=== PATIENT | male | born 1950 | race Caucasian/White ===

== ENCOUNTER 2020-01-20 09:07 | Outpatient (REF) | payer MEDICARE, OTHER, SELFPAY ==
[2020-01-20 11:24] LABS: Estimated Average Glucose 128 mg/dL; Hemoglobin A1c % 6.1 %
[2020-01-20 11:49] LABS: Alanine Aminotransferase 37 U/L (0-40); Albumin Level 4.6 g/dL (3.5-5.0); Alkaline Phosphatase 92 U/L (39-117); Anion Gap 13 (12-20); Aspartate Amino Transferase 19 U/L (5-37); Bilirubin Total 0.5 mg/dL (0.0-1.0); Blood Urea Nitrogen 13 mg/dL (9-16); Calcium 9.5 mg/dL (8.4-10.2); Carbon Dioxide 33 mmol/L (22-29); Chloride 99 mmol/L (96-108); Cholesterol 115 mg/dL; Estimated Glomerular Filt Rate > 60; Glucose Fasting 124 mg/dL (60-99); HDL Cholesterol 40 mg/dL; LDL Cholesterol Calculated 65 mg/dl; Potassium 4.5 mmol/l (3.3-5.1); Sodium 140 mmol/L (135-145); Total Protein 7.4 g/dL (6.5-8.0); Triglycerides 53 mg/dL
== END 2020-01-20 09:08 | disposition home or self-care (01) ==
LOC: HO.HMGCLDS 09:07
PROVIDERS: PCP Internal Medicine; Visit Provider Internal Medicine
DX: J45.909 Unspecified asthma, uncomplicated (principal); E78.2 Mixed hyperlipidemia; E11.9 Type 2 diabetes mellitus without complications
CPT/HCPCS: 80053; 80061; 83036; 84443

== ENCOUNTER 2020-04-14 12:10 | Outpatient (REF) | payer MEDICARE, OTHER, SELFPAY ==
[2020-04-14 14:51] LABS: Prostate Specific Antigen < 0.05 ng/mL (<0.05-4.0)
== END 2020-04-14 12:11 | disposition home or self-care (01) ==
LOC: HO.HMGCLDS 12:10
PROVIDERS: PCP Internal Medicine; Visit Provider Urology
DX: Z12.5 Encounter for screening for malignant neoplasm of prostate (principal); C61 Malignant neoplasm of prostate
CPT/HCPCS: 36415; 84153

== ENCOUNTER 2020-04-30 17:21 | Outpatient (REF) | payer MEDICARE, OTHER, SELFPAY | END 2020-04-30 17:22 | disposition home or self-care (01) | LOC: HO.LNP 17:21 | PROVIDERS: Visit Provider Hospitalist | DX: R30.0 Dysuria (principal) | CPT/HCPCS: 87086 ==

== ENCOUNTER 2020-05-28 09:07 | Outpatient (REF) | payer MEDICARE, OTHER, SELFPAY ==
[2020-05-28 11:44] LABS: Estimated Average Glucose 123 mg/dL; Hemoglobin A1c % 5.9 %
[2020-05-28 11:59] LABS: Alanine Aminotransferase 30 U/L (0-40); Albumin Level 4.5 g/dL (3.5-5.0); Alkaline Phosphatase 99 U/L (39-117); Anion Gap 11 (12-20); Aspartate Amino Transferase 17 U/L (5-37); Bilirubin Total 0.7 mg/dL (0.0-1.0); Blood Urea Nitrogen 15 mg/dL (9-16); Calcium 9.2 mg/dL (8.4-10.2); Carbon Dioxide 33 mmol/L (22-29); Chloride 100 mmol/L (96-108); Cholesterol 128 mg/dL; Estimated Glomerular Filt Rate > 60; Glucose Fasting 112 mg/dL (60-99); HDL Cholesterol 41 mg/dL; LDL Cholesterol Calculated 70 mg/dl; Potassium 4.3 mmol/L (3.3-5.1); Sodium 140 mmol/L (135-145); Total Protein 7.1 g/dL (6.5-8.0); Triglycerides 88 mg/dL
[2020-05-28 12:27] LABS: Creatinine Urine 180.38 mg/dL
== END 2020-05-28 09:08 | disposition home or self-care (01) ==
LOC: HO.HMGCLDS 09:07
PROVIDERS: PCP Internal Medicine; Visit Provider Internal Medicine
DX: E11.9 Type 2 diabetes mellitus without complications (principal); E78.5 Hyperlipidemia, unspecified; J45.909 Unspecified asthma, uncomplicated
CPT/HCPCS: 36415; 80053; 80061; 82043; 83036

== ENCOUNTER → 2020-07-29 09:15 | Outpatient (BNVA) | payer MEDICARE, OTHER, SELFPAY | PROVIDERS: PCP Internal Medicine; Referring Provider Internal Medicine; Visit Provider Internal Medicine Cardiovascular Disease | DX: I35.0 Nonrheumatic aortic (valve) stenosis (principal); E78.5 Hyperlipidemia, unspecified | CPT/HCPCS: 93005; 99212 ==

== ENCOUNTER → 2020-08-13 10:52 | Outpatient (REF) | payer MEDICARE, OTHER, SELFPAY ==
--- NOTE | 2020-08-13 10:55 | CA_ITS ---
Transthoracic Echocardiogram Patient (Last, First, Middle): Fernando Lu, Gender: Male Date of : 1950 Age: 70 Procedure Date: 08/13/2020 Procedure Type: Transthoracic Echocardiogram Location: OP Height: 167.64 cm Weight: 74.84 kg BSA: 1.84 m2 Heart Rate: bpm BP: 130 / 80 mmHg Block Chopper Hand: YAS Referring MD: Aidan Flor MD Symptoms: I35.0 - Nonrheumatic aortic (valve) stenosis Study Quality: Fair ECG Rhythm: Sinus Conclusions: - The left ventricular systolic function is normal. The visually estimated ejection fraction is between 60-65%. - There is moderate calcification of the aortic valve. There is mild aortic valve stenosis. Findings Left Ventricle Normal left ventricular cavity size. There is normal left ventricular wall thickness. The left ventricular systolic function is normal. The visually estimated ejection fraction is between 60-65%. There is no evidence of regional wall motion abnormalities. Diastolic function is normal for age. Right Ventricle Normal right ventricular cavity size and systolic function. Atria Both atria are normal in size. Aortic Valve There is moderate calcification of the aortic valve. There is mild aortic valve stenosis. The peak aortic gradient is 19 mmHg.The mean gradient is 10 mmHg. The aortic valve area is 1.40 cm2. There is no aortic valve regurgitation. Mitral Valve The mitral valve appears normal. There is trace mitral valve regurgitation. There is no mitral valve stenosis. Pulmonic Valve The pulmonic valve was not well visualized. Tricuspid Valve Normal tricuspid valve structure. There is trace tricuspid valve regurgitation. The pulmonary artery systolic pressure is normal. Great Vessels The aortic annulus, sinuses of valsalva, and asc aorta are normal in size. Venous The inferior vena cava is normal in size and collapses greater than 50% with inspiration. Pericardium/Pleural There is no evidence of pericardial effusion. Prior Study Comparison No significant change compared to prior study dated: 03/29/2018. Measurements 2D Linear Measurements IVSd: 1.01 0.6-0.9/0.6-1.0 cm LVIDd: 4.17 3.9-5.3/4.2-5.9 cm LVIDs: 2.78 2.0-3.6 cm LVPWd: 1.00 0.7-1.1 cm Ao Root: 3.71 2.1-3.5 cm LV Mass: 169.07 67-162/88-224 g LVOT Diam: 2.14 3.0+(-)1.3 cm Mitral Valve MV Pk E: 0.48 MV PK A: 0.81 MV Decel Time: 291.68 E/A: 0.60 E'Lateral: 0.09 E'Medial: 0.06 Decel Shelby: 1.66 Aortic Valve AoV Pk Toribio: 2.17 AoV Mn Toribio: 1.49 AoV VTI: 0.47 AoV Pk Grad: 18.80 Aov Mn Grad: 9.80 RAÚL Cont.VTI: 1.40 LVOT LVOT Pk Toribio: 0.77 LVOT Mn Toribio: 0.55 LVOT VTI: 0.18 LVOT Pk Grad: 2.35 LVOT Mn Grad: 1.36 LVOT Diam: 2.14 LVOT Area: 3.61 Diastolic Function MV Pk E: 0.48 MV Pk A: 0.81 E/A: 0.60 E'Medial: 0.06 E' Laterial: 0.09 Tricuspid Valve TR Pk Toribio: 1.74 TR Pk Grad: 12.09 RA Press: 3.00 RVSP: 15.00 Great Vessels Aorta Ao Root-2D: 3.71 2.0-3.7 cm Ao Asc: 3.43 2.1-3.4 cm Ao Arch: 3.01 Updated in Other Vendor System with Status of Final Bright Avendano MD electronically signed on 08/14/2020 2:01:03 PM with status of Final
== END ==
LOC: HO.CARD 10:52
PROVIDERS: Visit Provider Internal Medicine Cardiovascular Disease
DX: I35.0 Nonrheumatic aortic (valve) stenosis (principal)
CPT/HCPCS: 93306

== ENCOUNTER 2020-12-02 08:54 | Outpatient (REF) | payer MEDICARE, OTHER, SELFPAY ==
[2020-12-02 11:41] LABS: Estimated Average Glucose 123 mg/dL; Hemoglobin A1c % 5.9 %
[2020-12-02 12:22] LABS: Alanine Aminotransferase 51 U/L (0-40); Albumin Level 4.5 g/dL (3.5-5.0); Alkaline Phosphatase 100 U/L (39-117); Anion Gap 12 (12-20); Aspartate Amino Transferase 22 U/L (5-37); Bilirubin Total < 0.2 mg/dL (0.0-1.0); Blood Urea Nitrogen 18 mg/dL (9-16); Calcium 9.4 mg/dL (8.4-10.2); Carbon Dioxide 29 mmol/L (22-29); Chloride 103 mmol/L (96-108); Cholesterol 121 mg/dL; Estimated Glomerular Filt Rate > 60; Glucose Fasting 113 mg/dL (60-99); HDL Cholesterol 38 mg/dL; LDL Cholesterol Calculated 69 mg/dl; Sodium 140 mmol/L (135-145); Triglycerides 70 mg/dL
== END 2020-12-02 08:55 | disposition home or self-care (01) ==
LOC: HO.HMGCLDS 08:54
PROVIDERS: PCP Internal Medicine; Visit Provider Internal Medicine
DX: E11.9 Type 2 diabetes mellitus without complications (principal); E78.5 Hyperlipidemia, unspecified
CPT/HCPCS: 36415; 80053; 80061; 83036

== ENCOUNTER 2020-12-21 10:43 | Outpatient (REF) | payer MEDICARE, OTHER, SELFPAY ==
[2020-12-21 11:36] LABS: Hematocrit 50.6 % (42-52); Hemoglobin 16.4 g/dl (14.0-18.0); Mean Corpuscular HGB Conc 32.4 g/dl (31.0-36.0); Mean Corpuscular Hemoglobin 28.8 pg (27.0-33.0); Mean Corpuscular Volume 88.9 fL (80-98); Platelet Count 312 X10*3/uL (160-400); Red Blood Count 5.69 X10*6/uL (4.60-5.80); Red Cell Distribution Width 12.8 % (11.0-16.0); White Blood Count 9.3 X10*3/uL (4.8-10.8)
[2020-12-21 12:01] LABS: Alanine Aminotransferase 31 U/L (0-40); Albumin Level 4.9 g/dL (3.5-5.0); Alkaline Phosphatase 122 U/L (39-117); Amylase 67 U/L (28-100); Anion Gap 15 (12-20); Aspartate Amino Transferase 17 U/L (5-37); Bilirubin Direct 0.2 mg/dL (0.0-0.5); Bilirubin Total 0.5 mg/dL (0.0-1.0); Blood Urea Nitrogen 11 mg/dL (9-16); Calcium 10.1 mg/dL (8.4-10.2); Carbon Dioxide 31 mmol/L (22-29); Chloride 100 mmol/L (96-108); Estimated Glomerular Filt Rate > 60; Glucose Random 115 mg/dL (60-115); Lipase 17 U/L (8-78); Potassium 4.5 mmol/L (3.3-5.1); Sodium 141 mmol/L (135-145); Total Protein 7.7 g/dL (6.5-8.0)
== END 2020-12-21 10:44 | disposition home or self-care (01) ==
LOC: HO.HMGCLDS 10:43
PROVIDERS: PCP Internal Medicine; Visit Provider Internal Medicine
DX: R10.13 Epigastric pain (principal); R74.8 Abnormal levels of other serum enzymes
CPT/HCPCS: 36415; 80048; 80076; 82150; 83690; 85027

== ENCOUNTER 2020-12-23 13:44 | Outpatient (REF) | payer MEDICARE, OTHER, SELFPAY ==
--- NOTE | ~2020-12-23 | US_ITS ---
EXAMINATION: US ABDOMEN COMPLETE CLINICAL INFORMATION: Elevated LFTs. COMPARISON: Ultrasound abdominal aorta 11/22/2012 TECHNIQUE: Real-time imaging of the abdominal viscera. Technically difficult study secondary to body habitus. FINDINGS: PANCREAS: Not well visualized due to bowel gas. ABDOMINAL AORTA: The proximal, mid, and distal segments are normal in caliber. INFERIOR VENA CAVA: Visualized portions are normal. LIVER: The liver is normal in size. The liver contour is normal. Liver echotexture is slightly increased. No focal hepatic lesion. There is no intrahepatic biliary duct dilatation seen. GALLBLADDER: Normal. The gallbladder is physiologically distended without evidence of stones, sludge, polyps, wall thickening or pericholecystic fluid. COMMON BILE DUCT: Not well visualized. The visualized common bile duct is normal in caliber measuring 0.37 cm in diameter. RIGHT KIDNEY: Normal. No hydronephrosis. No renal calculi or focal parenchymal lesions. The kidney measures 11.4 cm in maximum dimension. LEFT KIDNEY: Normal. No hydronephrosis. No renal calculi or focal parenchymal lesions. The kidney measures 10.8 cm in maximum dimension. SPLEEN: Normal. The spleen measures 11.0 cm in maximum dimension. FREE FLUID: None. US/US abdomen complete IMPRESSION: Limited exam due to patient body habitus. In particular, evaluation of the pancreas and common bile duct are limited. Slightly echogenic liver. Differential would include fatty infiltration hepatocellular disease.
== END 2020-12-23 13:45 | disposition home or self-care (01) ==
LOC: HO.HMGCX 13:44
PROVIDERS: PCP Internal Medicine; Visit Provider Internal Medicine
DX: R74.8 Abnormal levels of other serum enzymes (principal)
CPT/HCPCS: 76700

== ENCOUNTER 2021-01-11 08:58 | Outpatient (REF) | payer MEDICARE, OTHER, SELFPAY ==
[2021-01-11 11:56] LABS: Hemoglobin 15.1 g/dl (14.0-18.0); Mean Corpuscular HGB Conc 32.1 g/dl (31.0-36.0); Mean Corpuscular Hemoglobin 28.9 pg (27.0-33.0); Mean Corpuscular Volume 89.9 fL (80.0-98.0); Mean Platelet Volume 10.7 fL (9.4-12.4); Platelet Count 298 X10*3/uL (160-400); Red Blood Count 5.23 X10*6/uL (4.60-5.80); Red Cell Distribution Width 12.9 % (11.0-16.0); White Blood Count 8.1 X10*3/uL (4.8-10.8)
[2021-01-11 12:06] LABS: Estimated Average Glucose 120 mg/dL; Hemoglobin A1C 149.3896 umol/L; Hemoglobin A1c % 5.8 %
[2021-01-11 12:08] LABS: Creatinine Urine 177.71 mg/dL; Microalbum/Creatinine Ratio Ur 6.7 ug/mg cr
[2021-01-11 12:36] LABS: Alanine Aminotransferase 57 U/L (0-40); Albumin Level 4.5 g/dL (3.5-5.0); Alkaline Phosphatase 119 U/L (39-117); Anion Gap 13 (12-20); Aspartate Amino Transferase 23 U/L (5-37); Bilirubin Direct 0.2 mg/dL (0.0-0.5); Bilirubin Total 0.5 mg/dL (0.0-1.0); Blood Urea Nitrogen 14 mg/dL (9-16); Calcium 9.3 mg/dL (8.4-10.2); Carbon Dioxide 30 mmol/L (22-29); Chloride 101 mmol/L (96-108); Cholesterol 106 mg/dL; Estimated Glomerular Filt Rate > 60; Glucose Fasting 104 mg/dL (60-99); HDL Cholesterol 33 mg/dL; LDL Cholesterol Calculated 60 mg/dl; Potassium 4.5 mmol/L (3.3-5.1); Sodium 139 mmol/L (135-145); Total Protein 6.9 g/dL (6.5-8.0); Triglycerides 68 mg/dL
== END 2021-01-11 08:59 | disposition home or self-care (01) ==
LOC: HO.HMGCLDS 08:58
PROVIDERS: PCP Internal Medicine; Visit Provider Internal Medicine
DX: I35.0 Nonrheumatic aortic (valve) stenosis (principal); J45.909 Unspecified asthma, uncomplicated; E11.9 Type 2 diabetes mellitus without complications; E78.5 Hyperlipidemia, unspecified
CPT/HCPCS: 36415; 80053; 80061; 80076; 82043; 82248; 83036; 85027

== ENCOUNTER 2021-06-01 08:18 | Outpatient (REF) | payer MEDICARE, OTHER, SELFPAY ==
[2021-06-01 12:42] LABS: Prostate Specific Antigen < 0.05 ng/mL (<0.05-4.0)
== END 2021-06-01 08:19 | disposition home or self-care (01) ==
LOC: HO.HMGCLDS 08:18
PROVIDERS: PCP Internal Medicine; Visit Provider Urology
DX: C61 Malignant neoplasm of prostate (principal); Z12.5 Encounter for screening for malignant neoplasm of prostate
CPT/HCPCS: 36415; 84153

== ENCOUNTER 2021-06-02 07:39 | Outpatient (REF) | payer MEDICARE, OTHER, SELFPAY ==
[2021-06-02 11:41] LABS: Estimated Average Glucose 123 mg/dL; Hemoglobin A1c % 5.9 %
[2021-06-02 11:53] LABS: Alanine Aminotransferase 37 U/L (0-40); Albumin Level 4.4 g/dL (3.5-5.0); Alkaline Phosphatase 103 U/L (39-117); Anion Gap 11 (12-20); Aspartate Amino Transferase 18 U/L (5-37); Bilirubin Total 0.7 mg/dL (0.0-1.0); Blood Urea Nitrogen 13 mg/dL (9-16); Calcium 9.3 mg/dL (8.4-10.2); Carbon Dioxide 30 mmol/L (22-29); Chloride 99 mmol/L (96-108); Cholesterol 129 mg/dL; Estimated Glomerular Filt Rate > 60; Glucose Fasting 114 mg/dL (60-99); HDL Cholesterol 40 mg/dL; LDL Cholesterol Calculated 76 mg/dl; Potassium 4.3 mmol/L (3.3-5.1); Sodium 136 mmol/L (135-145); Total Protein 7.2 g/dL (6.5-8.0); Triglycerides 65 mg/dL
[2021-06-02 11:53] LABS: Creatinine Urine 184.15 mg/dL; Microalbum/Creatinine Ratio Ur 6.5 ug/mg cr
[2021-06-02 11:55] LABS: Hematocrit 46.8 % (42.0-52.0); Mean Corpuscular HGB Conc 32.1 g/dl (31.0-36.0); Mean Corpuscular Hemoglobin 29.1 pg (27.0-33.0); Mean Corpuscular Volume 90.9 fL (80.0-98.0); Mean Platelet Volume 10.2 fL (9.4-12.4); Platelet Count 291 X10*3/uL (160-400); Red Blood Count 5.15 X10*6/uL (4.60-5.80); Red Cell Distribution Width 13.4 % (11.0-16.0); White Blood Count 8.6 X10*3/uL (4.8-10.8)
== END 2021-06-02 07:40 | disposition home or self-care (01) ==
LOC: HO.HMGCLDS 07:39
PROVIDERS: PCP Internal Medicine; Visit Provider Internal Medicine
DX: E11.9 Type 2 diabetes mellitus without complications (principal); E78.5 Hyperlipidemia, unspecified
CPT/HCPCS: 36415; 80053; 80061; 82043; 83036; 85027

== ENCOUNTER 2021-10-05 08:41 | Outpatient (REF) | payer MEDICARE, OTHER, SELFPAY ==
[2021-10-05 11:30] LABS: Hematocrit 48.5 % (42.0-52.0); Hemoglobin 15.8 g/dl (14.0-18.0); Mean Corpuscular HGB Conc 32.6 g/dl (31.0-36.0); Mean Corpuscular Hemoglobin 29.2 pg (27.0-33.0); Mean Corpuscular Volume 89.5 fL (80.0-98.0); Mean Platelet Volume 10.2 fL (9.4-12.4); Platelet Count 298 X10*3/uL (160-400); Red Blood Count 5.42 X10*6/uL (4.60-5.80); Red Cell Distribution Width 13.2 % (11.0-16.0); White Blood Count 8.4 X10*3/uL (4.8-10.8)
[2021-10-05 11:42] LABS: Alanine Aminotransferase 38 U/L (0-40); Albumin Level 4.7 g/dL (3.5-5.0); Alkaline Phosphatase 95 U/L (39-117); Anion Gap 16 (12-20); Aspartate Amino Transferase 19 U/L (5-37); Bilirubin Total 0.8 mg/dL (0.0-1.0); Blood Urea Nitrogen 17 mg/dL (9-16); Calcium 9.7 mg/dL (8.4-10.2); Carbon Dioxide 29 mmol/L (22-29); Chloride 100 mmol/L (96-108); Cholesterol 122 mg/dL; Estimated Glomerular Filt Rate > 60; Glucose Fasting 122 mg/dL (60-99); HDL Cholesterol 42 mg/dL; LDL Cholesterol Calculated 68 mg/dl; Potassium 5.1 mmol/L (3.3-5.1); Sodium 140 mmol/L (135-145); Total Protein 7.6 g/dL (6.5-8.0); Triglycerides 64 mg/dL
[2021-10-05 11:46] LABS: Estimated Average Glucose 126 mg/dL
[2021-10-05 12:19] LABS: Creatinine Urine 130.78 mg/dL; Microalbum/Creatinine Ratio Ur 9.1 ug/mg cr
== END 2021-10-05 08:42 | disposition home or self-care (01) ==
LOC: HO.HMGCLDS 08:41
PROVIDERS: PCP Internal Medicine; Visit Provider Internal Medicine
DX: E11.9 Type 2 diabetes mellitus without complications (principal); E78.5 Hyperlipidemia, unspecified
CPT/HCPCS: 36415; 80053; 80061; 82043; 83036; 85027

== ENCOUNTER 2021-12-09 08:17 | Day surgery (SDC) | payer MEDICARE, OTHER, SELFPAY ==
--- NOTE | 2021-12-08 11:57 | P.CONAN_ITS ---
Documented by User: Laura Rahman NP 12/08/21 12:00 HPI - Anesthesia Eval Consult details Narrative: 71yo M for Upper Endoscopy [facility] Active Problems Active Problems: All Active Problems (Updated 10/10/21 @ 14:02 by Shelia Judge MD) Annual physical exam (Acute) Zacarias esophagus (Acute) Epigastric pain (Acute) Aortic stenosis (Acute) Asthma (Acute) Dysuria (Acute) Hyperlipidemia (Acute) DM type 2 (diabetes mellitus, type 2) (Acute) Past Medical History Medical History Aortic stenosis Asthma Zacarias esophagus DM type 2 (diabetes mellitus, type 2) GERD (gastroesophageal reflux disease) Hx of basal cell carcinoma Hyperlipidemia Prostate CA Stress incontinence Family History Family History Father HTN (hypertension) History of heart attack Enlarged prostate CVD (cardiovascular disease) Surgical History Surgical History H/O colonoscopy History of microdiscectomy History of prostatectomy Hx of esophagogastroduodenoscopy Social History Social History Housing: House Alcohol intake: current Alcohol intake frequency: holidays/special occasions only Patient Tobacco Use Status: Never used Tobacco e-Cigarette/Vaping Use: Never Used Use of substances other than those prescribed or required for medical reasons: No Are you DNR?: No Advance Directives: No Advance Directives Information Provided: Yes service: No Current occupational status: retired Cognitive needs: No Hearing needs: No Vision needs: No Meds Allergies Allergy/AdvReac Type Severity Reaction Status Date / Time No Known Allergies Allergy Verified 12/09/21 09:22 Home Medications Medication Instructions Recorded Confirmed Last Taken Type blood sugar diagnostic #10 ea 01/28/20 10/10/21 Unknown History flu vacc 2020-21(65yr 0.5 ml IM DIRECTED 01/28/20 10/10/21 Unknown History up)-MF59C(PF) 60 mcg(15 mcgx4)/0.5 mL IM syringe aspirin 81 mg tablet,delayed 81 mg PO DAILY 06/02/20 10/10/21 Unknown History release cholecalciferol (vitamin D3) 25 25 mcg PO DAILY 06/02/20 10/10/21 Unknown History mcg (1,000 unit) capsule loratadine 10 mg capsule 10 mg PO DAILY 06/02/20 10/10/21 Unknown History ciclopirox 0.77 % topical cream appl topical 10/10/21 10/10/21 Unknown History Exam Exam Date and Time: December 08, 2021 1157 Pertinent Lab Results Pertinent Lab Results: Laboratory Tests 10/05/21 10/05/21 08:55 08:55 WBC 8.4 Hgb 15.8 Hct 48.5 Plt Count 298 Sodium 140 Potassium 5.1 Chloride 100 Carbon Dioxide 29 BUN 17 H Creatinine 0.86 Narrative Narrative: ECHO 2020 Conclusions: - The left ventricular systolic function is normal.? The visually estimated ejection fraction is between 60-65%. ? - There is moderate calcification of the aortic valve.? There is mild aortic valve stenosis.? EKG 2020 SR with SA @ 71 1st deg AV block Assessment and Plan Assessment Anesthesia Assessment: Chart Reviewed Documented by User: Shayna Pope MD 12/09/21 10:01 [facility] Past Medical History Medical History Aortic stenosis Asthma Zacarias esophagus DM type 2 (diabetes mellitus, type 2) GERD (gastroesophageal reflux disease) Hx of basal cell carcinoma Hyperlipidemia Prostate CA Stress incontinence Family History Family History Father HTN (hypertension) History of heart attack Enlarged prostate CVD (cardiovascular disease) Surgical History Surgical History H/O colonoscopy History of microdiscectomy History of prostatectomy Hx of esophagogastroduodenoscopy History of Problems with Anesthesia: No Social History Social History Housing: House Alcohol intake: current Alcohol intake frequency: holidays/special occasions only Patient Tobacco Use Status: Never used Tobacco e-Cigarette/Vaping Use: Never Used Use of substances other than those prescribed or required for medical reasons: No Are you DNR?: No Advance Directives: No Advance Directives Information Provided: Yes service: No Current occupational status: retired Cognitive needs: No Hearing needs: No Vision needs: No Meds Allergies Allergy/AdvReac Type Severity Reaction Status Date / Time No Known Allergies Allergy Verified 12/09/21 09:22 Home Medications Medication Instructions Recorded Confirmed Last Taken Type blood sugar diagnostic #10 ea 01/28/20 10/10/21 Unknown History flu vacc 2020-21(65yr 0.5 ml IM DIRECTED 01/28/20 10/10/21 Unknown History up)-MF59C(PF) 60 mcg(15 mcgx4)/0.5 mL IM syringe aspirin 81 mg tablet,delayed 81 mg PO DAILY 06/02/20 10/10/21 Unknown History release cholecalciferol (vitamin D3) 25 25 mcg PO DAILY 06/02/20 10/10/21 Unknown History mcg (1,000 unit) capsule loratadine 10 mg capsule 10 mg PO DAILY 06/02/20 10/10/21 Unknown History ciclopirox 0.77 % topical cream appl topical 10/10/21 10/10/21 Unknown History Exam Airway Mallampati Class: III TM Dist: >3cm Neck ROM: Full Loose/Missing/Broken Teeth: No Heart: RRR Lungs: CTA Assessment and Plan Assessment Anesthesia Assessment: Anesthesia Plan Discussed Final Anesthetic Review History of Problems with Anesthesia: No NPO: Yes ASA Class: III Final Preanesthetic Review: Meds/Allgs Chart Reviewed, Consent Obtained/Reviewed and Anes Risks/Benef Reviewed Patient Risk: Intermediate Procedure Risk: Intermediate Anesthetic Plan Anesthetic Plan: MAC: Disposition: Standard PACU
[2021-12-09 09:23] VITALS: BP 136/80; PULSE 74; RESP 16; TEMP 36.5; O2SAT 98; BMI 26.1
[2021-12-09 09:41] LABS: Glucose, Whole Blood 125 mg/dL (60-115)
[2021-12-09] MEDS: Lactated Ringers 1,000 ML 100 ML IVCONT (09:44)
[2021-12-09 10:30] VITALS: BP 92/58; PULSE 63; RESP 20; TEMP 36.3; O2SAT 99
--- NOTE | 2021-12-09 10:31 | P.BOP_ITS ---
Brief Operative Note Date of Service: 12/09/21 Pre-op diagnosis: GERD, Zacarias's Post-op diagnosis: other (Hiatal hernia) Procedure: EGD with biopsies Surgeon: Tyrone Norman Anesthesia: MAC Was an Etcher Apprentice Photoengraving used for this Procedure?: No Estimated blood loss (mL): 2.0 Pathology: other (A. Esophagus 34-35cm) Condition: stable Disposition: PACU
[2021-12-09 10:44] VITALS: BP 116/78; PULSE 66; RESP 20; TEMP 36.3; O2SAT 98
--- NOTE | 2021-12-12 14:29 | OP_ITS ---
SURGEON: Tyrone Norman MD INDICATIONS: The patient presents for evaluation of chronic gastroesophageal reflux and history of Zacarias's esophagus. Full consent has been obtained from him for this, including risks of bleeding and perforation. PREOPERATIVE DIAGNOSIS: History of gastroesophageal reflux and Zacarias's esophagus. POSTOPERATIVE DIAGNOSIS: PROCEDURE PERFORMED: Esophagogastroduodenoscopy with biopsies. ESTIMATED BLOOD LOSS: COMPLICATIONS: ANESTHESIA: Monitored anesthesia care. ASSISTANTS: SPECIMENS: POSTOPERATIVE DIAGNOSES: History of gastroesophageal reflux and Zacarias's esophagus, hiatal hernia. DESCRIPTION OF PROCEDURE: The patient was placed in the left lateral decubitus position the Olympus video gastroscope was passed in the posterior oropharynx and upper esophagus under direct vision. The scope was passed slowly into the distal esophagus. The gastroesophageal junction appeared at 35 cm. Extending to 34 cm were some areas of irregularity and small areas of probable Zacarias's mucosa. There was no evidence of any lesions nor esophagitis. The scope entered into the stomach. There was a small hiatal hernia. The scope was advanced to the pylorus and the duodenum was cannulated to the descending portion. The duodenum including the bulb appeared normal without mass or ulceration. The scope was withdrawn back in the stomach. The gastric antrum and body appeared normal with good peristalsis. The scope was retroflexed visualizing the proximal stomach carefully, which appeared normal, without any sign of mass or ulceration. Scope was straightened. The scope was withdrawn back in the esophagus. Multiple biopsies were obtained between 34 and 35 cm in the esophagus. Proximal to this, the esophageal mucosa appeared normal. The scope was withdrawn from the patient. He tolerated the procedure well and was returned to the recovery area in stable condition. IMPRESSION: 1. Hiatal hernia, gastroesophageal reflux. 2. History of Zacarias's esophagus. PLAN: The results of the biopsies will be checked. I would recommend a repeat upper endoscopy in 3 years for further surveillance. He was advised to continue his daily omeprazole. MD TYRELL Cardona/MEE / [id number] MTDD
== END 2021-12-09 11:09 | disposition home or self-care (01) ==
PROVIDERS: PCP Internal Medicine; Visit Provider Internal Medicine
PROC: 0DJ08ZZ Inspection of Upper Intestinal Tract, Via Natural or Artificial Opening Endoscopic (ICD-10-PCS; CPT 43235; principal; 2021-12-09 09:40)
DX: K22.70 Barrett's esophagus without dysplasia (principal); K21.9 Gastro-esophageal reflux disease without esophagitis; K44.9 Diaphragmatic hernia without obstruction or gangrene; J45.909 Unspecified asthma, uncomplicated; E11.9 Type 2 diabetes mellitus without complications; E78.5 Hyperlipidemia, unspecified; Z79.899 Other long term (current) drug therapy; Z79.82 Long term (current) use of aspirin; Z79.51 Long term (current) use of inhaled steroids; Z85.46 Personal history of malignant neoplasm of prostate; Z79.84 Long term (current) use of oral hypoglycemic drugs
CPT/HCPCS: 43239; 82947; 88305

== ENCOUNTER 2022-01-11 14:12 | Emergency (ER) | payer MEDICARE, OTHER, SELFPAY ==
[2022-01-11 14:26] VITALS: BP 140/78; BP 167/78; PULSE 103; PULSE 90; RESP 18; TEMP 37.8; O2SAT 98; BMI 26.6
--- NOTE | 2022-01-11 14:32 | ED_ITS ---
History of Present Illness General Chief Complaint: Epistaxis Stated Complaint: LEFT NOSTRIL NOSE BLEED,CONTROLLED PER EMS Time Seen by Provider: 01/11/22 14:31 Source: patient Mode of arrival: ambulatory Limitations: no limitations History of Present Illness HPI Narrative: 71 yo M with a PMH of epigastric pain, Zacarias esophagus, aortic stenosis, asthma, HLD, and DM2 presents to the ED for left sided epistaxis. He stated heavy bleeding began about 1:30 pm while he was walking, he denies any trauma or history of previous episodes of epistaxis. Pressure manually holding pressure to nasal bridge and ice applied to induce vasoconstriction. Initial blood pressure elevated on arrival to ED (167/78) with pulse > 100 bpm. Pt denies history of known hypertension. Pt denies headache, vision changes, nausea or vomiting. Location: Yes left naris Onset/current episode: Yes hour(s) Duration: Yes constant Associated symptoms: No fever, No headache, No vomiting, No nasal/face pain and Yes bleeding down back of throat Related Data Home Medications Medication Instructions Recorded Confirmed blood sugar diagnostic #10 ea 01/28/20 10/10/21 flu vacc 2020-21(65yr 0.5 ml IM DIRECTED 01/28/20 10/10/21 up)-MF59C(PF) 60 mcg(15 mcgx4)/0.5 mL IM syringe aspirin 81 mg tablet,delayed 81 mg PO DAILY 06/02/20 10/10/21 release cholecalciferol (vitamin D3) 25 25 mcg PO DAILY 06/02/20 10/10/21 mcg (1,000 unit) capsule loratadine 10 mg capsule 10 mg PO DAILY 06/02/20 10/10/21 ciclopirox 0.77 % topical cream appl topical 10/10/21 10/10/21 Previous Rx's Medication Instructions Recorded flunisolide 25 mcg (0.025 %) nasal 1 spray intranasal BID #25 mL 12/23/20 spray fluticasone propionate 250 1 inh PO BID #180 ea 02/16/21 mcg/actuation blister powder for inhalation omeprazole 20 mg capsule,delayed 20 mg PO DAILY #90 caps 02/21/21 release atorvastatin 40 mg tablet 40 mg PO DAILY #90 tabs 06/03/21 albuterol sulfate 90 mcg/actuation 1 inh inhalation QID PRN shortness 06/08/21 aerosol inhaler (ProAir HFA) of breath or wheezing #18 grams metformin 500 mg tablet,extended 500 mg PO DAILY #90 tabs 09/27/21 release 24hr cephalexin 500 mg capsule 500 mg PO QID Antibiotic 01/11/22 prophylaxis 5 days #20 caps Allergies Allergy/AdvReac Type Severity Reaction Status Date / Time No Known Allergies Allergy Verified 12/09/21 09:22 Review of Systems Review of Systems: Yes all other systems are reviewed and are negative Constitutional: Constitutional: Reports no additional constitutional complaints, Denies chills, Denies fever(s) and Denies headache(s) Eyes: Eyes: Reports no additional eye complaints and Denies change in vision ENT: Denies dizziness, Denies headache(s) and Reports epistaxis (left nare) Cardiovascular: Cardiovascular: Reports no additional cardiovascular complaints, Denies chest pain, Denies Loss of Consciousness and Denies dyspnea Respiratory: Respiratory: Reports no additional respiratory complaints, Denies cough, Denies pain on inspiration and Denies dyspnea Gastrointestinal: Gastrointestinal: Reports no additional gastrointestinal complaints, Denies nausea and Denies vomiting Musculoskeletal: Musculoskeletal: Reports no additional musculoskeletal complaints Integumentary/Breasts: Skin/Breast: Reports system reviewed and no additional complaints, except as docu and Reports erythema (fungul infection in groin) Neurologic: Reports system reviewed and no additional complaints, except as documented, Denies Abnormal speech present, Denies dizziness and Denies headache(s) Psychiatric: Psychiatric: Reports no additional psychiatric complaints [facility] Past Medical History Attestation statement: The following information was validated with the patient. Source: old records reviewed Medical History Aortic stenosis Asthma Zacarias esophagus DM type 2 (diabetes mellitus, type 2) GERD (gastroesophageal reflux disease) Hx of basal cell carcinoma Hyperlipidemia Prostate CA Stress incontinence Surgical History H/O colonoscopy History of microdiscectomy History of prostatectomy Hx of esophagogastroduodenoscopy Family History Family History Father HTN (hypertension) History of heart attack Enlarged prostate CVD (cardiovascular disease) Social History Social History Housing: House Alcohol intake: never Patient Tobacco Use Status: Never used Tobacco Smoked in Last 30 Days: No e-Cigarette/Vaping Use: Never Used Use of substances other than those prescribed or required for medical reasons: Unable to respond Advance Directives: No service: No Current occupational status: retired Cognitive needs: No Hearing needs: No Vision needs: No Physical Exam Vital Signs: Vital Signs: Last Vital Signs Temp 98.2 F 01/11/22 15:56 Pulse 88 01/11/22 15:56 Resp 16 01/11/22 15:56 BP 168/80 H 01/11/22 15:56 Pulse Ox 97 01/11/22 15:56 O2 Del Method 01/11/22 15:56 BMI result Body Mass Index 26.6 Const: General: cooperative, alert and awake Nutritional Appearance: well nourished Orientation/consciousness: patient oriented x3 Limitations: no limitations HEENT: Head: Yes normal to inspection and Yes normocephalic Ears: hearing grossly normal bilaterally and external ears normal General nose exam: Normal external nose present and Epistaxis present on the left Face and sinus: Yes normal facial exam Mouth: Normal oral and palatal mucosa present Throat: Yes postnasal drainage (blood 2' epistaxis) Eyes: General: appearance normal, both eyes and all related structures Visual Samuel: normal visual samuel by confrontation Alignment and Position: alignment normal Periorbital: periorbital findings normal Eyelids: Yes eyelids normal Conjunctivae: conjunctivae normal Sclerae: sclerae normal Pupils: Equal, round and reactive pupils present EOM: EOMs intact bilaterally Neck: Neck: Yes normal visual inspection and Yes full ROM Chest: Chest palpation & inspection: normal inspection of the chest Neuro: General: patient oriented x3 Cranial nerves: Yes Equal, round and reactive pupils present Speech: No Abnormal speech present Motor exam (neuro): 5/5 motor strength present throughout Sensory Exam: Normal double simultaneous stimulation for sensation Extrem: General: Yes normal to inspection, Yes full ROM and Yes capillary refi ll normal Psych: Appearance: grossly normal Mental Status: mental status grossly normal Speech and movement: Normal speech and movement present and Clear speech present Affect: normal affect Attitude: cooperative Thought pr ocess: Normal thought process present Thought content: Normal thought content present Insight: Good insight present (Psych) Judgement: Good judgement present (Psych) Medications Administered Discontinued Medications Generic Name Dose Route Start Last Admin Trade Name Renetta PRN Reason Stop Dose Admin Cocaine HCl 4 ml 01/11/22 15:27 01/11/22 15:39 Cocaine Hcl 4 % 4 Ml Solution TOPICAL 01/11/22 15:28 4 ml ONCE STA Administration Protocol Oxymetazoline HCl 2 spray 01/11/22 14:47 01/11/22 15:05 Oxymetazoline Hcl 0.05 % Nasal 15 Ml [place] NOSTRIL-B 01/11/22 14:48 2 spray ONCE ONE Administration Silver Nitrate 6 appl 01/11/22 15:27 01/11/22 15:40 Silver Nitrate Applicator Stick..Ea. TOPICAL 01/11/22 15:28 6 appl ONCE ONE Administration MDM - Epistaxis MDM Narrative Medical decision making narrative: 71-year-old male who presented to the emergency department with left naris epistaxis since 1:30 pm. Left nare examined and source of bleeding noted from the anteroinferior septum. Rolled gauze soaked in topical cocaine and packed into left nare against septum with manual pressure applied to be reassessed after 20 minutes. Pt educated that Gauze removed with noted vasoconstiction of vessel and reduction in bleeding noted. Again packed with rolled gauze soaked in topical cocaine with manual pressure applied to be reassessed in 20 minutes. Packing removed and reassessed with no active bleeding noted. Area of bleeding identified, cauterized with silver nitrate and Rhino rocket nasal packing inserted and inflated with 3 ml air. Packing appears to successfully cover site of initial bleeding. Prophylactic antibiotics prescribed and pt educated to follow up with Nery Bojorquez (ENT MD) for removal of packing on Sunday. Educated to return to the ED with vision changes, dizziness, weakness, fever, chills, or repeat bleeding. Plan discussed with patient and family with no unanswered quesions. Pt medically cleared for discharge. Discharge Plan Discharge Clinical Impression: Acute anterior epistaxis Patient Disposition: Home, Self-Care Instructions: Nosebleed (ED) Prescriptions: New cephalexin 500 mg capsule 500 mg PO QID 5 Days Qty: 20 0RF No Action flunisolide 25 mcg (0.025 %) spray,non-aerosol 1 spray intranasal BID Qty: 25 6RF fluticasone propionate 250 mcg/actuation blister with device 1 inh PO BID Qty: 180 3RF omeprazole 20 mg capsule,delayed release(DR/EC) 20 mg PO DAILY Qty: 90 3RF atorvastatin 40 mg tablet 40 mg PO DAILY Qty: 90 3RF metformin 500 mg tablet extended release 24hr 500 mg PO DAILY Qty: 90 3RF (DME) Freestyle [employer] Strip See Rx Instructions .ROUTE DAILY Qty: 10 Rx Instructions: As directed Fluad Quad 2020-21(65y up)(PF) 60 mcg (15 mcg x 4)/0.5 mL syringe 0.5 ml IM DIRECTED loratadine 10 mg capsule 10 mg PO DAILY aspirin 81 mg tablet,delayed release (DR/EC) 81 mg PO DAILY cholecalciferol (vitamin D3) 25 mcg (1,000 unit) capsule 25 mcg PO DAILY albuterol sulfate [ProAir HFA] 90 mcg/actuation HFA aerosol inhaler 1 inh inhalation QID PRN (Reason: shortness of breath or wheezing) Qty: 18 6RF ciclopirox 0.77 % cream topical Referrals: Shelia Judge MD [Primary Care Provider] - Omero Bojorquez [Physician] - Print Language: Palestinian
[2022-01-11] MEDS: Oxymetazoline HCl 0.05 % Nasal 15 ML SPRAY 2 SPRAY NOSTRIL-B (15:05)
[2022-01-11] MEDS: Cocaine HCl 4 % 4 ML SOLUTION TOPICAL (15:39)
[2022-01-11] MEDS: Silver Nitrate Applicator STICK..EA. 6 APPL TOPICAL (15:40)
[2022-01-11 15:56] VITALS: BP 168/80; PULSE 88; RESP 16; TEMP 36.8; O2SAT 97
[2022-01-11 17:15] VITALS: BP 153/82; PULSE 87; RESP 16; TEMP 36.8; O2SAT 95
[2022-01-11] MEDS: cephALEXin 500 MG CAPSULE PO (17:17)
[2022-01-11] MEDS: Ondansetron ODT 4 MG TAB.RAPDIS TRANSLINGU (17:17)
== END 2022-01-11 17:21 | disposition home or self-care (01) ==
PROVIDERS: Emergency Provider Emergency Medicine Emergency Medical Services; PCP Internal Medicine
DX: R04.0 Epistaxis (principal); E11.9 Type 2 diabetes mellitus without complications; E78.5 Hyperlipidemia, unspecified; Z79.82 Long term (current) use of aspirin; Z79.899 Other long term (current) drug therapy; Z79.02 Long term (current) use of antithrombotics/antiplatelets
CPT/HCPCS: 30901; 30903; 99283; 99284; C9046

== ENCOUNTER 2022-01-12 10:21 | Emergency (ER) | payer MEDICARE, OTHER, SELFPAY ==
[2022-01-12 10:26] VITALS: BP 152/77; PULSE 92; RESP 16; TEMP 36.8; O2SAT 99; BMI 26.6
[2022-01-12] MEDS: Cocaine HCl 4 % 4 ML SOLUTION TOPICAL ×2 (12:10→16:10)
--- NOTE | 2022-01-12 12:20 | PC.NURSE ---
Dr. Infante and PA student in to pack pt nose. Pt tolerated well, MD will return in approximately 20 minutes to unpack and re-pack nose
[2022-01-12] MEDS: Silver Nitrate Applicator STICK..EA. 1 APPL TOPICAL (13:37)
[2022-01-12 14:53] LABS: Glucose, Whole Blood 129 mg/dL (60-115)
--- NOTE | 2022-01-12 17:10 | ED.EPISTAXIS ---
History of Present Illness General Chief Complaint: Epistaxis Stated Complaint: nosebleed Time Seen by Provider: 01/12/22 10:56 Source: patient Mode of arrival: ambulatory Limitations: no limitations History of Present Illness HPI Narrative: 71-year-old male who presents emergency department for evaluation left nares epistaxis. Patient was seen in the emergency department for epistaxis from his left nares. Patient was seen in the emergency department and treated with intranasal cocaine, cautery and rhino rocket packing. The patient contacted the emergency department this morning and stated that he was dripping blood down the back of his throat, he was having increased pain in his left nares, left sinus area and left head. He states that the ENT office was told him to contact emergency department since we placed a rhino rocket. After talking to the patient on the phone, I advised him to come to the emergency department for evaluation. Related Data Home Medications Medication Instructions Recorded Confirmed blood sugar diagnostic #10 ea 01/28/20 10/10/21 flu vacc 2020-21(65yr 0.5 ml IM DIRECTED 01/28/20 10/10/21 up)-MF59C(PF) 60 mcg(15 mcgx4)/0.5 mL IM syringe aspirin 81 mg tablet,delayed 81 mg PO DAILY 06/02/20 10/10/21 release cholecalciferol (vitamin D3) 25 25 mcg PO DAILY 06/02/20 10/10/21 mcg (1,000 unit) capsule loratadine 10 mg capsule 10 mg PO DAILY 06/02/20 10/10/21 ciclopirox 0.77 % topical cream appl topical 10/10/21 10/10/21 Previous Rx's Medication Instructions Recorded flunisolide 25 mcg (0.025 %) nasal 1 spray intranasal BID #25 mL 12/23/20 spray fluticasone propionate 250 1 inh PO BID #180 ea 02/16/21 mcg/actuation blister powder for inhalation omeprazole 20 mg capsule,delayed 20 mg PO DAILY #90 caps 02/21/21 release atorvastatin 40 mg tablet 40 mg PO DAILY #90 tabs 06/03/21 albuterol sulfate 90 mcg/actuation 1 inh inhalation QID PRN shortness 06/08/21 aerosol inhaler (ProAir HFA) of breath or wheezing #18 grams metformin 500 mg tablet,extended 500 mg PO DAILY #90 tabs 09/27/21 release 24hr cephalexin 500 mg capsule 500 mg PO QID Antibiotic 01/11/22 prophylaxis 5 days #20 caps Allergies Allergy/AdvReac Type Severity Reaction Status Date / Time No Known Allergies Allergy Verified 12/09/21 09:22 Review of Systems Review of Systems: Yes all other systems are reviewed and are negative [facility] Past Medical History Medical History Aortic stenosis Asthma Zacarias esophagus DM type 2 (diabetes mellitus, type 2) GERD (gastroesophageal reflux disease) Hx of basal cell carcinoma Hyperlipidemia Prostate CA Stress incontinence Surgical History H/O colonoscopy History of microdiscectomy History of prostatectomy Hx of esophagogastroduodenoscopy Family History Family History Father HTN (hypertension) History of heart attack Enlarged prostate CVD (cardiovascular disease) Social History Social History Housing: House Alcohol intake: never Patient Tobacco Use Status: Never used Tobacco e-Cigarette/Vaping Use: Never Used Advance Directives: No service: No Current occupational status: retired Cognitive needs: No Hearing needs: No Vision needs: No Physical Exam Vital Signs: Vital Signs: Last Vital Signs Temp 98.2 F 01/12/22 10:26 Pulse 92 01/12/22 10:26 Resp 16 01/12/22 10:26 BP 152/77 H 01/12/22 10:26 Pulse Ox 99 01/12/22 10:26 O2 Del Method 01/12/22 10:26 BMI result Body Mass Index 26.6 Const: Other: Awake, alert, male patient, very pleasant cooperative, does not appear to be distressed HEENT: Other: The patient has the rhino rocket packing in his left nares. He is coughing up blood from the back of his throat. There is some slight oozing of blood around the packing. Course Course Course Narrative: 71-year-old that presents emergency department for evaluation of left nares epistaxis occurring around the rhino rocket packing that was placed yesterday. The patient did have blood using around the rhino rocket and he was spitting of blood. The packing was removed. There was a small area of bleeding on the anterior nasal septum. Patient was 1st packed with 4% cocaine for approximately 40 minutes this did stop the bleeding. I attempted to cauterize the area that had been bleeding previously and this, bleeding. Patient was repacked with 4% cocaine again however this did not controlled the bleeding. Patient's lab packed with a 5.5 cm rhino rocket inflated with 4 cc of air. Patient's bleeding was significantly improved however he is still spitting up blood however there was no blood coming from around the packing. At this point, the patient will be discharged home. He was given printed and verbal instructions advised return emergency department if his bleeding got worse. Medications Administered Discontinued Medications Generic Name Dose Route Start Last Admin Trade Name Renetta PRN Reason Stop Dose Admin Cocaine HCl 4 ml 01/12/22 11:40 01/12/22 12:10 Cocaine Hcl 4 % 4 Ml Solution TOPICAL 01/12/22 11:41 4 ml ONCE ONE Administration Protocol Cocaine HCl 4 ml 01/12/22 15:17 01/12/22 16:10 Cocaine Hcl 4 % 4 Ml Solution TOPICAL 01/12/22 15:18 4 ml ONCE ONE Administration Protocol Silver Nitrate 1 appl 01/12/22 13:03 01/12/22 13:37 Silver Nitrate Applicator Stick..Ea. TOPICAL 01/12/22 13:04 1 appl ONCE ONE Administration MDM - Epistaxis Lab Data Labs: Lab Results 01/12/22 Range/Units 14:48 POC Glucose 129 H (60-115) mg/dL Procedures Epistaxis Control Time Out Performed: No Nostril: Yes left Nose prepped with: Yes cocaine 4% Direct inspection: Yes anterior source identified Direct inspection method: Yes headlamp Clots removed by: Yes blowing nose Epistaxis treatment: Yes other (Rhino rocket 5.5 cm, 4 cc of air) Results of treatment: Yes bleeding controlled and Yes continued epistaxis Complications: Yes none Discharge Plan Discharge Clinical Impression: Epistaxis Patient Disposition: Home, Self-Care Instructions: Nosebleed (ED) Additional Instructions: Continue taking the cephalexin as prescribed. Take Tylenol (acetaminophen) 500 mg pills, 2 pills every 4 to 6 hours as needed for pain. Follow-up with ENT as scheduled on Sunday. Please return to the emergency department if your symptoms get worse or if you develop any symptoms that are concerning to you. Prescriptions: No Action flunisolide 25 mcg (0.025 %) spray,non-aerosol 1 spray intranasal BID Qty: 25 6RF fluticasone propionate 250 mcg/actuation blister with device 1 inh PO BID Qty: 180 3RF omeprazole 20 mg capsule,delayed release(DR/EC) 20 mg PO DAILY Qty: 90 3RF atorvastatin 40 mg tablet 40 mg PO DAILY Qty: 90 3RF metformin 500 mg tablet extended release 24hr 500 mg PO DAILY Qty: 90 3RF cephalexin 500 mg capsule 500 mg PO QID 5 Days Qty: 20 0RF (DME) Freestyle [employer] Strip See Rx Instructions .ROUTE DAILY Qty: 10 Rx Instructions: As directed Fluad Quad 2020-21(65y up)(PF) 60 mcg (15 mcg x 4)/0.5 mL syringe 0.5 ml IM DIRECTED loratadine 10 mg capsule 10 mg PO DAILY aspirin 81 mg tablet,delayed release (DR/EC) 81 mg PO DAILY cholecalciferol (vitamin D3) 25 mcg (1,000 unit) capsule 25 mcg PO DAILY albuterol sulfate [ProAir HFA] 90 mcg/actuation HFA aerosol inhaler 1 inh inhalation QID PRN (Reason: shortness of breath or wheezing) Qty: 18 6RF ciclopirox 0.77 % cream topical
== END 2022-01-12 17:36 | disposition home or self-care (01) ==
PROVIDERS: Emergency Provider Emergency Medicine Emergency Medical Services; PCP Internal Medicine
DX: R04.0 Epistaxis (principal); Z79.899 Other long term (current) drug therapy
CPT/HCPCS: 30901; 82947; 99282; 99284; C9046

== ENCOUNTER 2022-05-01 08:26 | Outpatient (REF) | payer MEDICARE, OTHER, SELFPAY ==
[2022-05-01 12:13] LABS: Estimated Average Glucose 137 mg/dL; Hemoglobin A1c % 6.4 %
[2022-05-01 12:22] LABS: Alanine Aminotransferase 34 U/L (0-40); Albumin Level 4.3 g/dL (3.5-5.0); Alkaline Phosphatase 100 U/L (39-117); Anion Gap 15 (12-20); Aspartate Amino Transferase 20 U/L (5-37); Bilirubin Total 0.6 mg/dL (0.0-1.0); Blood Urea Nitrogen 15 mg/dL (9-16); Calcium 9.3 mg/dL (8.4-10.2); Carbon Dioxide 28 mmol/L (22-29); Chloride 102 mmol/L (96-108); Cholesterol 115 mg/dL; Estimated Glomerular Filt Rate > 60; Glucose Fasting 124 mg/dL (60-99); HDL Cholesterol 37 mg/dL; LDL Cholesterol Calculated 66 mg/dl; Potassium 4.6 mmol/L (3.3-5.1); Sodium 140 mmol/L (135-145); Total Protein 6.8 g/dL (6.5-8.0); Triglycerides 64 mg/dL
== END 2022-05-01 08:27 | disposition home or self-care (01) ==
LOC: HO.HMGCLDS 08:26
PROVIDERS: PCP Internal Medicine; Visit Provider Internal Medicine
DX: Z00.00 Encounter for general adult medical examination without abnormal findings (principal); E11.9 Type 2 diabetes mellitus without complications; E78.5 Hyperlipidemia, unspecified
CPT/HCPCS: 36415; 80053; 80061; 82043; 83036

== ENCOUNTER 2022-05-05 10:53 | Outpatient (REF) | payer MEDICARE, OTHER, SELFPAY ==
--- NOTE | ~2022-05-05 | XR_ITS ---
EXAMINATION: XR HIP, LEFT CLINICAL INFORMATION: Left hip pain COMPARISON: None TECHNIQUE: Two views of the left hip. FINDINGS: Mild degenerative changes of the left hip. No acute osseous abnormalities. Diffuse enthesophytosis of the left iliac bone. Vascular calcifications are present. XR/XR hip LT min 2V IMPRESSION: Mild degenerative changes of the left hip.
== END 2022-05-05 10:54 | disposition home or self-care (01) ==
LOC: HO.HMGCX 10:53
PROVIDERS: PCP Internal Medicine; Visit Provider Internal Medicine
DX: M25.552 Pain in left hip (principal)
CPT/HCPCS: 73502

== ENCOUNTER 2022-06-06 11:22 | Outpatient (REF) | payer MEDICARE, OTHER, SELFPAY ==
[2022-06-06 15:37] LABS: Prostate Specific Antigen < 0.10 ng/mL (<0.05-4.0)
== END 2022-06-06 11:23 | disposition home or self-care (01) ==
LOC: HO.HMGCLDS 11:22
PROVIDERS: PCP Internal Medicine; Visit Provider Urology
DX: Z12.5 Encounter for screening for malignant neoplasm of prostate (principal); C61 Malignant neoplasm of prostate
CPT/HCPCS: 36415; 84153

== ENCOUNTER → 2022-08-15 09:07 | Outpatient (BNVA) | payer MEDICARE, OTHER, SELFPAY | PROVIDERS: PCP Internal Medicine; Referring Provider Internal Medicine; Visit Provider Internal Medicine Cardiovascular Disease | DX: I35.0 Nonrheumatic aortic (valve) stenosis (principal) | CPT/HCPCS: 93005; 99212 ==

== ENCOUNTER 2022-10-09 09:08 | Outpatient (REF) | payer MEDICARE, OTHER, SELFPAY ==
[2022-10-09 12:13] LABS: Basophils Absolute Auto 0.1 X10*3/uL (0.0-0.2); Basophils Percent Auto 1.3 % (0-2); Eosinophils Absolute Auto 0.2 X10*3/uL (0.0-0.4); Hematocrit 47.1 % (42.0-52.0); Hemoglobin 15.3 g/dl (14.0-18.0); Imm Gran Abs Auto 0.03 X10*3/uL (0.00-0.03); Imm Gran Pct Auto 0.4 % (0.0-0.4); Lymphocytes Absolute Auto 1.9 X10*3/uL (1.2-4.9); Lymphocytes Percent Auto 26.2 % (20-40); MANUAL DIFF FLAG NO; Mean Corpuscular HGB Conc 32.5 g/dl (31.0-36.0); Mean Corpuscular Hemoglobin 29.4 pg (27.0-33.0); Mean Corpuscular Volume 90.6 fL (80.0-98.0); Mean Platelet Volume 10.7 fL (9.4-12.4); Monocytes Absolute Auto 0.6 X10*3/uL (0.1-1.2); Monocytes Percent Auto 8.9 % (2-11); Neutrophils Absolute Auto 4.3 x10*3/uL (2.0-8.3); Neutrophils Percent Auto 60.2 % (45-73); Platelet Count 281 X10*3/uL (160-400); Red Cell Distribution Width 13.6 % (11.0-16.0); White Blood Count 7.1 X10*3/uL (4.8-10.8)
[2022-10-09 12:27] LABS: Estimated Average Glucose 120 mg/dL; Hemoglobin A1c % 5.8 %
[2022-10-09 12:53] LABS: Alanine Aminotransferase 32 U/L (0-40); Albumin Level 4.5 g/dL (3.5-5.0); Alkaline Phosphatase 82 U/L (39-117); Anion Gap 11 (12-20); Aspartate Amino Transferase 20 U/L (5-37); Bilirubin Total 0.4 mg/dL (0.0-1.0); Blood Urea Nitrogen 14 mg/dL (9-16); Calcium 9.5 mg/dL (8.4-10.2); Carbon Dioxide 30 mmol/L (22-29); Chloride 103 mmol/L (96-108); Estimated Glomerular Filt Rate > 60; Glucose Fasting 114 mg/dL (60-99); Potassium 4.2 mmol/L (3.3-5.1); Sodium 140 mmol/L (135-145); Total Protein 7.6 g/dL (6.5-8.0)
[2022-10-09 13:00] LABS: Creatinine Urine 186.77 mg/dL; Microalbum/Creatinine Ratio Ur 7.4 ug/mg cr
== END 2022-10-09 09:09 | disposition home or self-care (01) ==
LOC: HO.HMGCLDS 09:08
PROVIDERS: PCP Internal Medicine; Visit Provider Internal Medicine
DX: E11.9 Type 2 diabetes mellitus without complications (principal); E78.5 Hyperlipidemia, unspecified
CPT/HCPCS: 36415; 80053; 82043; 83036; 85025

== ENCOUNTER 2022-10-13 08:42 | Outpatient (AMB) | payer MEDICARE, OTHER, SELFPAY ==
--- NOTE | 2022-10-13 09:14 | MHC.PC.OV ---
Vital Signs 10/13/22 09:15 Height 5 ft 6 in Weight 166 lb BMI 26.8 BP 126/74 Blood Pressure Location Lt brachial Position Sitting Pulse 68 Pulse Source Pulse Oximeter Pulse Oximetry (%) 96 Oxygen Delivery Method Room Air Intake Visit Reasons: Annual PE Intake Note: Pt is her today for PE. Allergies No Known Allergies Allergy (Verified 10/13/22 09:19) Medication List - Last Reconciled 10/13/22 by Shelia Judge MD albuterol sulfate 90 mcg/actuation (ProAir HFA) 1 inh inhalation QID PRN aspirin (Adult Aspirin Regimen) 81 mg PO DAILY atorvastatin 40 mg PO DAILY blood sugar diagnostic As directed cholecalciferol (vitamin D3) 25 mcg PO DAILY ciclopirox 0.77% appl topical fexofenadine (Mirian Allergy) 180 mg PO DAILY fluticasone propionate 250 mcg/actuation 1 inh PO BID metformin ER 500 mg PO DAILY omeprazole 20 mg PO DAILY Tobacco use date assessed: 10/13/22 Fall risk assessment: No Falls in past year Last assessed Fall Risk: 10/13/22 Dental Screening Dental Screen Date: 10/13/22 Did you have a dental visit in the last 12 months?: Yes Did you have a dental problem in the last 6 months where you did not have access to dental care?: No Was dental information given to patient?: Patient has dentist HPI Annual PE HPI Details Pt presents for PE. PFSH Medical History Aortic stenosis Asthma Zacarias esophagus DM type 2 (diabetes mellitus, type 2) GERD (gastroesophageal reflux disease) Hx of basal cell carcinoma Hyperlipidemia Prostate CA Stress incontinence Surgical History H/O colonoscopy History of microdiscectomy History of prostatectomy Hx of esophagogastroduodenoscopy Family History Father HTN (hypertension) History of heart attack Enlarged prostate CVD (cardiovascular disease) Social History Housing: House Alcohol intake: never Patient Tobacco Use Status: Never used Tobacco e-Cigarette/Vaping Use: Never Used service: No Current occupational status: retired Cognitive needs: No Hearing needs: No Vision needs: Yes Questionnaire Thrive Questionnaire Date Thrive assessed: 02/28/22 AUDIT C Alcohol Use Questionnaire (AUDIT-C) 1. How often do you have a drink containing alcohol?: Monthly or less 2. How many drinks containing alcohol do you have on a typical day when you are drinking?: 1 or 2 3. How often do you have six or more drinks on one occasion?: Never Total Score: 1 RE-7 AMB Questionnaire RE-7 Date RE - 7 assessed: 02/28/22 Feeling nervous, anxious, or on edge: 1 = Several days Not being able to stop or control worryin = Not at all Worrying too much about different things: 0 = Not at all Trouble relaxin = Several days Being so restless that it is hard to sit still: 0 = Not at all Becoming easily annoyed or irritable: 1 = Several days Feeling afraid as if something awful might happen: 0 = Not at all Total RE-7 score (0-4 normal; 5-9 mild; 10-14 moderate; 15-21 severe): 3 Source: Developed by Drs. Tyrone Pichardo, Annette Sahu, Mono Renner and colleagues, with an educational hernán from [employer]. Review of Systems Const All systems reviewed & are unremarkable except as noted in HPI and below Reports no additional complaints Eyes Reports no additional complaints ENT Reports no additional complaints Card Reports no additional complaints Resp Reports no additional complaints GI Reports no additional complaints Reports no additional complaints Musc Reports no additional complaints Physical exam (Primary Care) Vital Signs: Last Vital Signs Pulse 68 10/13/22 09:15 BP 126/74 10/13/22 09:15 Pulse Ox 96 10/13/22 09:15 Oxygen Delivery Method Room Air 10/13/22 09:15 BMI result Body Mass Index 26.8 Tobacco/Smoking Status: Tobacco use Status Tobacco use date assessed 10/13/22 10/13/22 09:22 Patient Tobacco Use Status Never used Tobacco 10/13/22 09:22 e-Cigarette/Vaping Use Never Used 10/13/22 09:15 Thrive Assessment: Date of Thrive Assessment Date Thrive assessed 02/28/22 10/13/22 09:15 Const General: no acute distress HENMT Head: Yes normal to inspection Ears: hearing grossly normal bilaterally General nose exam: Normal external nose present Face and sinus: Yes normal facial exam Mouth: Normal oral and palatal mucosa present Throat: Yes posterior oropharynx normal Eyes General: appearance normal, both eyes and all related structures Neck Neck: Yes no lymphadenopathy and Yes supple Resp Effort & Inspection: normal respiratory effort Auscultation: clear to auscultation bilaterally Cardio Rhythm: regular rhythm Heart sounds: S1 normal heart sound present and S2 normal heart sound present GI Inspection: Yes normal to inspection Palpation (GI): Soft to palpation Percussion: Yes normal to percussion Auscultation: normal bowel sounds Extrem General: Yes no clubbing, cyanosis or edema Immunizations pneumoc 20-david conj-dip cr(PF) Performing Provider: Shelia Judge MD Administered by: LEA aHn on 10/13/22 10:01 Dose Route Admin Location Lot Number Expiration Date NDC [employer] Filling 0.5 mL IM Right Deltoid [id number] 12/27/23 2052-2598-62 [employer] VIS Given Date VIS Provided VIS Publication Date 10/13/22 Single Vaccine 21 Eligibility Eligibility Date Funding Source Not [facility] Eligible 10/13/22 Private Assessment and Plan Assessment & Plan (1) Annual physical exam: Code(s): Z00.00 - Encounter for general adult medical examination without abnormal findings Plan: well balanced diet, regular exercise, (2) Hyperlipidemia: Code(s): E78.5 - Hyperlipidemia, unspecified Plan: Continue statin (3) DM type 2 (diabetes mellitus, type 2): Code(s): E11.9 - Type 2 diabetes mellitus without complications Plan: A1c is down to 5.8, continue ADA diet regular exercise and metformin. Follow-up in 6 months with a fasting labs before (4) Asthma: Code(s): J45.909 - Unspecified asthma, uncomplicated (5) Aortic stenosis: Comment: [place] 03/2018 mild , 07/2020 unchanged[place] [facility] [place] Code(s): I35.0 - Nonrheumatic aortic (valve) stenosis Orders: Orders Hemoglobin A1c 6 Months E11.9 - Type 2 diabetes mellitus without complications, E78.5 - Hyperlipidemia, unspecified, Z00.00 - Encounter for general adult medical examination without abnormal findings Lipid Panel 6 Months E11.9 - Type 2 diabetes mellitus without complications, E78.5 - Hyperlipidemia, unspecified, Z00.00 - Encounter for general adult medical examination without abnormal findings Comprehensive [place]. Panel Fast 6 Months E11.9 - Type 2 diabetes mellitus without complications, E78.5 - Hyperlipidemia, unspecified, Z00.00 - Encounter for general adult medical examination without abnormal findings Microalbumin, Random (w Creat) 6 Months E11.9 - Type 2 diabetes mellitus without complications, E78.5 - Hyperlipidemia, unspecified, Z00.00 - Encounter for general adult medical examination without abnormal findings Pneumococcal 20 Immunization Today Z23 - Encounter for immunization Medications: New blood sugar diagnostic (Freestyle [employer] strips) 1 QD 100 ea 2RF Coding Level of Care Code Est Pt Prev Care >65y(58478) Diagnoses Annual physical exam Z00.00 Hyperlipidemia E78.5 DM type 2 (diabetes mellitus, type 2) E11.9 Asthma J45.909 Aortic stenosis I35.0
[2022-10-13 09:15] VITALS: BP 126/74; PULSE 68; O2SAT 96; BMI 26.8
== END 2022-10-13 10:13 | disposition home or self-care (01) ==
PROVIDERS: Visit Provider Internal Medicine
DX: Z00.00 Encounter for general adult medical examination without abnormal findings (principal); E78.5 Hyperlipidemia, unspecified; E11.9 Type 2 diabetes mellitus without complications; J45.909 Unspecified asthma, uncomplicated; Z23 Encounter for immunization; I35.0 Nonrheumatic aortic (valve) stenosis
CPT/HCPCS: 90471; 90677; 99213; 99397

== ENCOUNTER 2022-10-17 14:45 | Outpatient (AMB) | payer MEDICARE, OTHER, SELFPAY ==
--- NOTE | 2022-10-17 15:28 | A.OFFVIS_ITS ---
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 States his finger started to lock about 2 months and has worsen since than. States he has tried an injection and it provide him with relief. Patient would like to discuss injection vs surgery. 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 He complains of painful locking and catching of the left thumb for several months now. He has a hx of a right trigger thumb, which was managed with an injection. He says he plays Guitar and his thumb is impacting his ability to play [place] Medical History Aortic stenosis Asthma Zacarias esophagus DM type 2 (diabetes mellitus, type 2) GERD (gastroesophageal reflux disease) Hx of basal cell carcinoma Hyperlipidemia Prostate CA Stress incontinence Surgical History H/O colonoscopy History of microdiscectomy History of prostatectomy Hx of esophagogastroduodenoscopy Family History Father HTN (hypertension) History of heart attack Enlarged prostate CVD (cardiovascular disease) Social History Housing: House Alcohol intake: never Patient Tobacco Use Status: Never used Tobacco e-Cigarette/Vaping Use: Never Used service: No Current occupational status: retired Cognitive needs: No Hearing needs: No Vision needs: Yes Review of Systems Const All systems reviewed & are unremarkable except as noted in HPI and below Physical Exam Vital Signs: BMI result Body Mass Index 26.8 Const General: cooperative, healthy appearing and no acute distress Orientation/consciousness: patient oriented x3 HEENT Head: Yes normocephalic and Yes atraumatic Eyes EOM: EOMs intact bilaterally Resp Effort & Inspection: normal respiratory effort and able to speak in complete s entences Cardio Jugular venous distension: no JVD Skin General skin exam: turgor normal Rashes: no rashes Neuro General: patient oriented x3 Extrem Other: Evaluation of Left Upper Extremity: The patient is alert, oriented, and in no acute distress Neuro: Median, Ulnar, Radial nerves motor and sensory intact and sensation is n ormal to the tips of all digits Vascular: Cap refill brisk ROM: He can make a fist and extend all his digits Visible and palpable locking and catching of the left thumb Tender over the a1 laxmi of the left thumb Skin: No lacerations or abrasions. General: No Ecchymosis. No Erythema or evidence of infection. Psych Appearance: grossly normal Affect: normal affect Attitude: cooperative Office Procedures Fracture Care Details: No fracture, injection Fracture Billing Code: Fracture Billing Code Results Reviewed Results Reviewed: 10/17/22 16:03 Lidocaine HCl 2 % MPF [Xylocaine 2 % MPF] 5 ml .ROUTE .STK-MED ONE dexAMETHasone sod phosphate [Decadron] 4 mg .ROUTE .STK-MED ONE Assessment & Plan Assessment & Plan (1) Trigger thumb, left thumb: Code(s): M65.312 - Trigger thumb, left thumb (2) DM type 2 (diabetes mellitus, type 2): Code(s): E11.9 - Type 2 diabetes mellitus without complications Plan Assessment & Plan: 1. Left trigger thumb I educated him about this condition I discussed operative and non-operative treatment options The patient would like to proceed with an injection today He is concerned about his ability to play Guitar with his thumb Injection #1: The risks and benefits of a steroid injection including but not limited to risk of damage to blood vessels, nerves, tendons, infection, skin bleaching, failure to improve symptoms, increased pain, and possible need for further injections or other intervention were discussed with the patient and the patient wishes to proceed with the steroid injection. Once consent was obtained, I sterilely prepped the area over the A1 laxmi of the flexor tendon sheath of the left thumb. I then injected the flexor tendon sheath with a combination of 1 mL of dexamethasone (4mg/ml), and 1% lidocaine. The patient tolerated the procedure well with no complications. If the patient continues to have locking and catching 4-6 weeks following this injection, they may call to schedule appointment to discuss alternative treatment options Follow-up prn Scribed for Niru Du MD by David Mahoney, senior medical transcriptionist, on 10/17/22 at 4:00 PM, EST. Coding Level of Care Code New Pt Level 3 (80044) Diagnoses Trigger thumb, left thumb M65.312 DM type 2 (diabetes mellitus, type 2) E11.9 CPT Codes Fracture Care - Fracture Billing Code: Fracture Billing Code ([id number])
[2022-10-17 15:31] VITALS: BMI 26.8
== END 2022-10-17 16:29 | disposition home or self-care (01) ==
PROVIDERS: PCP Internal Medicine; Visit Provider Orthopaedic Surgery
DX: M65.312 Trigger thumb, left thumb (principal)
CPT/HCPCS: 20550; 99204

== ENCOUNTER 2023-04-12 09:58 | Outpatient (REF) | payer MEDICARE, OTHER, SELFPAY ==
[2023-04-12 13:33] LABS: Estimated Average Glucose 117 mg/dL; Hemoglobin A1C 149.6382 umol/L; Hemoglobin A1c % 5.7 % (<6.0)
[2023-04-12 13:47] LABS: Alanine Aminotransferase 29 U/L (0-40); Albumin Level 4.5 g/dL (3.5-5.0); Alkaline Phosphatase 99 U/L (39-117); Anion Gap 12 (12-20); Aspartate Amino Transferase 18 U/L (5-37); Bilirubin Total 0.6 mg/dL (0.0-1.0); Blood Urea Nitrogen 13 mg/dL (9-16); Calcium 9.8 mg/dL (8.4-10.2); Carbon Dioxide 29 mmol/L (22-29); Chloride 101 mmol/L (96-108); Cholesterol 109 mg/dL (<200); Estimated Glomerular Filt Rate > 60; Glucose Fasting 116 mg/dL (60-99); HDL Cholesterol 38 mg/dL (>40); LDL Cholesterol Calculated 58 mg/dL (<100); Sodium 138 mmol/L (135-145); Total Protein 7.4 g/dL (6.5-8.0); Triglycerides 67 mg/dL (<150)
[2023-04-12 13:56] LABS: Creatinine Urine 74.44 mg/dL; Microalbumin Urine < 5.0 mg/L
== END 2023-04-12 09:59 | disposition home or self-care (01) ==
LOC: HO.HMGCLDS 09:58
PROVIDERS: PCP Internal Medicine; Visit Provider Internal Medicine
DX: Z00.00 Encounter for general adult medical examination without abnormal findings (principal); E78.5 Hyperlipidemia, unspecified; E11.9 Type 2 diabetes mellitus without complications
CPT/HCPCS: 36415; 80053; 80061; 82570; 83036

== ENCOUNTER 2023-04-17 09:46 | Outpatient (AMB) | payer MEDICARE, OTHER, SELFPAY ==
[2023-04-17 09:52] VITALS: BP 126/76; PULSE 56; O2SAT 100; BMI 26.0
--- NOTE | 2023-04-17 09:52 | MHC.PC.OV ---
Vital Signs 04/17/23 09:52 Height 5 ft 6 in Weight 161 lb BMI 26.0 BP 126/76 Blood Pressure Location Lt brachial Position Sitting Pulse 56 Pulse Source Pulse Oximeter Pulse Oximetry (%) 100 Oxygen Delivery Method Room Air Intake Visit Reasons: 6 month follow up Intake Note: Pt is here today for 6 months follow up visit. Allergies No Known Allergies Allergy (Verified 04/17/23 10:10) Medication List - Last Reconciled 04/17/23 by Shelia Judge MD albuterol sulfate 90 mcg/actuation (ProAir HFA) 1 inh inhalation QID PRN aspirin (Adult Aspirin Regimen) 81 mg PO DAILY atorvastatin 40 mg PO DAILY blood sugar diagnostic As directed blood sugar diagnostic (Freestyle [employer]x strips) 1 QD cholecalciferol (vitamin D3) 25 mcg PO DAILY ciclopirox 0.77% appl topical fexofenadine (Mirian Allergy) 180 mg PO DAILY fluticasone propionate 250 mcg/actuation 1 inh PO BID metformin ER 500 mg PO DAILY omeprazole 20 mg PO DAILY Qvar RediHaler 40 mcg/actuation (beclomethasone dipropionate) 2 inhalations inhalation BID NS Tobacco use date assessed: 04/17/23 Fall risk assessment: No Falls in past year Last assessed Fall Risk: 04/17/23 Dental Screening Dental Screen Date: 04/17/23 Did you have a dental visit in the last 12 months?: Yes Did you have a dental problem in the last 6 months where you did not have access to dental care?: No Was dental information given to patient?: Patient has dentist HPI 6 month follow up HPI Details PATIENT PRESENTS FOR THE FOLLOW-UP OF TYPE 2 DIABETES HYPERLIPIDEMIA CHRONIC ASTHMA STABLE ON CURRENT MEDICATIONS. [facility], [facility] Medical History (Updated 04/17/23 @ 15:20 by Shelia Judge MD) Hx of basal cell carcinoma Zacarias esophagus Aortic stenosis Hyperlipidemia DM type 2 (diabetes mellitus, type 2) Stress incontinence Asthma Prostate CA GERD (gastroesophageal reflux disease) Surgical History Hx of esophagogastroduodenoscopy H/O colonoscopy History of microdiscectomy History of prostatectomy Family History Father HTN (hypertension) History of heart attack Enlarged prostate CVD (cardiovascular disease) Social History Housing: House Alcohol intake: never Patient Tobacco Use Status: Never used Tobacco e-Cigarette/Vaping Use: Never Used service: No Current occupational status: retired Cognitive needs: No Hearing needs: No Vision needs: Yes Questionnaire Thrive Questionnaire Date Thrive assessed: 02/28/22 AUDIT C Alcohol Use Questionnaire (AUDIT-C) 1. How often do you have a drink containing alcohol?: Monthly or less 2. How many drinks containing alcohol do you have on a typical day when you are drinking?: 1 or 2 3. How often do you have six or more drinks on one occasion?: Never Total Score: 1 RE-7 AMB Questionnaire RE-7 Date RE - 7 assessed: 02/28/22 Feeling nervous, anxious, or on edge: 1 = Several days Not being able to stop or control worryin = Not at all Worrying too much about different things: 1 = Several days Trouble relaxin = Several days Being so restless that it is hard to sit still: 0 = Not at all Becoming easily annoyed or irritable: 1 = Several days Feeling afraid as if something awful might happen: 0 = Not at all Total RE-7 score (0-4 normal; 5-9 mild; 10-14 moderate; 15-21 severe): 4 Source: Developed by Drs. Tyrone Pichardo, Annette Sahu, Mono Renner and colleagues, with an educational hernán from [employer]. Review of Systems Const All systems reviewed & are unremarkable except as noted in HPI and below Reports no additional complaints Eyes Reports no additional complaints ENT Reports no additional complaints Resp Reports no additional complaints GI Reports no additional complaints Reports no additional complaints Physical exam (Primary Care) Vital Signs: Last Vital Signs Pulse 56 04/17/23 09:52 BP 126/76 04/17/23 09:52 Pulse Ox 100 04/17/23 09:52 Oxygen Delivery Method Room Air 04/17/23 09:52 BMI result Body Mass Index 26.0 Tobacco/Smoking Status: Tobacco use Status Tobacco use date assessed 04/17/23 04/17/23 10:13 Patient Tobacco Use Status Never used Tobacco 04/17/23 09:52 e-Cigarette/Vaping Use Never Used 04/17/23 09:52 Thrive Assessment: Date of Thrive Assessment Date Thrive assessed 02/28/22 04/17/23 09:52 Const General: no acute distress HENMT Mouth: Normal oral and palatal mucosa present Throat: Yes posterior oropharynx normal Eyes General: appearance normal, both eyes and all related structures Resp Effort & Inspection: normal respiratory effort Auscultation: clear to auscultation bilaterally Cardio Rhythm: regular rhythm Heart sounds: S1 normal heart sound present and S2 normal heart sound present GI Inspection: Yes normal to inspection Palpation (GI): Soft to palpation Assessment and Plan Assessment & Plan (1) DM type 2 (diabetes mellitus, type 2): Code(s): E11.9 - Type 2 diabetes mellitus without complications Plan: A1c is 5.7, continue ADA diet metformin follow-up in 4 months with a fasting labs before (2) Hyperlipidemia: Code(s): E78.5 - Hyperlipidemia, unspecified Plan: Continue statin (3) Annual physical exam: Code(s): Z00.00 - Encounter for general adult medical examination without abnormal findings (4) Aortic stenosis: Comment: Echo 03/2018 mild , 07/2020 unchanged, f/u with [facility] q 2yrs Code(s): I35.0 - Nonrheumatic aortic (valve) stenosis Plan: Follow-up with Cardiology for repeat echocardiogram (5) Asthma: Code(s): J45.909 - Unspecified asthma, uncomplicated Plan: Continue QVAR and albuterol. (6) Prostate CA: Comment: 09/2014 prostatectomy f/u Dr. Lanier, PSA annually 2014 Code(s): C61 - Malignant neoplasm of prostate Plan: Follow-up with urology Orders: Orders Hemoglobin A1c 6 Months E11.9 - Type 2 diabetes mellitus without complications, E78.5 - Hyperlipidemia, unspecified, Z00.00 - Encounter for general adult medical examination without abnormal findings Comprehensive [place]. Panel Fast 6 Months E11.9 - Type 2 diabetes mellitus without complications, E78.5 - Hyperlipidemia, unspecified, Z00.00 - Encounter for general adult medical examination without abnormal findings Lipid Panel 6 Months E11.9 - Type 2 diabetes mellitus without complications, E78.5 - Hyperlipidemia, unspecified, Z00.00 - Encounter for general adult medical examination without abnormal findings Microalbumin, Random (w Creat) 6 Months E11.9 - Type 2 diabetes mellitus without complications, E78.5 - Hyperlipidemia, unspecified, Z00.00 - Encounter for general adult medical examination without abnormal findings Complete Blood Count Auto Diff 6 Months E11.9 - Type 2 diabetes mellitus without complications, E78.5 - Hyperlipidemia, unspecified, Z00.00 - Encounter for general adult medical examination without abnormal findings Medications: Discontinued Pulmicort Flexhaler 180 mcg/actuation (budesonide) Discontinued Reason: Doctor's Order 1 inh inhalation BID 1 ea 2RF NS Coding Level of Care Code Est Pt Level 4 (05434) Diagnoses DM type 2 (diabetes mellitus, type 2) E11.9 Hyperlipidemia E78.5 Annual physical exam Z00.00 Aortic stenosis I35.0 Asthma J45.909 Prostate CA C61
== END 2023-04-17 10:54 | disposition home or self-care (01) ==
PROVIDERS: PCP Internal Medicine; Visit Provider Internal Medicine
DX: E11.69 Type 2 diabetes mellitus with other specified complication (principal); C61 Malignant neoplasm of prostate; E78.5 Hyperlipidemia, unspecified; I35.0 Nonrheumatic aortic (valve) stenosis; J45.909 Unspecified asthma, uncomplicated
CPT/HCPCS: 99214

== ENCOUNTER 2023-06-11 10:49 | Outpatient (REF) | payer MEDICARE, OTHER, SELFPAY ==
[2023-06-11 14:28] LABS: Prostate Specific Antigen < 0.10 ng/mL (<0.05-4.0)
== END 2023-06-11 10:50 | disposition home or self-care (01) ==
LOC: HO.HMGCLDS 10:49
PROVIDERS: PCP Internal Medicine; Visit Provider Physician Assistant Surgical
DX: C61 Malignant neoplasm of prostate (principal); Z12.5 Encounter for screening for malignant neoplasm of prostate
CPT/HCPCS: 36415; 84153

== ENCOUNTER 2023-10-08 09:23 | Outpatient (REF) | payer MEDICARE, OTHER, SELFPAY ==
[2023-10-08 13:05] LABS: MANUAL DIFF FLAG NO
[2023-10-08 13:14] LABS: Basophils Absolute Auto 0.1 X10*3/uL (0.0-0.2); Basophils Percent Auto 1.2 % (0-2); Eosinophils Absolute Auto 0.2 X10*3/uL (0.0-0.4); Eosinophils Percent Auto 2.6 % (0-4); Hemoglobin 15.3 g/dl (14.0-18.0); Imm Gran Abs Auto 0.02 X10*3/uL (0.00-0.03); Imm Gran Pct Auto 0.3 % (0.0-0.4); Lymphocytes Absolute Auto 1.8 X10*3/uL (1.2-4.9); Lymphocytes Percent Auto 24.1 % (20-40); Mean Corpuscular HGB Conc 32.6 g/dl (31.0-36.0); Mean Corpuscular Hemoglobin 29.4 pg (27.0-33.0); Mean Corpuscular Volume 90.2 fL (80.0-98.0); Mean Platelet Volume 10.1 fL (9.4-12.4); Monocytes Absolute Auto 0.6 X10*3/uL (0.1-1.2); Monocytes Percent Auto 7.5 % (2-11); Neutrophils Absolute Auto 4.9 x10*3/uL (2.0-8.3); Neutrophils Percent Auto 64.3 % (45-73); Platelet Count 278 X10*3/uL (160-400); Red Blood Count 5.21 X10*6/uL (4.60-5.80); Red Cell Distribution Width 13.2 % (11.0-16.0); White Blood Count 7.6 X10*3/uL (4.8-10.8)
[2023-10-08 13:29] LABS: Alanine Aminotransferase 50 U/L (0-40); Albumin Level 4.5 g/dL (3.5-5.0); Alkaline Phosphatase 94 U/L (39-117); Anion Gap 13 (12-20); Aspartate Amino Transferase 23 U/L (5-37); Bilirubin Total 0.5 mg/dL (0.0-1.0); Blood Urea Nitrogen 14 mg/dL (9-16); Calcium 9.7 mg/dL (8.4-10.2); Carbon Dioxide 30 mmol/L (22-29); Chloride 101 mmol/L (96-108); Cholesterol 113 mg/dL (<200); Estimated Glomerular Filt Rate > 60; Glucose Fasting 114 mg/dL (60-99); HDL Cholesterol 41 mg/dL (>40); LDL Cholesterol Calculated 61 mg/dL (<100); Sodium 140 mmol/L (135-145); Total Protein 7.4 g/dL (6.5-8.0); Triglycerides 58 mg/dL (<150)
[2023-10-08 13:41] LABS: Estimated Average Glucose 123 mg/dL; Hemoglobin A1c % 5.9 % (<6.0)
[2023-10-08 13:44] LABS: Creatinine Urine 180.34 mg/dL; Microalbum/Creatinine Ratio Ur 8.3 ug/mg cr (<30)
== END 2023-10-08 09:24 | disposition home or self-care (01) ==
LOC: HO.HMGCLDS 09:23
PROVIDERS: PCP Internal Medicine; Visit Provider Internal Medicine
DX: Z00.00 Encounter for general adult medical examination without abnormal findings (principal); E11.9 Type 2 diabetes mellitus without complications; E78.5 Hyperlipidemia, unspecified
CPT/HCPCS: 36415; 80053; 80061; 82043; 82570; 83036; 85025

== ENCOUNTER 2023-10-15 10:16 | Outpatient (AMB) | payer MEDICARE, OTHER, SELFPAY ==
[2023-10-15 10:32] VITALS: BP 130/76; PULSE 74; O2SAT 98; BMI 26.3
--- NOTE | 2023-10-15 10:32 | A.OFFPC_ITS ---
Vital Signs 10/15/23 10:32 Height 5 ft 6 in Weight 163 lb BMI 26.3 Intake Visit Reasons: Annual PE Allergies No Known Allergies Allergy (Verified 04/17/23 10:10) Tobacco use date assessed: 04/17/23 Dental Screening Dental Screen Date: 04/17/23 [facility] Medical History (Updated 04/17/23 @ 15:20 by Shelia Judge MD) Hx of basal cell carcinoma Zacarias esophagus Aortic stenosis Hyperlipidemia DM type 2 (diabetes mellitus, type 2) Stress incontinence Asthma Prostate CA GERD (gastroesophageal reflux disease) Surgical History Hx of esophagogastroduodenoscopy H/O colonoscopy History of microdiscectomy History of prostatectomy Family History Father HTN (hypertension) History of heart attack Enlarged prostate CVD (cardiovascular disease) Social History Housing: House Alcohol intake: never Patient Tobacco Use Status: Never used Tobacco e-Cigarette/Vaping Use: Never Used service: No Current occupational status: retired Cognitive needs: No Hearing needs: No Vision needs: Yes Questionnaire PHQ-9 Over the last 2 weeks, how often have you been bothered by any of the following problems? 1. Little interest or pleasure in doing things: not at all Source: Developed by Drs. Tyrone Pichardo, Annette Sahu, Mono Renner and colleagues, with an educational hernán from [employer]. Thrive Questionnaire Date Thrive assessed: 10/09/23 I am a: Patient What is your living situation today?: I have a steady place to live Within the past 12 months, did the food you bought not last and you didn't have the money to get more?: Never true Within the past 12 months, did you worry whether your food would run out before you got money to buy more?: Never true Do you have trouble paying for medicines?: No Do you have trouble getting transportation to medical appointments?: No Do you have trouble paying your heating and electricity bill?: No Do you have trouble taking care of your child, family member or friend?: No Do you have trouble with day-to-day activities such as bathing, preparing meals, shopping, managing finances, etc.?: No Are you currently unemployed and looking for a job?: No Are you interested in more education?: No Please select the resources that you would like help with: None Currently or been in a relationship where the following occur: No concerns reported THRIVE Score: 0 AUDIT C Alcohol Use Questionnaire (AUDIT-C) 2. How many drinks containing alcohol do you have on a typical day when you are drinking?: 1 or 2 Total Score: 0 RE-7 AMB Questionnaire RE-7 Date RE - 7 assessed: 02/28/22 Feeling nervous, anxious, or on edge: 1 = Several days Not being able to stop or control worryin = Not at all Worrying too much about different things: 0 = Not at all Trouble relaxin = Several days Being so restless that it is hard to sit still: 0 = Not at all Becoming easily annoyed or irritable: 1 = Several days Feeling afraid as if something awful might happen: 0 = Not at all Total RE-7 score (0-4 normal; 5-9 mild; 10-14 moderate; 15-21 severe): 3 Source: Developed by Drs. Tyrone Pichardo, Annette Sahu, Mono Renner and colleagues, with an educational hernán from [employer]. Physical exam (Primary Care) Tobacco/Smoking Status: Tobacco use Status Tobacco use date assessed 04/17/23 04/17/23 10:13 Patient Tobacco Use Status Never used Tobacco 04/17/23 09:52 e-Cigarette/Vaping Use Never Used 04/17/23 09:52 Thrive Assessment: Date of Thrive Assessment Date Thrive assessed 10/09/23 10/09/23 09:40 Currently or been in a relationship where the following occur: No concerns reported Coding
--- NOTE | 2023-10-15 10:34 | A.OFFVIS_ITS ---
Intake Vital Signs 10/15/23 10:32 10/15/23 10:40 Height 5 ft 6 in Weight 163 lb BMI 26.3 26.3 BP 130/76 Blood Pressure Location Lt brachial Position Sitting Pulse 74 Pulse Source Pulse Oximeter Pulse Oximetry (%) 98 Oxygen Delivery Method Room Air Intake Visit Reasons: AWV. Intake Note: Pt is here today for AWV. Pt needs refill on his asthma medications. Allergies No Known Allergies Allergy (Verified 10/15/23 10:37) Medication List - Last Reconciled 10/15/23 by Shelia Judge MD albuterol sulfate 90 mcg/actuation (ProAir HFA) 1 inh inhalation QID PRN aspirin (Adult Aspirin Regimen) 81 mg PO DAILY atorvastatin 40 mg PO DAILY blood sugar diagnostic As directed blood sugar diagnostic (Freestyle InsuLinx strips) 1 QD cholecalciferol (vitamin D3) 25 mcg PO DAILY ciclopirox 0.77% appl topical fexofenadine (Mirian Allergy) 180 mg PO DAILY fluticasone propionate 250 mcg/actuation 1 inh PO BID metformin ER 500 mg PO DAILY omeprazole 20 mg PO DAILY Qvar RediHaler 40 mcg/actuation (beclomethasone dipropionate) 2 inhalations inhalation BID NS HPI AWV. HPI Details Initiated the conversation about Advanced Directives. Advanced Directives help? patients prepare for current and future decisions about their medical treatment? and place of care. Discussed with patient that it is a process where a patients? current condition and prognosis are reviewed, their wishes for information? regarding their illness are elicited, and likely medical dilemmas are presented? and options discussed. The form can be amended as needed, reviewed yearly and? make changes as needed Initiated the conversation about Advanced Directives. Advanced Directives help? patients prepare for current and future decisions about their medical treatment? and place of care. Discussed with patient that it is a process where a patients? current condition and prognosis are reviewed, their wishes for information? regarding their illness are elicited, and likely medical dilemmas are presented? and options discussed. The form can be amended as needed, reviewed yearly and? make changes as needed IPPE/AWV ? year old presents? for her ? Annual? Wellness Visit, initial visit.? Medical / Social History Reviewed? Past Medical History ?Yes? . ? [place]? of Care / Care Team list updated ?Yes . ? Surgical/Hospitalization? History ?Yes . ? Current Medications? (including OTC and supplements) ?Yes . ? Family History ?Yes? . ? Tobacco? Control form ?Yes . ? AUDIT-C (Alcohol use) form? ?Yes . ? Illicit drug use in Social? History ?Yes . ? Current diagnosis of? depression? ?No ? Appropriate PHQ2/PHQ9? completed ?Yes . ? Data entered by ?Medical? [facility] Staff and reviewed by provider ? Fall Risk ? Fall? History? Have you had any falls with? injury in the past year? ?No . ? Have you had two or more? falls in the past year? ?No . ? Fall Risk Assessment: ?No? falls in the past year . ? HRA filled out by? the patient, reviewed by Provider and scanned. ? IPPE/AWV ? Balance? [place]? ?Yes . ? Tandem? walk ?Yes . ? Walk and? Turn ?Yes . ? Rise from? sit to stand ?Yes . ?Vision? Corrective? lens ?Yes ? Vision? screen ? Up-to-date, has an appointment [] for vision? screening and glaucoma screening ?Hearing? Whisper? test ?pass .? Initiated the conversation about Advanced Directives. Advanced Directives help? patients prepare for current and future decisions about their medical treatment? and place of care. Discussed with patient that it is a process where a patients? current condition and prognosis are reviewed, their wishes for information? regarding their illness are elicited, and likely medical dilemmas are presented? and options discussed. The form can be amended as needed, reviewed yearly and? make changes as needed Written? Plan?Completed. See Patient? Documents. [facility] Medical History Hx of basal cell carcinoma Zacarias esophagus Aortic stenosis Hyperlipidemia DM type 2 (diabetes mellitus, type 2) Stress incontinence Asthma Prostate CA GERD (gastroesophageal reflux disease) Surgical History Hx of esophagogastroduodenoscopy H/O colonoscopy History of microdiscectomy History of prostatectomy Family History Father HTN (hypertension) History of heart attack Enlarged prostate CVD (cardiovascular disease) Social History Housing: House Alcohol intake: never Patient Tobacco Use Status: Never used Tobacco e-Cigarette/Vaping Use: Never Used service: No Current occupational status: retired Cognitive needs: No Hearing needs: No Vision needs: Yes Questionnaire Medicare Wellness Checkup [age] What gender do you identify with?: male During the past 4 weeks, how much have you been bothered by emotional problems such as feeling anxious, depressed, irritable, sad or downhearted, and blue?: slightly During the past 4 weeks, has your physical & emotional health limited your social activities with family, friends, neighbors, or groups?: slightly During the past 4 weeks, how much bodily pain have you generally had?: very mild pain During the past 4 weeks, was someone available to help you if you needed & wanted help?: yes, as much as I wanted During the past 4 weeks, what was the hardest physical activity you could do for at least 2 minutes?: moderate Can you get to places out of walking distance without help? (For eg., can you travel alone on buses, taxis or drive your car?): Yes Can you go shopping for groceries or clothes without someone's help?: Yes Can you prepare your own meals?: Yes Can you do your housework without help?: Yes Because of any health problems, do you need the help of another person with your personal care needs such as eating, bathing, dressing or getting around the house?: Yes Can you handle your own money without help?: Yes During the past 4 weeks, how would you rate your health in general?: very good During the past 4 weeks how have things been going for you?: pretty well Are you having difficulties driving your car?: no Do you always fasten your seat belt when you are in a car?: yes, usually During past 4 weeks, have you been bothered by the following: never: Falling or dizzy when standing up, Trouble eating well? and Problems using the telephone?, seldom: Teeth or denture problems? and Tiredness or fatigue? and always: Sexual problems? Have you fallen 2 or more times in the past year?: No Are you afraid of falling?: No Are you a smoker?: no During the past 4 weeks, how many drinks of wine, beer, or other alcoholic beverages did you have?: no alcohol at all Do you exercise for about 20 minutes 3 or more times a week?: yes, most of the time Have you been given information to help with the following?: no: Hazards in your house that might hurt you? and no: Keeping track of your medications? How often do you have trouble taking medicines the way you have been told to take them?: I seldom take medications as prescribed How confident are you that you can control & manage most of your health problems?: very confident What is your race?: White Mini Mental State Exam (MMSE) Orientation What is the (year) (season) (date) (day) (month)?: year, season, date, day and month Where are we (state) (county) (town or city) (hospital) (floor)?: state, county, town or city, hospital/clinic and floor Registration Name of 3 unrelated objects clearly and slowly, then ask patient to repeat all 3 of them. (1st repeat determines score. Make sure they can repeat all three): object 1, object 2 and object 3 Attention & Calculation (CHOOSE ONE) Spell WORLD backwards (DLROW): 5 letters Recall Ask patient to repeat the 3 items from question #3.: object 1, object 2 and object 3 Language Show patient a wristwatch & ask what it is. Repeat for pencil.: watch and pencil Ask the patient to repeat the phrase 'No ifs, ands, or buts' after you.: correct Ask the patient to 'take a piece of paper with their right hand' 'fold paper in half' 'place paper on floor': take paper in right hand, fold paper in half and place paper on floor Print the sentence 'CLOSE YOUR EYES' on a piece. If patient actually closes eyes then score.: followed written direction Give patient a blank piece of paper & ask to write a sentence. Score if it contains a noun & verb.: sentence contains subject and verb Score Score: 29 Activity of Daily Living Bathing - sponge bath, tub bath or shower: receives no assistance (gets in/out by self, if usual bathing means Dressing - getting clothes from closets & drawers, including inner/outer garments & fasteners.: gets clothes & gets completely dressed without help Toileting - going to the 'toilet room' for urine/bowel elimination & cleaning self/arranging clothes: goes to toilet room, cleans self, arranges clothes without help Transfer: moves in & out of bed and chair without help (may use support object) Continence: controls urination/bowel movements completely by self Feeding: feeds self without help Total Score: 0 Information obtained from: patient Using telephone: independent Traveling: independent Shopping: independent Preparing meals: independent Housework: independent Taking medicine: independent Managing money: independent PHQ-9 Over the last 2 weeks, how often have you been bothered by any of the following problems? 1. Little interest or pleasure in doing things: not at all 2. Feeling down, depressed, or hopeless: not at all 3. Trouble falling or staying asleep, or sleeping too much: several days 4. Feeling tired or having little energy: not at all 5. Poor appetite or overeating: not at all 6. Feeling bad about yourself - or that you are a failure or have let yourself or your family down: not at all 7. Trouble concentrating on things, such as reading the newspaper or watching television: not at all 8. Moving or speaking so slowly that other people could have noticed. Or the opposite - being so fidgety or restless that you have been moving around a lot more than usual: not at all 9. Thoughts that you would be better off or of hurting yourself in some way: not at all Total score: 1 Depression Screening Interpretation: Negative Depression Screening Done: Yes 58685 - PHQ-9 Billing: Yes Source: Developed by Drs. Tyrone Pichardo, Annette Sahu, Mono Renner and colleagues, with an educational hernán from [employer]. Review of Systems Const All systems reviewed & are unremarkable except as noted in HPI and below Reports no additional complaints Eyes Reports no additional complaints ENT Reports no additional complaints Card Reports no additional complaints Resp Reports no additional complaints GI Reports no additional complaints Reports no additional complaints Musc Reports no additional complaints Physical Exam Vital Signs: Last Vital Signs Pulse 74 10/15/23 10:32 BP 130/76 10/15/23 10:32 Pulse Ox 98 10/15/23 10:32 Oxygen Delivery Method Room Air 10/15/23 10:32 BMI result Body Mass Index 26.3 Const General: no acute distress HEENT Head: Yes normal to inspection Ears: hearing grossly normal bilaterally Eyes General: appearance normal, both eyes and all related structures Neck Neck: Yes no lymphadenopathy and Yes supple Resp Effort & Inspection: normal respiratory effort Auscultation: clear to auscultation bilaterally Cardio Rhythm: regular rhythm Heart sounds: S1 normal heart sound present and S2 normal heart sound present GI Inspection: Yes normal to inspection Palpation (GI): Soft to palpation Percussion: Yes normal to percussion Auscultation: normal bowel sounds Extrem General: Yes no clubbing, cyanosis or edema Assessment & Plan Assessment & Plan (1) Asthma: Code(s): J45.909 - Unspecified asthma, uncomplicated Plan: Continue albuterol p.r.n. (2) DM type 2 (diabetes mellitus, type 2): Code(s): E11.9 - Type 2 diabetes mellitus without complications Plan: A1c is 5.9, continue ADA diet regular exercise continue metformin (3) Hyperlipidemia: Code(s): E78.5 - Hyperlipidemia, unspecified Plan: Continue statin (4) Annual physical exam: Code(s): Z00.00 - Encounter for general adult medical examination without abnormal findings Plan: Well-balanced diet regular physical activity discussed with the patient. He is up-to-date with colonoscopy and follows up with urology for history of prostate CA Orders: Orders Lipid Panel 1 Year E11.9 - Type 2 diabetes mellitus without complications, E78.5 - Hyperlipidemia, unspecified, J45.909 - Unspecified asthma, uncomplicated, Z00.00 - Encounter for general adult medical examination without abnormal findings Complete Blood Count Auto Diff 1 Year E11.9 - Type 2 diabetes mellitus without complications, E78.5 - Hyperlipidemia, unspecified, J45.909 - Unspecified asthma, uncomplicated, Z00.00 - Encounter for general adult medical examination without abnormal findings Microalbumin, Random (w Creat) 1 Year E11.9 - Type 2 diabetes mellitus without complications, E78.5 - Hyperlipidemia, unspecified, J45.909 - Unspecified asthma, uncomplicated, Z00.00 - Encounter for general adult medical examination without abnormal findings TSH reflex Free T4 1 Year E11.9 - Type 2 diabetes mellitus without complications, E78.5 - Hyperlipidemia, unspecified, J45.909 - Unspecified asthma, uncomplicated, Z00.00 - Encounter for general adult medical examination without abnormal findings Comprehensive [place]. Panel Fast 1 Year E11.9 - Type 2 diabetes mellitus without complications, E78.5 - Hyperlipidemia, unspecified, J45.909 - Unspecified asthma, uncomplicated, Z00.00 - Encounter for general adult medical examination without abnormal findings Hemoglobin A1c 1 Year E11.9 - Type 2 diabetes mellitus without complications, E78.5 - Hyperlipidemia, unspecified, J45.909 - Unspecified asthma, uncomplicated, Z00.00 - Encounter for general adult medical examination without abnormal findings Quality Reporting (2019) Depression/Bipolar (159/160/161/177) PHQ-9: Total score: 1 Coding Level of Care Code Medicare Subsequent (G0439) Diagnoses Asthma J45.909 DM type 2 (diabetes mellitus, type 2) E11.9 Hyperlipidemia E78.5 Annual physical exam Z00.00 CPT Codes Advance Care Planning - Advance Care Planning discussion: On file, no changes ([id number]) Advance Care Planning - Time spent: 1-15 minutes, on File ([id number]) Advance Care Planning Advance Care Planning discussion: On file, no changes Forms completed: Health Care Proxy Time spent: 1-15 minutes, on File
[2023-10-15 10:40] VITALS: BMI 26.3
== END 2023-10-15 11:15 | disposition home or self-care (01) ==
PROVIDERS: PCP Internal Medicine; Visit Provider Internal Medicine
DX: Z00.00 Encounter for general adult medical examination without abnormal findings (principal); J45.909 Unspecified asthma, uncomplicated; E11.69 Type 2 diabetes mellitus with other specified complication; E78.5 Hyperlipidemia, unspecified
CPT/HCPCS: 1123F; G0439

== ENCOUNTER 2023-11-21 11:49 | Outpatient (AMB) | payer MEDICARE, OTHER, SELFPAY ==
--- NOTE | 2023-11-21 11:50 | MHC.OFFWIV ---
Intake Vital Signs 11/21/23 11:52 Height 5 ft 6 in Weight 160 lb BMI 25.8 BP 144/80 H Blood Pressure Location Rt brachial Position Sitting Pulse 93 Pulse Source Pulse Oximeter Temp 98.3 F Temp Source Oral Pulse Oximetry (%) 98 Oxygen Delivery Method Room Air Intake Visit Reasons: EP-covid re-test Intake Note: pt c/o + Covid 11/12. Did not take prescribed Paxlovid . Requesting Covid Testing. Patient Tobacco Use Status: Never used Tobacco Allergies No Known Allergies Allergy (Verified 11/21/23 11:52) Do you need a note to return to daycare/school/sports/work: No HPI EP-covid re-test HPI Details This note is constructed using voice recognition software. While every effort has been made to ensure accuracy, collision estimator errors may have been included. The patient is a 73 year old male with history asthma who presents to the clinic today with request to repeat COVID test, and evaluation following COVID test positive on 11/13/2023. He was evaluated in an urgent care clinic, and was advised to avoid Paxlovid due to the mild nature of symptoms. He denies fever, chills, does have cough, and no shortness a breath. He also reports that he has a history seasonal allergies, in his worst time of year is the fall. He is treating with Flonase Sensimist, as well as saline rinse, hard candies, increase hydration, humidification. He uses his daily controller inhalers twice per day, and does have an albuterol inhaler which he has not required to use. He is wearing a mask and quarantine from his to avoid spread of infection to her. [facility] Medical History Hx of basal cell carcinoma Zacarias esophagus Aortic stenosis Hyperlipidemia DM type 2 (diabetes mellitus, type 2) Stress incontinence Asthma Prostate CA GERD (gastroesophageal reflux disease) Surgical History Hx of esophagogastroduodenoscopy H/O colonoscopy History of microdiscectomy History of prostatectomy Family History Father HTN (hypertension) History of heart attack Enlarged prostate CVD (cardiovascular disease) Social History Housing: House Alcohol intake: never Patient Tobacco Use Status: Never used Tobacco e-Cigarette/Vaping Use: Never Used service: No Current occupational status: retired Cognitive needs: No Hearing needs: No Vision needs: Yes Review of Systems Const All systems reviewed & are unremarkable except as noted in HPI and below Physical Exam Vital Signs: Last Vital Signs Temp 98.3 F 11/21/23 11:52 Pulse 93 11/21/23 11:52 BP 144/80 H 11/21/23 11:52 Pulse Ox 98 11/21/23 11:52 Oxygen Delivery Method Room Air 11/21/23 11:52 BMI result Body Mass Index 25.8 Const General: cooperative, healthy appearing, comfortable and no acute distress Orientation/consciousness: patient oriented x3 Limitations: no limitations HEENT Head: Yes normal to inspection Ears: hearing grossly normal bilaterally, external ears normal and TM abnormal retracted General nose exam: Normal external nose present, No nasal discharge present and Abnormal mucous membranes and turbinates present boggy and pale Face and sinus: Yes normal facial exam and Yes sinuses nontender Mouth: Normal oral and palatal mucosa present and moist mucous membranes Throat: Yes tonsils normal, Yes uvula midline, Yes posterior oropharynx abnormal (Erythema), Yes postnasal drainage and Yes cobblestoning Eyes General: appearance normal, both eyes and all related structures Neck Neck: Yes normal visual inspection Resp Effort & Inspection: normal respiratory effort, able to speak in complete sentences, Actively coughing, no respiratory distress, not tachypneic, no tripod positioning and no use of accessory muscles Auscultation: clear to auscultation bilaterally Cardio Rate: regular rate Rhythm: regular rhythm Heart sounds: normal S1 and S2 Skin General skin exam: no rashes or lesions noted Neuro General: patient oriented x3 Extrem General: Yes normal to inspection and Yes no clubbing, cyanosis or edema Assessment & Plan Assessment & Plan (1) Allergic rhinitis: Code(s): J30.9 - Allergic rhinitis, unspecified Qualifiers: Allergic rhinitis trigger: pollen Allergic rhinitis seasonality: seasonal Qualified Code(s): J30.1 - Allergic rhinitis due to pollen Plan: Supportive measures encouraged and reviewed. Advised patient to continue Flonase nasal spray and his Mirian. Advised consideration of sinus rinse if needed. Advised patient to follow up with primary care provider with worsening or failure to resolve. (2) Coronavirus infection: Code(s): B34.2 - Coronavirus infection, unspecified Plan: Advised patient that testing for coronavirus may remain positive for up to several months postinfection. We did obtain a test today, then he may still show positive, however he would not be a candidate for Paxlovid at this time. Reviewed quarantine guidelines, including wearing a mask for 10 days post positive test which would be through tomorrow. Patient agreed with plan of care. Advised follow up as needed. Plan See above for full details and plan. Coding Level of Care Code Est Pt Level 3 (17302) Diagnoses Seasonal allergic rhinitis due to pollen J30.1 Allergic rhinitis trigger: pollen Allergic rhinitis seasonality: seasonal Coronavirus infection B34.2
[2023-11-21 11:52] VITALS: BP 144/80; PULSE 93; TEMP 36.8; O2SAT 98; BMI 25.8
== END 2023-11-21 13:12 | disposition home or self-care (01) ==
PROVIDERS: PCP Internal Medicine; Visit Provider Registered Nurse
DX: J30.1 Allergic rhinitis due to pollen (principal); B34.2 Coronavirus infection, unspecified

== ENCOUNTER 2023-11-21 11:49 | Outpatient (REF) | payer MEDICARE, OTHER, SELFPAY ==
[2023-11-21 19:44] LABS: Influenza A PCR NEGATIVE (Negative); Influenza B PCR NEGATIVE (Negative); Resp Syncy Virus RNA Qual PCR NEGATIVE (Negative); SARS COV2 PCR INHOUSE POSITIVE (Negative)
== END 2023-11-21 11:50 | disposition home or self-care (01) ==
LOC: HO.LAB 11:49
PROVIDERS: PCP Internal Medicine; Visit Provider Registered Nurse
DX: J30.1 Allergic rhinitis due to pollen (principal); B34.2 Coronavirus infection, unspecified
CPT/HCPCS: 0241U; 99212

== ENCOUNTER 2024-01-16 11:13 | Outpatient (AMB) | payer MEDICARE, OTHER, SELFPAY ==
[2024-01-16 11:44] VITALS: BP 120/82; PULSE 78; O2SAT 96; BMI 26.3
--- NOTE | 2024-01-16 11:44 | AM.OFFWIN_ITS ---
Intake Vital Signs 01/16/24 11:44 Height 5 ft 6 in Weight 163 lb BMI 26.3 BP 120/82 Blood Pressure Location Lt brachial Position Sitting Pulse 78 Pulse Source Pulse Oximeter Pulse Oximetry (%) 96 Oxygen Delivery Method Room Air Intake Visit Reasons: EP pain on RT shoulder due to a fall Intake Note: Patient here because he fell on his right shoulder while walking his dog this morning. Patient Tobacco Use Status: Never used Tobacco Allergies No Known Allergies Allergy (Verified 01/16/24 11:45) Do you need a note to return to daycare/school/sports/work: No HPI HPI Comments History of Present Illness Details The patient is a 73-year-old male presenting with right shoulder pain. The issue began approximately two hours prior to presentation after the patient experienced a fall onto the blacktop while walking his dog, resulting in injury to the right side of his body. Post-fall, the patient reported soreness in the shoulder with some restricted movement and was concerned about swelling, although no visual swelling was confirmed. Pain was localized primarily around the biceps tendon insertion and possibly involving the subacromial region, as indicated by tenderness on specific maneuvers. The patient described restricted movement when elevating the arm and when performing internal rotation (simulating emptying a can), suggesting involvement of potential tendonitis and bursitis. The patient's history includes diabetes mellitus and Zacarias's esophagus, which influences medication tolerance, particularly NSAIDs. He also had a past event of right shoulder dislocation at a very young age, which might have lasting biomechanical implications. Despite the pain, no obvious external bruising or deformity was observed. Patient is not on a blood thinner and did not hit his head. [facility] Medical History Hx of basal cell carcinoma Zacarias esophagus Aortic stenosis Hyperlipidemia DM type 2 (diabetes mellitus, type 2) Stress incontinence Asthma Prostate CA GERD (gastroesophageal reflux disease) Surgical History Hx of esophagogastroduodenoscopy H/O colonoscopy History of microdiscectomy History of prostatectomy Family History Father HTN (hypertension) History of heart attack Enlarged prostate CVD (cardiovascular disease) Social History Housing: House Alcohol intake: never Patient Tobacco Use Status: Never used Tobacco e-Cigarette/Vaping Use: Never Used service: No Current occupational status: retired Cognitive needs: No Hearing needs: No Vision needs: Yes Review of Systems Const All systems reviewed & are unremarkable except as noted in HPI and below Physical Exam Vital Signs: Last Vital Signs Pulse 78 01/16/24 11:44 BP 120/82 01/16/24 11:44 Pulse Ox 96 01/16/24 11:44 Oxygen Delivery Method Room Air 01/16/24 11:44 BMI result Body Mass Index 26.3 - Musculoskeletal- Right shoulder with visible normal alignment of bony structures. No external bruising observed. Tenderness over the biceps tendon insertion. Pain and raising of right shoulder on specific shoulder maneuvers, including forward flexion and internal rotation. Full range of motion at the elbow despite superficial scratches. Const General: cooperative, healthy appearing, comfortable, no acute distress and well developed Orientation/consciousness: patient oriented x3 Limitations: no limitations HEENT Head: Yes normal to inspection Ears: hearing grossly normal bilaterally General nose exam: Normal external nose present Face and sinus: Yes normal facial exam Eyes General: appearance normal, both eyes and all related structures Neck Neck: Yes normal visual inspection and Yes full ROM Resp Effort & Inspection: normal respiratory effort and able to speak in complete sentences Back/Spine/Pelvis Cervical Spine: normal cervical lordosis, cervical ROM normal, cervical muscular tenderness (right side) and No Cervical spine tenderness Thoracic/Lumbar Spine: thoracic and lumbar spine normal to inspection Skin General skin exam: no rashes or lesions noted Neuro General: patient oriented x3 Assessment & Plan Assessment & Plan (1) Acute shoulder pain: Code(s): M25.519 - Pain in unspecified shoulder Qualifiers: Laterality: right Qualified Code(s): M25.511 - Pain in right shoulder Plan: Right Shoulder Pain and Possible Tendonitis and Bursitis: A presumption of tendonitis and subacromial bursitis was made based on the tenderness and restricted mobility. The patient will administer oral ibuprofen 600 mg as needed for pain, guided by tolerance due to his Zacarias's esophagus. A short course of meloxicam was discussed as an alternative due to its convenient once-daily dosing, while noting to avoid prolonged NSAID use given his esophageal and diabetic history. A right shoulder X-ray will be conducted to rule out any osseous injury; results will be communicated following review. Dislocation History: An X-ray will further evaluate any structural implications. Orders: Orders XR shoulder RT min 2V Today M25.519 - Pain in unspecified shoulder Coding Level of Care Code Est Pt Level 4 (71493) Diagnoses Acute pain of right shoulder M25.511 Laterality: right
== END 2024-01-16 12:32 | disposition home or self-care (01) ==
PROVIDERS: PCP Internal Medicine; Visit Provider Physician Assistant
DX: M25.511 Pain in right shoulder (principal)

== ENCOUNTER 2024-01-16 11:13 | Outpatient (REF) | payer MEDICARE, OTHER, SELFPAY ==
--- NOTE | ~2024-01-16 | XR_ITS ---
EXAMINATION: XR SHOULDER, RIGHT CLINICAL INFORMATION: Right shoulder pain. COMPARISON: None available. TECHNIQUE: AP, Grashey, and scapular Y views of the right shoulder. FINDINGS: Mild acromioclavicular osteoarthritis. Lateral downsloping of the acromion with moderate subacromial spurring. Mild glenohumeral joint space narrowing with small marginal osteophytes. No acute fracture or dislocation. No concerning lytic or blastic osseous lesion. XR/XR shoulder RT min 2V IMPRESSION: 1. Mild acromioclavicular osteoarthritis with lateral downsloping of the acromion and moderate subacromial spurring. 2. Mild glenohumeral osteoarthritis. 3. No acute fracture or dislocation. Electronically signed by: Zuhair Jones MD 01/16/2024 01:28 PM SYD RIVERA
== END 2024-01-16 11:14 | disposition home or self-care (01) ==
LOC: HO.HMGCX 11:13
PROVIDERS: PCP Internal Medicine; Visit Provider Physician Assistant
DX: M25.511 Pain in right shoulder (principal)
CPT/HCPCS: 73030; 99212

== ENCOUNTER 2024-01-18 10:55 | Outpatient (AMB) | payer MEDICARE, OTHER, SELFPAY ==
--- NOTE | 2024-01-18 11:24 | A.OFFPC_ITS ---
Vital Signs 01/18/24 11:29 Height 5 ft 6 in Weight 160 lb BMI 25.8 BP 128/74 Blood Pressure Location Lt brachial Position Sitting Pulse 89 Pulse Source Pulse Oximeter Pulse Oximetry (%) 99 Oxygen Delivery Method Room Air Intake Visit Reasons: follow up walk-in, still in pain/sore Intake Note: Pt is here today for a follow up visit after being seen in a walk in clinic. Pt states that his shoulder is still sore after a fall and also his R hip is still sore. Allergies No Known Allergies Allergy (Verified 01/18/24 11:43) Medication List - Last Reconciled 01/18/24 by Shelia Judge MD albuterol sulfate 90 mcg/actuation 1 inh inhalation QID PRN aspirin (Adult Aspirin Regimen) 81 mg PO DAILY atorvastatin 40 mg PO DAILY blood sugar diagnostic As directed blood sugar diagnostic (Freestyle [employer] strips) 1 QD cholecalciferol (vitamin D3) 25 mcg PO DAILY ciclopirox 0.77% appl topical fexofenadine (Mirian Allergy) 180 mg PO DAILY fluticasone propionate 250 mcg/actuation 1 inh PO BID metformin ER 500 mg PO DAILY omeprazole 20 mg PO DAILY Qvar RediHaler 40 mcg/actuation (beclomethasone dipropionate) 2 inhalations inhalation BID NS Tobacco use date assessed: 01/18/24 Fall risk assessment: 1 Fall in past year Last assessed Fall Risk: 01/18/24 Dental Screening Dental Screen Date: 01/18/24 Did you have a dental visit in the last 12 months?: Yes Did you have a dental problem in the last 6 months where you did not have access to dental care?: No Was dental information given to patient?: Patient has dentist HPI follow up walk-in, still in pain/sore HPI Details Patient presents for the follow-up of a fall 5 days ago. He was seen in a walk-in and had a right shoulder x-ray, negative for acute injury. Patient reports slowly improving and using his right arm with some discomfort. He has been taking 400 mg of ibuprofen twice a day. Type 2 diabetes chronic asthma stable on current medications [facility] Medical History Hx of basal cell carcinoma Zacarias esophagus Aortic stenosis Hyperlipidemia DM type 2 (diabetes mellitus, type 2) Stress incontinence Asthma Prostate CA GERD (gastroesophageal reflux disease) Surgical History Hx of esophagogastroduodenoscopy H/O colonoscopy History of microdiscectomy History of prostatectomy Family History Father HTN (hypertension) History of heart attack Enlarged prostate CVD (cardiovascular disease) Social History Housing: House Alcohol intake: never Patient Tobacco Use Status: Never used Tobacco e-Cigarette/Vaping Use: Never Used service: No Current occupational status: retired Cognitive needs: No Hearing needs: No Vision needs: Yes Questionnaire Thrive Questionnaire Date Thrive assessed: 01/18/24 I am a: Patient What is your living situation today?: I have a steady place to live Within the past 12 months, did the food you bought not last and you didn't have the money to get more?: Never true Within the past 12 months, did you worry whether your food would run out before you got money to buy more?: Never true Do you have trouble paying for medicines?: No Do you have trouble getting transportation to medical appointments?: No Do you have trouble paying your heating and electricity bill?: No Do you have trouble taking care of your child, family member or friend?: No Do you have trouble with day-to-day activities such as bathing, preparing meals, shopping, managing finances, etc.?: No Are you currently unemployed and looking for a job?: No Are you interested in more education?: No Please select the resources that you would like help with: None Currently or been in a relationship where the following occur: No concerns reported THRIVE Score: 0 RE-7 AMB Questionnaire RE-7 Date RE - 7 assessed: 01/18/24 Source: Developed by Drs. Tyrone Pichardo, Annette Sahu, Mono Renner and colleagues, with an educational hernán from [employer]. Review of Systems Const All systems reviewed & are unremarkable except as noted in HPI and below ENT Reports no additional complaints Card Reports no additional complaints Resp Reports no additional complaints GI Reports no additional complaints Physical exam (Primary Care) Vital Signs: Last Vital Signs Pulse 89 01/18/24 11:29 BP 128/74 01/18/24 11:29 Pulse Ox 99 01/18/24 11:29 Oxygen Delivery Method Room Air 01/18/24 11:29 BMI result Body Mass Index 25.8 Tobacco/Smoking Status: Tobacco use Status Tobacco use date assessed 01/18/24 01/18/24 11:44 Patient Tobacco Use Status Never used Tobacco 01/18/24 11:24 e-Cigarette/Vaping Use Never Used 01/18/24 11:24 Thrive Assessment: Date of Thrive Assessment Date Thrive assessed 01/18/24 01/18/24 11:44 Currently or been in a relationship where the following occur: No concerns reported Const General: no acute distress HENMT Head: Yes normal to inspection Resp Effort & Inspection: normal respiratory effort Auscultation: clear to auscultation bilaterally Cardio Rhythm: regular rhythm Heart sounds: S1 normal heart sound present and S2 normal heart sound present Extrem Other: Right shoulder with intact range of motion, some local tenderness over biceps area no soft tissue swelling erythema warmth Coding Level of Care Code Est Pt Level 3 (14831) Diagnoses Hyperlipidemia E78.5 DM type 2 (diabetes mellitus, type 2) E11.9 Acute pain of right shoulder M25.511 Laterality: right Assessment & Plan Assessment & Plan (1) Hyperlipidemia: Code(s): E78.5 - Hyperlipidemia, unspecified Category: Medical Plan: cont statin (2) DM type 2 (diabetes mellitus, type 2): Code(s): E11.9 - Type 2 diabetes mellitus without complications Category: Medical Plan: cont meds (3) Acute shoulder pain: Code(s): M25.519 - Pain in unspecified shoulder Category: Medical Qualifiers: Laterality: right Qualified Code(s): M25.511 - Pain in right shoulder Plan: Continue ibuprofen p.r.n. [id number] shoulder exercises given to the patient Orders: Orders Comprehensive Harrison. Panel Fast 3 Months E11.9 - Type 2 diabetes mellitus without complications, E78.5 - Hyperlipidemia, unspecified Hemoglobin A1c 3 Months E11.9 - Type 2 diabetes mellitus without complications, E78.5 - Hyperlipidemia, unspecified
[2024-01-18 11:29] VITALS: BP 128/74; PULSE 89; O2SAT 99; BMI 25.8
== END 2024-01-18 12:26 | disposition home or self-care (01) ==
PROVIDERS: PCP Internal Medicine; Visit Provider Internal Medicine
DX: E78.5 Hyperlipidemia, unspecified (principal); E11.9 Type 2 diabetes mellitus without complications; M25.511 Pain in right shoulder

== ENCOUNTER → 2024-01-18 10:55 | Outpatient (BNVA) | payer MEDICARE, OTHER, SELFPAY | PROVIDERS: PCP Internal Medicine; Visit Provider Internal Medicine | DX: E78.5 Hyperlipidemia, unspecified (principal); E11.9 Type 2 diabetes mellitus without complications; M25.511 Pain in right shoulder | CPT/HCPCS: 99212 ==

== ENCOUNTER 2024-04-08 09:35 | Outpatient (REF) | payer MEDICARE, OTHER, SELFPAY ==
--- OUTSIDE RECORDS SUMMARY | 2024-04-08 10:41 | XMS_ITS | Patient Health Record ---
Author Organization [facility] Address [address] [place] [address] Care Team Providers Care Emergency Veterinarian Name Role Phone Shelia Judge MD Primary Care Provider Tyrone Mosley Unavailable [phone] ALLERGIES Allergen (clinical drug ingredient) Drug/Non Drug Allergy documented on EMR Reaction Allergy Type Onset Date Status seasonal (uncoded) Unknown Allergy A ctive REASON FOR REFERRAL No Information MEDICATIONS Medication SIG (Take, Route, Frequency, Duration) Notes Start Date End Date Status Zantac 150 MG 1 tablet at bedtime Orally twice a day Not-Taking Ketoconazole 2 % 1 application to affected area Externally Once a day Active Probiotic - as directed Orally Active Flovent Diskus 250 MCG/BLIST 1 puff Inhalation Twice a day Active Flunisolide 25 MCG/ACT (0.025%) 2 drops in each nostril Nasally Twice a day Active ProAir HFA 108 (90 Base) MCG/ACT 2 puffs as needed Inhalation every 4 hrs Active metFORMIN HCl ER 500 MG 1 tablet with ev ening meal Orally Once a day for 30 day(s) Active Loratadine 10 MG 1 tablet Orally Once a day for 30 day(s) Active Omeprazole 20 MG TAKE 1 CAPSULE BY [facility] EVERY MORNING for 90 Active Atorvastatin Calcium 40 MG 1 tablet Orally Once a day Active Claritin 10 MG 1 tablet Orally Once a day Active Aspir-81 81 MG 1 tablet Orally Once a day Active IMMUNIZATIONS Vaccine Route Administration Date Status Comme nts Flu vaccine no Preserv 3 and > Unknown 01/18/2016 Admin istered Influenza Unknown 10/27/2017 Administered Influenza Unknown 12/30/2020 Administered SOCIAL HISTORY Tobacco Use: Social History Observation Description Date Details (start date - stop date) Never Smoker NA - NA Sex Assigned At : Social History Observation Description Sex Assigned At Unknown Tobacco Use/Smoking Question Answer Notes Patient is a nonsmoker Alcohol Screen Question Answer Notes Did you have a drink contain ing alcohol in the past year? Yes How often did you have a dri nk containing alcohol in the past year? 2 to 4 times a month (2 points) How many drinks did you have on a typical day when you were drinking in the past year? 1 or 2 drinks (0 point) How often did you have 6 or more drinks on one occasion in the past year? Never (0 point) Points 2 Interpretation Negative PROBLEMS Problem Type ICD Code Onset Dates Problem Status W/U Status Risk SNOMED Code Notes Problem Secondary hypertension (I15.9) Active confirmed 54829979 Problem Encounter for screening for malignant neoplasm of colon (Z12.11) Active confirmed 629925674 Problem Gastroesophageal reflux disease, esophagitis presence not specified (K21.9) Active confirmed 198467649 Problem Long-term use of aspirin therapy (Z79.82) Active confirmed 697568497 Problem Pre-procedural examination (Z01.818) Active confirmed 645930679 Problem Fatty liver (K76.0) Active confirmed 19 8560465 Problem Gastroesophageal reflux disease without esophagitis (K21.9) Active confirmed 729193533 Problem 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) Active confirmed 010285106 Problem Elevated liver function tests (R79.89) Active confirmed 335839891 Problem Zacarias''s esophagus without dysplasia (K22.70) Active confirmed Zacarias's esophagus (746158754) Problem GERD without esophagitis (K21.9) Active confirmed Gastroes ophageal reflux disease (958240122) Problem Esophageal reflux (K21.9) Active confirmed Esophageal refl ux (265381045) Problem Zacarias esophagus (K22.70) Active confirmed Zacarias esophag us (071989927) PLAN OF TREATMENT Future Test Test Name Order Date COLONOSCOPY 07/12/2016 UPPER GI ENDOSCOPY 05/03/2018 UPPER GI ENDOSCOPY 10/24/2021 Insurance Providers Payer Name Payer Address Payer Phone Subscriber Number Group Number Insured Name Patient Relationship to Insured Coverage Start Date Coverage End Date MEDICARE OF [place] [address] [address] [phone] [id number] KANE CASTILLO Self - patient is the insured [facility] [address] [place] [phone] [id number] KANE CASTILLO Self - patient is the insured MEDICAL (GENERAL) HISTORY Medical History History ICD Code NIDDM Prostate cancer--2014-surgery as below Denies MT,CVA,renal disease Asthma Hyperlipidemia Colonoscopy 10/2016-one hyper plastic polyp, mild diverticulosis, small internal hemorrhoids GERD and Zacarias's esophagus --he underwent an upper endoscopy in October of 2018 with the finding of a small hiatal hernia and small area of Zacarias's esophagus, without dysplasia nor esophagitis Negative gallbladder ultrasound in er of 2020 Fatty liver and minimally elevated LFTs in 2020 Surgical History Surgery Date(Month/Year) Prostatectomy-Dr. 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 Yoo 2013
[2024-04-08 13:36] LABS: Estimated Average Glucose 126 mg/dL; Hemoglobin A1C 167.4163 umol/L; Total Hemoglobin (HGBA1C) 3951.6533 umol/L
[2024-04-08 14:11] LABS: Alanine Aminotransferase 37 U/L (0-40); Albumin Level 4.6 g/dL (3.5-5.0); Alkaline Phosphatase 108 U/L (39-117); Anion Gap 11 (12-20); Aspartate Amino Transferase 27 U/L (5-37); Bilirubin Total 0.4 mg/dL (0.0-1.0); Blood Urea Nitrogen 15 mg/dL (9-16); Calcium 9.3 mg/dL (8.4-10.2); Carbon Dioxide 30 mmol/L (22-29); Chloride 102 mmol/L (96-108); Estimated Glomerular Filt Rate > 60; Glucose Fasting 114 mg/dL (60-99); Potassium 3.9 mmol/L (3.3-5.1); Sodium 139 mmol/L (135-145); Total Protein 8.1 g/dL (6.5-8.0)
== END 2024-04-08 09:36 | disposition home or self-care (01) ==
LOC: HO.HMGCLDS 09:35
PROVIDERS: PCP Internal Medicine; Visit Provider Internal Medicine
DX: E11.9 Type 2 diabetes mellitus without complications (principal); E78.5 Hyperlipidemia, unspecified
CPT/HCPCS: 36415; 80053; 83036

== ENCOUNTER 2024-04-14 10:39 | Outpatient (AMB) | payer MEDICARE, OTHER, SELFPAY ==
--- OUTSIDE RECORDS SUMMARY | 2024-04-14 10:42 | XMS_ITS ---
Author Organization [facility] Address [address] [place] [address] Care Team Providers Care Stem Shaper Name Role Phone Shelia Judge MD Primary Care Provider Nj Monique Unavailable [phone] Allergies Allergen (clinical drug ingredient) Drug/Non Drug Allergy documented on EMR Reaction Allergy Type Onset Date Status Seasonale Unknown Drug Allergy Active Dust Mite Mixed Allergen Ext Unknown Drug Allergy Active Mold Unknown Allergy Active REASON FOR VISIT At Risk Footcare, Skin Problem, Toe Irritation Medications Medication SIG (Take, Route, Frequency, Duration) Notes Start Date End Date Status Claritin Not-Taking Ranitidine Not-Takin g Lorazepam as needed Not-Taking Night Splint AFO - L1930 as directed 05/12/2016 Not-Taking Omeprazole Not-Takin g ASA Not-Taking Singulair Not-Taking Flunisolide Not-Taki ng Claritin PRN Not-Taking Probiotic PRN Not-Taking ProAir HFA Active Extra Depth Orthopedic Shoes (1 Pair) with Customized Heat Molded Multidensity Innersoles (3 Pair) as directed Dx: NIDDM (E11.9), Hammertoe Foot Deformity (M20.41,M20.42), Preulcerative Skin Lesion(s) (L85.1) 05/18/2023 Active Aspirin Active FreeStyle InsuLinx Test Not-Taking Ketoconazole 2 % Externally PRN No t-Taking Flovent Diskus Activ e Atorvastatin Calcium Active metFORMIN HCl ER 500 MG Orally Active Advil PRN Active Mirian Allergy Acti ve Vitamin D3 25 MCG (1000 UT) 1 tablet Orally Once a day Active Flonase Sensimist 27.5 MCG/SPRAY 2 sprays (1 spray in each nostril) Nasally Once a day Active Omeprazole 20 MG 1 capsule 30 minutes before morning meal Orally Once a day Active Social History Tobacco Use: Social History Observation Description Date Details (start date - stop date) Never Smoker NA - NA Tobacco Use/Smoking Question Answer Notes Are you a: nonsmoker Additional Findings: Tobacco Non-User Current no n-smoker Tobacco use other than smoking: Question Answer Notes Are you an other tobacco user? No Vital Signs Height 5ft6in in 10/23/2023 Weight 157 lbs 10/23/2023 BMI 25.34 kg/m2 10/23/2023 Blood pressure systolic 137 mm Hg 10/23/19 24 Blood pressure diastolic 72 mm Hg 024 Procedures Procedure Date Ordered Date Performed Result Body Sit e 53623-MXTCFMD NAIL, 6 OR MORE 10/23/2023 N/A 98931-CWVJ SKIN LESIONS, OVER 4 10/23/2023 N/A - Ganglion Cyst Injection/Aspiration 10/23/2023 N/A Encounters Encounter Location Date Provider Diagnosis [facility] [place] [address] [place] [address] 10/23/2023 Nj Sales Type 2 diabetes mellitus with diabetic polyneuropathy E11.42 ; Tinea unguium B35.1 ; Ganglion of foot, right M67.471 ; Other hammer toe(s) (acquired), right foot M20.41 and Other hammer toe(s) (acquired), left foot M20.42 Assessments Encounter Date Diagnosis (ICD Code) Assessment Notes Treatment Notes Treatment Clinical Notes Section Notes 10/23/2023 Type 2 diabetes mellitus with diabetic polyneuropathy (ICD-10 - E11.42) 10/23/2023 Tinea unguium (ICD-10 - B35.1) 10/23/2023 Ganglion of foot, right (ICD-10 - M67.471) 10/23/2023 Other hammer toe(s) (acquired), right foot (ICD-10 - M20.41) Response to treatment,Impro vement 10/23/2023 Other hammer toe(s) (acquired), left foot (ICD-10 - M20.42) Response to treatment,Impro vement 10/23/2023 Other Plan Of Treatment Pending Test Test Name Order Date 92685-DZYPHLC NAIL, 6 OR MORE 10/23/2023 88052-BCOV SKIN LESIONS, OVER 4 10/23/19- Ganglion Cyst Injection/Aspiratio n 10/23/2023 Next Appt Details Follow Up: prn, Reason: Provider Name:Nj Sales , 06/13/2024 08:45:00 AM, [address] [place], [address], Procedure Notes * Category Sub-Category Detail Notes Aspiration Indication Symptomatic Gang lion/Cyst Prep The skin was prepped with alcohol with aseptic technique Anesthesia Topical cryo Guidance Palpation Aspiration We advanced a steril e 18 gauge needle into the area for fluid collection Yield We aspirated a moder ate amount of fluid (0.2cc), The fluid was clear gelatinous mixed with mild amount of blood Effect The procedure succes sfully decompressed the fluid collection and should relieve discomfort Disposition The patient tolerate d the procedure and anesthesia well and left the office alert and stable and in good condition. The wound was dressed with a dry sterile dressing, Follow-up as in Plan () Debride Nail 6-10 Nail debridement Performance o f this nail treatment by a nonprofessional would put this patients foot and overall health at risk. Therefore, nail debridement was performed extensively to reduce/remove overall nail length, girth, thickness, subungual debris, and necrotic tissue, by manual and/or electrical means through the use of a nail nipper and/or dremel-type jewel bearing grinder, to a more viable healthy nail plate or bed tissue 6-10. Silver nitrate used for any petechial bleeding as necessary. Definitive antifungal treatment options have been reviewed and discussed with the patient. The patient chooses, no pharmaceutical tx (52604) Keratoma Treatment Parring or Cutting o f Benign Hyperkeratotic Lesion(s) 58008 ( More than 4 Lesions ) - The Benign hyperkeratotic lesions, as described above were pared, and/or cut utilizing a sterile 15 blade, tissue nippers, and/or dremel Progress Notes * Nadine LUOB:[birth year] (73 yo M)Acc No.[id number]:10/23/2023 Progress Note Patient:?Fernando Lu Provider:?Nj Sales DPM :1950???Age:73 Y???Sex:Male Ruben e:10/23/2023 Address:[facility] [address] [place], [place] Pcp:Shelia Judge MD Subjective: * Chief Complaints: * ???At Risk FootcareSkin Prob lemToe Irritation * HPI: ???At Risk footcare:?Pt States Last PCP Visit:?Date?10/15/2023 ???Skin problems:?Location:?1st , Toe(s) , Right.?Course:?worse.?Toe pain:?Treatments:?Rx shoes .? * ROS:?General/Constitutional:?Nausea?denies.?Vomiting?denies.?Hunger Thirst?denies.?Loss appetite?denies.?Chills?denies.?Fatigue?denies.?Fever?denies.?Night Sweats?denies.?Unexplained weight loss?denies.?Ophthalmologic:?Blurred vision?denies.?Red eye?denies.?HEENTM:?Dentures?denies.?Dizziness?denies.?Glasses/contacts?admits.?Retinopathy?de nies.?Blurred/double vision?denies.?TMJ?denies.?Discharge/drainage?denies.?Implants?denies.?Hard of hearing denies.?Difficulty chewing/swallowing/speaking?denies.?Nose bleeds?denies.?Sore mouth?denies.?Swollen glands?denies.?Respiratory:?On Oxygen?denies.?Pneumonia/pleurisy?denies.?Bronchitis?admits.?Emphysema?denies.?C oughing?admits.?Cough blood?denies.?Shortness of breath?denies.?Wheezing?denies.?Cardiovascular:?Pacemaker?denies.?MVP?denies.?WPW?denies.?CHF?denies.?Heart attack?denies.?Septal defect?denies.?Rapid beat?denies.?Chest pain ?denies.?Atrial Fib.?denies.?Murmur/Palpitations?denies.?Gastrointestinal:?Hemorrhoids?admits.?Stomach/Abdominal pain?denies.?Dark blood stool?denies.?Irritable bowel ?denies.?Constipation?denies.?Diarrhea?denies.?Vomiting?denies.?Hematology:?Swelling?denies.?Bruising??admits, on aspirin.?Bleeding problem??admits, on anticoagulants.?Genitourinary:?Blood urine?denies.?Frequent/Painfu/urination/bladder control?denies.?Kidney stones?denies.?Infection (UTI)?denies.?Nephropathy?admits.?Musculoskeletal:?Hammertoes?admits.?Bunions?denies.?Scoliosis/kyphosis?denies.?Muscle cramps / walking?admits.?Generalized aches and pains?denies.?Weakness?denies.?Integ.:?Norton?denies.?Scars?denies.?Corns/calluses?admits.?Ingrown nails?denies.?Painful nails?denies.?Rashes?denies.?Neurologic:?Difficulty sleeping?denies.?Bipolar?denies.?Brain disorder?denies.?Balance trouble?denies.?Confusion?denies.?Fainting/blackouts?denies.?Headache?denies.?Tr emors?denies.? * Medical History:? * Surgical History:?discectomy 07/2013radical prostatectomy 09/2014basal cell removal from nose 1990endoscopy 11/25/2018dental implant * Hospitalization/Major Diagno stic Procedure:?[facility] [place]- sever nose bleeds 01/12/22 * Family History:?Mother: dece ased, diagnosed with Other malignant neoplasm of unspecified site.?Father: , diagnosed with Unspecified essential hypertension, Unspecified heart disease.?1 daughter(s) . .? Daughter . * Social History:?Tobacco Use:?Tobacco Use/Smoking?Are you a:?nonsmoker ?Additional Findings: Tobacco Non-User?Current non-smoker ?Tobacco use other than smoking?Are you an other tobacco user??No ???Miscellaneous:?Caffeine: yes, frequency: , 3-5 cups per day. ?Children: yes. ?Exercise: yes, walking. ?Marital status: . ?Occupation: retired- assistant financial accountant. * Medications:?TakingVitamin D 3 25 MCG (1000 UT) Tablet 1 tablet Orally Once a dayFlonase Sensimist 27.5 MCG/SPRAY Suspension 2 sprays (1 spray in each nostril) Nasally Once a dayOmeprazole 20 MG Capsule Delayed Release 1 capsule 30 minutes before morning meal Orally Once a dayAllegra Allergy Advil , Notes: PRNAtorvastatin Calcium Flovent Diskus metFORMIN HCl ER 500 MG Tablet Extended Release 24 Hour Orally ProAir HFA Aspirin Extra Depth Orthopedic Shoes (1 Pair) with Customized Heat Molded Multidensity Innersoles (3 Pair) as directed Dx: NIDDM (E11.9), Hammertoe Foot Deformity (M20.41,M20.42), Preulcerative Skin Lesion(s) (L85.1)Taking Vitamin D3 25 MCG (1000 UT) Tablet 1 tablet Orally Once a dayTaking Flonase Sensimist 27.5 MCG/SPRAY Suspension 2 sprays (1 spray in each nostril) Nasally Once a dayTaking Omeprazole 20 MG Capsule Delayed Release 1 capsule 30 minutes before morning meal Orally Once a dayTaking Mirian Allergy Taking Advil , Notes: PRNTaking Atorvastatin Calcium Taking Flovent Diskus Taking metFORMIN HCl ER 500 MG Tablet Extended Release 24 Hour Orally Taking ProAir HFA Taking Aspirin Taking Extra Depth Orthopedic Shoes (1 Pair) with Customized Heat Molded Multidensity Innersoles (3 Pair) as directed Dx: NIDDM (E11.9), Hammertoe Foot Deformity (M20.41,M20.42), Preulcerative Skin Lesion(s) (L85.1)Not-Taking/PRNFreeStyle InsuLinx Test Ketoconazole 2 % Cream Externally , Notes: PRNFlunisolide Probiotic , Notes: PRNClaritin , Notes: PRNSingulair ASA Ranitidine Claritin Night Splint AFO - L1930 as directed Lorazepam , Notes: as neededOmeprazole Medication List reviewed and reconciled with the patientNot-Taking/PRN FreeStyle InsuLinx Test Not-Taking/PRN Ketoconazole 2 % Cream Externally , Notes: PRNNot-Taking/PRN Flunisolide Not-Taking/PRN Probiotic , Notes: PRNNot-Taking/PRN Claritin , Notes: PRNNot-Taking/PRN Singulair Not-Taking/PRN ASA Not-Taking/PRN Ranitidine Not-Taking/PRN Claritin Not-Taking/PRN Night Splint AFO - L1930 as directed Not-Taking/PRN Lorazepam , Notes: as neededNot-Taking/PRN Omeprazole Medication List reviewed and reconciled with the patient * Allergies:?SeasonaleMoldDust Mite Mixed Allergen Extyes[Allergies Verified] Objective: * Vitals:?Ht: 5ft6in, Wt:157, BMI:25.34, Shoe size: 10, BP:137/72 mm Hg, BS: not taken, Ht-cm: 167.64 cm, Wt-k.21 kg. * ???Past Orders: ???Lab:HEMOGLOBIN A1C (GLYCO HEMOGLOBIN) (Order Date - 10/16/2023) (Collection Date - 10/16/2023) ? Value Reference Range ?HEMOGLOBIN A1C % (HH) 5.9 * Examination: ???Neurological: ?SENSORY:?Neurological exam demonstrates, reduced light touch sensation,?reduced sharp/dull pin prick discrimination , at Forefoot, B/L, 5.07 monofilament test performed at plantar aspects of 5 varied sites per foot shows sensation, reduced , B/L.?Nails: ?NAILS are:?Elongated, overgrown, dystrophic, lytic, greater than 3mm thick, discolored and friable with crumbly malodorous subungual debris, 1-5 B/L.?Dermatologic: ?SKIN FINDINGS:?Skin exam reveals Keratotic lesion(s) located at, Medial, IPJ, TA, Medial, IPJ, T5, SUB MTH (s), 1, B/L , SUB MTH (s), 5, B/L , Heel(s), B/L , Skin AGAIN shows sign(s) of, a semi-firm, painful, non-translucent, non-pulsatile, nonmobile Sub Q tumor maryann. 4 x 4x 2mm , Medial , IPJ , T5.?Orthopedic: ?DIGITAL DEFORMITIES:?Digital contracture, PIPJ, 2-5 B/L, incompl-reducible to push-up test, no over, nor underlapping , now no longer, with evidence of shoe producing skin irritation.?FOOTWEAR:?good condition, exhibit proper fit and accommodation for pedal deformities. OT were inspected and noted to be worn, but in good condition giving proper support at the present time.? Assessment: * Assessment: 1.?Type 2 diabetes mellitus with diabetic polyneuropathy - E11.42 (Primary)?2.?Tinea unguium - B35.1?3.?Ganglion of foot, right - M67.471?4.?Other hammer toe(s) (acquired), right foot - M20.41, Chronic problem, Stable (1=3,2=4), Response to treatment,Improvement?5.?Other hammer toe(s) (acquired), left foot - M20.42, Chronic problem, Stable (1=3,2=4), Response to treatment,Improvement? Plan: * Treatment: 2.?Ganglion of foot, right?Procedure: - Ganglion Cyst Injection/Aspiration * Procedures:?Debride Nail 6-10:?Nail debridement?Performance of this nail treatment by a nonprofessional would put this patients foot and overall health at risk. Therefore, nail debridement was performed extensively to reduce/remove overall nail length, girth, thickness, subungual debris, and necrotic tissue, by manual and/or electrical means through the use of a nail nipper and/or dremel-type jewel bearing grinder, to a more viable healthy nail plate or bed tissue 6-10. Silver nitrate used for any petechial bleeding as necessary. Definitive antifungal treatment options have been reviewed and discussed with the patient. The patient chooses, no pharmaceutical tx (04981).?Keratoma Treatment:?Parring or Cutting of Benign Hyperkeratotic Lesion(s)?83486 ( More than 4 Lesions ) - The Benign hyperkeratotic lesions, as described above were pared, and/or cut utilizing a sterile 15 blade, tissue nippers, and/or dremel.?Aspiration:?Indication?Symptomatic Ganglion/Cyst.?Prep?The skin was prepped with alcohol with aseptic technique.?Anesthesia?Topical cryo.?Guidance?Palpation.?Aspiration?We advanced a sterile?18 gauge needle into the area for fluid collection.?Yield?We aspirated a moderate amount of fluid (0.2cc), The fluid was clear gelatinous mixed with mild amount of blood.?Effect?The procedure successfully decompressed the fluid collection and should relieve discomfort.?Disposition?The patient tolerated the procedure and anesthesia well and left the office alert and stable and in good condition. The wound was dressed with a dry sterile dressing, Follow-up as in Plan ().? * Procedure Codes:?89079 DEBRI DE NAIL, 6 OR MORE, Modifiers: XS 20809 ASPIRATE/INJ GANGLION CYST, Modifiers: XS 28296 TRIM SKIN LESIONS, OVER 4, Modifiers: XS * Preventive Medicine:? ??Counseling:?Discussion:?-13: Office or other outpatient visit for the evaluation and management of an established patient, which required a medically appropriate history and/or examination and LOW level of DECISION MAKING for: 1 STABLE ACUTE UNCOMPLICATED PROBLEM, 2 OR MORE MINOR PROBLEMS, OR 1 STABLE CHRONIC PROBLEM, THAT POSE(S) A LOW RISK FOR MORBIDITY/MORTALITY. The visit on the day of the encounter encompassed interpreting the data and educating the patient as to the nature of their condition, treatment options available according to their individual PMH, meds, allergies, and overall health/living conditions, as well as any potential risks or complications that may occur from a failure to adhere to, and participate in, the recommended course of therapy. The discussion included a complete verbal, and/or written explanation of the examination results, any x-rays taken, the proposed diagnosis, and outline of the treatment plan. A schedule for future care needs was also explained. The patient verbalized an understanding of the instructions at this time and agreed to be an active participant in their treatment. If the patient should think of any questions or concerns after the visit, I have encouraged the patient to call the office.?Shoe Gear Counseling:?A thorough inspection of the patients Rxed shoegear and inserts was performed and findings communicated. We reviewed the many important medical advantages for adhering to regularly wearing these shoe and insert accomidative devices daily as well as reviewed the fact that a failure in accepting these recommedations may be deleterious, unable to prevent, and disadvantagely result in, many pedal complications such as skin irritation, skin ulceration, infection, and even loss of toe/foot/leg/or even their life. Time was also spent reviewing the proper footcare techniques including daily skin moisturization, daily foot inspection for any interruption in skin integrity, open lesions, or sign of infection such as redness/malodor/drainage/swelling as well as daily shoe inspection for the presence of internal foreign bodies and shoe as well as insert wear. Patient questions re: shoes, inserts, and self foot inspections were answered to their satisfaction as the patient verbally confirmed a full understanding of the above information.? * Follow Up:?prn * Images: * Sign off status: Completed true * Provider:?Nj Nathanunier, DPM Date:?2023 Generated for Mary king/Damaso/Simonesmitting on:?04/14/2024 10:41 AM EST History and Physical Notes * HPI (History of Present Illness) Category Sub-Category Detail Notes Category Not es Toe pain Treatments: Rx shoes Skin problems Location: 1st , Toe(s) , Right Course: worse At Risk footcare Pt States Last PCP Visit: Date: 4 Examination Category Sub-Category Detail Notes Category Not es Neurological SENSORY: Neurological exa m demonstrates, reduced light touch sensation, reduced sharp/dull pin prick discrimination , at Forefoot, B/L, 5.07 monofilament test performed at plantar aspects of 5 varied sites per foot shows sensation, reduced , B/L Dermatologic SKIN FINDINGS: Skin exam reveal s Keratotic lesion(s) located at, Medial, IPJ, TA, Medial, IPJ, T5, SUB MTH (s), 1, B/L , SUB MTH (s), 5, B/L , Heel(s), B/L , Skin AGAIN shows sign(s) of, a semi-firm, painful, non-translucent, non-pulsatile, nonmobile Sub Q tumor maryann. 4 x 4x 2mm , Medial , IPJ , T5 Orthopedic FOOTWEAR: good condition, exhibit proper fit and accommodation for pedal deformities. OT were inspected and noted to be worn, but in good condition giving proper support at the present time DIGITAL DEFORMITIES: Digital contracture , PIPJ, 2-5 B/L, incompl-reducible to push-up test, no over, nor underlapping , now no longer, with evidence of shoe producing skin irritation Nails NAILS are: Elongated, overg rown, dystrophic, lytic, greater than 3mm thick, discolored and friable with crumbly malodorous subungual debris, 1-5 B/L
--- OUTSIDE RECORDS SUMMARY | 2024-04-14 10:42 | XMS_ITS | Patient Health Record ---
Author Organization [facility] Address [address] [place] [address] Care Team Providers Care Employment Programs Analyst Name Role Phone Shelia Judge MD Primary Care Provider Tyrone Mosley Unavailable [phone] ALLERGIES Allergen (clinical drug ingredient) Drug/Non Drug [...] Omeprazole 20 MG TAKE [address] [facility] EVERY MORNING for 90 Active Atorvastatin Calcium [...] Notes Problem Secondary hypertension (I15.9) Active confirmed 80551975 Problem Encounter for screening for malignant neoplasm of colon (Z12.11) Active confirmed 523135039 Problem Gastroesophageal reflux disease, esophagitis presence not specified (K21.9) Active confirmed 698670902 Problem Long-term use of aspirin therapy (Z79.82) Active confirmed 303984751 Problem Pre-procedural examination (Z01.818) Active confirmed 929289621 Problem Fatty liver (K76.0) Active confirmed 19 7962438 Problem Gastroesophageal reflux disease without esophagitis (K21.9) Active confirmed 205995026 Problem 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) Active confirmed 454211981 Problem Elevated liver function tests (R79.89) Active confirmed 775705730 Problem Zacarias''s esophagus without dysplasia (K22.70) Active confirmed Zacarias's esophagus (197480304) Problem GERD without esophagitis (K21.9) Active confirmed Gastroes ophageal reflux disease (425730874) Problem Esophageal reflux (K21.9) Active confirmed Esophageal refl ux (658687391) Problem Zacarias esophagus (K22.70) Active confirmed Zacarias esophag us (097804614) PLAN OF TREATMENT Future Test Test Name Order Date COLONOSCOPY 07/12/2016 UPPER GI ENDOSCOPY 05/03/2018 UPPER GI ENDOSCOPY 10/24/2021 Insurance Providers Payer Name Payer Address Payer Phone Subscriber Number Group Number Insured Name Patient Relationship to Insured Coverage Start Date Coverage End Date MEDICARE OF [place] [address] [address] [phone] [id number] KANE CASTILLO Self - patient is the insured [address] [facility] [address] [place] [address] [phone] [id number] KANE CASTILLO Self - patient is the insured MEDICAL (GENERAL) HISTORY Medical History History ICD Code NIDDM Prostate cancer--2014-surgery as below Denies RI,CVA,renal disease Asthma Hyperlipidemia Colonoscopy 10/2016-one hyper plastic [...]
--- OUTSIDE RECORDS SUMMARY | 2024-04-14 10:42 | XMS_ITS ---
[facility] Address [address] [place] [address] Care Team Providers Care Corporate Law Specialist Name Role Phone Shelia Judge MD Primary Care Provider Nj Monique Unavailable [phone] Allergies Allergen (clinical drug ingredient) Drug/Non Drug Allergy documented on EMR Reaction Allergy Type Onset Date Status Seasonale Unknown Drug Allergy Active Dust Mite Mixed Allergen Ext Unknown Drug Allergy Active Mold Unknown Allergy Active REASON FOR VISIT At Risk Footcare, Skin Problem Medications Medication SIG (Take, Route, Frequency, Duration) Notes Start Date End Date Status Night Splint AFO - L1930 as directed 05/12/2016 Not-Taking Lorazepam as needed Not-Taking Omeprazole Not-Takin g Ranitidine Not-Takin g Claritin Not-Taking Singulair Not-Taking ASA Not-Taking Flunisolide Not-Taki ng Probiotic PRN Not-Taking Claritin PRN Not-Taking Aspirin Active Extra Depth Orthopedic Shoes (1 Pair) with Customized Heat Molded Multidensity Innersoles (3 Pair) as directed Dx: NIDDM (E11.9), Hammertoe Foot Deformity (M20.41,M20.42), Preulcerative Skin Lesion(s) (L85.1) 05/18/2023 Active Flovent Diskus Not-T aking FreeStyle InsuLinx Test Not-Taking Ketoconazole 2 % Externally PRN No t-Taking Atorvastatin Calcium Active metFORMIN HCl ER 500 MG Orally Active ProAir HFA Active Mirian Allergy Acti ve Advil PRN Active Ciclopirox 0.77% as directed applied topically twice a day Active Qvar Active Vitamin D3 25 MCG (1000 UT) 1 [...] date) Never Smoker NA - NA Tobacco use other than smoking: Question Answer Notes Are you an other tobacco user? No Tobacco Control (Standard) Question Answer Notes Tobacco use: Nonsmoker Additional Findings: Tobacco non-user Current no nsmoker AUDIT-C (Standard) Question Answer Notes Did you have a drink containing alcohol in the p ast year? No Points 0 Interpretation Negative Vital Signs Blood pressure systolic 130 mm Hg 04/01/19 25 Blood pressure diastolic 70 mm Hg 025 Height 5ft6in in 04/01/2024 Weight 157 lbs 04/01/2024 BMI 25.34 kg/m2 04/01/2024 Procedures Procedure Date Ordered Date Performed Result Body Sit e 34369-DMUOXTS NAIL, 6 OR MORE 04/01/2024 N/A 33940-UJMU SKIN LESIONS, OVER 4 04/01/2024 N/A 24494- Ganglion Cyst Injection/Aspiration 04/01/2024 N/A Encounters Encounter Location Date Provider Diagnosis [facility] [place] [address] [place] [address] 04/01/2024 Nj Sales Type 2 diabetes mellitus with diabetic polyneuropathy E11.42 ; Tinea unguium B35.1 and Ganglion of foot, right M67.471 Assessments Encounter Date Diagnosis (ICD Code) Assessment Notes Treatment Notes Treatment Clinical Notes Section Notes 04/01/2024 Type 2 diabetes mellitus with diabetic polyneuropathy (ICD-10 - E11.42) 04/01/2024 Tinea unguium (ICD-10 - B35.1) 04/01/2024 Ganglion of foot, right (ICD-10 - M67.471) 04/01/2024 Other Plan Of Treatment Pending Test Test Name Order Date 19514-[id number] NAIL, 6 OR MORE 04/01/2024 80023-XGFJ SKIN LESIONS, OVER 4 04/01/19 25 - Ganglion Cyst Injection/Aspiratio n 04/01/2024 Next Appt Details Follow Up: prn, Reason: Provider Name:Nj Sales , 06/13/2024 08:45:00 AM, [address] [place], [address], Procedure Notes * Category Sub-Category Detail Notes Aspiration Indication Symptomatic Gang lion/Cyst Prep The skin was prepped with alcohol with aseptic technique Anesthesia Topical cryo Guidance Palpation Aspiration We advanced a steril e 18 gauge needle into the area for fluid collection Yield We aspirated a moder ate amount of fluid (0.1cc), The fluid was clear gelatinous mixed with [...] Plan () Debride Nail 6-10 Nail debridement Due to the cl inical pathology outlined in the exam findings, performance of this nail treatment is medically necessary as its management by an unskilled/untrained nonprofessional would put this patients foot and overall health at risk. Therefore, debridement to affected nail(s), as described in exam ( TA, T1, T2, T3, T4, T5, T6, T7, T8, T9 ), was performed exclusively by the physician of record to reduce/remove overall nail length, girth, thickness, subungual debris, and necrotic tissue, by manual and/or electrical means through the use of a nail nipper and/or dremel-type od grinder operator, to a more viable healthy nail plate or bed tissue 6-10 nails in total. Silver nitrate was used for any petechial bleeding as necessary. Definitive antifungal treatment options, both pharmaceutical and surgical, have been reviewed and discussed with the patient. The patient solely prefers the use of intermittent/as needed professional debridement services for their nail condition and understands the need for additional periodic treatments to maintain effectiveness in symptomatic relief - 37033 Keratoma Treatment Parring or Cutting o f Benign Hyperkeratotic Lesion(s) (-57) More than 4 Lesions - Due to the a t risk nature of the patients medical condition as documented in the exam findings, performance of this keratoderma treatment is medically necessary as its management by an unskilled/untrained nonprofessional would put this patients foot and overall health at risk. Therefore, the benign hyperkeratotic lesions, ( 8 ) in total, locations as stated and described in the exam ( Medial, IPJ, TA, Medial, IPJ, T5, SUB MTH (s), 1, B/L , SUB MTH (s), 5, B/L , Plantar, Heel(s), B/L ), were pared, and/or cut utilizing a sterile 15 blade, tissue nippers, and/or power dremel instrumentation by the physician of record - 61702 Progress Notes * Nadine LUOB:[birth year] (74 yo M)Acc No.[id number]:04/01/2024 Progress Note Patient:?Fernando LU Provider:?Nj Sales DPM :1950???Age:74 Y???Sex:Male Ruben e:04/01/2024 Address:[address] [place], [place] [id number] Pcp:Shelia Judge MD Subjective: * Chief Complaints: * ???At Risk FootcareSkin Prob leny * HPI: ???At Risk footcare:?Pt States Last PCP Visit:?Date?12/17/2023 ???Skin problems:?Location:?1st, Toe(s), Right.?Course:?worse.? * ROS:?General/Constitutional:?Nausea?denies.?Vomiting?denies.?Hunger Thirst?denies.?Loss appetite?denies.?Chills?denies.?Fatigue?denies.?Fever?denies.?Night Sweats?denies.?Unexplained weight loss?denies.?Ophthalmologic:?Blurred vision?denies.?Red eye?denies.?HEENTM:?Dentures?denies.?Dizziness?denies.?Glasses/contacts?admits.?Retinopathy?den ies.?Blurred/double vision?denies.?TMJ?denies.?Discharge/drainage?denies.?Implants?denies.?Hard of hearing denies.?Difficulty chewing/swallowing/speaking?denies.?Nose bleeds?denies.?Sore mouth?denies.?Swollen glands?denies.?Respiratory:?On O xygen?denies.?Pneumonia/pleurisy?denies.?Bronchitis?admits.?Emphysema?denies.?Co ughing?admits.?Cough blood?denies.?Shortness of breath?denies.?Wheezing?denies.?Cardiovascular:?Pacemaker?denies.?MVP?denies.?WPW?denies.?CHF?denies.?Heart attack?denies.?Septal defect?denies.?Rapid beat?denies.?Chest pain ?denies.?Atrial Fib.?denies.?Murmur/Palpitations?denies.?Gastrointestinal:?Hemorrhoids?admits.?Stomach/Abdominal pain?denies.?Dark blood stool?denies.?Irritable bowel ?denies.?Constipation?denies.?Diarrhea?denies.?Vomiting?denies.?Hematology:?Swelling?denies.?Bruising??admits, on aspirin.?Bleeding problem??admits, on anticoagulants.?Genitourinary:?Blood urine?denies.?Frequent/Painfu/urination/bladder control?denies.?Kidney stones?denies.?Infection (UTI)?denies.?Nephropathy?admits.?Musculoskeletal:?Hammertoes?admits.?Bunions?denies.?Scoliosis/kyphosis?denies.?Muscle cramps / walking?admits.?Generalized aches and pains?denies.?Weakness?denies.?Integ.:?Norton?denies.?Scars?denies.?Corns/calluses?admits.?Ingrown nails?denies.?Painful nails?denies.?Rashes?denies.?Neurologic:?Difficulty sleeping?denies.?Bipolar?denies.?Brain disorder?denies.?Balance t rouble?denies.?Confusion?denies.?Fainting/blackouts?denies.?Headache?denies.?Phong mors?denies.? * Medical History:? * Surgical History:?discectomy 07/2013radical prostatectomy 09/2014basal cell removal from nose 1990endoscopy 11/25/2018dental implant * Hospitalization/Major Diagno stic Procedure:[place] [place] 01/12/22 * Family History:?Mother: dece ased, diagnosed with Other malignant neoplasm of unspecified site.?Father: , diagnosed with Unspecified essential hypertension, Unspecified heart disease.?1 daughter(s) . .? Daughter . * Social History:?Tobacco Use:?Tobacco use other than smoking?Are you an other tobacco user??No ?Tobacco Control (Standard)?Tobacco use:?Nonsmoker ?Additional Findings: Tobacco non-user?Current nonsmoker ???Drugs/Alcohol:?Drugs?Have you used drugs other than those for medical reasons in the past 12 months??No ???Miscellaneous:?Caffeine: yes, frequency: , 3-5 cups per day. ?Children: yes. ?Exercise: yes, walking. ?Marital status: . ?Occupation: retired- accountant cost. ???Drug/Alcohol:?AUDIT-C (Standard)?Did you have a drink containing alcohol in the past year??No ?Points?0 ?Interpretation?Negative * Medications:?TakingCiclopiro x 0.77% cream as directed applied topically twice a day Qvar Vitamin D3 25 MCG (1000 UT) Tablet 1 tablet Orally Once a day Flonase Sensimist 27.5 MCG/SPRAY Suspension 2 sprays (1 spray in each nostril) Nasally Once a day Omeprazole 20 MG Capsule Delayed Release 1 capsule 30 minutes before morning meal Orally Once a day Mirian Allergy Advil , Notes to Pharmacist: PRNAtorvastatin Calcium metFORMIN HCl ER 500 MG Tablet Extended Release 24 Hour Orally ProAir HFA Aspirin Extra Depth Orthopedic Shoes (1 Pair) with Customized Heat Molded Multidensity Innersoles (3 Pair) as directed Dx: NIDDM (E11.9), Hammertoe Foot Deformity (M20.41,M20.42), Preulcerative Skin Lesion(s) (L85.1) Taking Ciclopirox 0.77% cream as directed applied topically twice a day Taking Qvar Taking Vitamin D3 25 MCG (1000 UT) Tablet 1 tablet Orally Once a day Taking Flonase Sensimist 27.5 MCG/SPRAY Suspension 2 sprays (1 spray in each nostril) Nasally Once a day Taking Omeprazole 20 MG Capsule Delayed Release 1 capsule 30 minutes before morning meal Orally Once a day Taking Mirian Allergy Taking Advil , Notes to Pharmacist: PRNTaking Atorvastatin Calcium Taking metFORMIN HCl ER 500 MG Tablet Extended Release 24 Hour Orally Taking ProAir HFA Taking Aspirin Taking Extra Depth Orthopedic Shoes (1 Pair) with Customized Heat Molded Multidensity Innersoles (3 Pair) as directed Dx: NIDDM (E11.9), Hammertoe Foot Deformity (M20.41,M20.42), Preulcerative Skin Lesion(s) (L85.1) Not-Taking/PRNFlovent Diskus FreeStyle InsuLinx Test Ketoconazole 2 % Cream Externally , Notes to Pharmacist: PRNFlunisolide Probiotic , Notes to Pharmacist: PRNClaritin , Notes to Pharmacist: PRNSingulair ASA Ranitidine Claritin Night Splint AFO - L1930 as directed Lorazepam , Notes to Pharmacist: as neededOmeprazole Medication List reviewed and reconciled with the patientNot-Taking/PRN Flovent Diskus Not-Taking/PRN FreeStyle InsuLinx Test Not-Taking/PRN Ketoconazole 2 % Cream Externally , Notes to Pharmacist: PRNNot-Taking/PRN Flunisolide Not-Taking/PRN Probiotic , Notes to Pharmacist: PRNNot-Taking/PRN Claritin , Notes to Pharmacist: PRNNot-Taking/PRN Singulair Not-Taking/PRN ASA Not-Taking/PRN Ranitidine Not-Taking/PRN Claritin Not-Taking/PRN Night Splint AFO - L1930 as directed Not-Taking/PRN Lorazepam , Notes to Pharmacist: as neededNot-Taking/PRN Omeprazole Medication List reviewed and reconciled with the patient * Allergies:?SeasonaleMoldDust Mite Mixed Allergen Extyes[Allergies Verified] Objective: * Vitals:?Ht:5ft6in, Wt:157, B VA:25.34, Shoe size:10, BP:130/70mm Hg, BS:100, Ht- cm: 167.64 cm, Wt-k.21 kg. * ???Past Orders: ???Lab:HEMOGLOBIN A1C (GLYCO HEMOGLOBIN) (Order Date - 10/16/2023) (Collection Date & Time - 10/16/2023 11:55 AM) ? Value Reference Range ?HEMOGLOBIN A1C % (HH) 5.9 * Examination: ???Ophthalmology Referral: ?DIABETES EYE EXAM?Neurological: ?SENSORY:?Neurological exam demonstrates, reduced light touch sensation,?reduced sharp/dull pin prick discrimination , at Forefoot, B/L, 5.07 monofilament test performed at plantar aspects of 5 varied sites per foot shows sensation, reduced , B/L.?Nails: ?NAILS are:?Elongated, overgrown, dystrophic, lytic, greater than 3mm thick, discolored and friable with crumbly malodorous subungual debris,?TA, T1, T2, T3, T4, T5, T6, T7, T8, T9.?Dermatologic: ?SKIN FINDINGS:?Skin exam reveals Keratotic lesion(s) located at, Medial, IPJ, TA, Medial, IPJ, T5, SUB MTH (s), 1, B/L , SUB MTH (s), 5, B/L , Plantar, Heel(s), B/L , Skin shows sign(s) of, a semi-firm, painful, non-translucent, non- pulsatile, nonmobile Sub Q tumor maryann. 5x 5x 3mm, Medial, IPJ, T5.? Assessment: * Assessment: 1.?Type 2 diabetes mellitus with diabetic polyneuropathy - E11.42 (Primary)???2.?Tinea unguium - B35.1???3.?Ganglion of foot, right - M67.471???Specify :Acute problem, Uncomplicated (3)??? Plan: * Treatment: 2.?Ganglion of foot, right?Procedure: - Ganglion Cyst Injection/Aspiration * Procedures:?Debride Nail 6-10:?Nail debridement?Due to the clinical pathology outlined in the exam findings, performance of this nail treatment is medically necessary as its management by an unskilled/untrained nonprofessional would put this patients foot and overall health at risk. Therefore, debridement to affected nail(s), as described in exam (?TA, T1, T2, T3, T4, T5, T6, T7, T8, T9?), was performed exclusively by the physician of record to reduce/remove overall nail length, girth, thickness, subungual debris, and necrotic tissue, by manual and/or electrical means through the use of a nail nipper and/or dremel-type od grinder operator, to a more viable healthy nail plate or bed tissue 6- 10 nails in total. Silver nitrate was used for any petechial bleeding as necessary. Definitive antifungal treatment options, both pharmaceutical and surgical, have been reviewed and discussed with the patient. The patient solely prefers the use of intermittent/as needed professional debridement services for their nail condition and understands the need for additional periodic treatments to maintain effectiveness in symptomatic relief - 11902.?Keratoma Treatment:?Parring or Cutting of Benign Hyperkeratotic Lesion(s)?(-57) More than 4 Lesions - Due to the at risk nature of the patients medical condition as documented in the exam findings, performance of this keratoderma treatment is medically necessary as its management by an unskilled/untrained nonprofessional would put this patients foot and overall health at risk. Therefore, the benign hyperkeratotic lesions, ( 8 ) in total, locations as stated and described in the exam (?Medial,?IPJ,?TA,?Medial,?IPJ,?T5,?SUB MTH (s),?1,?B/L?,?SUB MTH (s),?5,?B/L?,?Plantar,?Heel(s),?B/L?), were pared, and/or cut utilizing a sterile 15 blade, tissue nippers, and/or power dremel instrumentation by the physician of record - 99240.?Aspiration:?Indication?Symptomatic Ganglion/Cyst.?Prep?The skin was prepped with alcohol with aseptic technique.?Anesthesia?Topical cryo.?Guidance?Palpation.?Aspiration?We advanced a sterile?18 gauge needle into the area for fluid collection.?Yield?We aspirated a moderate amount of fluid (0.1cc), The fluid was clear gelatinous mixed with mild amount of blood.?Effect?The procedure successfully decompressed the fluid collection and should relieve discomfort.?Disposition?The patient tolerated the procedure and anesthesia well and left the office alert and stable and in good condition. The wound was dressed with a dry sterile dressing, Follow-up as in Plan ().? * Procedure Codes:?17400 DEBRI DE NAIL, 6 OR MORE, Modifiers: XS ASPIRATE/INJ GANGLION CYST, Modifiers: XS 72725 TRIM SKIN LESIONS, OVER 4, Modifiers: XS * Follow Up:?prn * Images: * Sign off status: Completed true * Provider:?Nj Sales DPM Date:?2024 Generated for Mayr king/Damaso/Erica on:?04/14/2024 10:42 AM EST History and Physical Notes * HPI (History of Present Illness) Category Sub-Category Detail Notes Category Not es Skin problems Location: 1st, Toe(s), Right Course: worse At Risk footcare Pt [...] , SUB MTH (s), 5, B/L , Plantar, Heel(s), B/L , Skin shows sign(s) of, a semi-firm, painful, non-translucent, non-pulsatile, nonmobile Sub Q tumor maryann. 5x 5x 3mm, Medial, IPJ, T5 Ophthalmology Referral DIABETES EYE EXAM Procedu re Performed:: Yes ?Date of Exam Performed: 01/02/2024 Diabetic Retinopathy Screening:: Yes Retinal Screening Performed:: Yes Findings of Diabetic Eye Exam:: no retin opathy Nails NAILS are: Elongated, overg rown, dystrophic, lytic, greater than 3mm thick, discolored and friable with crumbly malodorous subungual debris, TA, T1, T2, T3, T4, T5, T6, T7, T8, T9
--- OUTSIDE RECORDS SUMMARY | 2024-04-14 10:42 | XMS_ITS | Patient Health Record ---
Author Organization [facility] Address [address] [place] [address] Care Team Providers Care Youth Development Professional Name Role Phone Shelia Judge MD Primary Care Provider Nj Monique Unavailable [phone] Allergies Allergen (clinical drug ingredient) Drug/Non Drug Allergy documented on EMR Reaction Allergy Type Onset Date Status Seasonale Unknown Drug Allergy Active Dust Mite Mixed Allergen Ext Unknown Drug Allergy Active Mold Unknown Allergy Active Results Component Value Reference Range Notes HEMOGLOBIN A1C (GLYCOHEMOGLO BIN) Reviewed date:05/18/2023 12:25:30 PM Interpretation: Performing Lab: Notes/Report: HEMOGLOBIN A1C % (HH) 5.7 HEMOGLOBIN A1C (GLYCOHEMOGLO BIN) Reviewed date:10/23/2023 11:56:27 AM Interpretation: Performing Lab: Notes/Report: HEMOGLOBIN A1C % (HH) 5.9 Reason For Referral No Information Medications Medication SIG (Take, Route, Frequency, Duration) Notes Start Date End Date Status Ciclopirox 0.77% as directed applied topically twice a day Active Qvar Active Vitamin D3 25 MCG (1000 UT) 1 tablet Orally Once a day Active Atorvastatin Calcium Active metFORMIN HCl ER 500 MG Orally Active ProAir HFA Active Ranitidine Not-Takin g Claritin Not-Taking Flonase Sensimist 27.5 MCG/SPRAY 2 sprays (1 spray in each nostril) Nasally Once a day Active Omeprazole 20 MG 1 capsule 30 minutes before morning meal Orally Once a day Active Mirian Allergy Acti ve Advil PRN Active Night Splint AFO - L1930 as directed 05/12/2016 Not-Taking Lorazepam as needed Not-Taking Omeprazole Not-Takin g Aspirin Active Extra Depth Orthopedic Shoes (1 Pair) with Customized Heat Molded Multidensity Innersoles (3 Pair) as directed Dx: NIDDM (E11.9), Hammertoe Foot Deformity (M20.41,M20.42), Preulcerative Skin Lesion(s) (L85.1) 05/18/2023 Active Flovent Diskus Not-T aking FreeStyle InsuLinx Test Not-Taking Singulair Not-Taking ASA Not-Taking Ketoconazole 2 % Externally PRN No t-Taking Flunisolide Not-Taki ng Probiotic PRN Not-Taking Claritin PRN Not-Taking Immunizations Vaccine Route Administration Date Status Comme nts COVID-19 Moderna Vaccine Unknown 11/11/2021 Administere d 1st 03/26/2020 4th 06/05/2021 2nd 04/23/2020 3rd 12/17/2020 Influenza Unknown 11/26/2014 Administered Influenza Unknown 11/17/2016 Administered Influenza Unknown 12/10/2017 Administered Influenza Unknown 12/25/2018 Administered Influenza Unknown 10/26/2020 Administered Influenza Unknown 10/27/2021 Administered Influenza Unknown 10/27/2022 Administered Pneumococcal Unknown 12/09/2014 Administered Social History Tobacco Use: Social History Observation [...] ast year? No Points 0 Interpretation Negative Problems Problem Type SNOMED Code ICD Code Onset Dates Problem Status W/U Status Risk Notes Problem Acquired hammer toe of right foot (9973862966609197 ) Other hammer toe(s) (acquired), right foot (M20.41) Active confirmed Response to treatment, Improvemen t Problem Acquired hammer toe of left foot (9288934610618339 ) Other hammer toe(s) (acquired), left foot (M20.42) Active confirmed Response to treatment, Improvemen t Problem Polyneuropathy due to type 2 diabetes mellitus (989431503) Type 2 diabetes mellitus with diabetic polyneuropathy (E11.42) Active confirmed Vital Signs Blood pressure diastolic 70 mm Hg 04/01/2024 Height 5ft6in in 04/01/2024 Blood pressure systolic 130 mm Hg 04/01/2024 Weight 157 lbs 04/01/2024 BMI 25.34 kg/m2 04/01/2024 Procedures Procedure Date Ordered Date Performed Result Body Sit e 32931-IQZBQRN NAIL, 6 OR MORE 05/18/2023 N/A 34746-GGIY SKIN LESIONS, OVER 4 05/18/2023 N/A 92448-QLFQNLI NAIL, 6 OR MORE 08/08/2023 N/A 60567-IKHQ SKIN LESIONS, OVER 4 08/08/2023 N/A 70031- Ganglion Cyst Injection/Aspiration 08/08/2023 N/A 28997-XEWBRVU NAIL, 6 OR MORE 10/23/2023 N/A 35876-CZMV SKIN LESIONS, OVER 4 10/23/2023 N/A 82489- Ganglion Cyst Injection/Aspiration 10/23/2023 N/A 51171-CWVMANM NAIL, 6 OR MORE 01/15/2024 N/A 87639-EHBE SKIN LESIONS, OVER 4 01/15/2024 N/A 15170-LLNCWZH NAIL, 6 OR MORE 04/01/2024 N/A 59090-CKNZ SKIN LESIONS, OVER 4 04/01/2024 N/A 04598- Ganglion Cyst Injection/Aspiration 04/01/2024 N/A Encounters Encounter Location Date Provider Diagnosis [address] [address] 05/18/2023 Nj Sales Type 2 diabetes mellitus with diabetic polyneuropathy E11.42 ; Tinea unguium B35.1 ; Other hammer toe(s) (acquired), right foot M20.41 and Other hammer toe(s) (acquired), [facility] foot M20.42 [facility] [address] [address] 08/08/2023 Nj Sales Type 2 diabetes mellitus with diabetic polyneuropathy E11.42 ; Tinea unguium B35.1 and [facility] of [facility], right M67.471 [facility] [address] 10/23/2023 Nj Sales Type 2 diabetes mellitus with diabetic polyneuropathy E11.42 ; Tinea unguium B35.1 ; Ganglion of foot, right M67.471 ; Other hammer toe(s) (acquired), right foot M20.41 and Other hammer toe(s) (acquired), left foot M20.[address] [address] 01/15/2024 Nj Sales Type 2 diabetes mellitus with diabetic polyneuropathy E11.42 and Tinea unguium B35.[address] [address] 04/01/2024 Nj Sales Type 2 diabetes mellitus with diabetic polyneuropathy E11.42 ; Tinea unguium B35.1 and Ganglion of foot, right M67.[address] [address] 06/05/2023 Nj Sales Assessments Encounter Date Diagnosis (ICD Code) Assessment Notes Treatment Notes Treatment Clinical Notes Section Notes 05/18/2023 Type 2 diabetes mellitus with diabetic polyneuropathy (ICD-10 - E11.42) 05/18/2023 Tinea unguium (ICD-10 - B35.1) 08/08/2023 Type 2 diabetes mellitus with diabetic polyneuropathy (ICD-10 - E11.42) 08/08/2023 Tinea unguium (ICD-10 - B35.1) 01/15/2024 Type 2 diabetes mellitus with diabetic polyneuropathy (ICD-10 - E11.42) 01/15/2024 Tinea unguium (ICD-10 - B35.1) 04/01/2024 Type 2 diabetes mellitus with diabetic polyneuropathy (ICD-10 - E11.42) 04/01/2024 Tinea unguium (ICD-10 - B35.1) 10/23/2023 Type 2 diabetes mellitus with diabetic polyneuropathy (ICD-10 - E11.42) 10/23/2023 Tinea unguium (ICD-10 - B35.1) 10/23/2023 Ganglion of foot, right (ICD-10 - M67.471) 04/01/2024 Ganglion of foot, right (ICD-10 - M67.471) 08/08/2023 Ganglion of foot, right (ICD-10 - M67.471) 05/18/2023 Other hammer toe(s) (acquired), right foot (ICD-10 - M20.41) Patient Educated with: DIABETIC FOOT CARE INSTRUCTIONS. pdf (DIABETIC FOOT CARE INSTRUCTIONS. pdf) 05/18/2023 Other hammer toe(s) (acquired), left foot (ICD-10 - M20.42) 10/23/2023 Other hammer toe(s) (acquired), right foot (ICD-10 - M20.41) Response to treatment,Impro vement 10/23/2023 Other hammer toe(s) (acquired), left foot (ICD-10 - M20.42) Response to treatment,Impro vement 08/08/2023 Other 10/23/2023 Other 01/15/2024 Other 04/01/2024 Other Plan Of Treatment Pending Test Test Name Order Date 13548-AGNCMLK NAIL, 6 OR MORE 05/11/2015 24213-PRLYAMJ NAIL, 6 OR MORE 05/14/2018 64028-QXLHQOW NAIL, 6 OR MORE 09/10/2018 83998-ZVKRTQY NAIL, 6 OR MORE 12/03/2018 48433-LOEGZKS NAIL, 6 OR MORE 02/11/2019 00344-EDOOOQV NAIL, 6 OR MORE 04/15/2019 88195-BVSIACF NAIL, 6 OR MORE 09/09/2019 86596-TVGEUHI NAIL, 6 OR MORE 11/18/2019 43674-GFGSQPV NAIL, 6 OR MORE 05/07/2020 67606-IVFBPFN NAIL, 6 OR MORE 07/16/2020 12318-UWMNIXZ NAIL, 6 OR MORE 09/24/2020 90196-TUNQLVJ NAIL, 6 OR MORE 12/17/2020 65126-MEXOWKH NAIL, 6 OR MORE 05/06/2021 47848-DSCYCBH NAIL, 6 OR MORE 07/08/2021 79482-SATROJY NAIL, 6 OR MORE 09/20/2021 37342-MXXOPCL NAIL, 6 OR MORE 11/25/2021 05412-OHIWVMV NAIL, 6 OR MORE 03/10/2022 85048-UBNDWFW NAIL, 6 OR MORE 05/12/2022 64406-FSOBYKX NAIL, 6 OR MORE 08/04/2022 07199-HIEYAVZ NAIL, 6 OR MORE 10/10/2022 95726-TVKWKZE NAIL, 6 OR MORE 12/19/2022 11536-HAUZCCI NAIL, 6 OR MORE 03/06/2023 81273-QRWNRQR NAIL, 6 OR MORE 05/18/2023 56153-OIRYLTF NAIL, 6 OR MORE 08/08/2023 15480-DLUNJND NAIL, 6 OR MORE 10/23/2023 01963-GGGTWEQ NAIL, 6 OR MORE 01/15/2024 22365-AWNEQUC NAIL, 6 OR MORE 04/01/2024 82009-Ewsk Destruction, 1-08/24/2022 40966-Fhdb Destruction, 1-10/10/2022 34784- Debride <25 sq cm 10/08/2015 42615- Debride <25 sq cm 05/12/2016 09098-PKVEAJC SKIN/TISSUE 05/12/2016 16906-OKORXWJ SKIN/TISSUE 10/08/2015 25519-XPWFGEN SKIN/TISSUE 09/24/2015 24824-APDH SKIN LESIONS, OVER 4 10/11/19 71421-JSMR SKIN LESIONS, OVER 4 12/20/19 64416-BZIG SKIN LESIONS, OVER 4 08/05/19 23 57350-NJEA SKIN LESIONS, OVER 4 05/13/19 23 10434-QUID SKIN LESIONS, OVER 4 03/10/19 23 09243-IQSP SKIN LESIONS, OVER 4 04/01/19 66976-TJJW SKIN LESIONS, OVER 4 01/15/20 24 86081-CGMW SKIN LESIONS, OVER 4 10/23/19 24 33978-LNUS SKIN LESIONS, OVER 4 08/08/19 24 21142-VFKS SKIN LESIONS, OVER 4 05/18/19 24 41299-ZRRJ SKIN LESIONS, OVER 4 03/06/19 87409-BRBB SKIN LESIONS, 2 TO 4 11/26/19 98549-XGVQ SKIN LESIONS, 2 TO 4 09/21/19 32385-GRUW SKIN LESIONS, 2 TO 4 02/12/20 20817-DDOW SKIN LESIONS, 2 TO 4 12/04/19 45299-UGLF SKIN LESIONS, 2 TO 4 09/11/19 72380-JNLM SKIN LESIONS, 2 TO 4 03/19/20 19 10394-AGDK SKIN LESIONS, 2 TO 4 07/09/19 67273-UVMS SKIN LESIONS, 2 TO 4 05/07/19 71579-HYXC SKIN LESIONS, 2 TO 4 12/18/19 88932-POZH SKIN LESIONS, 2 TO 4 09/25/19 21 53960-GRIY SKIN LESIONS, 2 TO 4 07/17/19 89598-SPPU SKIN LESIONS, 2 TO 4 05/08/19 94151-NKNW SKIN LESIONS, 2 TO 4 09/09/19 41976-JLHI SKIN LESIONS, 2 TO 4 11/18/19 50280-JKQW SKIN LESIONS, 2 TO 4 04/15/19 24663- Removal of Foreign Body, Subcut 0 10/10/2022- Ganglion Cyst Injection/Aspiratio n 08/08/2023- Ganglion Cyst Injection/Aspiratio n 10/23/2023- Ganglion Cyst Injection/Aspiratio n 04/01/2024- Ganglion Cyst Injection/Aspiratio n 08/17/2020 78838- Ganglion Cyst Injection/Aspiratio n 06/11/201860018- Ganglion Cyst Injection/Aspiratio n 11/05/201835687- Ganglion Cyst Injection/Aspiratio n 01/01/201923118- Ganglion Cyst Injection/Aspiratio n 05/12/201692657- Ganglion Cyst Injection/Aspiratio n 08/11/2016- Ganglion Cyst Injection/Aspiratio n 03/09/201707138- Ganglion Cyst Injection/Aspiratio n 12/27/2017 Next Appt Details Provider Name:Nj Sales , 06/13/2024 08:45:00 AM, [address] [facility], [place], [address], Insurance Providers Payer Name Payer Address Payer Phone Subscriber Number Group Number Insured Name Patient Relationship to Insured Coverage Start Date Coverage End Date Medicare [facility] [address] [place] [address] [id number] Fernando Lu Self - patient is the insured [address] [place] [address] [address] [place] [id number] Fernando Lu Self - patient is the insured Medical (General) History Medical History History ICD Code Hypertension Broken bones Anxiety disorder asthma Back,Hip,and Knee pain Cancer Headaches Neuropathy Reflux Sciatica chronic sinusitis Warts Measles Mumps Chicken pox type II diabetes Plantar fasciitis Surgical History Surgery Date(Month/Year) discectomy 07/2013 radical prostatectomy 09/2014 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
--- OUTSIDE RECORDS SUMMARY | 2024-04-14 10:42 | XMS_ITS ---
Author Organization [facility] Address [address] [place] [address] Care Team Providers Care Driver License Reviewing Officer Name Role Phone Shelia Judge MD Primary Care Provider Nj Monique Unavailable [phone] Allergies Allergen (clinical drug ingredient) Drug/Non Drug Allergy documented on EMR Reaction Allergy Type Onset Date Status Seasonale Unknown Drug Allergy Active Dust Mite Mixed Allergen Ext Unknown Drug Allergy Active Mold Unknown Allergy Active REASON FOR VISIT At Risk Footcare Medications Medication SIG (Take, Route, Frequency, Duration) Notes Start Date End Date Status Claritin Not-Taking Night Splint AFO - L1930 as directed 05/12/2016 Not-Taking Qvar Active Lorazepam as needed Not-Taking Omeprazole Not-Takin g ASA Not-Taking Ranitidine Not-Takin g Probiotic PRN Not-Taking Claritin PRN Not-Taking Singulair Not-Taking Aspirin Active Extra Depth Orthopedic Shoes (1 Pair) with Customized Heat Molded Multidensity Innersoles (3 Pair) as directed Dx: NIDDM (E11.9), Hammertoe Foot Deformity (M20.41,M20.42), Preulcerative Skin Lesion(s) (L85.1) 05/18/2023 Active FreeStyle InsuLinx Test Not-Taking Ketoconazole 2 % Externally PRN No t-Taking Flunisolide Not-Taki ng Flovent Diskus Not-T aking metFORMIN HCl ER 500 MG Orally Active ProAir HFA Active Advil PRN Active Atorvastatin Calcium Active Omeprazole 20 MG 1 capsule 30 minutes before morning meal Orally Once a day Active Mirian Allergy Acti ve Vitamin D3 25 MCG (1000 UT) 1 tablet Orally Once a day Active Flonase Sensimist 27.5 MCG/SPRAY 2 sprays (1 spray in each nostril) Nasally Once a day Active Social History Tobacco Use: Social History Observation Description Date Details (start date - stop date) Never Smoker NA - NA Tobacco Use/Smoking Question Answer Notes Are you a: nonsmoker Additional Findings: Tobacco Non-User Current no n-smoker Alcohol Screen Question Answer Notes Did you have a drink containing alcohol in the p ast year? No Points 0 Interpretation Negative Tobacco use other than smoking: Question Answer Notes Are you an other tobacco user? No Vital Signs Blood pressure systolic 137 mm Hg 01/15/20 Blood pressure diastolic 72 mm Hg 024 Height 5ft6in in 01/15/2024 Weight 157 lbs 01/15/2024 BMI 25.34 kg/m2 01/15/2024 Procedures Procedure Date Ordered Date Performed Result Body Sit e 12336-KAFNHAO NAIL, 6 OR MORE 01/15/2024 N/A 29606-OONS SKIN LESIONS, OVER 4 01/15/2024 N/A Encounters Encounter Location Date Provider Diagnosis [facility] [address] [address] 01/15/2024 Nj Sales Type 2 diabetes mellitus with diabetic polyneuropathy E11.42 and Tinea unguium B35.1 Assessments Encounter Date Diagnosis (ICD Code) Assessment Notes Treatment Notes Treatment Clinical Notes Section Notes 01/15/2024 Type 2 diabetes mellitus with diabetic polyneuropathy (ICD-10 - E11.42) 01/15/2024 Tinea unguium (ICD-10 - B35.1) 01/15/2024 Other Plan Of Treatment Pending Test Test Name Order Date 41591-ZUMESUT NAIL, 6 OR MORE 01/15/2024 77068-XBAE SKIN LESIONS, OVER 4 01/15/20 24 Next Appt Details Follow Up: prn, Reason: Provider Name:Nj Sales , 06/13/2024 08:45:00 AM, [address] [place] [address], [phone], Procedure Notes * Category Sub-Category Detail Notes Debride Nail 6-10 Nail debridement Performance o f this nail treatment by a nonprofessional would put this patients foot and overall health at risk. Therefore, debridement to affected nail(s), as described in exam, was performed extensively to reduce/remove overall nail length, girth, thickness, subungual debris, and necrotic tissue, by manual and/or electrical means through the use of a nail nipper and/or dremel-type instrument lens grinder, to a more viable healthy nail plate or bed tissue 6-10. Silver nitrate used for any petechial bleeding as necessary. Definitive antifungal treatment options have been reviewed and discussed with the patient. The patient chooses, no pharmaceutical tx - 72376 Keratoma Treatment Parring or Cutting o f Benign Hyperkeratotic Lesion(s) (-57) More than 4 Lesions - The Benign hyperkeratotic lesions, as described in exam, were pared, and/or cut utilizing a sterile 15 blade, tissue nippers, and/or dremel - 14826 Progress Notes * Julian LUioDOB:[birth year] (73 yo M)Acc No.[id number]:01/15/2024 Progress Note Patient:?Julian LUio Provider:?Nj Sales DPM :1950???Age:73 Y???Sex:Male Ruben e:01/15/2024 Address:[address] [place] [address] [place], [place], [phone] Pcp:Shelia Judge MD Subjective: * Chief Complaints: * ???At Risk Footcare * HPI: ???At Risk footcare:?Pt States Last PCP Visit:?Date?10/15/2023 * ROS:?General/Constitutional:?Nausea?denies.?Vomiting?denies.?Hunger Thirst?denies.?Loss appetite?denies.?Chills?denies.?Fatigue?denies.?Fever?denies.?Night Sweats?denies.?Unexplained weight loss?denies.?Ophthalmologic:?Blurred [...] 1990endoscopy 11/25/2018dental implant * Hospitalization/Major Diagno stic [place] [place] * Family History:?Mother: dece ased, diagnosed with Other malignant neoplasm of unspecified site.?Father: , diagnosed with Unspecified essential hypertension, Unspecified heart disease.?1 daughter(s) . .? Daughter . * Social History:?Tobacco Use:?Tobacco Use/Smoking?Are you a:?nonsmoker ?Additional Findings: Tobacco Non-User?Current non-smoker ?Tobacco use other than smoking?Are you an other tobacco user??No ???Drugs/Alcohol:?Drugs?Have you used drugs other than those for medical reasons in the past 12 months??No ?Alcohol Screen?Did you have a drink containing alcohol in the past year??No ?Points?0 ?Interpretation?Negative ???Miscellaneous:?Caffeine: yes, frequency: , 3-5 cups per day. ?Children: yes. ?Exercise: yes, walking. ?Marital status: . ?Occupation: retired- junior accountant. * Medications:?TakingQvar Tali min D3 25 MCG (1000 UT) Tablet 1 [...] Deformity (M20.41,M20.42), Preulcerative Skin Lesion(s) (L85.1) Taking Qvar Taking Vitamin D3 25 MCG [...] Singulair Not-Taking/PRN ASA Not-Taking/PRN Ranitidine Not-Taking/PRN Claritin Not- Taking/PRN Night Splint AFO - L1930 as directed Not-Taking/PRN Lorazepam , Notes to Pharmacist: as neededNot-Taking/PRN Omeprazole Medication List reviewed and reconciled with the patient * Allergies:?SeasonaleMoldDust Mite Mixed Allergen Extyes[Allergies Verified] Objective: * Vitals:?Ht:5ft6in, Wt:157, B WY:25.34, Shoe size:10, BP:137/72mm Hg, BS:not taken, Ht-cm: 167.64 cm, Wt-k.21 kg. * [...] MTH (s), 5, B/L , Plantar, Heel(s), B/L.? Assessment: * Assessment: 1.?Type 2 diabetes mellitus with diabetic polyneuropathy - E11.42 (Primary)???2.?Tinea unguium - B35.1??? Plan: * Treatment: * Procedures:?Debride Nail 6-10:?Nail debridement?Performance of this nail treatment by a nonprofessional would put this patients foot and overall health at risk. Therefore, debridement to affected nail(s), as described in exam, was performed extensively to reduce/remove overall nail length, girth, thickness, subungual debris, and necrotic tissue, by manual and/or electrical means through the use of a nail nipper and/or dremel-type instrument lens grinder, to a more viable healthy nail plate or bed tissue 6-10. Silver nitrate used for any petechial bleeding as necessary. Definitive antifungal treatment options have been reviewed and discussed with the patient. The patient chooses, no pharmaceutical tx - 27905.?Keratoma Treatment:?Parring or Cutting of Benign Hyperkeratotic Lesion(s)?(-57) More than 4 Lesions - The Benign hyperkeratotic lesions, as described in exam, were pared, and/or cut utilizing a sterile 15 blade, tissue nippers, and/or dremel - 86867.? * Procedure Codes:?42918 DEBRI DE NAIL, 6 OR MORE, Modifiers: XS 98996 TRIM SKIN LESIONS, OVER 4, Modifiers: XS * Follow Up:?prn * Images: * Sign off status: Completed true * Provider:?Nj Sales DPM Date:?2023 Generated for Mary king/Damaso/Simonesmitting on:?04/14/2024 10:42 AM EST History and Physical Notes * HPI (History of Present Illness) Category Sub-Category Detail Notes Category Not es At Risk footcare Pt States Last PCP [...] (s), 5, B/L , Plantar, Heel(s), B/L Nails NAILS are: Elongated, overg rown, dystrophic, lytic, greater than 3mm thick, discolored and friable with crumbly malodorous subungual debris, 1-5 B/L
--- NOTE | 2024-04-14 10:53 | A.OFFPC_ITS ---
Vital Signs 04/14/24 11:06 Height 5 ft 6 in Weight 162 lb BMI 26.1 BP 118/70 Blood Pressure Location Lt brachial Position Sitting Respiration 18 Pulse 61 Pulse Source Pulse Oximeter Temp 98.3 F Temp Source Oral Pulse Oximetry (%) 96 Oxygen Delivery Method Room Air Intake Visit Reasons: 6 month follow up Intake Note: Pt is here today for 6 months follow up visit. Allergies No Known Allergies Allergy (Verified 04/14/24 11:08) Medication List - Last Reconciled 04/14/24 by Shelia Judge MD albuterol sulfate 90 mcg/actuation 1 inh inhalation QID PRN aspirin (Adult Aspirin Regimen) 81 mg PO DAILY atorvastatin 40 mg PO DAILY blood sugar diagnostic As directed blood sugar diagnostic (Freestyle InsuLinx strips) 1 QD cholecalciferol (vitamin D3) 25 mcg PO DAILY ciclopirox 0.77% appl topical fexofenadine (Mirian Allergy) 180 mg PO DAILY fluticasone propionate 250 mcg/actuation 1 inh PO BID metformin ER 500 mg PO DAILY omeprazole 20 mg PO DAILY Qvar RediHaler 40 mcg/actuation (beclomethasone dipropionate) 2 inhalations inhalation BID NS Tobacco use date assessed: 04/14/24 Fall risk assessment: 1 Fall in past year Last assessed Fall Risk: 04/14/24 Dental Screening Dental Screen Date: 04/14/24 Did you have a dental visit in the last 12 months?: Yes Did you have a dental problem in the last 6 months where you did not have access to dental care?: No Was dental information given to patient?: Patient has dentist HPI 6 month follow up HPI Details Pt presents for f/u DM 2, hyperlipid, asthma, stable on meds. Pt reports persistent R shoulder pain since the injury 3 months ago. The pain and range of motion and getting better but still patient reports recurrent discomfort when trying to use his right upper extremity. [facility] Medical History Hx of basal cell carcinoma Zacarias esophagus Aortic stenosis Hyperlipidemia DM type 2 (diabetes mellitus, type 2) Stress incontinence Asthma Prostate CA GERD (gastroesophageal reflux disease) Surgical History Hx of esophagogastroduodenoscopy H/O colonoscopy History of microdiscectomy History of prostatectomy Family History Father HTN (hypertension) History of heart attack Enlarged prostate CVD (cardiovascular disease) Social History Housing: House Alcohol intake: never Patient Tobacco Use Status: Never used Tobacco e-Cigarette/Vaping Use: Never Used service: No Current occupational status: retired Cognitive needs: No Hearing needs: No Vision needs: Yes Questionnaire PHQ-9 Over the last 2 weeks, how often have you been bothered by any of the following problems? 1. Little interest or pleasure in doing things: not at all 2. Feeling down, depressed, or hopeless: not at all 3. Trouble falling or staying asleep, or sleeping too much: not at all 4. Feeling tired or having little energy: not at all 5. Poor appetite or overeating: not at all 6. Feeling bad about yourself - or that you are a failure or have let yourself or your family down: not at all 7. Trouble concentrating on things, such as reading the newspaper or watching television: not at all 8. Moving or speaking so slowly that other people could have noticed. Or the opposite - being so fidgety or restless that you have been moving around a lot more than usual: not at all 9. Thoughts that you would be better off or of hurting yourself in some way: not at all Total score: 0 Depression Screening Interpretation: Negative Depression Screening Done: Yes 05551 - PHQ-9 Billing: Yes Source: Developed by Drs. Tyrone Pichardo, Annette Sahu, Mono Renner and colleagues, with an educational hernán from [employer]. Thrive Questionnaire Date Thrive assessed: 04/14/24 I am a: Patient What is your living situation today?: I have a steady place to live Within the past 12 months, did the food you bought not last and you didn't have the money to get more?: Never true Within the past 12 months, did you worry whether your food would run out before you got money to buy more?: I choose not to answer this question Do you have trouble paying for medicines?: I choose not to answer this question Do you have trouble getting transportation to medical appointments?: No Do you have trouble paying your heating and electricity bill?: No Do you have trouble taking care of your child, family member or friend?: I choose not to answer this question Do you have trouble with day-to-day activities such as bathing, preparing meals, shopping, managing finances, etc.?: I choose not to answer this question Are you currently unemployed and looking for a job?: No Are you interested in more education?: No Please select the resources that you would like help with: None Currently or been in a relationship where the following occur: No concerns reported THRIVE Score: 0 AUDIT C Alcohol Use Questionnaire (AUDIT-C) 1. How often do you have a drink containing alcohol?: Monthly or less 2. How many drinks containing alcohol do you have on a typical day when you are drinking?: 1 or 2 3. How often do you have six or more drinks on one occasion?: Never Total Score: 1 RE-7 AMB Questionnaire RE-7 Date RE - 7 assessed: 04/14/24 Feeling nervous, anxious, or on edge: 0 = Not at all Not being able to stop or control worryin = Not at all Worrying too much about different things: 0 = Not at all Trouble relaxin = Not at all Being so restless that it is hard to sit still: 0 = Not at all Becoming easily annoyed or irritable: 0 = Not at all Feeling afraid as if something awful might happen: 0 = Not at all Total RE-7 score (0-4 normal; 5-9 mild; 10-14 moderate; 15-21 severe): 0 Source: Developed by Drs. Tyrone Pichardo, Annette Sahu, Mono Renner and colleagues, with an educational hernán from [employer]. RE-7 Assessment Billing RE-7 Assessment Tool: RE-7 Assessment 46266 Review of Systems Const All systems reviewed & are unremarkable except as noted in HPI and below Reports no additional complaints Eyes Reports no additional complaints ENT Reports no additional complaints Card Reports no additional complaints Resp Reports no additional complaints GI Reports no additional complaints Reports no additional complaints Physical exam (Primary Care) Vital Signs: Last Vital Signs Temp 98.3 F 04/14/24 11:06 Pulse 61 04/14/24 11:06 Resp 18 04/14/24 11:06 BP 118/70 04/14/24 11:06 Pulse Ox 96 04/14/24 11:06 Oxygen Delivery Method Room Air 04/14/24 11:06 BMI result Body Mass Index 26.1 Tobacco/Smoking Status: Tobacco use Status Tobacco use date assessed 04/14/24 04/14/24 11:14 Patient Tobacco Use Status Never used Tobacco 04/14/24 10:53 e-Cigarette/Vaping Use Never Used 04/14/24 10:53 PHQ-9: PHQ-9 Score PHQ-9: Total score 0 04/14/24 11:14 Depression Screening Interpretation: Negative Thrive Assessment: Date of Thrive Assessment Date Thrive assessed 04/14/24 04/14/24 11:14 Currently or been in a relationship where the following occur: No concerns reported Const General: no acute distress HENMT Head: Yes normal to inspection Face and sinus: Yes normal facial exam Mouth: Normal oral and palatal mucosa present Eyes General: appearance normal, both eyes and all related structures Neck Neck: Yes no lymphadenopathy and Yes supple Resp Effort & Inspection: normal respiratory effort Auscultation: clear to auscultation bilaterally Cardio Rhythm: regular rhythm Heart sounds: S1 normal heart sound present and S2 normal heart sound present Extrem Other: Right shoulder exam, slightly decreased range of motion, anterior tenderness but no joint swelling erythema or warmth Coding Level of Care Code Est Pt Level 4 (72684) Complex EM visit Add On G2211 Diagnoses Acute pain of right shoulder M25.511 Laterality: right DM type 2 (diabetes mellitus, type 2) E11.9 Hyperlipidemia E78.5 Asthma J45.909 Prostate CA C61 Additional Codes RE-7 Assessment Billing - RE-7 Assessment Tool: RE-7 Assessment 29582 ([id number]) PHQ-9 - 69704 - PHQ-9 Billing: Yes ([id number]) Assessment & Plan Assessment & Plan (1) Acute shoulder pain: Comment: right Code(s): M25.519 - Pain in unspecified shoulder Category: Medical Qualifiers: Laterality: right Qualified Code(s): M25.511 - Pain in right shoulder Plan: For persistent right shoulder pain after the injury 3 months ago patient is referred to physical therapy (2) DM type 2 (diabetes mellitus, type 2): Code(s): E11.9 - Type 2 diabetes mellitus without complications Category: Medical Plan: A1c is 6.0, ADA diet increase exercise discussed with the patient continue metformin follow-up in 6 months with a fasting labs before (3) Hyperlipidemia: Code(s): E78.5 - Hyperlipidemia, unspecified Category: Medical Plan: Continue statin (4) Asthma: Code(s): J45.909 - Unspecified asthma, uncomplicated Category: Medical Plan: Continue Qvar (5) Prostate CA: Comment: 09/2014 prostatectomy f/u Dr. Lanier, PSA annually 2014 Code(s): C61 - Malignant neoplasm of prostate Category: Medical Plan: Follow-up with urology Orders: Orders Comprehensive [place]. Panel Fast 6 Months E11.9 - Type 2 diabetes mellitus without complications, E78.5 - Hyperlipidemia, unspecified Lipid Panel 6 Months E11.9 - Type 2 diabetes mellitus without complications, E78.5 - Hyperlipidemia, unspecified Microalbumin, Random (w Creat) 6 Months E11.9 - Type 2 diabetes mellitus without complications, E78.5 - Hyperlipidemia, unspecified PT Evaluation and Treatment Today M25.511 - Pain in right shoulder Complete Blood Count Auto Diff 6 Months E11.9 - Type 2 diabetes mellitus without complications, E78.5 - Hyperlipidemia, unspecified Hemoglobin A1c 6 Months E11.9 - Type 2 diabetes mellitus without complications, E78.5 - Hyperlipidemia, unspecified
[2024-04-14 11:06] VITALS: BP 118/70; PULSE 61; RESP 18; TEMP 36.8; O2SAT 96; BMI 26.1
== END 2024-04-14 12:24 | disposition home or self-care (01) ==
PROVIDERS: PCP Internal Medicine; Visit Provider Internal Medicine
DX: M25.511 Pain in right shoulder (principal); E11.9 Type 2 diabetes mellitus without complications; E78.5 Hyperlipidemia, unspecified; J45.909 Unspecified asthma, uncomplicated; C61 Malignant neoplasm of prostate

== ENCOUNTER → 2024-04-14 10:39 | Outpatient (BNVA) | payer MEDICARE, OTHER, SELFPAY | PROVIDERS: PCP Internal Medicine; Visit Provider Internal Medicine | DX: M25.511 Pain in right shoulder (principal); E11.9 Type 2 diabetes mellitus without complications; E78.5 Hyperlipidemia, unspecified; C61 Malignant neoplasm of prostate; J45.909 Unspecified asthma, uncomplicated | CPT/HCPCS: 96127; 99212 ==

== ENCOUNTER 2024-05-06 13:15 | Outpatient (AMB) | payer MEDICARE, OTHER, SELFPAY ==
[2024-05-06 13:49] VITALS: BP 110/70; PULSE 70; RESP 18; TEMP 36.7; O2SAT 97; BMI 26.1
--- NOTE | 2024-05-06 13:49 | A.OFFPC_ITS ---
Vital Signs 05/06/24 13:49 Height 5 ft 6 in Weight 162 lb BMI 26.1 BP 110/70 Blood Pressure Location Lt brachial Position Sitting Respiration 18 Pulse 70 Pulse Source Pulse Oximeter Temp 98.1 F Temp Source Oral Pulse Oximetry (%) 97 Oxygen Delivery Method Room Air Intake Visit Reasons: Cataract surgery pre-op Intake Note: Pt is here today for pre op visit. Pt is having cataract surgery on 05/15/24. Allergies No Known Allergies Allergy (Verified 05/06/24 13:50) Medication List - Last Reconciled 05/06/24 by Shelia uJdge MD albuterol sulfate 90 mcg/actuation 1 inh inhalation QID PRN aspirin (Adult Aspirin Regimen) 81 mg PO DAILY atorvastatin 40 mg PO DAILY blood sugar diagnostic As directed blood sugar diagnostic (Freestyle [employer]x strips) 1 QD cholecalciferol (vitamin D3) 25 mcg PO DAILY ciclopirox 0.77% appl topical fexofenadine (Mirian Allergy) 180 mg PO DAILY fluticasone propionate 250 mcg/actuation 1 inh PO BID metformin ER 500 mg PO DAILY omeprazole 20 mg PO DAILY Qvar RediHaler 40 mcg/actuation (beclomethasone dipropionate) 2 inhalations inhalation BID NS Tobacco use date assessed: 05/06/24 Dental Screening Dental Screen Date: 04/14/24 HPI Cataract surgery pre-op HPI Details Patient presents for the preop for cataract surgery. Chronic asthma type 2 diabetes and hyperlipidemia are controlled on current medications. [facility] Medical History Hx of basal cell carcinoma Zacarias esophagus Aortic stenosis Hyperlipidemia DM type 2 (diabetes mellitus, type 2) Stress incontinence Asthma Prostate CA GERD (gastroesophageal reflux disease) Surgical History Hx of esophagogastroduodenoscopy H/O colonoscopy History of microdiscectomy History of prostatectomy Family History Father HTN (hypertension) History of heart attack Enlarged prostate CVD (cardiovascular disease) Social History Housing: House Alcohol intake: never Patient Tobacco Use Status: Never used Tobacco e-Cigarette/Vaping Use: Never Used service: No Current occupational status: retired Cognitive needs: No Hearing needs: No Vision needs: Yes Questionnaire Thrive Questionnaire Date Thrive assessed: 05/06/24 I am a: Patient What is your living situation today?: I have a steady place to live Within the past 12 months, did the food you bought not last and you didn't have the money to get more?: Never true Within the past 12 months, did you worry whether your food would run out before you got money to buy more?: I choose not to answer this question Do you have trouble paying for medicines?: I choose not to answer this question Do you have trouble getting transportation to medical appointments?: No Do you have trouble paying your heating and electricity bill?: No Do you have trouble taking care of your child, family member or friend?: I choose not to answer this question Do you have trouble with day-to-day activities such as bathing, preparing meals, shopping, managing finances, etc.?: I choose not to answer this question Are you currently unemployed and looking for a job?: No Are you interested in more education?: No Please select the resources that you would like help with: None Currently or been in a relationship where the following occur: No concerns reported THRIVE Score: 0 RE-7 AMB Questionnaire RE-7 Date RE - 7 assessed: 05/06/24 Feeling nervous, anxious, or on edge: 0 = Not at all Not being able to stop or control worryin = Not at all Worrying too much about different things: 1 = Several days Trouble relaxin = Several days Being so restless that it is hard to sit still: 0 = Not at all Becoming easily annoyed or irritable: 1 = Several days Feeling afraid as if something awful might happen: 0 = Not at all Total RE-7 score (0-4 normal; 5-9 mild; 10-14 moderate; 15-21 severe): 3 Source: Developed by Drs. Tyrone Pichardo, Annette Sahu, Mono Renner and colleagues, with an educational hernán from [employer] RE-7 Assessment Billing RE-7 Assessment Tool: RE-7 Assessment 83619 Review of Systems Const All systems reviewed & are unremarkable except as noted in HPI and below ENT Reports no additional complaints Card Reports no additional complaints Resp Reports no additional complaints GI Reports no additional complaints Reports no additional complaints Physical exam (Primary Care) Vital Signs: Last Vital Signs Temp 98.1 F 05/06/24 13:49 Pulse 70 05/06/24 13:49 Resp 18 05/06/24 13:49 BP 110/70 05/06/24 13:49 Pulse Ox 97 05/06/24 13:49 Oxygen Delivery Method Room Air 05/06/24 13:49 BMI result Body Mass Index 26.1 Tobacco/Smoking Status: Tobacco use Status Tobacco use date assessed 05/06/24 05/06/24 13:55 Patient Tobacco Use Status Never used Tobacco 05/06/24 13:55 e-Cigarette/Vaping Use Never Used 05/06/24 13:55 Thrive Assessment: Date of Thrive Assessment Date Thrive assessed 05/06/24 05/06/24 13:55 Currently or been in a relationship where the following occur: No concerns reported Const General: no acute distress HENMT Head: Yes normal to inspection Eyes General: appearance normal, both eyes and all related structures Resp Effort & Inspection: normal respiratory effort Auscultation: clear to auscultation bilaterally Cardio Rhythm: regular rhythm Heart sounds: S1 normal heart sound present and S2 normal heart sound present GI Inspection: Yes normal to inspection Coding Level of Care Code Est Pt Level 4 (01658) Diagnoses DM type 2 (diabetes mellitus, type 2) E11.9 Hyperlipidemia E78.5 Asthma J45.909 Cataract H26.9 Additional Codes RE-7 Assessment Billing - RE-7 Assessment Tool: RE-7 Assessment 65059 ([id number]) Assessment & Plan Assessment & Plan (1) DM type 2 (diabetes mellitus, type 2): Code(s): E11.9 - Type 2 diabetes mellitus without complications Category: Medical Plan: A1c is 5.9, continue ADA diet regular exercise metformin follow-up in 5 months with a fasting labs before (2) Hyperlipidemia: Code(s): E78.5 - Hyperlipidemia, unspecified Category: Medical Plan: Continue statin (3) Asthma: Code(s): J45.909 - Unspecified asthma, uncomplicated Category: Medical Plan: Continue QVAR and antihistamine (4) Cataract: Code(s): H26.9 - Unspecified cataract Category: Medical Plan: Patient is medically cleared for cataract surgery
--- OUTSIDE RECORDS SUMMARY | 2024-05-06 16:03 | XMS_ITS ---
Author Organization [facility] Address [address] [place] [address] Care Team Providers Care Shorthand Teacher Name Role Phone Shelia Judge MD Primary Care Provider Unavaila Nj Stoll [phone] REASON FOR VISIT seen sooner Encounters Encounter Location Date Provider Diagnosis [address] [address] 04/18/2024 Nj Sales Plan Of Treatment Next Appt Details Provider Name:Nj Sales , 06/13/2024 08:45:00 AM, [address] [place], [address], Progress Notes * Nadine LUOB:[birth year] (74 yo M)Acc No.[id number]:04/18/2024 Progress Note Patient:?Fernando LU Provider:?Nj Sales DPM :1950???Age:74 Y???Sex:Male Ruben e:04/18/2024 [id number] Pcp:Shelia Judge MD Subjective: * Chief Complaints: * ???1. Seen sooner. * Medical History:? Objective: * Vitals:? Assessment: Plan: * Treatment: * Images: * The named appointment provid er may or may not be the originator of this progress note, and it is not deemed complete until electronically signed by the appointment provider. Sign off status: Pending * Provider:Rina Sales DPM Date:?2024 Generated for Mary king/Damaso/Erica on:?05/06/2024 04:02 PM EDT
--- OUTSIDE RECORDS SUMMARY | 2024-05-06 16:03 | XMS_ITS | Patient Health Record ---
Author Organization [facility] Address [address] [place] [address] Care Team Providers Care Brim Curler Name Role Phone Shelia Judge MD Primary Care Provider Nj Monique Unavailable [phone] Allergies Allergen (clinical drug ingredient) Drug/Non Drug Allergy documented on EMR Reaction Allergy Type Onset Date Status Seasonale Unknown Drug Allergy Active Dust Mite Mixed Allergen Ext Unknown Drug Allergy Active Mold Unknown Allergy Active Results Component Value Reference Range Notes HEMOGLOBIN A1C (GLYCOHEMOGLO BIN) Reviewed date:10/23/2023 11:56:27 AM Interpretation: Performing Lab: Notes/Report: HEMOGLOBIN A1C % (HH) 5.9 HEMOGLOBIN A1C (GLYCOHEMOGLO BIN) Reviewed date:05/18/2023 12:25:30 PM Interpretation: Performing Lab: Notes/Report: HEMOGLOBIN A1C % (HH) 5.7 Reason For Referral No Information Medications Medication [...] Problem Acquired hammer toe of right foot (3397189721945516 ) Other hammer toe(s) (acquired), right foot (M20.41) Active confirmed Response to treatment, Improvemen t Problem Acquired hammer toe of left foot (4171425593893558 ) Other hammer toe(s) (acquired), left foot (M20.42) Active confirmed Response to treatment, Improvemen t Problem Polyneuropathy due to type 2 diabetes mellitus (368734073) Type 2 diabetes mellitus with diabetic polyneuropathy (E11.42) Active confirmed Vital Signs Blood pressure diastolic 70 mm Hg 04/01/2024 Height 5ft6in in 04/01/2024 Blood pressure systolic 130 mm Hg 04/01/2024 Weight 157 lbs 04/01/2024 BMI 25.34 kg/m2 04/01/2024 Procedures Procedure Date Ordered Date Performed Result Body Sit e 46022-LSCVIKL NAIL, 6 OR MORE 05/18/2023 N/A 97632-AVBP SKIN LESIONS, OVER 4 05/18/2023 N/A 14179-CBQDNHW NAIL, 6 OR MORE 08/08/2023 N/A 37974-COSN SKIN LESIONS, OVER 4 08/08/2023 N/A 85132- Ganglion Cyst Injection/Aspiration 08/08/2023 N/A 59539-KWFLIEQ NAIL, 6 OR MORE 10/23/2023 N/A 30560-UTEB SKIN LESIONS, OVER 4 10/23/2023 N/A 29386- Ganglion Cyst Injection/Aspiration 10/23/2023 N/A 60090-CCNBZTP NAIL, 6 OR MORE 01/15/2024 N/A 29497-FTOL SKIN LESIONS, OVER 4 01/15/2024 N/A 44317-JRBKMYP NAIL, 6 OR MORE 04/01/2024 N/A 19153-WSCH SKIN LESIONS, OVER 4 04/01/2024 N/A 03480- Ganglion Cyst Injection/Aspiration 04/01/2024 N/A Encounters Encounter Location Date Provider Diagnosis [address] [address] 05/18/2023 Nj Sales Type 2 diabetes mellitus with diabetic polyneuropathy E11.42 ; Tinea unguium B35.1 ; Other hammer toe(s) (acquired), right foot M20.41 and Other hammer toe(s) (acquired), left foot M20.42 [facility] [address] [address] 08/08/2023 Nj Sales Type 2 diabetes mellitus with diabetic polyneuropathy E11.42 ; Tinea unguium B35.1 and Ganglion of [facility], right M67.471 [facility] [address] 10/23/2023 Nj Sales Type 2 diabetes mellitus with diabetic polyneuropathy E11.42 ; Tinea unguium B35.1 ; Ganglion of foot, right M67.471 ; Other hammer toe(s) (acquired), right foot M20.41 and Other hammer toe(s) (acquired), left foot M20.[address] [address] 01/15/2024 Nj Sales Type 2 diabetes mellitus with diabetic polyneuropathy E11.42 and Tinea unguium B35.[address] [address] 04/01/2024 Nj Sales Type 2 diabetes mellitus with diabetic polyneuropathy E11.42 ; Tinea unguium B35.1 and Ganglion of foot, right M67.[address] [address] 06/05/2023 Nj Sales Assessments Encounter Date Diagnosis [...] Treatment Pending Test Test Name Order Date 15813-ZFQZUKQ NAIL, 6 OR MORE 05/11/2015 31469-WGULQLU NAIL, 6 OR MORE 05/14/2018 16873-VQYPSOB NAIL, 6 OR MORE 09/10/2018 54311-CLHTUJW NAIL, 6 OR MORE 12/03/2018 61952-DPMBJYJ NAIL, 6 OR MORE 02/11/2019 87695-ZIRDTAQ NAIL, 6 OR MORE 04/15/2019 90300-NCQLJEV NAIL, 6 OR MORE 09/09/2019 92776-XEDNDEA NAIL, 6 OR MORE 11/18/2019 78706-NHQDTMN NAIL, 6 OR MORE 05/07/2020 79627-WZCYYJQ NAIL, 6 OR MORE 07/16/2020 69848-AENKQRN NAIL, 6 OR MORE 09/24/2020 47710-MJFYIHW NAIL, 6 OR MORE 12/17/2020 43597-URGZXCW NAIL, 6 OR MORE 05/06/2021 57033-ZJIHIDM NAIL, 6 OR MORE 07/08/2021 18425-BYOLJUN NAIL, 6 OR MORE 09/20/2021 95227-ASTLZJG NAIL, 6 OR MORE 11/25/2021 37683-DFADOPB NAIL, 6 OR MORE 03/10/2022 40263-IEXZBFX NAIL, 6 OR MORE 05/12/2022 87022-ECXHHUG NAIL, 6 OR MORE 08/04/2022 52445-EQXLJSQ NAIL, 6 OR MORE 10/10/2022 99520-UBQTXET NAIL, 6 OR MORE 12/19/2022 70800-AWJMGYB NAIL, 6 OR MORE 03/06/2023 48369-DQLYMIL NAIL, 6 OR MORE 05/18/2023 76503-IEIMDFE NAIL, 6 OR MORE 08/08/2023 04916-LBQUIVB NAIL, 6 OR MORE 10/23/2023 58977-GFGAOIF NAIL, 6 OR MORE 01/15/2024 04862-TAYFHBU NAIL, 6 OR MORE 04/01/2024 45956-Zxww Destruction, 1-08/24/2022 79057-Oeqp Destruction, 1-10/10/2022 26069- Debride <25 sq cm 10/08/2015 77880- Debride <25 sq cm 05/12/2016 32904-FBSYIZA SKIN/TISSUE 05/12/2016 21463-GBHTOQX SKIN/TISSUE 10/08/2015 24496-OXRWIJT SKIN/TISSUE 09/24/2015 56534-WODU SKIN LESIONS, OVER 4 10/11/19 06129-JGIF SKIN LESIONS, OVER 4 12/20/19 22464-PJGQ SKIN LESIONS, OVER 4 08/05/19 23 13091-XYBR SKIN LESIONS, OVER 4 05/13/19 23 76345-FEZM SKIN LESIONS, OVER 4 03/10/19 23 43924-PVLP SKIN LESIONS, OVER 4 04/01/19 98854-LZVU SKIN LESIONS, OVER 4 01/15/20 24 94215-FZRJ SKIN LESIONS, OVER 4 10/23/19 24 91742-RPZO SKIN LESIONS, OVER 4 08/08/19 24 53249-XMBC SKIN LESIONS, OVER 4 05/18/19 24 88363-TFGB SKIN LESIONS, OVER 4 03/06/19 65353-SKTJ SKIN LESIONS, 2 TO 4 11/26/19 06937-PMFR SKIN LESIONS, 2 TO 4 09/21/19 83480-GUQP SKIN LESIONS, 2 TO 4 02/12/20 06966-ERQP SKIN LESIONS, 2 TO 4 12/04/19 98367-CEUJ SKIN LESIONS, 2 TO 4 09/11/19 66626-FVGP SKIN LESIONS, 2 TO 4 03/19/20 19 30851-WNGQ SKIN LESIONS, 2 TO 4 07/09/19 04988-HZGW SKIN LESIONS, 2 TO 4 05/07/19 03652-SZEP SKIN LESIONS, 2 TO 4 12/18/19 21450-VJFS SKIN LESIONS, 2 TO 4 09/25/19 21 85850-XKXQ SKIN LESIONS, 2 TO 4 07/17/19 61779-CHLQ SKIN LESIONS, 2 TO 4 05/08/19 25851-IUXQ SKIN LESIONS, 2 TO 4 09/09/19 43059-XEWP SKIN LESIONS, 2 TO 4 11/18/19 67261-HDVS SKIN LESIONS, 2 TO 4 04/15/19 58216- Removal of Foreign Body, Subcut 0 10/10/2022- Ganglion Cyst Injection/Aspiratio n 08/08/2023- Ganglion Cyst Injection/Aspiratio n 10/23/2023- Ganglion Cyst Injection/Aspiratio n 04/01/2024- Ganglion Cyst Injection/Aspiratio n 08/17/2020 90322- Ganglion Cyst Injection/Aspiratio n 06/11/201862444- Ganglion Cyst Injection/Aspiratio n 11/05/201808582- Ganglion Cyst Injection/Aspiratio n 01/01/201963021- Ganglion Cyst Injection/Aspiratio n 05/12/201679637- Ganglion Cyst Injection/Aspiratio n 08/11/2016- Ganglion Cyst Injection/Aspiratio n 03/09/201748938- Ganglion Cyst Injection/Aspiratio n 12/27/2017 Next Appt Details Provider Name:Nj Sales , 06/13/2024 08:45:00 AM, [address] [facility], [place], [address], Insurance Providers Payer Name Payer Address Payer Phone Subscriber Number Group Number Insured Name Patient Relationship to Insured Coverage Start Date Coverage End Date Medicare [facility] [address] [place] [address] [id number] Fernando Lu Self - patient is the insured [address] [place] [address] [address] [place] [id number] Fernando Lu Self - patient is the [...] 11/25/2018 dental implant Hospitalization History Reason Date(Month/Year) [facility] [place]/12/22
--- OUTSIDE RECORDS SUMMARY | 2024-05-06 16:03 | XMS_ITS | Patient Health Record ---
Author Organization [facility] Address [address] [place] [address] Care Team Providers Care Clinical Documentation Improvement Specialist Name Role Phone Shelia Judge MD Primary Care Provider Tyrone Mosley Unavailable [phone] Allergies Allergen (clinical drug ingredient) Drug/Non Drug Allergy documented on EMR Reaction Allergy Type Onset Date Status seasonal (uncoded) Unknown Allergy A ctive Reason For Referral No Information Medications Medication [...] Omeprazole 20 MG TAKE 1 CAPSULE BY [facility] EVERY MORNING for 90 Active Atorvastatin Calcium 40 MG 1 tablet Orally Once a day Active Claritin 10 MG 1 tablet Orally Once a day Active Aspir-81 81 MG 1 tablet Orally Once a day Active Immunizations Vaccine Route Administration Date Status Comme nts Flu vaccine no Preserv 3 and > Unknown 01/18/2016 Admin istered Influenza Unknown 10/27/2017 Administered Influenza Unknown 12/30/2020 Administered Social History Tobacco Use: Social History Observation Description Date Details (start date - stop date) Never Smoker NA - NA Tobacco Use/Smoking Question Answer Notes Patient is [...] Never (0 point) Points 2 Interpretation Negative Section Notes: Nonsmoker > 30 yrs ago; no s ig alcohol Nonsmoker > 30 yrs ago; no s ig alcohol Nonsmoker > 30 yrs ago; no s ig alcohol Problems Problem Type SNOMED Code ICD Code Onset Dates Problem Status W/U Status Risk Notes Problem Esophageal reflux (863867334) Esophageal reflux (K21.9) Active confirmed Problem 389255721 Encounter for screening for malignant neoplasm of colon (Z12.11) Active confirmed Problem 259043721 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) Active confirmed Problem 092354212 Elevated liver function tests (R79.89) Active confirmed Problem 650396152 Gastroesophageal reflux disease without esophagitis (K21.9) Active confirmed Problem 136847983 Fatty liver (K76.0) Active confirmed Problem 070182197 Gastroesophageal reflux disease, esophagitis presence not specified (K21.9) Active confirmed Problem 450167543 Long-term use of aspirin therapy (Z79.82) Active confirmed Problem Zacarias esophagus (814941064) Zacarias esophagus (K22.70) Active confirmed Problem 533752721 Pre-procedural examination (Z01.818) Active confirmed Problem Gastroesophageal reflux disease (174860770) GERD without esophagitis (K21.9) Active confirmed Problem 74591696 Secondary hypertension (I15.9) Active confirmed Problem Zacarias's esophagus (018749950) Zacarias''s esophagus without dysplasia (K22.70) Active confirmed Plan Of Treatment Future Test Test Name Order Date COLONOSCOPY 07/12/2016 UPPER GI ENDOSCOPY 05/03/2018 UPPER GI ENDOSCOPY 10/24/2021 Insurance Providers Payer Name Payer Address Payer Phone Subscriber Number Group Number Insured Name Patient Relationship to Insured Coverage Start Date Coverage End Date MEDICARE OF [place] [place]IM[place]NEZ [address] [id number] KANE CASTILLO Self - patient is the insured [facility] [address] [place] [address] [phone] [id number] KANE CASTILLO Self - patient is the insured Medical (General) History Medical History History ICD Code NIDDM Prostate cancer--2014-surgery as below Denies UT,CVA,renal disease Asthma Hyperlipidemia Colonoscopy 10/2016-one hyper plastic polyp, mild diverticulosis, small internal hemorrhoids GERD and Zacarias's esophagus --he underwent an upper endoscopy in October of 2018 with the finding of a small hiatal hernia and small area of Zacarias's esophagus, without dysplasia nor esophagitis Negative gallbladder ultrasound in er 2020 Fatty liver and minimally elevated LFTs in 2020 Surgical History Surgery Date(Month/Year) Prostatectomy-Dr. 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 Yoo 2013
--- OUTSIDE RECORDS SUMMARY | 2024-05-06 16:03 | XMS_ITS ---
Author [facility] Address [address] [place] [address] Care Team Providers Care Nuclear Physicist Name Role Phone Shelia Judge MD Primary Care Provider Nj Monique Unavailable [phone] Allergies Allergen (clinical drug ingredient) Drug/Non Drug [...] user? No Vital Signs Height 5ft6in in 01/15/2024 Weight 157 lbs 01/15/2024 BMI 25.34 kg/m2 01/15/2024 Blood pressure systolic 137 mm Hg 01/15/20 Blood pressure diastolic 72 mm Hg 024 Procedures Procedure Date Ordered Date Performed Result Body Sit e 78347-ZUXDUPW NAIL, 6 OR MORE 01/15/2024 N/A 77386-YAFR SKIN LESIONS, OVER 4 01/15/2024 N/A Encounters Encounter Location Date Provider Diagnosis [facility] [place] [address] [place] [address] 01/15/2024 Nj Sales Type 2 diabetes mellitus with diabetic polyneuropathy E11.42 and Tinea unguium B35.1 Assessments Encounter Date Diagnosis (ICD Code) Assessment Notes Treatment Notes Treatment Clinical Notes Section Notes 01/15/2024 Type 2 diabetes mellitus with diabetic polyneuropathy (ICD-10 - E11.42) 01/15/2024 Tinea unguium (ICD-10 - B35.1) 01/15/2024 Other Plan Of Treatment Pending Test Test Name Order Date 89900-YMAXJKZ NAIL, 6 OR MORE 01/15/2024 20739-CSCH SKIN LESIONS, OVER 4 01/15/20 24 Next Appt Details Follow Up: prn, Reason: Provider Name:Nj Sales , 06/13/2024 08:45:00 AM, [address] [place] [address], [address], Procedure Notes * Category Sub-Category Detail Notes [...] use of a nail nipper and/or dremel-type roll grinder operator, to a more viable healthy nail plate or bed tissue 6-10. Silver nitrate used for any petechial bleeding as necessary. Definitive antifungal treatment options have been reviewed and discussed with the patient. The patient chooses, no pharmaceutical tx - 50350 Keratoma Treatment Parring or Cutting o f Benign Hyperkeratotic Lesion(s) (-57) More than 4 Lesions - The Benign hyperkeratotic lesions, as described in exam, were pared, and/or cut utilizing a sterile 15 blade, tissue nippers, and/or dremel - 17702 Progress Notes * Julian LUioDOB:[birth year] (73 yo M)Acc No.[id number]:01/15/2024 Progress Note Patient:?Julian LUio Provider:?Nj Sales DPM :1950???Age:73 Y???Sex:Male Ruben e:01/15/2024 Address:[address] [place] [address] [place], [place], [phone] Pcp:Shelia Judge MD Subjective: * Chief Complaints: [...] 1990endoscopy 11/25/2018dental implant * Hospitalization/Major Diagno stic Procedure:?[facility] [place]- sever nose bleeds 01/12/22 * Family History:?Mother: [...] yes, walking. ?Marital status: . ?Occupation: retired- staff accountant. * Medications:?TakingQvar Tali min D3 25 [...] Extyes[Allergies Verified] Objective: * Vitals:?Ht:5ft6in, Wt:157, B CA:25.34, Shoe size:10, BP:137/72mm Hg, BS:not taken, Ht-cm: [...] use of a nail nipper and/or dremel-type roll grinder operator, to a more viable healthy nail plate or bed tissue 6-10. Silver nitrate used for any petechial bleeding as necessary. Definitive antifungal treatment options have been reviewed and discussed with the patient. The patient chooses, no pharmaceutical tx - 53568.?Keratoma Treatment:?Parring or Cutting of Benign Hyperkeratotic Lesion(s)?(-57) More than 4 Lesions - The Benign hyperkeratotic lesions, as described in exam, were pared, and/or cut utilizing a sterile 15 blade, tissue nippers, and/or dremel - 05670.? * Procedure Codes:?04374 DEBRI DE NAIL, 6 OR MORE, Modifiers: XS 58525 TRIM SKIN LESIONS, OVER 4, Modifiers: XS * Follow Up:?prn * Images: * Sign off status: Completed true * Provider:?Nj Sales DPM Date:?2023 Generated for Mary king/Damaso/Simonesmitting on:?05/06/2024 04:03 PM EDT History and Physical Notes * HPI (History [...]
--- OUTSIDE RECORDS SUMMARY | 2024-05-06 16:03 | XMS_ITS ---
Author Organization [facility] Address [address] [place] [address] Care Team Providers Care Deflector Operator Name Role Phone Shelia Judge MD Primary Care Provider Nj Monique Unavailable [phone] Allergies Allergen (clinical drug ingredient) Drug/Non Drug [...] No Points 0 Interpretation Negative Vital Signs Height 5ft6in in 04/01/2024 Weight 157 lbs 04/01/2024 BMI 25.34 kg/m2 04/01/2024 Blood pressure systolic 130 mm Hg 04/01/19 25 Blood pressure diastolic 70 mm Hg 025 Procedures Procedure Date Ordered Date Performed Result Body Sit e 87124-APZFSCE NAIL, 6 OR MORE 04/01/2024 N/A 55659-ZOLI SKIN LESIONS, OVER 4 04/01/2024 N/A - Ganglion Cyst Injection/Aspiration 04/01/2024 N/A Encounters Encounter Location Date Provider Diagnosis [facility] [place] [address] [place] [address] 04/01/2024 Nj Sales Type 2 diabetes mellitus [...] Treatment Pending Test Test Name Order Date 68144-OJBQFXB NAIL, 6 OR MORE 04/01/2024 17228-WHQC SKIN LESIONS, OVER 4 04/01/19 25 - Ganglion Cyst Injection/Aspiratio n 04/01/2024 Next Appt Details Follow Up: prn, Reason: Provider Name:Nj Sales , 06/13/2024 08:45:00 AM, [address] [place], [address], Procedure Notes * Category Sub-Category Detail Notes [...] use of a nail nipper and/or dremel-type mud grinder, to a more viable healthy nail [...] to maintain effectiveness in symptomatic relief - 16289 Keratoma Treatment Parring or Cutting o f [...] instrumentation by the physician of record - 49693 Progress Notes * Nadine LUOB:[birth year] (74 yo M)Acc No.[id number]:04/01/2024 Progress Note Patient:?Fernando LU Provider:?Nj Sales DPM :1950???Age:74 Y???Sex:Male Ruben e:04/01/2024 Address:[address] [place], [place] [id number] Pcp:Shelia Judge MD Subjective: * Chief Complaints: [...] 1990endoscopy 11/25/2018dental implant * Hospitalization/Major Diagno stic Procedure:?[facility] [place] nose bleeds 01/12/22 * Family History:?Mother: [...] walking. ?Marital status: . ?Occupation: retired- accountant helper. ???Drug/Alcohol:?AUDIT-C (Standard)?Did you have a drink containing [...] Extyes[Allergies Verified] Objective: * Vitals:?Ht:5ft6in, Wt:157, B MA:25.34, Shoe size:10, BP:130/70mm Hg, BS:100, Ht- cm: 167.64 cm, Wt-k.21 kg. * ???Past Orders: ???Lab:HEMOGLOBIN A1C (GLYCO HEMOGLOBIN) (Order Date - 10/16/2023) (Collection Date & Time - 10/16/2023 11:55 AM) ? Value Reference Range ?HEMOGLOBIN A1C % (HH) 5.9 * Examination: ???Ophthalmology Referral: ?DIABETES EYE EXAM?Procedure Performed:?Yes ?Date of Exam Performed?01/02/2024 ?Diabetic Retinopathy Screening:?Yes ?Retinal Screening Performed:?Yes ?Findings of Diabetic Eye Exam:?no retinopathy?Neurological: ?SENSORY:?Neurological exam demonstrates, reduced light touch sensation,?reduced [...] use of a nail nipper and/or dremel-type mud grinder, to a more viable healthy nail [...] to maintain effectiveness in symptomatic relief - 86974.?Keratoma Treatment:?Parring or Cutting of Benign Hyperkeratotic Lesion(s)?(-57) [...] instrumentation by the physician of record - 12956.?Aspiration:?Indication?Symptomatic Ganglion/Cyst.?Prep?The skin was prepped with alcohol with [...] Follow-up as in Plan ().? * Procedure Codes:?05575 DEBRI DE NAIL, 6 OR MORE, Modifiers: XS ASPIRATE/INJ GANGLION CYST, Modifiers: XS 89616 TRIM SKIN LESIONS, OVER 4, Modifiers: XS * Follow Up:?prn * Images: * Sign off status: Completed true * Provider:?Nj Sales DPM Date:?2024 Generated for Mary king/Damaso/Erica on:?05/06/2024 04:03 PM EDT History and Physical [...]
== END 2024-05-06 14:49 | disposition home or self-care (01) ==
LOC: HO.HMCC 13:15
PROVIDERS: PCP Internal Medicine; Visit Provider Internal Medicine
DX: E11.9 Type 2 diabetes mellitus without complications (principal); E78.5 Hyperlipidemia, unspecified; J45.909 Unspecified asthma, uncomplicated; H26.9 Unspecified cataract

== ENCOUNTER → 2024-05-06 13:15 | Outpatient (BNVA) | payer MEDICARE, OTHER, SELFPAY | PROVIDERS: PCP Internal Medicine; Visit Provider Internal Medicine | DX: E11.9 Type 2 diabetes mellitus without complications (principal); E78.5 Hyperlipidemia, unspecified; J45.909 Unspecified asthma, uncomplicated; H26.9 Unspecified cataract | CPT/HCPCS: 96127; 99212 ==

== ENCOUNTER 2024-05-15 13:50 | Outpatient (AMB) | payer MEDICARE, OTHER, SELFPAY ==
--- NOTE | 2024-05-15 13:53 | A.OFFPC_ITS ---
Vital Signs 05/15/24 13:54 Height 5 ft 6 in Weight 160 lb 2 oz BMI 25.8 BP 136/88 Blood Pressure Location Lt brachial Position Sitting Pulse 91 Pulse Source Pulse Oximeter Temp 98.5 F Temp Source Oral Pulse Oximetry (%) 96 Oxygen Delivery Method Room Air Intake Visit Reasons: Asthma/allergies Allergies No Known Allergies Allergy (Verified 05/15/24 13:54) Medication List - Last Reconciled 05/15/24 by Shelia Judge MD albuterol sulfate 90 mcg/actuation 1 inh inhalation QID PRN aspirin (Adult Aspirin Regimen) 81 mg PO DAILY atorvastatin 40 mg PO DAILY azithromycin For 250 mg dose pack: take 500 mg today (day 1), then 250 mg for 4 days (days 2-5) PO blood sugar diagnostic As directed blood sugar diagnostic (Freestyle InsuLinx strips) 1 QD cholecalciferol (vitamin D3) 25 mcg PO DAILY ciclopirox 0.77% appl topical fexofenadine (Mirian Allergy) 180 mg PO DAILY fluticasone propionate 250 mcg/actuation 1 inh PO BID metformin ER 500 mg PO DAILY montelukast 10 mg PO BEDTIME omeprazole 20 mg PO DAILY Qvar RediHaler 40 mcg/actuation (beclomethasone dipropionate) 2 inhalations inhalation BID NS Tobacco use date assessed: 05/15/24 Fall risk assessment: 1 Fall in past year Last assessed Fall Risk: 05/15/24 Dental Screening Dental Screen Date: 05/15/24 Did you have a dental visit in the last 12 months?: Yes Did you have a dental problem in the last 6 months where you did not have access to dental care?: No Was dental information given to patient?: Patient has dentist HPI Asthma/allergies HPI Details Pt c/o sinus congestion, postnasal drip, nonproductive cough for 1 week. Pt denies fever chills night sweats shortness or breath wheezing. He has been taking QVAR twice a day fexofenadine and using fluticasone nasal spray. His cataract surgery today was canceled. [facility] Medical History Hx of basal cell carcinoma Zacarias esophagus Aortic stenosis Hyperlipidemia DM type 2 (diabetes mellitus, type 2) Stress incontinence Asthma Prostate CA GERD (gastroesophageal reflux disease) Surgical History Hx of esophagogastroduodenoscopy H/O colonoscopy History of microdiscectomy History of prostatectomy Family History Father HTN (hypertension) History of heart attack Enlarged prostate CVD (cardiovascular disease) Social History Housing: House Alcohol intake: never Patient Tobacco Use Status: Never used Tobacco e-Cigarette/Vaping Use: Never Used service: No Current occupational status: retired Cognitive needs: No Hearing needs: No Vision needs: Yes Questionnaire PHQ-9 Over the last 2 weeks, how often have you been bothered by any of the following problems? 51592 - PHQ-9 Billing: Patient declined-do not bill Source: Developed by Drs. Tyrone Pichardo, Annette Sahu, Mono Renner and colleagues, with an educational hernán from [employer]. Thrive Questionnaire Date Thrive assessed: 05/15/24 I am a: Patient What is your living situation today?: I have a steady place to live Within the past 12 months, did the food you bought not last and you didn't have the money to get more?: Never true Within the past 12 months, did you worry whether your food would run out before you got money to buy more?: I choose not to answer this question Do you have trouble paying for medicines?: I choose not to answer this question Do you have trouble getting transportation to medical appointments?: No Do you have trouble paying your heating and electricity bill?: No Do you have trouble taking care of your child, family member or friend?: I choose not to answer this question Do you have trouble with day-to-day activities such as bathing, preparing meals, shopping, managing finances, etc.?: I choose not to answer this question Are you currently unemployed and looking for a job?: No Are you interested in more education?: No Please select the resources that you would like help with: None Currently or been in a relationship where the following occur: No concerns reported THRIVE Score: 0 AUDIT C Alcohol Use Questionnaire (AUDIT-C) 1. How often do you have a drink containing alcohol?: Monthly or less 2. How many drinks containing alcohol do you have on a typical day when you are drinking?: 1 or 2 3. How often do you have six or more drinks on one occasion?: Never Total Score: 1 Score Reviewed/Action Taken: Yes RE-7 AMB Questionnaire RE-7 Date RE - 7 assessed: 05/15/24 Feeling nervous, anxious, or on edge: 0 = Not at all Not being able to stop or control worryin = Not at all Worrying too much about different things: 0 = Not at all Trouble relaxin = Not at all Being so restless that it is hard to sit still: 0 = Not at all Becoming easily annoyed or irritable: 0 = Not at all Feeling afraid as if something awful might happen: 0 = Not at all Total RE-7 score (0-4 normal; 5-9 mild; 10-14 moderate; 15-21 severe): 0 Source: Developed by Drs. Tyrone Pichardo, Annette Sahu, Mono Renner and colleagues, with an educational hernán from [employer]. RE-7 Assessment Billing RE-7 Assessment Tool: RE-7 Assessment 23874 Review of Systems Const All systems reviewed & are unremarkable except as noted in HPI and below Eyes Reports no additional complaints ENT Reports no additional complaints Card Reports no additional complaints Resp Reports no additional complaints GI Reports no additional complaints Reports no additional complaints Physical exam (Primary Care) Vital Signs: Last Vital Signs Temp 98.5 F 05/15/24 13:54 Pulse 91 05/15/24 13:54 BP 136/88 05/15/24 13:54 Pulse Ox 96 05/15/24 13:54 Oxygen Delivery Method Room Air 05/15/24 13:54 BMI result Body Mass Index 25.8 Tobacco/Smoking Status: Tobacco use Status Tobacco use date assessed 05/15/24 05/15/24 13:56 Patient Tobacco Use Status Never used Tobacco 05/15/24 13:56 e-Cigarette/Vaping Use Never Used 05/15/24 13:56 Thrive Assessment: Date of Thrive Assessment Date Thrive assessed 05/15/24 05/15/24 14:06 Currently or been in a relationship where the following occur: No concerns reported Const General: no acute distress HENMT Head: Yes normal to inspection Ears: TM's normal bilaterally General nose exam: Abnormal mucous membranes and turbinates present erythematous Face and sinus: Yes sinus tenderness Throat: Yes postnasal drainage Eyes General: appearance normal, both eyes and all related structures Neck Neck: Yes no lymphadenopathy and Yes supple Resp Effort & Inspection: normal respiratory effort Auscultation: clear to auscultation bilaterally Cardio Rhythm: regular rhythm Heart sounds: S1 normal heart sound present and S2 normal heart sound present Coding Level of Care Code Est Pt Level 3 (18304) Diagnoses Asthma J45.909 Sinusitis J32.9 Additional Codes RE-7 Assessment Billing - RE-7 Assessment Tool: RE-7 Assessment 63832 ([id number]) Assessment & Plan Assessment & Plan (1) Asthma: Code(s): J45.909 - Unspecified asthma, uncomplicated Category: Medical Plan: Increase QVAR to 2 puffs twice a day add montelukast and continue Mirian for seasonal allergies (2) Sinusitis: Code(s): J32.9 - Chronic sinusitis, unspecified Category: Medical Plan: Z-Eamon as prescribed and supportive care discussed with the patient Medications: New azithromycin For 250 mg dose pack: take 500 mg today (day 1), then 250 mg for 4 days (days 2-5) PO 6 tabs 0RF montelukast 10 mg PO BEDTIME 90 tabs 0RF
[2024-05-15 13:54] VITALS: BP 136/88; PULSE 91; TEMP 36.9; O2SAT 96; BMI 25.8
--- OUTSIDE RECORDS SUMMARY | 2024-05-15 16:30 | XMS_ITS | Patient Health Record ---
Author Organization [facility] Address [address] [place] [address] Care Team Providers Care Resin Shaver Name Role Phone Shelia Judge MD Primary Care Provider Tyrone Mosley Unavailable [phone] Allergies Allergen (clinical drug ingredient) Drug/Non Drug [...] Omeprazole 20 MG TAKE 1 CAPSULE BY [facility] EVERY MORNING for 90 Active Atorvastatin Calcium [...] W/U Status Risk Notes Problem Esophageal reflux (704343233) Esophageal reflux (K21.9) Active confirmed Problem 542838349 Encounter for screening for malignant neoplasm of colon (Z12.11) Active confirmed Problem 240452728 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) Active confirmed Problem 016848751 Elevated liver function tests (R79.89) Active confirmed Problem 480676405 Gastroesophageal reflux disease without esophagitis (K21.9) Active confirmed Problem 357338626 Fatty liver (K76.0) Active confirmed Problem 322219946 Gastroesophageal reflux disease, esophagitis presence not specified (K21.9) Active confirmed Problem 324108680 Long-term use of aspirin therapy (Z79.82) Active confirmed Problem Zacarias esophagus (769903922) Zacarias esophagus (K22.70) Active confirmed Problem 032576168 Pre-procedural examination (Z01.818) Active confirmed Problem Gastroesophageal reflux disease (633107490) GERD without esophagitis (K21.9) Active confirmed Problem 47773665 Secondary hypertension (I15.9) Active confirmed Problem Zacarias's esophagus (178805436) Zacarias''s esophagus without dysplasia (K22.70) Active confirmed Plan Of Treatment Future Test Test Name Order Date COLONOSCOPY 07/12/2016 UPPER GI ENDOSCOPY 05/03/2018 UPPER GI ENDOSCOPY 10/24/2021 Insurance Providers Payer Name Payer Address Payer Phone Subscriber Number Group Number Insured Name Patient Relationship to Insured Coverage Start Date Coverage End Date MEDICARE OF [place] SILKE JIMÉNEZ [address] [id number] [phone] [id number] KANE CASTILLO Self - patient is the insured [facility] [address] [place] [address] [phone] [id number] KANE CASTILLO Self - patient is the insured Medical (General) History Medical History History ICD Code NIDDM Prostate cancer--2014-surgery as below Denies AK,CVA,renal disease Asthma Hyperlipidemia Colonoscopy 10/2016-one hyper plastic polyp, mild diverticulosis, small internal hemorrhoids GERD and Zacarias's esophagus --he underwent an upper endoscopy in October of 2018 with the finding of a small hiatal hernia and small area of Zacarias's esophagus, without dysplasia nor esophagitis Negative gallbladder ultrasound in er 2020 Fatty liver and minimally elevated LFTs in 2020 Surgical History Surgery Date(Month/Year) Prostatectomy-Dr. Lanire 2014 Basal cell removal---on nose 1997 Back surgery--Dr. Yoo 2013
--- OUTSIDE RECORDS SUMMARY | 2024-05-15 16:30 | XMS_ITS ---
Author Organization [facility] Address [address] [place] [address] Care Team Providers Care Worm Grower Name Role Phone Shelia Judge MD Primary Care Provider Unavaila Nj Stoll [phone] REASON FOR VISIT seen sooner Encounters Encounter Location Date Provider Diagnosis [address] [address] 04/18/2024 Nj Sales Plan Of Treatment Next Appt Details Provider Name:Nj Sales , 06/13/2024 08:45:00 AM, [address] [place], [address], Progress Notes * Nadine LUOB:[birth year] (74 yo M)Acc No.[id number]:04/18/2024 Progress Note Patient:?Fernando LU Provider:?Nj Sales DPM :1950???Age:74 Y???Sex:Male Ruben e:04/18/2024 [place] [id number] Pcp:Shelia Judge MD Subjective: * Chief Complaints: [...] Sales DPM Date:?2024 Generated for Mary king/Damaso/Erica on:?05/15/2024 04:30 PM EDT
--- OUTSIDE RECORDS SUMMARY | 2024-05-15 16:30 | XMS_ITS | Patient Health Record ---
Author Organization [facility] Address [address] [place] [address] Care Team Providers Care Policy Analyst Name Role Phone Shelia Judge MD Primary Care Provider Nj Monique Unavailable [phone] Allergies Allergen (clinical drug ingredient) Drug/Non Drug [...] Problem Acquired hammer toe of right foot (9470288698939788 ) Other hammer toe(s) (acquired), right foot (M20.41) Active confirmed Response to treatment, Improvemen t Problem Acquired hammer toe of left foot (1689645987821576 ) Other hammer toe(s) (acquired), left foot (M20.42) Active confirmed Response to treatment, Improvemen t Problem Polyneuropathy due to type 2 diabetes mellitus (650690543) Type 2 diabetes mellitus with diabetic polyneuropathy (E11.42) Active confirmed Vital Signs Blood pressure diastolic 70 mm Hg 04/01/2024 Height 5ft6in in 04/01/2024 Blood pressure systolic 130 mm Hg 04/01/2024 Weight 157 lbs 04/01/2024 BMI 25.34 kg/m2 04/01/2024 Procedures Procedure Date Ordered Date Performed Result Body Sit e 79872-WYTEGAM NAIL, 6 OR MORE 05/18/2023 N/A 91908-KYMY SKIN LESIONS, OVER 4 05/18/2023 N/A 70781-ZVFZDQH NAIL, 6 OR MORE 08/08/2023 N/A 83026-ANHY SKIN LESIONS, OVER 4 08/08/2023 N/A 78381- Ganglion Cyst Injection/Aspiration 08/08/2023 N/A 36083-CTPKYPK NAIL, 6 OR MORE 10/23/2023 N/A 81067-QTWD SKIN LESIONS, OVER 4 10/23/2023 N/A 20558- Ganglion Cyst Injection/Aspiration 10/23/2023 N/A 05979-JXSFWFA NAIL, 6 OR MORE 01/15/2024 N/A 12469-ILCQ SKIN LESIONS, OVER 4 01/15/2024 N/A 86997-BCQDGTQ NAIL, 6 OR MORE 04/01/2024 N/A 54699-BRQO SKIN LESIONS, OVER 4 04/01/2024 N/A 44878- Ganglion Cyst Injection/Aspiration 04/01/2024 N/A Encounters Encounter Location Date Provider Diagnosis [address] [address] 05/18/2023 Nj Sales Type 2 diabetes mellitus with diabetic polyneuropathy E11.42 ; Tinea unguium B35.1 ; Other hammer toe(s) (acquired), right foot M20.41 and Other hammer toe(s) (acquired), left foot M20.42 [facility] [address] [address] 08/08/2023 Nj Sales Type 2 diabetes mellitus with diabetic polyneuropathy E11.42 ; Tinea unguium B35.1 and Ganglion of foot, right M67.[address] [facility] [address] 10/23/2023 Nj Sales Type 2 diabetes mellitus with diabetic polyneuropathy E11.42 ; Tinea unguium B35.1 ; Ganglion of foot, right M67.471 ; Other hammer toe(s) (acquired), right foot M20.41 and Other hammer toe(s) (acquired), left foot M20.[address] [address] 01/15/2024 Nj Sales Type 2 diabetes mellitus with diabetic polyneuropathy E11.42 and Tinea unguium B35.[address] [address] 04/01/2024 Nj Sales Type 2 diabetes mellitus with diabetic polyneuropathy E11.42 ; Tinea unguium B35.1 and Ganglion of foot, right M67.[address] [address] 06/05/2023 Nj Sales Assessments Encounter Date Diagnosis [...] Treatment Pending Test Test Name Order Date 72817-TIXNBVZ NAIL, 6 OR MORE 05/11/2015 81936-KGNNCGZ NAIL, 6 OR MORE 05/14/2018 29537-XJEVFOQ NAIL, 6 OR MORE 09/10/2018 58348-DABZWYO NAIL, 6 OR MORE 12/03/2018 64206-OCLNXST NAIL, 6 OR MORE 02/11/2019 58148-CSWHURW NAIL, 6 OR MORE 04/15/2019 67887-NGNVXBZ NAIL, 6 OR MORE 09/09/2019 89863-TMBMKSG NAIL, 6 OR MORE 11/18/2019 83685-BCIBZOY NAIL, 6 OR MORE 05/07/2020 63955-NFVSBVU NAIL, 6 OR MORE 07/16/2020 11079-YPWHMNV NAIL, 6 OR MORE 09/24/2020 35964-DAIEEIM NAIL, 6 OR MORE 12/17/2020 11076-TWVSBTM NAIL, 6 OR MORE 05/06/2021 29273-VEADPSS NAIL, 6 OR MORE 07/08/2021 22897-FAYWWQR NAIL, 6 OR MORE 09/20/2021 61849-GIOUZJZ NAIL, 6 OR MORE 11/25/2021 81092-DIRHGNO NAIL, 6 OR MORE 03/10/2022 11664-GWTPRCL NAIL, 6 OR MORE 05/12/2022 02506-SQNHZJW NAIL, 6 OR MORE 08/04/2022 13272-WNQHYMR NAIL, 6 OR MORE 10/10/2022 26614-GBZQSPE NAIL, 6 OR MORE 12/19/2022 72523-ITIKFJV NAIL, 6 OR MORE 03/06/2023 37255-NHJBYYH NAIL, 6 OR MORE 05/18/2023 86331-PZORHLF NAIL, 6 OR MORE 08/08/2023 84409-AFTKAAO NAIL, 6 OR MORE 10/23/2023 59518-KAFADVG NAIL, 6 OR MORE 01/15/2024 25015-MWVDKYV NAIL, 6 OR MORE 04/01/2024 49565-Apqi Destruction, 1-08/24/2022 37532-Vfxa Destruction, 1-10/10/2022 30779- Debride <25 sq cm 10/08/2015 61079- Debride <25 sq cm 05/12/2016 36911-ASEDASU SKIN/TISSUE 05/12/2016 52822-DXZBSIX SKIN/TISSUE 10/08/2015 74528-DBZKGRU SKIN/TISSUE 09/24/2015 74506-AQDP SKIN LESIONS, OVER 4 10/11/19 78421-FQHT SKIN LESIONS, OVER 4 12/20/19 13789-DGES SKIN LESIONS, OVER 4 08/05/19 23 56473-HBWB SKIN LESIONS, OVER 4 05/13/19 23 89427-BPMN SKIN LESIONS, OVER 4 03/10/19 23 71374-RFIX SKIN LESIONS, OVER 4 04/01/19 27378-JDRB SKIN LESIONS, OVER 4 01/15/20 24 96964-FDBE SKIN LESIONS, OVER 4 10/23/19 24 66201-HNFF SKIN LESIONS, OVER 4 08/08/19 24 66444-OAEG SKIN LESIONS, OVER 4 05/18/19 24 16075-MEXN SKIN LESIONS, OVER 4 03/06/19 28105-LCHN SKIN LESIONS, 2 TO 4 11/26/19 08546-AYMO SKIN LESIONS, 2 TO 4 09/21/19 55189-GLID SKIN LESIONS, 2 TO 4 02/12/20 32871-FDAN SKIN LESIONS, 2 TO 4 12/04/19 17176-WQXW SKIN LESIONS, 2 TO 4 09/11/19 28919-FQHN SKIN LESIONS, 2 TO 4 03/19/20 19 29694-EWGF SKIN LESIONS, 2 TO 4 07/09/19 77561-FSOI SKIN LESIONS, 2 TO 4 05/07/19 38829-CWDL SKIN LESIONS, 2 TO 4 12/18/19 96547-JBEP SKIN LESIONS, 2 TO 4 09/25/19 21 16556-HIFH SKIN LESIONS, 2 TO 4 07/17/19 48032-HYAE SKIN LESIONS, 2 TO 4 05/08/19 26574-RGBL SKIN LESIONS, 2 TO 4 09/09/19 70617-KHBZ SKIN LESIONS, 2 TO 4 11/18/19 20385-NSTC SKIN LESIONS, 2 TO 4 04/15/19 02687- Removal of Foreign Body, Subcut 0 10/10/2022- Ganglion Cyst Injection/Aspiratio n 08/08/2023- Ganglion Cyst Injection/Aspiratio n 10/23/2023- Ganglion Cyst Injection/Aspiratio n 04/01/2024- Ganglion Cyst Injection/Aspiratio n 08/17/2020 84547- Ganglion Cyst Injection/Aspiratio n 06/11/201851509- Ganglion Cyst Injection/Aspiratio n 11/05/201861788- Ganglion Cyst Injection/Aspiratio n 01/01/201934102- Ganglion Cyst Injection/Aspiratio n 05/12/201668415- Ganglion Cyst Injection/Aspiratio n 08/11/2016- Ganglion Cyst Injection/Aspiratio n 03/09/201767151- Ganglion Cyst Injection/Aspiratio n 12/27/2017 Next Appt Details Provider Name:Nj Sales , 06/13/2024 08:45:00 AM, [address] [facility], [place], [address], Insurance Providers Payer Name Payer Address Payer Phone Subscriber Number Group Number Insured Name Patient Relationship to Insured Coverage Start Date Coverage End Date Medicare [facility] [address] [place] [address] [id number] Fernando Lu Self - patient is the insured [address] [place] [address] [address] [place] [id number] Fernando Lu Self - patient is the [...] 11/25/2018 dental implant Hospitalization History Reason Date(Month/Year) [facility] [place]- sever nose bleeds 01/12/22
--- OUTSIDE RECORDS SUMMARY | 2024-05-15 16:30 | XMS_ITS ---
Author [facility] Address [address] [place] [address] Care Team Providers Care Mushroom Packer Name Role Phone Shelia Judge MD Primary Care Provider Nj Monique Unavailable [phone] Allergies Allergen (clinical drug ingredient) Drug/Non Drug [...] Ordered Date Performed Result Body Sit e 21313-JALURYU NAIL, 6 OR MORE 04/01/2024 N/A 15500-TRZN SKIN LESIONS, OVER 4 04/01/2024 N/A - Ganglion Cyst Injection/Aspiration 04/01/2024 N/A Encounters Encounter Location Date Provider Diagnosis [facility] [address] [place] [address] 04/01/2024 Nj Sales Type 2 diabetes mellitus [...] Treatment Pending Test Test Name Order Date 15091-UVBLJAL NAIL, 6 OR MORE 04/01/2024 05805-WDBS SKIN LESIONS, OVER 4 04/01/19 25 - Ganglion Cyst Injection/Aspiratio n 04/01/2024 Next Appt Details Follow Up: prn, Reason: Provider Name:Nj Sales , 06/13/2024 08:45:00 AM, [address] [place], [address], Procedure Notes * Category Sub-Category Detail Notes [...] use of a nail nipper and/or dremel-type feed grinder, to a more viable healthy nail [...] to maintain effectiveness in symptomatic relief - 01573 Keratoma Treatment Parring or Cutting o f [...] instrumentation by the physician of record - 56130 Progress Notes * Nadine LUOB:[birth year] (74 yo M)Acc No.[id number]:04/01/2024 Progress Note Patient:?Fernando LU Provider:?Nj Sales DPM :1950???Age:74 Y???Sex:Male Ruben e:04/01/2024 Address:[address] [place], [place] [address] Pcp:Shelia Judge MD Subjective: * Chief Complaints: [...] 1990endoscopy 11/25/2018dental implant * Hospitalization/Major Diagno stic Procedure:?[facility] [place]- sever nose bleeds 01/12/22 * Family History:?Mother: [...] yes, walking. ?Marital status: . ?Occupation: retired- temporary staff accountant. ???Drug/Alcohol:?AUDIT-C (Standard)?Did you have a drink containing [...] Extyes[Allergies Verified] Objective: * Vitals:?Ht:5ft6in, Wt:157, B CT:25.34, Shoe size:10, BP:130/70mm Hg, BS:100, Ht- cm: [...] use of a nail nipper and/or dremel-type feed grinder, to a more viable healthy nail [...] to maintain effectiveness in symptomatic relief - 83491.?Keratoma Treatment:?Parring or Cutting of Benign Hyperkeratotic Lesion(s)?(-57) [...] instrumentation by the physician of record - 52013.?Aspiration:?Indication?Symptomatic Ganglion/Cyst.?Prep?The skin was prepped with alcohol with [...] Follow-up as in Plan ().? * Procedure Codes:?68669 DEBRI DE NAIL, 6 OR MORE, Modifiers: XS ASPIRATE/INJ GANGLION CYST, Modifiers: XS 54896 TRIM SKIN LESIONS, OVER 4, Modifiers: XS * Follow Up:?prn * Images: * Sign off status: Completed true * Provider:?Nj Sales DPM Date:?2024 Generated for Mary king/Damaso/Erica on:?05/15/2024 04:30 PM EDT History and Physical Notes * [...]
--- OUTSIDE RECORDS SUMMARY | 2024-05-15 16:31 | XMS_ITS ---
[facility] Address [address] [place] [address] Care Team Providers Care Starbucks Barista Name Role Phone Shelia Judge MD Primary Care Provider Nj Monique Unavailable [phone] Allergies Allergen (clinical drug ingredient) Drug/Non Drug [...] Ordered Date Performed Result Body Sit e 70097-YKMBVLI NAIL, 6 OR MORE 01/15/2024 N/A 76168-TBON SKIN LESIONS, OVER 4 01/15/2024 N/A Encounters Encounter Location Date Provider Diagnosis [facility] [address] [place] [address] 01/15/2024 Nj Sales Type 2 diabetes mellitus with diabetic polyneuropathy E11.42 and Tinea unguium B35.1 Assessments Encounter Date Diagnosis (ICD Code) Assessment Notes Treatment Notes Treatment Clinical Notes Section Notes 01/15/2024 Type 2 diabetes mellitus with diabetic polyneuropathy (ICD-10 - E11.42) 01/15/2024 Tinea unguium (ICD-10 - B35.1) 01/15/2024 Other Plan Of Treatment Pending Test Test Name Order Date 31252-GGVTMFO NAIL, 6 OR MORE 01/15/2024 55959-MSKU SKIN LESIONS, OVER 4 01/15/20 24 Next Appt Details Follow Up: prn, Reason: Provider Name:Nj Sales , 06/13/2024 08:45:00 AM, [address] [place] [address], [address], Procedure Notes * Category Sub-Category Detail Notes [...] use of a nail nipper and/or dremel-type emery grinder, to a more viable healthy nail plate or bed tissue 6-10. Silver nitrate used for any petechial bleeding as necessary. Definitive antifungal treatment options have been reviewed and discussed with the patient. The patient chooses, no pharmaceutical tx - 84126 Keratoma Treatment Parring or Cutting o f Benign Hyperkeratotic Lesion(s) (-57) More than 4 Lesions - The Benign hyperkeratotic lesions, as described in exam, were pared, and/or cut utilizing a sterile 15 blade, tissue nippers, and/or dremel - 91530 Progress Notes * Julian LUioDOB:[birth year] (73 yo M)Acc No.[id number]:01/15/2024 Progress Note Patient:?Julian LUio Provider:?Nj Sales DPM :1950???Age:73 Y???Sex:Male Ruben e:01/15/2024 Address:[address] [place] [address] [place], [place], [place]-[id number] Pcp:Shelia Judge MD Subjective: * Chief Complaints: [...] 1990endoscopy 11/25/2018dental implant * Hospitalization/Major Diagno stic Procedure:[place] [place] [facility] [place] [...] walking. ?Marital status: . ?Occupation: retired- accountant machine processing. * Medications:?TakingQvar Tali min D3 25 MCG [...] Extyes[Allergies Verified] Objective: * Vitals:?Ht:5ft6in, Wt:157, B CO:25.34, Shoe size:10, BP:137/72mm Hg, BS:not taken, Ht-cm: [...] use of a nail nipper and/or dremel-type emery grinder, to a more viable healthy nail plate or bed tissue 6-10. Silver nitrate used for any petechial bleeding as necessary. Definitive antifungal treatment options have been reviewed and discussed with the patient. The patient chooses, no pharmaceutical tx - 05986.?Keratoma Treatment:?Parring or Cutting of Benign Hyperkeratotic Lesion(s)?(-57) More than 4 Lesions - The Benign hyperkeratotic lesions, as described in exam, were pared, and/or cut utilizing a sterile 15 blade, tissue nippers, and/or dremel - 99678.? * Procedure Codes:?75340 DEBRI DE NAIL, 6 OR MORE, Modifiers: XS 74558 TRIM SKIN LESIONS, OVER 4, Modifiers: XS * Follow Up:?prn * Images: * Sign off status: Completed true * Provider:?Nj Sales DPM Date:?2023 Generated for Mary king/Damaso/Simonesmitting on:?05/15/2024 04:30 PM EDT History and Physical [...]
== END 2024-05-15 14:39 | disposition home or self-care (01) ==
LOC: HO.HMCC 13:51
PROVIDERS: PCP Internal Medicine; Visit Provider Internal Medicine
DX: J45.909 Unspecified asthma, uncomplicated (principal); J32.9 Chronic sinusitis, unspecified

== ENCOUNTER → 2024-05-15 13:50 | Outpatient (BNVA) | payer MEDICARE, OTHER, SELFPAY | PROVIDERS: PCP Internal Medicine; Visit Provider Internal Medicine | DX: J45.909 Unspecified asthma, uncomplicated (principal); J32.9 Chronic sinusitis, unspecified | CPT/HCPCS: 96127; 99212 ==

== ENCOUNTER 2024-05-22 10:15 | Outpatient (AMB) | payer MEDICARE, OTHER, SELFPAY ==
[2024-05-22 10:18] VITALS: BP 112/68; PULSE 83; RESP 18; TEMP 36.6; O2SAT 97; BMI 25.8
--- NOTE | 2024-05-22 10:18 | MHC.PC.OV ---
Vital Signs 05/22/24 10:18 Height 5 ft 6 in Weight 160 lb BMI 25.8 BP 112/68 Blood Pressure Location Lt brachial Position Sitting Respiration 18 Pulse 83 Pulse Source Pulse Oximeter Temp 97.9 F Temp Source Oral Pulse Oximetry (%) 97 Oxygen Delivery Method Room Air Intake Visit Reasons: F/U Asthma/Allergies Intake Note: Pt is here today for a follow up visit. Pt states that he has ringining in his ears and post nasal drip. Allergies No Known Allergies Allergy (Verified 05/22/24 10:18) Tobacco use date assessed: 05/22/24 Dental Screening Dental Screen Date: 05/15/24 HPI F/U Asthma/Allergies HPI Details Presents for the follow-up. He is feeling better. He denies wheezing and coughing improved significantly. patient reports intermittent heartburn after eating but denies dysphagia odynophagia hematochezia melena. Patient has been taking montelukast antihistamine Flonase and increased QVAR to 2 puffs twice a day. [facility] Medical History Hx of basal cell carcinoma Zacarias esophagus Aortic stenosis Hyperlipidemia DM type 2 (diabetes mellitus, type 2) Stress incontinence Asthma Prostate CA GERD (gastroesophageal reflux disease) Surgical History Hx of esophagogastroduodenoscopy H/O colonoscopy History of microdiscectomy History of prostatectomy Family History Father HTN (hypertension) History of heart attack Enlarged prostate CVD (cardiovascular disease) Social History Housing: House Alcohol intake: never Patient Tobacco Use Status: Never used Tobacco e-Cigarette/Vaping Use: Never Used service: No Current occupational status: retired Cognitive needs: No Hearing needs: No Vision needs: Yes Questionnaire PHQ-9 Over the last 2 weeks, how often have you been bothered by any of the following problems? 1. Little interest or pleasure in doing things: not at all 2. Feeling down, depressed, or hopeless: not at all 3. Trouble falling or staying asleep, or sleeping too much: not at all 4. Feeling tired or having little energy: not at all 5. Poor appetite or overeating: not at all 6. Feeling bad about yourself - or that you are a failure or have let yourself or your family down: not at all 7. Trouble concentrating on things, such as reading the newspaper or watching television: not at all 8. Moving or speaking so slowly that other people could have noticed. Or the opposite - being so fidgety or restless that you have been moving around a lot more than usual: not at all 9. Thoughts that you would be better off or of hurting yourself in some way: not at all Total score: 0 Source: Developed by Drs. Tyrone Pichardo, Annette Sahu, Mono Renner and colleagues, with an educational hernán from [employer]. Thrive Questionnaire Date Thrive assessed: 04/07/24 I am a: Patient What is your living situation today?: I have a steady place to live Within the past 12 months, did the food you bought not last and you didn't have the money to get more?: Never true Within the past 12 months, did you worry whether your food would run out before you got money to buy more?: I choose not to answer this question Do you have trouble paying for medicines?: I choose not to answer this question Do you have trouble getting transportation to medical appointments?: No Do you have trouble paying your heating and electricity bill?: No Do you have trouble taking care of your child, family member or friend?: I choose not to answer this question Do you have trouble with day-to-day activities such as bathing, preparing meals, shopping, managing finances, etc.?: I choose not to answer this question Are you currently unemployed and looking for a job?: No Are you interested in more education?: No Please select the resources that you would like help with: None Currently or been in a relationship where the following occur: No concerns reported THRIVE Score: 0 RE-7 AMB Questionnaire RE-7 Date RE - 7 assessed: 05/15/24 Source: Developed by Drs. Tyrone Pichardo, Annette Sahu, Mono Renner and colleagues, with an educational hernán from [employer]. Review of Systems Const All systems reviewed & are unremarkable except as noted in HPI and below Eyes Reports no additional complaints ENT Reports no additional complaints Card Reports no additional complaints Resp Reports no additional complaints GI Reports no additional complaints Reports no additional complaints Physical exam (Primary Care) Vital Signs: Last Vital Signs Temp 97.9 F 05/22/24 10:18 Pulse 83 05/22/24 10:18 Resp 18 05/22/24 10:18 BP 112/68 05/22/24 10:18 Pulse Ox 97 05/22/24 10:18 Oxygen Delivery Method Room Air 05/22/24 10:18 BMI result Body Mass Index 25.8 Tobacco/Smoking Status: Tobacco use Status Tobacco use date assessed 05/22/24 05/22/24 10:24 Patient Tobacco Use Status Never used Tobacco 05/22/24 10:24 e-Cigarette/Vaping Use Never Used 05/22/24 10:24 PHQ-9: PHQ-9 Score PHQ-9: Total score 0 05/22/24 10:24 Thrive Assessment: Date of Thrive Assessment Date Thrive assessed 04/07/24 05/22/24 10:24 Currently or been in a relationship where the following occur: No concerns reported Const General: no acute distress HENMT Head: Yes normal to inspection Mouth: Normal oral and palatal mucosa present Neck Neck: Yes supple Resp Effort & Inspection: normal respiratory effort Auscultation: clear to auscultation bilaterally Cardio Rhythm: regular rhythm Heart sounds: S1 normal heart sound present and S2 normal heart sound present Coding Level of Care Code Est Pt Level 3 (08931) Diagnoses Asthma J45.909 Seasonal allergies J30.2 Cataract H26.9 Assessment & Plan Assessment & Plan (1) Asthma: Code(s): J45.909 - Unspecified asthma, uncomplicated Category: Medical Plan: Continue QVAR montelukast and albuterol p.r.n. (2) Seasonal allergies: Code(s): J30.2 - Other seasonal allergic rhinitis Category: Medical Plan: Continue antihistamine montelukast and Flonase nasal spray (3) Cataract: Code(s): H26.9 - Unspecified cataract Category: Medical Plan: Patient is medically cleared for cataract surgery
== END 2024-05-22 10:52 | disposition home or self-care (01) ==
LOC: HO.HMCC 10:16
PROVIDERS: PCP Internal Medicine; Visit Provider Internal Medicine
DX: J45.909 Unspecified asthma, uncomplicated (principal); H26.9 Unspecified cataract

== ENCOUNTER → 2024-05-22 10:15 | Outpatient (BNVA) | payer MEDICARE, OTHER, SELFPAY | PROVIDERS: PCP Internal Medicine; Visit Provider Internal Medicine | DX: J45.909 Unspecified asthma, uncomplicated (principal); H26.9 Unspecified cataract | CPT/HCPCS: 99212 ==

== ENCOUNTER 2024-06-09 10:53 | Outpatient (REF) | payer MEDICARE, OTHER, SELFPAY ==
--- OUTSIDE RECORDS SUMMARY | 2024-06-09 12:49 | XMS_ITS ---
Author Organization [facility] Address [address] [place] [address] Care Team Providers Care Farmworker Grain Name Role Phone Shelia Judge MD Primary Care Provider Unavaila Nj Stoll [phone] REASON FOR VISIT seen sooner Encounters Encounter Location Date Provider Diagnosis [address] [address] 04/18/2024 Nj Sales Plan Of Treatment Next Appt Details Provider Name:Nj Sales , 06/13/2024 08:45:00 AM, [address] [place], [address], Progress Notes * Nadine ULOB:[birth year] (74 yo M)Acc No.[id number]:04/18/2024 Progress Note Patient:?Fernando LU Provider:?Nj Sales DPM :1950???Age:74 Y???Sex:Male Ruben e:04/18/2024 [address] [id number] Pcp:Shelia Judge MD Subjective: * Chief Complaints: [...] Sales DPM Date:?2024 Generated for Mary king/Damaso/Erica on:?06/09/2024 12:48 PM EDT
--- OUTSIDE RECORDS SUMMARY | 2024-06-09 12:49 | XMS_ITS | Patient Health Record ---
Author Organization [facility] Address [address] [place] [address] Care Team Providers Care Food Cashier Name Role Phone Shelia Judge MD Primary Care Provider Nj Monique Unavailable [phone] Allergies Allergen (clinical drug ingredient) Drug/Non Drug [...] Problem Acquired hammer toe of right foot (4805749408751124 ) Other hammer toe(s) (acquired), right foot (M20.41) Active confirmed Response to treatment, Improvemen t Problem Acquired hammer toe of left foot (0832089983511247 ) Other hammer toe(s) (acquired), left foot (M20.42) Active confirmed Response to treatment, Improvemen t Problem Polyneuropathy due to type 2 diabetes mellitus (379241613) Type 2 diabetes mellitus with diabetic polyneuropathy (E11.42) Active confirmed Vital Signs Blood pressure diastolic 70 mm Hg 04/01/2024 Height 5ft6in in 04/01/2024 Blood pressure systolic 130 mm Hg 04/01/2024 Weight 157 lbs 04/01/2024 BMI 25.34 kg/m2 04/01/2024 Procedures Procedure Date Ordered Date Performed Result Body Sit e 52940-ITSEQOP NAIL, 6 OR MORE 08/08/2023 N/A 90406-PPXD SKIN LESIONS, OVER 4 08/08/2023 N/A - Ganglion Cyst Injection/Aspiration 08/08/2023 N/A 75216-FTDCBKK NAIL, 6 OR MORE 10/23/2023 N/A 56384-LAWX SKIN LESIONS, OVER 4 10/23/2023 N/A - Ganglion Cyst Injection/Aspiration 10/23/2023 N/A 18357-LXMYFEM NAIL, 6 OR MORE 01/15/2024 N/A 11238-YVEC SKIN LESIONS, OVER 4 01/15/2024 N/A 64477-KNSSECK NAIL, 6 OR MORE 04/01/2024 N/A 06431-DNKR SKIN LESIONS, OVER 4 04/01/2024 N/A - Ganglion Cyst Injection/Aspiration 04/01/2024 N/A Encounters Encounter [facility] [address] [address] 08/08/2023 Nj Henrry Type 2 diabetes mellitus with diabetic polyneuropathy E11.42 ; Tinea unguium B35.1 and Ganglion of foot, right M67.[address] [address] 10/23/2023 Nj Henrry Type 2 diabetes mellitus with diabetic polyneuropathy E11.42 ; Tinea unguium B35.1 ; Ganglion of foot, right M67.471 ; Other hammer toe(s) (acquired), right foot M20.41 and Other hammer toe(s) (acquired), left foot M20.[address] [address] 01/15/2024 Nj Henrry Type 2 diabetes mellitus with diabetic polyneuropathy E11.42 and Tinea unguium B35.[address] [address] 04/01/2024 Njkrystal Sales Type 2 diabetes mellitus with diabetic polyneuropathy E11.42 ; Tinea unguium B35.1 and Ganglion of foot, right M67.471 Assessments Encounter Date Diagnosis (ICD Code) Assessment Notes Treatment Notes Treatment Clinical Notes Section Notes 08/08/2023 Type 2 diabetes mellitus with diabetic [...] Treatment Pending Test Test Name Order Date 93930-KOSBQRT NAIL, 6 OR MORE 05/11/2015 58954-WTRMMRH NAIL, 6 OR MORE 05/14/2018 65562-XHAYYVY NAIL, 6 OR MORE 09/10/2018 06893-CCHYTAB NAIL, 6 OR MORE 12/03/2018 41543-LHVWNRQ NAIL, 6 OR MORE 02/11/2019 49584-YECTIRI NAIL, 6 OR MORE 04/15/2019 37066-MMUKJAW NAIL, 6 OR MORE 09/09/2019 72033-PJSZDMQ NAIL, 6 OR MORE 11/18/2019 57932-GJSMXCI NAIL, 6 OR MORE 05/07/2020 84394-QPZLDUS NAIL, 6 OR MORE 07/16/2020 41727-FZSFLUS NAIL, 6 OR MORE 09/24/2020 59518-VMTRCCA NAIL, 6 OR MORE 12/17/2020 50346-KPFIIQR NAIL, 6 OR MORE 05/06/2021 37056-QZHQIQA NAIL, 6 OR MORE 07/08/2021 41495-OKLYBYW NAIL, 6 OR MORE 09/20/2021 73751-HTLFCHA NAIL, 6 OR MORE 11/25/2021 02108-WBWEFVV NAIL, 6 OR MORE 03/10/2022 85154-JUQHUGU NAIL, 6 OR MORE 05/12/2022 18662-UZHGSJF NAIL, 6 OR MORE 08/04/2022 87608-KDDSYFQ NAIL, 6 OR MORE 10/10/2022 72812-SQPQWXO NAIL, 6 OR MORE 12/19/2022 62638-PBQCTGD NAIL, 6 OR MORE 03/06/2023 13404-XIRUOJG NAIL, 6 OR MORE 05/18/2023 77395-CETAYJH NAIL, 6 OR MORE 08/08/2023 57905-DGOUFEZ NAIL, 6 OR MORE 10/23/2023 62191-HBJCSXW NAIL, 6 OR MORE 01/15/2024 85225-GXDWLJE NAIL, 6 OR MORE 04/01/2024 24585-Ztzg Destruction, 1-08/24/2022 38297-Iqwe Destruction, 1-10/10/2022 79485- Debride <25 sq cm 10/08/2015 57683- Debride <25 sq cm 05/12/2016 97983-TNVGITZ SKIN/TISSUE 05/12/2016 49402-WGLTKBY SKIN/TISSUE 10/08/2015 89254-IDPHJUV SKIN/TISSUE 09/24/2015 31735-KKLZ SKIN LESIONS, OVER 4 10/11/19 23 73312-LAJZ SKIN LESIONS, OVER 4 12/20/19 23 02465-VELX SKIN LESIONS, OVER 4 08/05/19 23 54767-VSSW SKIN LESIONS, OVER 4 05/13/19 23 81912-JGED SKIN LESIONS, OVER 4 03/10/19 23 83416-RNAM SKIN LESIONS, OVER 4 04/01/19 03817-TCJS SKIN LESIONS, OVER 4 01/15/20 49830-ZYPS SKIN LESIONS, OVER 4 10/23/19 63280-YQDK SKIN LESIONS, OVER 4 08/08/19 71058-CHZP SKIN LESIONS, OVER 4 05/18/19 15671-TAJV SKIN LESIONS, OVER 4 03/06/19 49264-OUZN SKIN LESIONS, 2 TO 4 11/26/19 49293-VSMH SKIN LESIONS, 2 TO 4 09/21/19 13468-UAVC SKIN LESIONS, 2 TO 4 02/12/20 71711-EYKP SKIN LESIONS, 2 TO 4 12/04/19 59137-QRHO SKIN LESIONS, 2 TO 4 09/11/19 25478-CDOY SKIN LESIONS, 2 TO 4 05/15/19 40638-EBIA SKIN LESIONS, 2 TO 4 07/09/19 44695-ZVOM SKIN LESIONS, 2 TO 4 05/07/19 66187-LZEU SKIN LESIONS, 2 TO 4 12/18/19 74312-JXZH SKIN LESIONS, 2 TO 4 09/25/19 12714-YJMT SKIN LESIONS, 2 TO 4 07/17/19 96979-CGZD SKIN LESIONS, 2 TO 4 05/08/19 14466-NALZ SKIN LESIONS, 2 TO 4 09/09/19 69180-YLEW SKIN LESIONS, 2 TO 4 11/18/19 85075-CDFR SKIN LESIONS, 2 TO 4 04/15/19 82606- Removal of Foreign Body, Subcut 0 10/10/2022- Ganglion Cyst Injection/Aspiratio n 08/08/2023- Ganglion Cyst Injection/Aspiratio n 10/23/2023- Ganglion Cyst Injection/Aspiratio n 04/01/2024- Ganglion Cyst Injection/Aspiratio n 08/17/2020- Ganglion Cyst Injection/Aspiratio n 06/11/2018- Ganglion Cyst Injection/Aspiratio n 11/05/2018- Ganglion Cyst Injection/Aspiratio n 01/01/201982204- Ganglion Cyst Injection/Aspiratio n 05/12/2016- Ganglion Cyst Injection/Aspiratio n 08/11/2016- Ganglion Cyst Injection/Aspiratio n 03/09/201737918- Ganglion Cyst Injection/Aspiratio n 12/27/2017 Next Appt Details Provider Name:Nj Sales , 06/13/2024 08:45:00 AM, [address] [place], [address], Insurance Providers Payer Name Payer Address Payer Phone Subscriber Number Group Number Insured Name Patient Relationship to Insured Coverage Start Date Coverage End Date Medicare National [employer] [address] [place] [address] [id number] Fernando Lu Self - patient is the insured [address] [place] [address] [address] [place] [id number] Fernando Lu Self - patient is the [...] 11/25/2018 dental implant Hospitalization History Reason Date(Month/Year) [facility] [place] [place] nose [place]eds 01/12/22
--- OUTSIDE RECORDS SUMMARY | 2024-06-09 12:49 | XMS_ITS | Patient Health Record ---
Author Organization [facility] Address [address] [place] [address] Care Team Providers Care Steamboat Inspector Name Role Phone Shelia Judge MD Primary Care Provider Tyrone Mosley Unavailable [phone] Allergies Allergen (clinical drug ingredient) Drug/Non Drug [...] Omeprazole 20 MG TAKE 1 CAPSULE BY [facility] EVERY MORNING for 90 Active Atorvastatin [...] W/U Status Risk Notes Problem Esophageal reflux (390166689) Esophageal reflux (K21.9) Active confirmed Problem 796049400 Encounter for screening for malignant neoplasm of colon (Z12.11) Active confirmed Problem 219903375 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) Active confirmed Problem 464625576 Elevated liver function tests (R79.89) Active confirmed Problem 581338299 Gastroesophageal reflux disease without esophagitis (K21.9) Active confirmed Problem 080056481 Fatty liver (K76.0) Active confirmed Problem 969364074 Gastroesophageal reflux disease, esophagitis presence not specified (K21.9) Active confirmed Problem 130214774 Long-term use of aspirin therapy (Z79.82) Active confirmed Problem Zacarias esophagus (035394933) Zacarias esophagus (K22.70) Active confirmed Problem 357022106 Pre-procedural examination (Z01.818) Active confirmed Problem Gastroesophageal reflux disease (848656385) GERD without esophagitis (K21.9) Active confirmed Problem 30210152 Secondary hypertension (I15.9) Active confirmed Problem Zacarias's esophagus (586915081) Zacarias''s esophagus without dysplasia (K22.70) Active confirmed Plan Of Treatment Future Test Test Name Order Date COLONOSCOPY 07/12/2016 UPPER GI ENDOSCOPY 05/03/2018 UPPER GI ENDOSCOPY 10/24/2021 Insurance Providers Payer Name Payer Address Payer Phone Subscriber Number Group Number Insured Name Patient Relationship to Insured Coverage Start Date Coverage End Date MEDICARE OF [place]IM[address]NE[address] [id number] KANE CASTILLO Self - patient is the insured [facility] [address] [place] [address] [id number] KANE CASTILLO Self - patient is the insured Medical (General) History Medical History History ICD Code NIDDM Prostate cancer--2014-surgery as below Denies [place],CVA,renal disease Asthma Hyperlipidemia Colonoscopy 10/2016-one hyper plastic [...]
--- OUTSIDE RECORDS SUMMARY | 2024-06-09 12:49 | XMS_ITS ---
[facility] Address [address] [place] [address] Care Team Providers Care Circus Performer Name Role Phone Shelia Judge MD Primary Care Provider Nj Monique Unavailable [phone] Allergies Allergen (clinical drug ingredient) Drug/Non Drug [...] Ordered Date Performed Result Body Sit e 97008-AJIWJGP NAIL, 6 OR MORE 04/01/2024 N/A 72186-VXIB SKIN LESIONS, OVER 4 04/01/2024 N/A - Ganglion Cyst Injection/Aspiration 04/01/2024 N/A Encounters Encounter Location Date Provider Diagnosis [facility] [address] [place] [address] 04/01/2024 Nj Sales Type 2 diabetes mellitus [...] Treatment Pending Test Test Name Order Date 09108-WSXGCBB NAIL, 6 OR MORE 04/01/2024 06440-MDLR SKIN LESIONS, OVER 4 04/01/19 25 - Ganglion Cyst Injection/Aspiratio n 04/01/2024 Next Appt Details Follow Up: prn, Reason: Provider Name:Nj Sales , 06/13/2024 08:45:00 AM, [address] [place], [address], Procedure Notes * Category Sub-Category Detail Notes [...] use of a nail nipper and/or dremel-type lens shaper grinder, to a more viable healthy nail [...] to maintain effectiveness in symptomatic relief - 53897 Keratoma Treatment Parring or Cutting o f [...] instrumentation by the physician of record - 74636 Progress Notes * Nadine LUOB:[birth year] (74 yo M)Acc No.[id number]:04/01/2024 Progress Note Patient:?Fernando LU Provider:?Nj Sales DPM :1950???Age:74 Y???Sex:Male Ruben e:04/01/2024 Address:[address] [place], [place] [address] Pcp:Shelia Judge MD Subjective: * Chief Complaints: [...] 1990endoscopy 11/25/2018dental implant * Hospitalization/Major Diagno stic Procedure:?[facility] [place] sever nose bleeds 01/12/22 * [...] yes, walking. ?Marital status: . ?Occupation: retired- financial analyst accountant. ???Drug/Alcohol:?AUDIT-C (Standard)?Did you have a drink [...] Extyes[Allergies Verified] Objective: * Vitals:?Ht:5ft6in, Wt:157, B PR:25.34, Shoe size:10, BP:130/70mm Hg, BS:100, Ht- cm: [...] use of a nail nipper and/or dremel-type lens shaper grinder, to a more viable healthy nail [...] to maintain effectiveness in symptomatic relief - 51703.?Keratoma Treatment:?Parring or Cutting of Benign Hyperkeratotic Lesion(s)?(-57) [...] instrumentation by the physician of record - 00838.?Aspiration:?Indication?Symptomatic Ganglion/Cyst.?Prep?The skin was prepped with alcohol with [...] Follow-up as in Plan ().? * Procedure Codes:?76558 DEBRI DE NAIL, 6 OR MORE, Modifiers: XS ASPIRATE/INJ GANGLION CYST, Modifiers: XS 08116 TRIM SKIN LESIONS, OVER 4, Modifiers: XS * Follow Up:?prn * Images: * Sign off status: Completed true * Provider:?Nj Sales DPM Date:?2024 Generated for Mary king/Damaso/Erica on:?06/09/2024 12:49 PM EDT History and Physical Notes * [...]
--- OUTSIDE RECORDS SUMMARY | 2024-06-09 12:49 | XMS_ITS ---
[facility] Address [address] [place] [address] Care Team Providers Care Ram Press Operator Name Role Phone Shelia Judge MD Primary Care Provider Nj Monique Unavailable [phone] Allergies Allergen (clinical drug ingredient) Drug/Non Drug [...] Ordered Date Performed Result Body Sit e 16752-EAXLZWL NAIL, 6 OR MORE 01/15/2024 N/A 71769-WTVM SKIN LESIONS, OVER 4 01/15/2024 N/A Encounters Encounter Location Date Provider Diagnosis [facility] [address] [place] [address] 01/15/2024 Nj Sales Type 2 diabetes mellitus with diabetic polyneuropathy E11.42 and Tinea unguium B35.1 Assessments Encounter Date Diagnosis (ICD Code) Assessment Notes Treatment Notes Treatment Clinical Notes Section Notes 01/15/2024 Type 2 diabetes mellitus with diabetic polyneuropathy (ICD-10 - E11.42) 01/15/2024 Tinea unguium (ICD-10 - B35.1) 01/15/2024 Other Plan Of Treatment Pending Test Test Name Order Date 06312-LGAOSKU NAIL, 6 OR MORE 01/15/2024 29393-PCDS SKIN LESIONS, OVER 4 01/15/20 24 Next Appt Details Follow Up: prn, Reason: Provider Name:Nj Sales , 06/13/2024 08:45:00 AM, [address] [place] [address], [phone], Procedure Notes * Category Sub-Category Detail Notes [...] use of a nail nipper and/or dremel-type rail grinder, to a more viable healthy nail plate or bed tissue 6-10. Silver nitrate used for any petechial bleeding as necessary. Definitive antifungal treatment options have been reviewed and discussed with the patient. The patient chooses, no pharmaceutical tx - 70539 Keratoma Treatment Parring or Cutting o f Benign Hyperkeratotic Lesion(s) (-57) More than 4 Lesions - The Benign hyperkeratotic lesions, as described in exam, were pared, and/or cut utilizing a sterile 15 blade, tissue nippers, and/or dremel - 67661 Progress Notes * Julian LUioDOB:[birth year] (73 yo M)Acc No.[id number]:01/15/2024 Progress Note Patient:?Julian LUio Provider:?Nj Sales DPM :1950???Age:73 Y???Sex:Male Ruben e:01/15/2024 Address:[address] [place] [address] Roberto, [place] more, [phone] Pcp:Shelia Judge MD Subjective: * Chief Complaints: [...] 1990endoscopy 11/25/2018dental implant * Hospitalization/Major Diagno stic Procedure:?[facility] [place]- sever nose bleeds 01/12/22 * [...] walking. ?Marital status: . ?Occupation: retired- accountant auditor. * Medications:?TakingQvar Tali min D3 25 MCG [...] Extyes[Allergies Verified] Objective: * Vitals:?Ht:5ft6in, Wt:157, B UT:25.34, Shoe size:10, BP:137/72mm Hg, BS:not taken, Ht-cm: [...] use of a nail nipper and/or dremel-type rail grinder, to a more viable healthy nail plate or bed tissue 6-10. Silver nitrate used for any petechial bleeding as necessary. Definitive antifungal treatment options have been reviewed and discussed with the patient. The patient chooses, no pharmaceutical tx - 24420.?Keratoma Treatment:?Parring or Cutting of Benign Hyperkeratotic Lesion(s)?(-57) More than 4 Lesions - The Benign hyperkeratotic lesions, as described in exam, were pared, and/or cut utilizing a sterile 15 blade, tissue nippers, and/or dremel - 50717.? * Procedure Codes:?30419 DEBRI DE NAIL, 6 OR MORE, Modifiers: XS 54110 TRIM SKIN LESIONS, OVER 4, Modifiers: XS * Follow Up:?prn * Images: * Sign off status: Completed true * Provider:?Nj Sales DPM Date:?2023 Generated for Mary king/Damaso/Simonesmitting on:?06/09/2024 12:49 PM EDT History and Physical [...]
[2024-06-09 14:23] LABS: Prostate Specific Antigen < 0.10 ng/mL (<0.05-4.0)
== END 2024-06-09 10:54 | disposition home or self-care (01) ==
LOC: HO.HMGCLDS 10:53
PROVIDERS: PCP Internal Medicine; Visit Provider Physician Assistant
DX: C61 Malignant neoplasm of prostate (principal); Z12.5 Encounter for screening for malignant neoplasm of prostate
CPT/HCPCS: 36415; 84153

== ENCOUNTER 2024-06-30 10:00 | Outpatient (RCR) | payer MEDICARE, OTHER, SELFPAY ==
--- NOTE | 2024-04-25 11:48 | MHC.PT.EP ---
[facility] [place] Office [place] Office [place] Office [address] Darrick Marcano [address] [phone] F: [phone] F: [phone] F: [phone] F: [phone] Physical Therapy Plan of Care Date of Evaluation: 04/25/24 Date of Surgery: n/a Diagnosis: pain in R shoulder Assessment: Patient is a 74 year old male presenting to PT with complaints of pain in his R shoulder. Pt reports onset of pain began December 2023 due to falling on his shoulder. He presents today with impairments in pain, ROM, shoulder strength, posture. Pt's current occupation is retired from [employer], with baseline physical activities including ADLs, reaching, lifting, sleeping, guitar. Pt expresses snf goal of reducing pain, and is motivated to work towards this in PT. Clinical presentation today is most consistent with signs and sx associated with R shoulder pain and pt will benefit from skilled PT 2 week x 4 weeks to address the following problems and impairments noted upon evaluation: pain, ROM, shoulder strength, posture. These problems limit the patient with the following functional activities: ADLs, reaching, lifting, sleeping, guitar.. The prescribed treatment plan of care is medically necessary. Co-morbidities of hx basal cell carcinoma, DM, prostate cancer were identified and taken into considerations of plan of care. Pt was educated on HEP, role of PT, prognosis, POC. Frequency and Duration: The patient will be seen 2 x week x 4 weeks Short Term Goals: Pt will demonstrate R shoulder ROM to equal B with min to no pain in 2 weeks. Pt will demonstrate improved R shoulder MMT strength by 1/3 grade in 2 weeks. Halfway Goals: Pt will demonstrate improved SPADI score by 13 points in 4 weeks for improved functional mobility. Pt will demonstrate ability to reach and lift with min to no pain in 4 weeks for return to PLOF. Pt will demonstrate ability to play his guitar with min to no pain in 4 weeks for return to PLOF. Treatment Plan: Modalities to reduce pain, spasms and effusion. Manual therapy to restore motion and function. Therapeutic exercise to improve strength and flexibility. Neuromuscular re-education for posture and balance. Therapeutic activities to return to functional activities of daily living. Electronically signed by: Estefany Hazel, PT, DPT, ATC Please sign and return to therapist. Thank you for your referral.
--- NOTE | 2024-09-08 11:16 | MHC.PT.DC ---
[facility] [place] [facility] [place] Office [place] [facility] [address] Darrick Marcano 140 [facility] [phone] F: [phone] F: [phone] F: [phone] F: [phone] Physical Therapy Discharge Report Diagnosis: pain in R shoulder Date of Surgery: n/a Date of Evaluation: 04/25/24 Date of Discharge: 09/08/24 Treatments to Date: 8 Cancellations to Date: No Shows to Date: Discharge Status: Discharge Summary: Pt has not returned to skilled PT in > 30 days. Therefore to be d/c from this POC. Electronically signed by: Estefany Hazel, PT, DPT, ATC Please sign and return to therapist. Thank you for your referral.
== END 2024-09-08 11:16 | disposition home or self-care (01) ==
LOC: HO.PTCHIC 10:00
PROVIDERS: PCP Internal Medicine; Visit Provider Internal Medicine
DX: M25.511 Pain in right shoulder (principal)
CPT/HCPCS: 97110; 97140; 97161

== ENCOUNTER 2024-09-01 10:09 | Outpatient (AMB) | payer MEDICARE, OTHER, SELFPAY ==
--- OUTSIDE RECORDS SUMMARY | 2024-04-18 07:00 | XMS_ITS ---
Author Organization [facility] Address [address] [place] [address] Care Team Providers Care Activity Assistant Name Role Phone Shelia Judge MD Primary Care Provider UnavailNj Howard [phone] REASON FOR VISIT seen sooner Encounters Encounter Location Date Provider Diagnosis [address] [address] 04/18/2024 Nj Sales Plan Of Treatment Next Appt Details Provider Name:Nj Sales , 09/12/2024 12:45:00 PM, [address] [place], [address], Progress Notes * Nadine LUOB:[birth year] (74 yo M)Acc No.[id number]:04/18/2024 Progress Note Patient: Fernando JOHNSON Provider: Devonte Sales DPM :1950 A ge:74 Y S ex:Male Date:04/18/2024 [id number] Pcp:Shelia Judge MD Subjective: * Chief Complaints: [...] 04/18/2024 Generated for Mary king/Damaso/Erica on: 0 09/01/2024 10:56 AM EDT
--- NOTE | 2024-09-01 10:30 | MHC.OFFVIS ---
Vital Signs 09/01/24 10:31 Height 5 ft 6 in Weight 156 lb 8.451 oz BMI 25.3 BP 110/70 Blood Pressure Location Lt brachial Position Sitting Pulse 66 Intake Visit Reasons: 2 yrs followup w/ekg dx: aortic stenosis Intake Note: 2 year follow-up with ekg feeling good Allergies No Known Allergies Allergy (Verified 05/22/24 10:18) Medication List - Last Reconciled 09/01/24 by Aidan Flor MD albuterol sulfate 90 mcg/actuation 1 inh inhalation QID PRN aspirin (Adult Aspirin Regimen) 81 mg PO DAILY atorvastatin 40 mg PO DAILY blood sugar diagnostic As directed blood sugar diagnostic (Freestyle InsuLinx strips) 1 QD cholecalciferol (vitamin D3) 25 mcg PO DAILY ciclopirox 0.77% appl topical loratadine (Claritin) 10 mg PO DAILY metformin ER 500 mg PO DAILY montelukast 10 mg PO BEDTIME omeprazole 20 mg PO DAILY Qvar RediHaler 40 mcg/actuation (beclomethasone dipropionate) 2 inhalations inhalation BID NS triamcinolone acetonide 0.025% appl topical BID HPI Comments Details: Fernando comes for follow-up. He has been doing well from cardiac perspective. He continues to walk. Had a fall few months ago related to an accident and still recuperating from there but does not have any increase tendency for fall. He said he walks extensively and has no chest pain or shortness of breath. Denies any prolonged palpitation irregular heartbeat. No bleeding issues or neurologic events. [facility] Medical History Hx of basal cell carcinoma Zacarias esophagus Aortic stenosis Hyperlipidemia DM type 2 (diabetes mellitus, type 2) Stress incontinence Asthma Prostate CA GERD (gastroesophageal reflux disease) Surgical History Hx of esophagogastroduodenoscopy H/O colonoscopy History of microdiscectomy History of prostatectomy Family History Father HTN (hypertension) History of heart attack Enlarged prostate CVD (cardiovascular disease) Social History Housing: House Alcohol intake: never Patient Tobacco Use Status: Never used Tobacco e-Cigarette/Vaping Use: Never Used service: No Current occupational status: retired Cognitive needs: No Hearing needs: No Vision needs: Yes Review of Systems Const Denies chills, Denies fatigue, Denies fever(s), Denies frequent falls, Denies weakness, Denies weight gain and Denies weight loss ENT Denies dizziness Card Denies chest pain, Denies leg edema, Denies lightheadedness, Denies palpitations, Denies dyspnea, Denies dyspnea on exertion, Denies orthopnea and Denies other (loss of consciousness) Resp Denies cough, Denies dyspnea and Denies dyspnea on exertion GI Denies hematochezia and Denies change in stool character Musc Denies abnormal gait, Denies muscle weakness, Denies numbness, Denies radiating pain into limb and Denies tingling Neuro Denies abnormal gait, Denies dizziness, Denies frequent falls, Denies numbness, Denies tingling and Denies weakness Endo Denies fatigue and Denies palpitations Physical Exam Vital Signs: Last Vital Signs Pulse 66 09/01/24 10:31 BP 110/70 09/01/24 10:31 BMI result Body Mass Index 25.3 Const General: cooperative, comfortable, no acute distress, alert, awake and well groomed Nutritional Appearance: thin and other (Frail elderly man) Orientation/consciousness: patient oriented x3 Limitations: no limitations Neck Neck: Yes trachea midline, Yes supple and Yes no JVD Resp Effort & Inspection: normal respiratory effort Auscultation: clear to auscultation bilaterally Cardio Jugular venous distension: no JVD Palpation: normal PMI Rate: regular rate Rhythm: regular rhythm Heart sounds: S1 normal heart sound present, S2 normal heart sound present and Murmur heart sound present systolic early, decrescendo and crescendo GI Percussion: Yes normal to percussion Skin General skin exam: no rashes or lesions noted Neuro General: patient oriented x3 and no focal motor deficits Extrem General: Yes no clubbing, cyanosis or edema Psych Appearance: grossly normal Office Procedures EKG Details: EKG shows normal sinus rhythm with first-degree AV block otherwise normal EKG 48162-Yumqvhrobrydhvofg, Complete Assessment & Plan Assessment & Plan (1) Aortic stenosis: Comment: Echo 03/2018 mild , 07/2020 unchanged, f/u with [facility] q 2yrs Code(s): I35.0 - Nonrheumatic aortic (valve) stenosis Category: Medical Plan: Aortic stenosis which clinically appears to be mild. Continue to monitor by echocardiogram. He has not had echocardiogram in 4 years. Will follow-up echocardiogram near future. Continue aggressive risk factor modification. Low-dose aspirin therapy for life. Continue statin therapy with target goal LDL less than 70 mg/dL currently well optimized. Continue aggressive diabetes management goal hemoglobin A1c less than 7% being pursue through your office. He is encouraged to continue maintain activity level as tolerated. Has family history of abdominal aortic aneurysm will also obtain an ultrasound of the abdomen to evaluate for the same. Advised to call me with any exertional symptoms. Will follow up in the clinic in 2 years time, sooner p.r.n.. Thank you for allowing me to partake in his care Orders: Orders CA echo transthoracic complete Today I35.0 - Nonrheumatic aortic (valve) stenosis abdominal aortic aneurysm Today Z82.49 - Family history of ischemic heart disease and other diseases of the circulatory system Coding Level of Care Code Est Pt Level 4 (11654) Complex EM visit Add On G2211 Diagnoses Aortic stenosis I35.0 CPT Codes EKG - CPT: 86537-Roueltwhiczbvroyj, Complete ([id number])
[2024-09-01 10:31] VITALS: BP 110/70; PULSE 66; BMI 25.3
== END 2024-09-01 10:56 | disposition home or self-care (01) ==
LOC: HO.HCS 10:10
PROVIDERS: PCP Internal Medicine; Visit Provider Internal Medicine Cardiovascular Disease
DX: I35.0 Nonrheumatic aortic (valve) stenosis (principal)
CPT/HCPCS: 93010; 99214; G2211

== ENCOUNTER → 2024-09-01 10:09 | Outpatient (BNVA) | payer MEDICARE, OTHER, SELFPAY | PROVIDERS: PCP Internal Medicine; Visit Provider Internal Medicine Cardiovascular Disease | DX: I35.0 Nonrheumatic aortic (valve) stenosis (principal); I44.0 Atrioventricular block, first degree; Z79.82 Long term (current) use of aspirin; Z79.84 Long term (current) use of oral hypoglycemic drugs; Z79.899 Other long term (current) drug therapy | CPT/HCPCS: 93005; 99212 ==

== ENCOUNTER 2024-10-15 09:54 | Outpatient (REF) | payer MEDICARE, OTHER, SELFPAY ==
--- OUTSIDE RECORDS SUMMARY | 2024-10-15 10:50 | XMS_ITS | Patient Health Record ---
Author Organization [facility] Address [address] [place] [address] Care Team Providers Care Combine Inspector Name Role Phone Shelia Judge MD Primary Care Provider Nj Monique Unavailable [phone] Allergies Allergen (clinical drug ingredient) Drug/Non Drug Allergy documented on EMR Reaction Allergy Type Onset Date Status Seasonale Unknown Drug Allergy Active Dust Mite Mixed Allergen Ext Unknown Drug Allergy Active Mold Unknown Allergy Active Results Component Value Reference Range Notes HEMOGLOBIN A1C (GLYCOHEMOGLO BIN) Reviewed date:10/23/2023 11:56:27 AM Interpretation: Performing Lab: Notes/Report: HEMOGLOBIN A1C % (HH) 5.9 HEMOGLOBIN A1C (GLYCOHEMOGLO BIN) Reviewed date:07/28/2024 08:28:02 AM Interpretation: Performing Lab: Notes/Report: HEMOGLOBIN A1C (GLYCOHEMOGLO BIN) Reviewed date:07/24/2024 03:45:23 PM Interpretation: Performing Lab: Notes/Report: HEMOGLOBIN A1C % (HH) 6.0 Reason For Referral No Information Medications Medication SIG (Take, Route, Frequency, Duration) Notes Start Date End Date Status Extra Depth Orthopedic Shoes (1 Pair) with Customized Heat Molded Multidensity Innersoles (3 Pair) Dx: NIDDM/Polyneuropathy (E11.42), Hammertoe Foot Deformity (M20.41,M20.42), Preulcerative Skin Lesion(s) (L85.1); Duration: 365 days 09/12/2024 Active ProAir HFA Active Aspirin Active Atorvastatin Calcium Active metFORMIN HCl ER 500 MG Orally Active Ofloxacin 0.3 % Ophthalmic; Duration : 25 Days Active Mirian Allergy Not- Taking Claritin Active Ketorolac Tromethamine 0.5 % Ophthalmic; Duration: 25 Days Active Flovent Diskus Not-T aking FreeStyle InsuLinx Test Not-Taking Flunisolide Not-Taki ng Singulair Not-Taking ASA Not-Taking Probiotic PRN Not-Taking Claritin PRN Not-Taking Qvar Active Omeprazole Not-Takin g Vitamin D3 25 MCG (1000 UT) 1 tablet Orally Once a day Active Ranitidine Not-Takin g Singulair Active Lorazepam as needed Not-Taking Advil PRN Active Flonase Sensimist 27.5 MCG/SPRAY 2 sprays (1 spray in each nostril) Nasally Once a day Active Omeprazole 20 MG 1 capsule 30 minutes before morning meal Orally Once a day Active Immunizations Vaccine Route Administration Date Status Comme nts Influenza Unknown 11/26/2014 Administered Influenza Unknown 11/17/2016 Administered Influenza Unknown 12/10/2017 Administered Influenza Unknown 12/25/2018 Administered Influenza Unknown 10/26/2020 Administered Influenza Unknown 10/27/2021 Administered Influenza Unknown 10/27/2022 Administered Influenza Unknown 11/27/2023 Administered Pneumococcal Unknown 12/09/2014 Administered COVID-19 Moderna Vaccine Unknown 11/11/2021 Administere d 1st 03/26/2020 4th 06/05/2021 2nd 04/23/2020 3rd 12/17/2020 Social History Tobacco Use: Social History Observation [...] Problem Acquired hammer toe of right foot ([id number] 14218) Other hammer toe(s) (acquired), right foot (M20.41) Active confirmed Response to treatment,I mprovement Problem Acquired hammer toe of left foot (54636736075 74875) Other hammer toe(s) (acquired), left foot (M20.42) Active confirmed Response to treatment,I mprovement Problem Type 2 diabetes mellitus with diabetic polyneuropathy (E11.42) Active confirmed Vital Signs Blood pressure diastolic 60 mm Hg 09/12/2024 Height 5ft6in in 09/12/2024 Blood pressure systolic 126 mm Hg 09/12/2024 Weight 157 lbs 09/12/2024 BMI 25.34 kg/m2 09/12/2024 Procedures Procedure Date Ordered Date Performed Result Body Sit e 54412-EZOBGLY NAIL, 6 OR MORE 10/23/2023 N/A 42059-TDNJ SKIN LESIONS, OVER 4 10/23/2023 N/A - Ganglion Cyst Injection/Aspiration 10/23/2023 N/A 54834-HWNOKBV NAIL, 6 OR MORE 01/15/2024 N/A 21144-ZDGO SKIN LESIONS, OVER 4 01/15/2024 N/A 14035-WJXTVHG NAIL, 6 OR MORE 04/01/2024 N/A 56703-TLGZ SKIN LESIONS, OVER 4 04/01/2024 N/A 17655- Ganglion Cyst Injection/Aspiration 04/01/2024 N/A 36730-SEWCKYS NAIL, 6 OR MORE 06/13/2024 N/A 12576-NBQL SKIN LESIONS, OVER 4 06/13/2024 N/A - Ganglion Cyst Injection/Aspiration 07/25/2024 N/A 01801-NQZFLWJ NAIL, 6 OR MORE 09/12/2024 N/A 73705-YTVK SKIN LESIONS, OVER 4 09/12/2024 N/A Encounters Encounter Location Date Provider Diagnosis [address] [address] 10/23/2023 Nj Sales Type 2 diabetes mellitus with diabetic polyneuropathy E11.42 ; Tinea unguium B35.1 ; Ganglion of foot, right M67.471 ; Other hammer toe(s) (acquired), right foot M20.41 and Other hammer toe(s) (acquired), left foot M20.[address] [address] 01/15/2024 Nj Sales Type 2 diabetes mellitus with diabetic polyneuropathy E11.42 and Tinea unguium B35.[address] [place] [address] 04/01/2024 Nj Henrry Type 2 diabetes mellitus with diabetic polyneuropathy E11.42 ; Tinea unguium B35.1 and Ganglion of foot, right M67.[address] [address] 06/13/2024 Nj Henrry Type 2 diabetes mellitus with diabetic polyneuropathy E11.42 and Tinea unguium B35.[address] [address] 07/25/2024 Nj Henrry Ganglion of foot, right M67.[address] [address] 09/12/2024 Nj Henrry Type 2 diabetes mellitus with [...] E11.42) 04/01/2024 Tinea unguium (ICD-10 - B35.1) 06/13/2024 Type 2 diabetes mellitus with diabetic polyneuropathy (ICD-10 - E11.42) 06/13/2024 Tinea unguium (ICD-10 - B35.1) 07/25/2024 Ganglion of foot, right (ICD-10 - M67.471) 10/23/2023 Type 2 diabetes mellitus with diabetic polyneuropathy (ICD-10 - E11.42) 10/23/2023 Tinea unguium (ICD-10 - B35.1) 09/12/2024 Type 2 diabetes mellitus with diabetic polyneuropathy (ICD-10 - E11.42) 09/12/2024 Tinea unguium (ICD-10 - B35.1) 10/23/2023 Ganglion of foot, right (ICD-10 - M67.471) 09/12/2024 Other hammer toe(s) (acquired), right foot (ICD-10 - M20.41) Patient Educated with: DIABETIC FOOT CARE INSTRUCTIONS. pdf (DIABETIC FOOT CARE INSTRUCTIONS. pdf) 04/01/2024 Ganglion of foot, right (ICD-10 - M67.471) 09/12/2024 Other hammer toe(s) (acquired), left foot (ICD-10 - M20.42) 10/23/2023 Other hammer toe(s) (acquired), right foot (ICD-10 - M20.41) Response to treatment,Impro vement 10/23/2023 Other hammer toe(s) (acquired), left foot (ICD-10 - M20.42) Response to treatment,Impro vement 10/23/2023 Other 01/15/2024 Other 04/01/2024 Other 06/13/2024 Other Plan Of Treatment Pending Test Test Name Order Date 27588-IMHPJNF NAIL, 6 OR MORE 05/11/2015 91097-YFAIQUA NAIL, 6 OR MORE 05/14/2018 26414-FRTWRPP NAIL, 6 OR MORE 09/10/2018 54554-CUMTXZA NAIL, 6 OR MORE 12/03/2018 39680-XXJALUX NAIL, 6 OR MORE 02/11/2019 86404-VOCBMXN NAIL, 6 OR MORE 04/15/2019 01840-PUISMKN NAIL, 6 OR MORE 09/09/2019 22194-CLOPJPU NAIL, 6 OR MORE 11/18/2019 50366-THORCND NAIL, 6 OR MORE 05/07/2020 16451-UZNSHNT NAIL, 6 OR MORE 07/16/2020 39915-YFJGMAB NAIL, 6 OR MORE 09/24/2020 81559-IESFDTU NAIL, 6 OR MORE 12/17/2020 10189-JDDELSY NAIL, 6 OR MORE 05/06/2021 51171-MAIENSK NAIL, 6 OR MORE 07/08/2021 52089-RASAFBE NAIL, 6 OR MORE 09/20/2021 75034-XPUOICS NAIL, 6 OR MORE 11/25/2021 98171-HROFZJO NAIL, 6 OR MORE 03/10/2022 65012-NUDKLTO NAIL, 6 OR MORE 05/12/2022 68936-BBJRUUC NAIL, 6 OR MORE 08/04/2022 19554-LZEJMRN NAIL, 6 OR MORE 10/10/2022 93430-LRCHVLP NAIL, 6 OR MORE 12/19/2022 13326-OVVDLSS NAIL, 6 OR MORE 03/06/2023 70946-QXWZZIO NAIL, 6 OR MORE 05/18/2023 71100-RQYZSRF NAIL, 6 OR MORE 08/08/2023 77123-GFTKTGV NAIL, 6 OR MORE 10/23/2023 02627-LHCGZLT NAIL, 6 OR MORE 01/15/2024 97313-ENDBZSN NAIL, 6 OR MORE 04/01/2024 77774-LIYDVUF NAIL, 6 OR MORE 06/13/2024 30019-PIXBDWU NAIL, 6 OR MORE 09/12/2024 34745-Mfjf Destruction, 1-14 10/10/2022 43126-Rrey Destruction, 1-14 08/24/2022 57193- Debride <25 sq cm 10/08/2015 59609- Debride <25 sq cm 05/12/2016 42294-GONIMIT SKIN/TISSUE 05/12/2016 11812-OVQIVZF SKIN/TISSUE 10/08/2015 14588-WHPVMKU SKIN/TISSUE 09/24/2015 41489-FNAV SKIN LESIONS, OVER 4 10/11/19 23 44553-EYNI SKIN LESIONS, OVER 4 12/20/19 23 21633-MAUD SKIN LESIONS, OVER 4 08/05/19 23 10335-AYTX SKIN LESIONS, OVER 4 05/13/19 23 18672-PNON SKIN LESIONS, OVER 4 03/10/19 23 20723-WRIX SKIN LESIONS, OVER 4 09/13/19 25 18744-GNCA SKIN LESIONS, OVER 4 06/14/19 25 14933-NVEI SKIN LESIONS, OVER 4 04/01/19 25 81321-RDRQ SKIN LESIONS, OVER 4 01/15/20 24 63650-UUSI SKIN LESIONS, OVER 4 10/23/19 24 48208-HFFZ SKIN LESIONS, OVER 4 08/08/19 24 25318-ENAC SKIN LESIONS, OVER 4 05/18/19 24 13612-WTEM SKIN LESIONS, OVER 4 03/06/19 24 10295-CYMF SKIN LESIONS, 2 TO 4 11/26/19 02704-MNHG SKIN LESIONS, 2 TO 4 09/21/19 19127-EGYT SKIN LESIONS, 2 TO 4 02/12/20 83793-GSYS SKIN LESIONS, 2 TO 4 12/04/19 99571-VWMY SKIN LESIONS, 2 TO 4 09/11/19 57866-TIFV SKIN LESIONS, 2 TO 4 05/15/19 30567-IYOW SKIN LESIONS, 2 TO 4 07/09/19 39398-LBKV SKIN LESIONS, 2 TO 4 05/07/19 19357-UXIC SKIN LESIONS, 2 TO 4 12/18/19 43002-STNK SKIN LESIONS, 2 TO 4 09/25/19 09823-XDMI SKIN LESIONS, 2 TO 4 07/17/19 97328-STLO SKIN LESIONS, 2 TO 4 05/08/19 83775-IMGC SKIN LESIONS, 2 TO 4 09/09/19 96103-JDCY SKIN LESIONS, 2 TO 4 11/18/19 89236-KZBO SKIN LESIONS, 2 TO 4 04/15/19 60310- Removal of Foreign Body, Subcut 0 10/10/2022 78555- Ganglion Cyst Injection/Aspiratio n 08/08/2023- Ganglion Cyst Injection/Aspiratio n 10/23/2023- Ganglion Cyst Injection/Aspiratio n 04/01/2024- Ganglion Cyst Injection/Aspiratio n 07/25/202462532- Ganglion Cyst Injection/Aspiratio n 08/17/202018372- Ganglion Cyst Injection/Aspiratio n 06/11/201833648- Ganglion Cyst Injection/Aspiratio n 11/05/2018 13075- Ganglion Cyst Injection/Aspiratio n 01/01/201992756- Ganglion Cyst Injection/Aspiratio n 05/12/2016 69261- Ganglion Cyst Injection/Aspiratio n 08/11/201647657- Ganglion Cyst Injection/Aspiratio n 03/09/201776689- Ganglion Cyst Injection/Aspiratio n 12/27/2017 Next Appt Details Provider Name:Nj Sales , 12/09/2024 11:30:00 AM, [address] [place] [address], [place], [address], Insurance Providers Payer Name Payer Address Payer Phone Subscriber Number Group Number Insured Name Patient Relationship to Insured Coverage Start Date Coverage End Date Medicare National [employer] [address] [place] [address] [id number] Fernando Lu Self - patient is the insured [address] [place] [address] [address] [place] [address] [phone] [id number] Fernando Lu Self - patient is the [...] 11/25/2018 dental implant Hospitalization History Reason Date(Month/Year) [facility] [place]- sever nose bleeds 01/12/22
--- OUTSIDE RECORDS SUMMARY | 2024-10-15 10:51 | XMS_ITS | Clinical Summary ---
Author Organization [facility] Address [address] [place] [address] Phone Care Team Providers Care Wirer Maintenance Name Role Phone Unavailable Primary Care Provider Unavailabl e Social History Tobacco Use Types Packs/Day Years Used Date Smoking Tobacco: Never Assessed Education Answer Date Recorded Are you interested in more education? Not on etta e 06/23/2022 Are you concerned about learning? Not on file 06/23/2022 No 06/23/2022 No 06/23/2022 Digital Access Answer Date Recorded No 07/24/2022 No 07/24/2022 No 07/24/2022 Reliable internet access at home? Not on file 07/24/2022 Device with a working camera? Not on file Sex and Gender Information Value Date Recorded Sex Assigned at Not on file Legal Sex Male 10:36 PM EDT Gender Identity Not on file Sexual Orientation Not on file Last Filed Vital Signs Vital Sign Reading Time Taken Comments Blood Pressure - - Pulse - - Temperature - - Respiratory Rate - - Oxygen Saturation - - Inhaled Oxygen Concentration - - Weight 85.7 kg (189 lb) 07/09/2013 9:39 AM EDT Height 172.7 cm (5' 8 ) 07/09/2013 9:39 AM EDT Body Mass Index 28.74 07/09/2013 9:39 AM EDT Plan of Treatment Not on file Medical Devices Not on file Additional Source Comments The information contained in this document represents components of the legal health record. It is not the complete legal health record.[facility]
--- OUTSIDE RECORDS SUMMARY | 2024-10-15 10:51 | XMS_ITS | Patient Health Record ---
Author Organization [facility] Address [address] [place] [address] Care Team Providers Care Bagman/Woman Name Role Phone Shelia Judge MD Primary Care Provider Tyrone Mosley Unavailable [phone] Allergies Allergen (clinical drug ingredient) Drug/Non Drug [...] Omeprazole 20 MG TAKE 1 CAPSULE BY [facility] EVERY MORNING for 90 Active Atorvastatin Calcium [...] W/U Status Risk Notes Problem Esophageal reflux (947644260) Esophageal reflux (K21.9) Active confirmed Problem 758962437 Encounter for screening for malignant neoplasm of colon (Z12.11) Active confirmed Problem 697404148 Zacarias's esopha jag without dysplasia (K22.70) Active confirmed Problem 853311975 Elevated liver function tests (R79.89) Active confirmed Problem 483950638 Gastroesophageal reflux disease without esophagitis (K21.9) Active confirmed Problem 410627237 Fatty liver (K76.0) Active confirmed Problem 305214322 Gastroesophageal reflux disease, esophagitis presence not specified (K21.9) Active confirmed Problem 099948856 Long-term use of aspirin therapy (Z79.82) Active confirmed Problem Zacarias esophagu s (K22.70) Active confirmed Problem 210564892 Pre-procedural examination (Z01.818) Active confirmed Problem GERD without esophagitis (K21.9) Active confirmed Problem 53927559 Secondary hypertension (I15.9) Active confirmed Problem Zacarias''s esoph ronal without dysplasia (K22.70) Active confirmed Plan Of Treatment Future Test Test Name Order Date COLONOSCOPY 07/12/2016 UPPER GI ENDOSCOPY 05/03/2018 UPPER GI ENDOSCOPY 10/24/2021 Insurance Providers Payer Name Payer Address Payer Phone Subscriber Number Group Number Insured Name Patient Relationship to Insured Coverage Start Date Coverage End Date MEDICARE OF [place] [address] [address] [id number] KANE CASTILLO Self - patient is the insured [address] [place] [address] [id number] KANE CASTILLO Self - patient is the insured Medical (General) History Medical History History ICD Code NIDDM Prostate cancer--2014-surgery as below Denies NE,CVA,renal disease Asthma Hyperlipidemia Colonoscopy 10/2016-one hyper plastic [...]
[2024-10-15 14:57] LABS: MANUAL DIFF FLAG NO
[2024-10-15 15:01] LABS: Hematocrit 45.3 % (42.0-52.0); Hemoglobin 14.7 g/dl (14.0-18.0); Imm Gran Abs Auto 0.03 X10*3/uL (0.00-0.03); Imm Gran Pct Auto 0.4 % (0.0-0.4); Lymphocytes Absolute Auto 1.9 X10*3/uL (1.2-4.9); Mean Corpuscular HGB Conc 32.5 g/dl (31.0-36.0); Mean Corpuscular Hemoglobin 29.5 pg (27.0-33.0); Mean Corpuscular Volume 91.0 fL (80.0-98.0); NRBC Abs Auto 0.000 X10*3/uL (0.0-0.012); NRBC Pct Auto 0.0 /100WBC (0.0-0.2); Platelet Count 280 X10*3/uL (160-400); Red Blood Count 4.98 X10*6/uL (4.60-5.80); White Blood Count 8.5 X10*3/uL (4.8-10.8)
[2024-10-15 15:45] LABS: Hemoglobin A1C 161.1054 umol/L; Total Hemoglobin (HGBA1C) 3829.7591 umol/L
[2024-10-15 16:05] LABS: Albumin Level 4.8 g/dL (3.5-5.0); Alkaline Phosphatase 99 U/L (39-117); Anion Gap 13 (12-20); Aspartate Amino Transferase 28 U/L (5-37); Blood Urea Nitrogen 14 mg/dL (9-16); Calcium 9.6 mg/dL (8.4-10.2); Carbon Dioxide 30 mmol/L (22-29); Chloride 101 mmol/L (96-108); Cholesterol 116 mg/dL (<200); Estimated Glomerular Filt Rate > 60; HDL Cholesterol 37 mg/dL (>40); Potassium 4.9 mmol/L (3.3-5.1); Sodium 139 mmol/L (135-145); Total Protein 7.4 g/dL (6.5-8.0); Triglycerides 82 mg/dL (<150)
[2024-10-15 16:19] LABS: Alanine Aminotransferase 32 U/L (0-40)
== END 2024-10-15 09:55 | disposition home or self-care (01) ==
LOC: HO.HMGCLDS 09:54
PROVIDERS: PCP Internal Medicine; Visit Provider Internal Medicine
DX: E11.9 Type 2 diabetes mellitus without complications (principal); E78.5 Hyperlipidemia, unspecified
CPT/HCPCS: 36415; 80053; 80061; 82043; 82570; 83036; 85025

== ENCOUNTER 2024-10-21 09:34 | Outpatient (REF) | payer MEDICARE, OTHER, SELFPAY ==
--- NOTE | ~2024-10-21 | XR_ITS ---
EXAMINATION: XR HIP 2 OR MORE VIEWS BILATERAL HISTORY: M25.551 - Pain in right hip COMPARISON: Comparison is made with the prior examination of the left hip dated 05/05/2022. FINDINGS: Two views of each hip are submitted. Osseous mineralization is normal. There is no fracture or dislocation. There are mild degenerative changes of both hips with osteophyte formation. The soft tissues are unremarkable. XR/XR hips TAYLOR min 3V IMPRESSION: Mild degenerative changes of the bilateral hips. Electronically signed by: Tyrone Novoa MD 10/21/2024 11:46 AM EDT
--- OUTSIDE RECORDS SUMMARY | 2024-10-21 12:08 | XMS_ITS | Clinical Summary ---
Author Organization [facility] Address [address] [facility] [address] [place] [address] Phone Care Team Providers Care Lifter Name Role Phone Unavailable Primary Care Provider [...] It is not the complete legal health record.[facility]
== END 2024-10-21 09:35 | disposition home or self-care (01) ==
LOC: HO.HMGCX 09:34
PROVIDERS: PCP Internal Medicine; Visit Provider Internal Medicine
DX: Z00.00 Encounter for general adult medical examination without abnormal findings (principal); M25.551 Pain in right hip; M25.552 Pain in left hip; G89.29 Other chronic pain; M54.30 Sciatica, unspecified side; E11.9 Type 2 diabetes mellitus without complications; J45.909 Unspecified asthma, uncomplicated; E78.5 Hyperlipidemia, unspecified; Z79.84 Long term (current) use of oral hypoglycemic drugs
CPT/HCPCS: 73522

== ENCOUNTER 2024-10-21 09:34 | Outpatient (AMB) | payer MEDICARE, OTHER, SELFPAY ==
--- OUTSIDE RECORDS SUMMARY | 2024-10-21 10:11 | XMS_ITS | Patient Health Record ---
Author Organization [facility] Address [address] [place] [address] Care Team Providers Care Caramel Cutter Helper Name Role Phone Shelia Judge MD Primary Care Provider Tyrone Mosley Unavailable [phone] Allergies Allergen (clinical drug ingredient) Drug/Non Drug [...] Omeprazole 20 MG TAKE 1 CAPSULE BY [facility] EVERY MORNING for 90 Active Atorvastatin [...] Status W/U Status Risk Notes Problem Esophageal reflu x (K21.9) Active confirmed Problem 052680373 Encounter for screening for malignant neoplasm of colon (Z12.11) Active confirmed Problem 500289229 Zacarias's esopha jag without dysplasia (K22.70) Active confirmed Problem 564820540 Elevated liver function tests (R79.89) Active confirmed Problem 269521697 Gastroesophageal reflux disease without esophagitis (K21.9) Active confirmed Problem 422225369 Fatty liver (K76.0) Active confirmed Problem 448150835 Gastroesophageal reflux disease, esophagitis presence not specified (K21.9) Active confirmed Problem 795484338 Long-term use of aspirin therapy (Z79.82) Active confirmed Problem Zacarias esophagus (907900137) Zacarias esophagus (K22.70) Active confirmed Problem 536698903 Pre-procedural examination (Z01.818) Active confirmed Problem GERD without esophagitis (K21.9) Active confirmed Problem 17782777 Secondary hypertension (I15.9) Active confirmed Problem Zacarias''s [...] OF [place] [address] [address] [id number] KANE CASTILLO Self - patient is the insured [address] [place] [address] [id number] KANE CASTILLO Self - patient is the insured Medical (General) History Medical History History ICD Code NIDDM Prostate cancer--2014-surgery as below Denies [place],CVA,renal disease Asthma Hyperlipidemia Colonoscopy 10/2016-one hyper plastic [...]
--- OUTSIDE RECORDS SUMMARY | 2024-10-21 10:11 | XMS_ITS | Patient Health Record ---
Author Organization [facility] Address [address] [facility] [place] [address] Care Team Providers Care Timber Grader Name Role Phone Shelia Judge MD Primary Care Provider Nj Monique Unavailable [phone] Allergies Allergen (clinical drug ingredient) Drug/Non Drug Allergy documented on EMR Reaction Allergy Type Onset Date Status Seasonale Unknown Drug Allergy Active Dust Mite Mixed Allergen Ext Unknown Drug Allergy Active Mold Unknown Allergy Active Results Component Value Reference Range Notes HEMOGLOBIN A1C (GLYCOHEMOGLO BIN) Reviewed date:07/28/2024 08:28:02 [...] Unknown 11/27/2023 Administered Pneumococcal Unknown 12/09/2014 Administered Social History [...] Problem Acquired hammer toe of right foot (4599007280701167 ) Other hammer toe(s) (acquired), right foot (M20.41) Active confirmed Response to treatment, Improvemen t Problem Acquired hammer toe of left foot (2488416446141756 ) Other hammer toe(s) (acquired), left foot (M20.42) Active confirmed Response to treatment, Improvemen t Problem Polyneuropathy due to type 2 diabetes mellitus (799947441) Type 2 diabetes mellitus with diabetic polyneuropathy (E11.42) Active confirmed Vital Signs Blood pressure diastolic 60 mm Hg 09/12/2024 Height 5ft6in in 09/12/2024 Blood pressure systolic 126 mm Hg 09/12/2024 Weight 157 lbs 09/12/2024 BMI 25.34 kg/m2 09/12/2024 Procedures Procedure Date Ordered Date Performed Result Body Sit e 50276-HYFDUIT NAIL, 6 OR MORE 10/23/2023 N/A 55098-TRLU SKIN LESIONS, OVER 4 10/23/2023 N/A - Ganglion Cyst Injection/Aspiration 10/23/2023 N/A 73589-CENUDXW NAIL, 6 OR MORE 01/15/2024 N/A 43687-DXMH SKIN LESIONS, OVER 4 01/15/2024 N/A 64916-CHTKTWF NAIL, 6 OR MORE 04/01/2024 N/A 83853-UUMZ SKIN LESIONS, OVER 4 04/01/2024 N/A 46746- Ganglion Cyst Injection/Aspiration 04/01/2024 N/A 92160-FNYQVLC NAIL, 6 OR MORE 06/13/2024 N/A 49157-QDZN SKIN LESIONS, OVER 4 06/13/2024 N/A 83081- Ganglion Cyst Injection/Aspiration 07/25/2024 N/A 75339-YPKHGLG NAIL, 6 OR MORE 09/12/2024 N/A 08509-LMIY SKIN LESIONS, OVER 4 09/12/2024 N/A Encounters Encounter Location Date Provider Diagnosis [address] [address] 10/23/2023 Njkrystal Sales Type 2 diabetes mellitus with diabetic polyneuropathy E11.42 ; Tinea unguium B35.1 ; Ganglion of foot, right M67.471 ; Other hammer toe(s) (acquired), right foot M20.41 and Other hammer toe(s) (acquired), left foot M20.[address] [address] 01/15/2024 Njkrystal Sales Type 2 diabetes mellitus with diabetic polyneuropathy E11.42 and Tinea unguium B35.[address] [address] 04/01/2024 Njkrystal Sales Type 2 diabetes mellitus with diabetic polyneuropathy E11.42 ; Tinea unguium B35.1 and Ganglion of foot, right M67.[address] [address] 06/13/2024 Nj Nathanunier Type 2 diabetes mellitus with diabetic polyneuropathy E11.42 and Tinea unguium B35.[address] [address] 07/25/2024 Nj Sales Ganglion of foot, right M67.[address] [address] 09/12/2024 Njkrystal NathanHenrry Type 2 diabetes mellitus with diabetic polyneuropathy [...] Treatment Pending Test Test Name Order Date 57089-ZKRBKGN NAIL, 6 OR MORE 05/11/2015 93112-DLHRFHT NAIL, 6 OR MORE 05/14/2018 62539-HXYDHXN NAIL, 6 OR MORE 09/10/2018 95281-GZDQMPM NAIL, 6 OR MORE 12/03/2018 57042-EXXFKZQ NAIL, 6 OR MORE 02/11/2019 47601-VSTXPBX NAIL, 6 OR MORE 04/15/2019 94504-OPTJGFT NAIL, 6 OR MORE 09/09/2019 69304-DRBCAQK NAIL, 6 OR MORE 11/18/2019 48134-PAOSKAI NAIL, 6 OR MORE 05/07/2020 12914-UBZFGYF NAIL, 6 OR MORE 07/16/2020 91087-FZSQXTB NAIL, 6 OR MORE 09/24/2020 63346-MTQKASG NAIL, 6 OR MORE 12/17/2020 11542-QVEXNFY NAIL, 6 OR MORE 05/06/2021 27954-VOGMACD NAIL, 6 OR MORE 07/08/2021 67615-ORPTXGV NAIL, 6 OR MORE 09/20/2021 74135-LTEDUTO NAIL, 6 OR MORE 11/25/2021 78419-SKMRUNT NAIL, 6 OR MORE 03/10/2022 10658-FTQHDAD NAIL, 6 OR MORE 05/12/2022 22335-ATFLOMH NAIL, 6 OR MORE 08/04/2022 57984-RLLSTLQ NAIL, 6 OR MORE 10/10/2022 83674-ICQXIFM NAIL, 6 OR MORE 12/19/2022 58887-XCPCYAK NAIL, 6 OR MORE 03/06/2023 55953-TNLRBAH NAIL, 6 OR MORE 05/18/2023 83328-CAZFYFP NAIL, 6 OR MORE 08/08/2023 48149-LQMOYCQ NAIL, 6 OR MORE 10/23/2023 26150-UGVHOVX NAIL, 6 OR MORE 01/15/2024 49029-DMQSJIU NAIL, 6 OR MORE 04/01/2024 60895-QDLSJBO NAIL, 6 OR MORE 06/13/2024 65204-YSEGKOR NAIL, 6 OR MORE 09/12/2024 61760-Ntab Destruction, 1-10/10/2022 98457-Uqqj Destruction, 1-08/24/2022 84333- Debride <25 sq cm 10/08/2015 28547- Debride <25 sq cm 05/12/2016 90587-DSNXVAU SKIN/TISSUE 05/12/2016 29039-MTBEOBY SKIN/TISSUE 10/08/2015 99671-YHSFGEJ SKIN/TISSUE 09/24/2015 68147-GWJV SKIN LESIONS, OVER 4 10/11/19 23 40402-BBLP SKIN LESIONS, OVER 4 12/20/19 23 12314-UVPH SKIN LESIONS, OVER 4 08/05/19 23 18614-ZERM SKIN LESIONS, OVER 4 05/13/19 23 17452-LUIW SKIN LESIONS, OVER 4 03/10/19 23 45599-FQAW SKIN LESIONS, OVER 4 09/13/19 25 36815-AYAX SKIN LESIONS, OVER 4 06/14/19 25 85606-JNKQ SKIN LESIONS, OVER 4 04/01/19 25 60399-ENSL SKIN LESIONS, OVER 4 01/15/20 24 06739-PCIT SKIN LESIONS, OVER 4 10/23/19 24 25210-ZIKR SKIN LESIONS, OVER 4 08/08/19 24 56279-KQSU SKIN LESIONS, OVER 4 05/18/19 24 42881-ZKTT SKIN LESIONS, OVER 4 03/06/19 24 66645-KLXJ SKIN LESIONS, 2 TO 4 11/26/19 68708-PTKT SKIN LESIONS, 2 TO 4 09/21/19 93033-JVYT SKIN LESIONS, 2 TO 4 02/12/20 35570-HSYY SKIN LESIONS, 2 TO 4 12/04/19 41140-APDV SKIN LESIONS, 2 TO 4 09/11/19 01392-FMNH SKIN LESIONS, 2 TO 4 05/15/19 33503-LDTE SKIN LESIONS, 2 TO 4 07/09/19 81352-ZYTE SKIN LESIONS, 2 TO 4 05/07/19 65350-IYSM SKIN LESIONS, 2 TO 4 12/18/19 02914-BBFZ SKIN LESIONS, 2 TO 4 09/25/19 44143-DUQK SKIN LESIONS, 2 TO 4 07/17/19 40490-QPXE SKIN LESIONS, 2 TO 4 05/08/19 22756-PKDL SKIN LESIONS, 2 TO 4 09/09/19 19775-ITUQ SKIN LESIONS, 2 TO 4 11/18/19 79588-OLLZ SKIN LESIONS, 2 TO 4 04/15/19 29570- Removal of Foreign Body, Subcut 0 10/10/2022 23608- Ganglion Cyst Injection/Aspiratio n 08/08/2023 46877- Ganglion Cyst Injection/Aspiratio n 10/23/2023- Ganglion Cyst Injection/Aspiratio n 04/01/2024- Ganglion Cyst Injection/Aspiratio n 07/25/2024- Ganglion Cyst Injection/Aspiratio n 08/17/2020- Ganglion Cyst Injection/Aspiratio n 06/11/201807466- Ganglion Cyst Injection/Aspiratio n 11/05/2018- Ganglion Cyst Injection/Aspiratio n 01/01/2019- Ganglion Cyst Injection/Aspiratio n 05/12/2016- Ganglion Cyst Injection/Aspiratio n 08/11/2016- Ganglion Cyst Injection/Aspiratio n 03/09/2017- Ganglion Cyst Injection/Aspiratio n 12/27/2017 Next Appt Details Provider Name:Nj Sales , 12/09/2024 11:30:00 AM, [address] [facility], [place], [address], Insurance Providers Payer Name Payer Address Payer Phone Subscriber Number Group Number Insured Name Patient Relationship to Insured Coverage Start Date Coverage End Date Medicare [employer] [address] [place] [address] [id number] Fernando Lu Self - patient is the insured [address] [place] [address] [address] [place] [id number] Fernando Lu Self - patient is the [...] 11/25/2018 dental implant Hospitalization History Reason Date(Month/Year) [facility]- sever nose bleeds 01/12/22
[2024-10-21 10:30] VITALS: BP 112/70; PULSE 73; TEMP 36.6; O2SAT 95; BMI 25.2
--- NOTE | 2024-10-21 10:30 | A.OFFVIS_ITS ---
Intake Vital Signs 10/21/24 10:30 10/21/24 10:37 Height 5 ft 6 in Weight 156 lb BMI 25.2 25.2 BP 112/70 Blood Pressure Location Lt brachial Position Sitting Pulse 73 Pulse Source Pulse Oximeter Temp 97.8 F Temp Source Oral Pulse Oximetry (%) 95 Intake Visit Reasons: SWV G0439 Allergies Seasonal Allergies Allergy (Severe, Verified 10/21/24 10:31) Sneezing Medication List - Last Reconciled 10/21/24 by Shelia Judge MD albuterol sulfate 90 mcg/actuation 1 inh inhalation QID PRN aspirin (Adult Aspirin Regimen) 81 mg PO DAILY atorvastatin 40 mg PO DAILY blood sugar diagnostic As directed blood sugar diagnostic (Freestyle InsuLinx strips) 1 QD cholecalciferol (vitamin D3) 25 mcg PO DAILY ciclopirox 0.77% appl topical loratadine (Claritin) 10 mg PO DAILY metformin ER 500 mg PO DAILY montelukast 10 mg PO BEDTIME omeprazole 20 mg PO DAILY Qvar RediHaler 40 mcg/actuation (beclomethasone dipropionate) 2 inhalations inhalation BID NS triamcinolone acetonide 0.025% appl topical BID Do you need a note to return to daycare/school/sports/work: No HPI [facility] G0439 HPI Details Initiated the conversation about Advanced Directives. Advanced Directives help? patients prepare for current and future decisions about their medical treatment? and place of care. Discussed with patient that it is a process where a patients? current condition and prognosis are reviewed, their wishes for information? regarding their illness are elicited, and likely medical dilemmas are presented? and options discussed. The form can be amended as needed, reviewed yearly and? make changes as needed IPPE/AWV ? year old presents? for her ? Annual? Wellness Visit, initial visit.? Medical / Social History Reviewed? Past Medical History ?Yes? . ? Pala? of Care / Care Team list updated ?Yes . ? Surgical/Hospitalization? History ?Yes . ? Current Medications? (including OTC and supplements) ?Yes . ? Family History ?Yes? . ? Tobacco? Control form ?Yes . ? AUDIT-C (Alcohol use) form? ?Yes . ? Illicit drug use in Social? History ?Yes . ? Current diagnosis of? depression? ?No ? Appropriate PHQ2/PHQ9? completed ?Yes . ? Data entered by ?Medical? Maintenance Of Way Superintendent and reviewed by provider ? Fall Risk ? Fall? History? Have you had any falls with? injury in the past year? ?No . ? Have you had two or more? falls in the past year? ?No . ? Fall Risk Assessment: ?No? falls in the past year . ? HRA filled out by? the patient, reviewed by Provider and scanned. ? IPPE/AWV ? Balance? Romberg? ?Yes . ? Tandem? walk ?Yes . ? Walk and? Turn ?Yes . ? Rise from? sit to stand ?Yes . ?Vision? Corrective? lens ?Yes ? Vision? screen ? Up-to-date, has an appointment [] for vision? screening and glaucoma screening ?Hearing? Whisper? test ?pass .? Initiated the conversation about Advanced Directives. Advanced Directives help? patients prepare for current and future decisions about their medical treatment? and place of care. Discussed with patient that it is a process where a patients? current condition and prognosis are reviewed, their wishes for information? regarding their illness are elicited, and likely medical dilemmas are presented? and options discussed. The form can be amended as needed, rev iewed yearly and? make changes as needed Written? Plan?Completed. See Patient? Documents. [facility] Medical History Hx of basal cell carcinoma Zacarias esophagus Aortic stenosis Hyperlipidemia DM type 2 (diabetes mellitus, type 2) Stress incontinence Asthma Prostate CA GERD (gastroesophageal reflux disease) Surgical History Hx of esophagogastroduodenoscopy H/O colonoscopy History of microdiscectomy History of prostatectomy Family History Father HTN (hypertension) History of heart attack Enlarged prostate CVD (cardiovascular disease) Social History Housing: House Alcohol intake: never Patient Tobacco Use Status: Never used Tobacco e-Cigarette/Vaping Use: Never Used service: No Current occupational status: retired Cognitive needs: No Hearing needs: No Vision needs: Yes Questionnaire Medicare Wellness Checkup [age] What gender do you identify with?: male During the past 4 weeks, how much have you been bothered by emotional problems such as feeling anxious, depressed, irritable, sad or downhearted, and blue?: not at all During the past 4 weeks, has your physical & emotional health limited your social activities with family, friends, neighbors, or groups?: slightly During the past 4 weeks, how much bodily pain have you generally had?: mild pain During the past 4 weeks, was someone available to help you if you needed & wanted help?: yes, quite a bit During the past 4 weeks, what was the hardest physical activity you could do for at least 2 minutes?: moderate Can you get to places out of walking distance without help? (For eg., can you travel alone on buses, taxis or drive your car?): Yes Can you go shopping for groceries or clothes without someone's help?: Yes Can you prepare your own meals?: Yes Can you do your housework without help?: Yes Because of any health problems, do you need the help of another person with your personal care needs such as eating, bathing, dressing or getting around the house?: No Can you handle your own money without help?: No During the past 4 weeks, how would you rate your health in general?: very good During the past 4 weeks how have things been going for you?: pretty well Are you having difficulties driving your car?: no Do you always fasten your seat belt when you are in a car?: yes, usually During past 4 weeks, have you been bothered by the following: never: Falling or dizzy when standing up, Sexual problems?, Trouble eating well? and Problems using the telephone? and seldom: Teeth or denture problems? and Tiredness or fatigue? Have you fallen 2 or more times in the past year?: Yes Are you afraid of falling?: No Are you a smoker?: no During the past 4 weeks, how many drinks of wine, beer, or other alcoholic beverages did you have?: no alcohol at all Do you exercise for about 20 minutes 3 or more times a week?: yes, most of the time Have you been given information to help with the following?: no: Hazards in your house that might hurt you? and no: Keeping track of your medications? How often do you have trouble taking medicines the way you have been told to take them?: I always take medicine as prescribed How confident are you that you can control & manage most of your health problems?: very confident What is your race?: White Mini Mental State Exam (MMSE) Orientation What is the (year) (season) (date) (day) (month)?: year, season, date, day and month Where are we (state) (county) (town or city) (hospital) (floor)?: state, county, town or city, hospital/clinic and floor Registration Name of 3 unrelated objects clearly and slowly, then ask patient to repeat all 3 of them. (1st repeat determines score. Make sure they can repeat all three): object 1, object 2 and object 3 Attention & Calculation (CHOOSE ONE) Spell WORLD backwards (DLROW): 5 letters Recall Ask patient to repeat the 3 items from question #3.: object 1, object 2 and object 3 Language Show patient a wristwatch & ask what it is. Repeat for pencil.: watch and pencil Ask the patient to repeat the phrase 'No ifs, ands, or buts' after you.: correct Ask the patient to 'take a piece of paper with their right hand' 'fold paper in half' 'place paper on floor': take paper in right hand, fold paper in half and place paper on floor Print the sentence 'CLOSE YOUR EYES' on a piece. If patient actually closes eyes then score.: followed written direction Give patient a blank piece of paper & ask to write a sentence. Score if it contains a noun & verb.: sentence contains subject and verb Score Score: 29 PHQ-9 Over the last 2 weeks, how often have you been bothered by any of the following problems? [address]309 - PHQ-9 Billing: Patient declined-do not bill Source: Developed by DrsTevin Pichardo, Annette Sahu, Mono Renner and colleagues, with an educational hernán from [employer]. Review of Systems Const All systems reviewed & are unremarkable except as noted in HPI and below Eyes Reports no additional complaints ENT Reports no additional complaints Card Reports no additional complaints Resp Reports no additional complaints GI Reports no additional complaints Reports no additional complaints Physical Exam Vital Signs: Last Vital Signs Temp 97.8 F 10/21/24 10:30 Pulse 73 10/21/24 10:30 BP 112/70 10/21/24 10:30 Pulse Ox 95 10/21/24 10:30 BMI result Body Mass Index 25.2 Const General: comfortable HEENT Head: Yes normal to inspection Ears: hearing grossly normal bilaterally Eyes General: appearance normal, both eyes and all related structures Neck Neck: Yes no lymphadenopathy and Yes supple Resp Effort & Inspection: normal respiratory effort Auscultation: clear to auscultation bilaterally Cardio Rhythm: regular rhythm Heart sounds: S1 normal heart sound present and S2 normal heart sound present GI Inspection: Yes normal to inspection Palpation (GI): Soft to palpation Percussion: Yes normal to percussion Auscultation: normal bowel sounds Extrem General: Yes no clubbing, cyanosis or edema Assessment & Plan Assessment & Plan (1) Hip pain, bilateral: Comment: Chronic bilateral hip pain right more than left Code(s): M25.551 - Pain in right hip; M25.552 - Pain in left hip Plan: check hip XR and referred to physical therapy (2) Hyperlipidemia: Code(s): E78.5 - Hyperlipidemia, unspecified Plan: Continue statin (3) DM type 2 (diabetes mellitus, type 2): Code(s): E11.9 - Type 2 diabetes mellitus without complications Plan: A1c is 6.0. Continue ADA diet metformin regular exercise and Follow-up in 6 months (4) Annual physical exam: Code(s): Z00.00 - Encounter for general adult medical examination without abnormal findings Plan: Well-balanced diet regular physical activity discussed with the patient he is up-to-date with colonoscopy (5) Asthma: Code(s): J45.909 - Unspecified asthma, uncomplicated Plan: Continue QVAR and montelukast follow-up in 6 months Orders: Orders Comprehensive [place]. Panel Fast 6 Months E11.9 - Type 2 diabetes mellitus without complications, E78.5 - Hyperlipidemia, unspecified, Z00.00 - Encounter for general adult medical examination without abnormal findings Complete Blood Count Auto Diff 6 Months E11.9 - Type 2 diabetes mellitus without complications, E78.5 - Hyperlipidemia, unspecified, Z00.00 - Encounter for general adult medical examination without abnormal findings Microalbumin, Random (w Creat) 6 Months E11.9 - Type 2 diabetes mellitus without complications, E78.5 - Hyperlipidemia, unspecified, Z00.00 - Encounter for general adult medical examination without abnormal findings PT Evaluation and Treatment Today M54.30 - Sciatica, unspecified side XR hips TAYLOR min 3V Today M25.551 - Pain in right hip, M25.552 - Pain in left hip Hemoglobin A1c 6 Months E11.9 - Type 2 diabetes mellitus without complications, E78.5 - Hyperlipidemia, unspecified, Z00.00 - Encounter for general adult medical examination without abnormal findings Lipid Panel 6 Months E11.9 - Type 2 diabetes mellitus without complications, E78.5 - Hyperlipidemia, unspecified, Z00.00 - Encounter for general adult medical examination without abnormal findings Coding Level of Care Code Medicare Subsequent (G0439) Diagnoses Hip pain, bilateral M25.551; M25.552 Hyperlipidemia E78.5 DM type 2 (diabetes mellitus, type 2) E11.9 Annual physical exam Z00.00 Asthma J45.909 CPT Codes Advance Care Planning - Advance Care Planning discussion: On file, no changes ([id number]) Advance Care Planning - Time spent: 1-15 minutes, on File ([id number]) Advance Care Planning Advance Care Planning discussion: On file, no changes Forms completed: Health Care Proxy Time spent: 1-15 minutes, on File Did not discuss due to Cultural/Spiritual beliefs: Yes
[2024-10-21 10:37] VITALS: BMI 25.2
== END 2024-10-21 11:09 | disposition home or self-care (01) ==
LOC: HO.HMCC 09:35
PROVIDERS: PCP Internal Medicine; Visit Provider Internal Medicine
DX: Z00.00 Encounter for general adult medical examination without abnormal findings (principal); E11.69 Type 2 diabetes mellitus with other specified complication; M25.551 Pain in right hip; M25.552 Pain in left hip; E78.5 Hyperlipidemia, unspecified; J45.909 Unspecified asthma, uncomplicated

== ENCOUNTER → 2024-10-21 11:18 | Outpatient (BNV) | payer MEDICARE, OTHER, SELFPAY | PROVIDERS: PCP Internal Medicine; Visit Provider Radiology Diagnostic Radiology | DX: M16.0 Bilateral primary osteoarthritis of hip (principal) | CPT/HCPCS: 73522 ==

== ENCOUNTER 2024-11-05 10:16 | Outpatient (REF) | payer MEDICARE, OTHER, SELFPAY ==
--- OUTSIDE RECORDS SUMMARY | 2024-04-18 07:00 | XMS_ITS ---
Author Organization [facility] Address [address] [place] [address] Care Team Providers Care Cpas Name Role Phone Shelia Judge MD Primary Care Provider UnavailNj Howard [phone] REASON FOR VISIT seen sooner Encounters Encounter Location Date Provider Diagnosis [address] [address] 04/18/2024 Nj Sales Plan Of Treatment Next Appt Details Provider Name:Nj Sales , 12/09/2024 11:30:00 AM, [address] [place], [address], Progress Notes * Nadine LUOB:[birth year] (74 yo M)Acc No.[id number]:04/18/2024 Progress Note Patient: Fernando JOHNSON Provider: Devonte Sales DPM :1950 A ge:74 Y S ex:Male Date:04/18/2024 [id number] Pcp:Shelia Judge MD Subjective: * Chief Complaints: [...] 04/18/2024 Generated for Mary king/Damaso/Erica on: 0 11/05/2024 12:28 PM EDT
--- NOTE | ~2024-11-05 | US_ITS ---
EXAMINATION: US RETROPERITONEAL LIMITED (AORTA) CLINICAL INFORMATION: Family history of ischemic heart disease. Z82.49.. COMPARISON: None available. TECHNIQUE: Goode-scale, color Doppler and spectral Doppler evaluation of the abdominal aorta. FINDINGS: Abdominal aorta is patent. The proximal segment is no fully depicted on the examination due to patient's body habitus/gas. The measurements of the aorta in maximum AP and transverse dimensions respectively are as follows: Proximal: Not evaluated . Mid: 2.0 x 2.1 cm. Distal: 2.1 x 1.8 cm. Peak systolic velocity 86 cm/s. The measurements of the common iliac arteries in maximum dimensions are as follows: Right: AP: 1.0 cm. TRV: 0.9 cm. Left: AP: 1.0 cm. TRV: 1.2 cm. US/US abdominal aortic aneurysm IMPRESSION: No aneurysm in the interrogated segments of the aorta and iliac arteries.. Electronically signed by: Salomón Olsen MD 11/05/2024 11:04 AM EDT
--- OUTSIDE RECORDS SUMMARY | 2024-11-05 12:29 | XMS_ITS | Patient Health Record ---
Author Organization [facility] Address [address] [place] [address] Care Team Providers Care Collar Setter Name Role Phone Shelia Judge MD Primary Care Provider Tyrone Mosley Unavailable [phone] Allergies Allergen (clinical drug ingredient) Drug/Non Drug [...] Omeprazole 20 MG TAKE 1 CAPSULE BY [facility] EVERY MORNING for 90 Active Atorvastatin [...] W/U Status Risk Notes Problem Esophageal reflux (196289590) Esophageal reflux (K21.9) Active confirmed Problem 019544654 Encounter for screening for malignant neoplasm of colon (Z12.11) Active confirmed Problem 508937848 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) Active confirmed Problem 039650964 Elevated liver function tests (R79.89) Active confirmed Problem 780278506 Gastroesophageal reflux disease without esophagitis (K21.9) Active confirmed Problem 339777347 Fatty liver (K76.0) Active confirmed Problem 673548109 Gastroesophageal reflux disease, esophagitis presence not specified (K21.9) Active confirmed Problem 412158302 Long-term use of aspirin therapy (Z79.82) Active confirmed Problem Zacarias esophagus (602484410) Zacarias esophagus (K22.70) Active confirmed Problem 941971965 Pre-procedural examination (Z01.818) Active confirmed Problem Gastroesophageal reflux disease (265779373) GERD without esophagitis (K21.9) Active confirmed Problem 73720858 Secondary hypertension (I15.9) Active confirmed Problem Zacarias's esophagus (153333290) Zacarias''s esophagus without dysplasia (K22.70) Active confirmed Plan Of Treatment Future Test Test Name Order Date COLONOSCOPY 07/12/2016 UPPER GI ENDOSCOPY 05/03/2018 UPPER GI ENDOSCOPY 10/24/2021 Insurance Providers Payer Name Payer Address Payer Phone Subscriber Number Group Number Insured Name Patient Relationship to Insured Coverage Start Date Coverage End Date MEDICARE OF [place] JIM[place]NEZ [address] [id number] KANE CASTILLO Self - patient is the insured [address] [place] [address] [id number] KANE CASTILLO Self - patient is the [...]
--- OUTSIDE RECORDS SUMMARY | 2024-11-05 12:29 | XMS_ITS | Patient Health Record ---
Author Organization [facility] Address [address] [place] [address] Care Team Providers Care Manager Long Term Care Name Role Phone Shelia Judge MD Primary Care Provider Nj Monique Unavailable [phone] Allergies Allergen (clinical drug ingredient) Drug/Non Drug [...] Problem Acquired hammer toe of right foot (8836732701458871 ) Other hammer toe(s) (acquired), right foot (M20.41) Active confirmed Response to treatment, Improvemen t Problem Acquired hammer toe of left foot (3358700489651661 ) Other hammer toe(s) (acquired), left foot (M20.42) Active confirmed Response to treatment, Improvemen t Problem Polyneuropathy due to type 2 diabetes mellitus (703140768) Type 2 diabetes mellitus with diabetic polyneuropathy (E11.42) Active confirmed Vital Signs Blood pressure diastolic 60 mm Hg 09/12/2024 Height 5ft6in in 09/12/2024 Blood pressure systolic 126 mm Hg 09/12/2024 Weight 157 lbs 09/12/2024 BMI 25.34 kg/m2 09/12/2024 Procedures Procedure Date Ordered Date Performed Result Body Sit e 36799-MATNCPX NAIL, 6 OR MORE 01/15/2024 N/A 07110-EOLK SKIN LESIONS, OVER 4 01/15/2024 N/A 44160-ZRFNQCP NAIL, 6 OR MORE 04/01/2024 N/A 02905-VOJC SKIN LESIONS, OVER 4 04/01/2024 N/A 01907- Ganglion Cyst Injection/Aspiration 04/01/2024 N/A 48172-DELRTRD NAIL, 6 OR MORE 06/13/2024 N/A 65526-AXYE SKIN LESIONS, OVER 4 06/13/2024 N/A 42226- Ganglion Cyst Injection/Aspiration 07/25/2024 N/A 95148-GYMZYKL NAIL, 6 OR MORE 09/12/2024 N/A 46710-TAIN SKIN LESIONS, OVER 4 09/12/2024 N/A Encounters Encounter Location Date Provider Diagnosis [address] [address] 01/15/2024 Nj Henrry Type 2 diabetes mellitus with diabetic polyneuropathy E11.42 and Tinea unguium B35.[address] [address] 04/01/2024 Nj Henrry Type 2 diabetes mellitus with diabetic polyneuropathy E11.42 ; Tinea unguium B35.1 and Ganglion of foot, right M67.[address] [address] 06/13/2024 Nj Henrry Type 2 diabetes mellitus with diabetic polyneuropathy E11.42 and Tinea unguium B35.[address] [address] 07/25/2024 Nj Henrry Ganglion of foot, right M67.[address] [address] 09/12/2024 Nj Henrry Type 2 diabetes mellitus [...] of foot, right (ICD-10 - M67.471) 09/12/2024 Type 2 diabetes mellitus with diabetic polyneuropathy (ICD-10 - E11.42) 09/12/2024 Tinea unguium (ICD-10 - B35.1) 09/12/2024 Other hammer toe(s) (acquired), right foot (ICD-10 - M20.41) Patient Educated with: DIABETIC FOOT CARE INSTRUCTIONS. pdf (DIABETIC FOOT CARE INSTRUCTIONS. pdf) 04/01/2024 Ganglion of foot, right (ICD-10 - M67.471) 09/12/2024 Other hammer toe(s) (acquired), left foot (ICD-10 - M20.42) 01/15/2024 Other 04/01/2024 Other 06/13/2024 Other Plan Of Treatment Pending Test Test Name Order Date 90719-UXRQTLP NAIL, 6 OR MORE 05/11/2015 27870-RDXNXXK NAIL, 6 OR MORE 05/14/2018 06680-DSVIWSD NAIL, 6 OR MORE 09/10/2018 68399-TTXKQBH NAIL, 6 OR MORE 12/03/2018 82291-BFSSVSH NAIL, 6 OR MORE 02/11/2019 12736-KYFCJQI NAIL, 6 OR MORE 04/15/2019 30417-JGEVAPQ NAIL, 6 OR MORE 09/09/2019 09202-JREYFIE NAIL, 6 OR MORE 11/18/2019 23248-FFRNYFU NAIL, 6 OR MORE 05/07/2020 76690-ZIISPPT NAIL, 6 OR MORE 07/16/2020 39178-UZZXXSH NAIL, 6 OR MORE 09/24/2020 57522-UTQFHQZ NAIL, 6 OR MORE 12/17/2020 27455-DYSVRQC NAIL, 6 OR MORE 05/06/2021 73873-YUTJZCV NAIL, 6 OR MORE 07/08/2021 87995-MZMXAZP NAIL, 6 OR MORE 09/20/2021 06186-RBABAXG NAIL, 6 OR MORE 11/25/2021 78316-RFGDWCV NAIL, 6 OR MORE 03/10/2022 10365-WLOMSIG NAIL, 6 OR MORE 05/12/2022 70873-IUEMIWK NAIL, 6 OR MORE 08/04/2022 96245-ADORKPX NAIL, 6 OR MORE 10/10/2022 38868-BXQFAXK NAIL, 6 OR MORE 12/19/2022 93611-BTTAYUV NAIL, 6 OR MORE 03/06/2023 71562-EFEGNBM NAIL, 6 OR MORE 05/18/2023 22434-VPCSUYX NAIL, 6 OR MORE 08/08/2023 70687-THSVXFD NAIL, 6 OR MORE 10/23/2023 13067-LIBFJSC NAIL, 6 OR MORE 01/15/2024 44122-NZWKREI NAIL, 6 OR MORE 04/01/2024 05691-CVZTGSW NAIL, 6 OR MORE 06/13/2024 51250-URZWNSC NAIL, 6 OR MORE 09/12/2024 13647-Kfyf Destruction, 1-10/10/2022 13488-Dtyd Destruction, 1-08/24/2022 00048- Debride <25 sq cm 10/08/2015 22991- Debride <25 sq cm 05/12/2016 41932-HKIOAHH SKIN/TISSUE 05/12/2016 01746-GQWZNQZ SKIN/TISSUE 10/08/2015 14470-TOUKMKV SKIN/TISSUE 09/24/2015 07820-PDMO SKIN LESIONS, OVER 4 10/11/19 23 58097-LCHO SKIN LESIONS, OVER 4 12/20/19 23 10272-ZRHH SKIN LESIONS, OVER 4 08/05/19 08685-OWYL SKIN LESIONS, OVER 4 05/13/19 56030-PKHQ SKIN LESIONS, OVER 4 03/10/19 15273-OVKW SKIN LESIONS, OVER 4 09/13/19 66041-NWOA SKIN LESIONS, OVER 4 06/14/19 42161-VYAZ SKIN LESIONS, OVER 4 04/01/19 14956-EIES SKIN LESIONS, OVER 4 01/15/20 09293-RMSC SKIN LESIONS, OVER 4 10/23/19 46890-GZEG SKIN LESIONS, OVER 4 08/08/19 51934-YIIY SKIN LESIONS, OVER 4 05/18/19 65114-HHVL SKIN LESIONS, OVER 4 03/06/19 55194-VULP SKIN LESIONS, 2 TO 4 11/26/19 93633-YPFF SKIN LESIONS, 2 TO 4 09/21/19 57364-UQMT SKIN LESIONS, 2 TO 4 02/12/20 36206-CPFP SKIN LESIONS, 2 TO 4 12/04/19 66383-YMHZ SKIN LESIONS, 2 TO 4 09/11/19 85160-XKTN SKIN LESIONS, 2 TO 4 05/15/19 60164-UQBD SKIN LESIONS, 2 TO 4 07/09/19 13209-PJDR SKIN LESIONS, 2 TO 4 05/07/19 10369-VOYS SKIN LESIONS, 2 TO 4 12/18/19 70483-VWTE SKIN LESIONS, 2 TO 4 09/25/19 46953-CLOO SKIN LESIONS, 2 TO 4 07/17/19 46470-FBXA SKIN LESIONS, 2 TO 4 05/08/19 46673-ZVRP SKIN LESIONS, 2 TO 4 09/09/19 96559-TCVX SKIN LESIONS, 2 TO 4 11/18/19 56999-KLNN SKIN LESIONS, 2 TO 4 04/15/19 54905- Removal of Foreign Body, Subcut 0 10/10/2022- [...] Name:Nj Sales , 12/09/2024 11:30:00 AM, [address], [place], [address], Insurance Providers Payer Name Payer Address Payer Phone Subscriber Number Group Number Insured Name Patient Relationship to Insured Coverage Start Date Coverage End Date Medicare National [employer] [address] [place] [address] [id number] Fernando Lu Self - patient is the insured [address] [place] [address] [address] [place] [address] [id number] Fernando Lu Self - patient is the [...] 11/25/2018 dental implant Hospitalization History Reason Date(Month/Year) [facility]- sever nose bleeds 01/12/22
--- OUTSIDE RECORDS SUMMARY | 2024-11-05 12:29 | XMS_ITS | Clinical Summary ---
Author Organization 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
== END 2024-11-05 10:17 | disposition home or self-care (01) ==
LOC: HO.HMGCX 10:16
PROVIDERS: PCP Internal Medicine; Visit Provider Internal Medicine Cardiovascular Disease
DX: Z13.6 Encounter for screening for cardiovascular disorders (principal); Z82.49 Family history of ischemic heart disease and other diseases of the circulatory system
CPT/HCPCS: 76706

== ENCOUNTER → 2024-11-05 10:18 | Outpatient (BNV) | payer MEDICARE, OTHER, SELFPAY | PROVIDERS: PCP Internal Medicine; Visit Provider Radiology Diagnostic Radiology | DX: Z82.49 Family history of ischemic heart disease and other diseases of the circulatory system (principal) | CPT/HCPCS: 76706 ==

== ENCOUNTER 2024-11-20 08:59 | Outpatient (AMB) | payer MEDICARE, OTHER, SELFPAY ==
--- OUTSIDE RECORDS SUMMARY | 2024-04-18 07:00 | XMS_ITS ---
Author Organization [facility] Address [address] [place] [address] Care Team Providers Care Stenotype Machine Operator Name Role Phone Shelia Judge MD Primary Care Provider UnavailNj Howard [phone] REASON FOR VISIT seen sooner Encounters Encounter Location Date Provider Diagnosis [address] [address] 04/18/2024 Nj Sales Plan Of Treatment Next Appt Details Provider Name:Nj Sales , 12/09/2024 11:30:00 AM, [address] [place], [address], Progress Notes * Nadine LUOB:[birth year] (74 yo M)Acc No.[id number]:04/18/2024 Progress Note Patient: Fernando JOHNSON Provider: Devonte Sales DPM :1950 A ge:74 Y S ex:Male Date:04/18/2024 [id number] Pcp:Shelia Judge MD Subjective: * Chief Complaints: [...] * Provider: Devonte Sales DPM Date: 0 04/18/2024 Generated for Mary king/Damaso/Erica on: 0 11/20/2024 09:43 AM EDT
[2024-11-20 09:11] VITALS: BP 126/70; PULSE 75; RESP 18; TEMP 36.6; O2SAT 98; BMI 24.9
--- NOTE | 2024-11-20 09:11 | MHC.PC.OV ---
Vital Signs 11/20/24 09:11 Height 5 ft 6 in Weight 154 lb BMI 24.9 BP 126/70 Blood Pressure Location Rt brachial Position Sitting Respiration 18 Pulse 75 Pulse Source Pulse Oximeter Temp 97.9 F Temp Source Oral Pulse Oximetry (%) 98 Oxygen Delivery Method Room Air Intake Visit Reasons: nose bleed Intake Note: Pt is here today for a sick visit. Pt c/o 2 episodes of nose bleeds. Allergies Seasonal Allergies Allergy (Severe, Verified 10/21/24 10:31) Sneezing Tobacco use date assessed: 11/20/24 Fall risk assessment: No Falls in past year Last assessed Fall Risk: 11/20/24 Dental Screening Dental Screen Date: 05/15/24 HPI nose bleed HPI Details Patient presents complaining of recurrent bleeding from right nostril for 2 weeks. Patient reports worsening of seasonal allergies. He has been taking antihistamine Claritin and montelukast. Patient used to use Flonase nasal spray by stopped using it last week. He was able to stop the bleeding with applying pressure to the side of the nose. Asthma is controlled on QVAR. [facility] Medical History Hx of basal cell carcinoma Zacarias esophagus Aortic stenosis Hyperlipidemia DM type 2 (diabetes mellitus, type 2) Stress incontinence Asthma Prostate CA GERD (gastroesophageal reflux disease) Surgical History Hx of esophagogastroduodenoscopy H/O colonoscopy History of microdiscectomy History of prostatectomy Family History Father HTN (hypertension) History of heart attack Enlarged prostate CVD (cardiovascular disease) Social History Housing: House Alcohol intake: never Patient Tobacco Use Status: Never used Tobacco e-Cigarette/Vaping Use: Never Used service: No Current occupational status: retired Cognitive needs: No Hearing needs: No Vision needs: Yes Questionnaire Thrive Questionnaire Date Thrive assessed: 04/07/24 I am a: Patient What is your living situation today?: I have a steady place to live Within the past 12 months, did the food you bought not last and you didn't have the money to get more?: Never true Within the past 12 months, did you worry whether your food would run out before you got money to buy more?: I choose not to answer this question Do you have trouble paying for medicines?: I choose not to answer this question Do you have trouble getting transportation to medical appointments?: No Do you have trouble paying your heating and electricity bill?: No Do you have trouble taking care of your child, family member or friend?: I choose not to answer this question Do you have trouble with day-to-day activities such as bathing, preparing meals, shopping, managing finances, etc.?: I choose not to answer this question Are you currently unemployed and looking for a job?: No Are you interested in more education?: No Please select the resources that you would like help with: None Currently or been in a relationship where the following occur: No concerns reported THRIVE Score: 0 RE-7 AMB Questionnaire RE-7 Date RE - 7 assessed: 05/15/24 Source: Developed by Drs. Tyrone Pichardo, Annette Sahu, Mono Renner and colleagues, with an educational hernán from [employer]. Review of Systems Const All systems reviewed & are unremarkable except as noted in HPI and below ENT Reports no additional complaints Card Reports no additional complaints Resp Reports no additional complaints GI Reports no additional complaints Reports no additional complaints Physical exam (Primary Care) Vital Signs: Last Vital Signs Temp 97.9 F 11/20/24 09:11 Pulse 75 11/20/24 09:11 Resp 18 11/20/24 09:11 BP 126/70 11/20/24 09:11 Pulse Ox 98 11/20/24 09:11 Oxygen Delivery Method Room Air 11/20/24 09:11 BMI result Body Mass Index 24.9 Tobacco/Smoking Status: Tobacco use Status Tobacco use date assessed 11/20/24 11/20/24 09:20 Patient Tobacco Use Status Never used Tobacco 11/20/24 09:12 e-Cigarette/Vaping Use Never Used 11/20/24 09:12 Thrive Assessment: Date of Thrive Assessment Date Thrive assessed 04/07/24 11/20/24 09:12 Currently or been in a relationship where the following occur: No concerns reported Const General: no acute distress HENMT Head: Yes normal to inspection General nose exam: Normal external nose present, Abnormal mucous membranes and turbinates present and Epistaxis present on the right dried blood present; no active bleeding Face and sinus: Yes normal facial exam Eyes General: appearance normal, both eyes and all related structures Resp Effort & Inspection: normal respiratory effort Auscultation: clear to auscultation bilaterally Cardio Rhythm: regular rhythm Heart sounds: S1 normal heart sound present and S2 normal heart sound present Coding Level of Care Code Est Pt Level 4 (22623) Diagnoses Epistaxis R04.0 Seasonal allergic rhinitis J30.2 Asthma J45.909 Assessment & Plan Assessment & Plan (1) Epistaxis: Code(s): R04.0 - Epistaxis Category: Medical Plan: For recurrent epistaxis patient was advised to stop using steroid nasal spray and use only saline nasal gel if needed to soften the blood clot. Patient will continue Claritin and montelukast and will be referred to ENT (2) Seasonal allergic rhinitis: Code(s): J30.2 - Other seasonal allergic rhinitis Category: Medical Plan: Continue current medications as above and refer to the electric clock mechanic (3) Asthma: Code(s): J45.909 - Unspecified asthma, uncomplicated Category: Medical Plan: Continue QVAR inhaler Orders: Referrals Ear/Nose/Throat Referral R04.0 - Epistaxis Allergy & Immunology Referral J30.2 - Other seasonal allergic rhinitis Patient Instructions: Continue Qvar
--- OUTSIDE RECORDS SUMMARY | 2024-11-20 09:44 | XMS_ITS ---
Author Name Uvaldo Moreno Address Unknown Organization [facility] Care Team Providers Care Adult School Counselor Name Role Phone Unavailable Primary Care Physician Unavailab le History Of Present Illness This is a 74 year old male who is an established patient who is being seen for an evaluation of skin lesions.Location: body throughoutQuality: asymptomaticDuration: yearsPertinent History: actinic keratoses and basal cell skin cancer Pertinent Negatives: no family history of melanoma and no family h istory of non-melanoma skin cancerAdditional Visit Reasons: education and counseling about sun exposure, evaluation for suspicious growths, and evaluation of current nevi Allergies, Adverse Reactions, Alerts Substance RxNorm Reaction(s) Severity Status Start Da te tree and shrub pollen Other: Run ny nose, cough, itchy eyes moderate active 12/31/2018 Medications Medication Generic Name RxNorm Strength Strength Unit Route Dose Dose Form Frequency Date Started Date Ended Status Indication Sig ciclopirox ciclopir ox 423885 0.77 % Topica l cream 08/25/19 22 active Appl y to rash left groi n BID unti l yadira r. ketoconazol e ketocona zole 412852 2 % Topica l cream suspend ed ketoconazol e ketocona zole 216374 2 % Topica l cream 10/14/19 20 suspend ed Appl y to affe cted area in ingu inal crea ses bid for 4 week s, prn for flar es. metronidazo le metronid azole 404511 0.75 % Topica l cream 01/01/20 19 suspend ed Appl y BID to face for zak cea. mupirocin mupiroci n 737365 2 % Topica l ointm ent 10/14/19 20 suspend ed Appl y twic e a day to biop sy site unti l heal ed. mupirocin calcium mupiroci n calcium 316240 2 % Topica l cream 08/25/19 22 suspend ed Appl y to affe cted area BID unti l yadira r triamcinolo ne acetonide triamcin olone acetonid e 9434151 0.025 % Topica l cream 06/10/19 23 suspend ed Appl y spar ingl y to rash in affe cted area left groi n bid 5-7 days triamcinolo ne acetonide triamcin olone acetonid e 0471832 0.025 % Topica l cream 07/04/19 25 active Appl y spar ingl y to rash in affe cted area of left groi n twic e a day for 1-2 week s ProAir HFA albutero l sulfate inhala tion active flunisolide flunisol joe Intran claudia active Adult Low Dose Aspirin aspirin 81 mg Oral table t, delay ed relea se (jovana suero) active Mirian Allergy fexofena dine 180 mg Oral once daily table t suspend ed Claritin loratadi ne Oral suspend ed Lipitor atorvast atin Oral QD active loratadine loratadi ne 196869 10 mg Oral capsu le QD active loratadine loratadi ne 10 mg Oral capsu le QD active metformin metformi n Oral QD active montelukast monteluk ast 10 mg Oral table t QD active omeprazole omeprazo le 20 mg Oral capsu le,de layed relea se( /EC) QD active Prilosec omeprazo le magnesiu m 690373 20 mg Oral once daily susp, delay ed relea se for recon QD active Singulair monteluk ast 009490 10 mg Oral table t suspend ed Vitamin D3 cholecal ciferol (vitamin D3) Oral QD active aspirin aspirin suspend ed Problems Problem Code Type Status Date of Diagnosis Date of Resolution Actinic keratosis (disorder) (S NOMED) Diagnosis active 11/19/2024 Seborrheic dermatitis (disorder) 69472594(SN OMED) Diagnosis active 11/19/2024 Seborrheic keratosis (disorder) 128709442(S NOMED) Diagnosis active 11/19/2024 Melanocytic nevus of trunk (disorder) 535956090(S NOMED) Diagnosis active 11/19/2024 Hemangioma of skin and subcutaneous tissue (disorder) 247798211(S NOMED) Diagnosis active 11/19/2024 Intertrigo (disorder) 04461261(SN OMED) Diagnosis active 11/19/2024 Scar conditions and fibrosis of skin (disorder) (S NOMED) Diagnosis active 11/19/2024 Patient encounter status (finding) 980453347(S NOMED) Diagnosis active 11/19/2024 Intertrigo (disorder) 61204597(SN OMED) Diagnosis active 07/02/2024 Actinic keratosis (disorder) (S NOMED) Diagnosis active 11/23/2023 Disorder of skin (disorder) 73468166(SN OMED) Diagnosis active 11/23/2023 Seborrheic dermatitis (disorder) 72851731(SN OMED) Diagnosis active 11/23/2023 Rosacea (disorder) 074867951(S NOMED) Diagnosis active 11/23/2023 Scar conditions and fibrosis of skin (disorder) (S NOMED) Diagnosis active 11/23/2023 Seborrheic keratosis (disorder) 463910555(S NOMED) Diagnosis active 11/23/2023 Disorder of pigmentation (disorder) 732467560(S NOMED) Diagnosis active 11/23/2023 Melanocytic nevus of trunk (disorder) 639876151(S NOMED) Diagnosis active 11/23/2023 Hemangioma of skin and subcutaneous tissue (disorder) 375176456(S NOMED) Diagnosis active 11/23/2023 Intertrigo (disorder) 84558195(SN OMED) Diagnosis active 11/23/2023 Onychomycosis caused by dermatophyte (disorder) 405932809(S NOMED) Diagnosis active 11/23/2023 Patient encounter status (finding) 347361067(S NOMED) Diagnosis active 11/23/2023 Intertrigo (disorder) 78557964(SN OMED) Diagnosis active 05/29/2023 Seborrheic keratosis (disorder) 610847477(S NOMED) Diagnosis active 05/29/2023 Seborrheic dermatitis (disorder) 28781537(SN OMED) Diagnosis active 10/25/2022 Rosacea (disorder) 307372979(S NOMED) Diagnosis active 10/25/2022 Disorder of skin (disorder) 78831571(SN OMED) Diagnosis active 10/25/2022 Disorder of capillaries (disorder) 17778880(SN OMED) Diagnosis active 10/25/2022 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) 25921367(SN OMED) Diagnosis active 10/25/2022 Epidermoid cyst of skin (disorder) 685812703(S NOMED) Diagnosis active 10/25/2022 Melanocytic nevus of trunk (disorder) 011058756(S NOMED) Diagnosis active 10/25/2022 Seborrheic keratosis (disorder) 393242581(S NOMED) Diagnosis active 10/25/2022 Hemangioma of skin and subcutaneous tissue (disorder) 049761634(S NOMED) Diagnosis active 10/25/2022 Disorder of pigmentation (disorder) 860166703(S NOMED) Diagnosis active 10/25/2022 History of malignant neoplasm of skin (situation) 117406970(S NOMED) Diagnosis active 10/25/2022 Patient encounter status (finding) 456325463(S NOMED) Diagnosis active 10/25/2022 Localized infection of skin AND/OR subcutaneous tissue (disorder) 151170117(S NOMED) Diagnosis active 06/09/2022 History of malignant neoplasm of skin (situation) 075543505(S NOMED) Diagnosis active 10/25/2021 Disorder of skin (disorder) 50458800(SN OMED) Diagnosis active 10/25/2021 Rosacea (disorder) 137012036(S NOMED) Diagnosis active 10/25/2021 Melanocytic nevus of trunk (disorder) 897747505(S NOMED) Diagnosis active 10/25/2021 Seborrheic keratosis (disorder) 913366710(S NOMED) Diagnosis active 10/25/2021 Hemangioma of skin and subcutaneous tissue (disorder) 653089754(S NOMED) Diagnosis active 10/25/2021 Epidermoid cyst of skin (disorder) 282636310(S NOMED) Diagnosis active 10/25/2021 Neoplasm of uncertain behavior of skin (disorder) 91128006(SN OMED) Diagnosis active 10/25/2021 Disorder of pigmentation (disorder) 560055272(S NOMED) Diagnosis active 10/25/2021 Patient encounter status (finding) 858942167(S NOMED) Diagnosis active 10/25/2021 Localized infection of skin AND/OR subcutaneous tissue (disorder) 218155493(S NOMED) Diagnosis active 10/07/2021 Localized infection of skin AND/OR subcutaneous tissue (disorder) 731735939(S NOMED) Diagnosis active 08/24/2021 Actinic keratosis (disorder) 780812248(S NOMED) Diagnosis active 11/04/2020 Asteatosis cutis (disorder) 03082539(SN OMED) Diagnosis active 11/04/2020 Disorder of skin (disorder) 78950287(SN OMED) Diagnosis active 11/04/2020 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) 98149676(SN OMED) Diagnosis active 11/04/2020 Varicose veins of lower extremity (disorder) 35089258(SN OMED) Diagnosis active 11/04/2020 Disorder of pigmentation (disorder) 056445977(S NOMED) Diagnosis active 11/04/2020 History of malignant neoplasm of skin (situation) 756853740(S NOMED) Diagnosis active 11/04/2020 Neoplasm of uncertain behavior of skin D48.5(ICD-1 0) Diagnosis active 10/14/2019 Other rosacea L71.8(ICD-1 0) Diagnosis active 10/14/2019 Other seborrheic keratosis L82.1(ICD-1 0) Diagnosis active 10/14/2019 Erythema intertrigo L30.4(ICD-1 0) Diagnosis active 10/14/2019 Irritant contact dermatitis, unspecified cause L24.9(ICD-1 0) Diagnosis active 10/14/2019 Hemangioma of skin and subcutaneous tissue D18.01(ICD- 10) Diagnosis active 10/14/2019 Melanocytic nevi of scalp and neck D22.4(ICD-1 0) Diagnosis active 10/14/2019 Other specified follicular disorders L73.8(ICD-1 0) Diagnosis active 10/14/2019 Melanocytic nevi of left upper limb, including shoulder D22.62(ICD- 10) Diagnosis active 10/14/2019 Other follicular cysts of the skin and subcutaneous tissue L72.8(ICD-1 0) Diagnosis active 10/14/2019 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(ICD-1 0) Diagnosis active 10/14/2019 Personal history of other malignant neoplasm of skin Z85.828(ICD -10) Diagnosis active 10/14/2019 Irritant contact dermatitis, unspecified cause L24.9(ICD-1 0) Diagnosis active 12/31/2018 Erythema intertrigo L30.4(ICD-1 0) Diagnosis active 12/31/2018 Other rosacea L71.8(ICD-1 0) Diagnosis active 12/31/2018 Other specified follicular disorders L73.8(ICD-1 0) Diagnosis active 12/31/2018 Candidiasis of skin and nail B37.2(ICD-1 0) Diagnosis active 12/31/2018 Other seborrheic keratosis L82.1(ICD-1 0) Diagnosis active 12/31/2018 Melanocytic nevi of left upper limb, including shoulder D22.62(ICD- 10) Diagnosis active 12/31/2018 Melanocytic nevi of right upper limb, including shoulder D22.61(ICD- 10) Diagnosis active 12/31/2018 Melanocytic nevi of trunk D22.5(ICD-1 0) Diagnosis active 12/31/2018 Other melanin hyperpigmentation L81.4(ICD-1 0) Diagnosis active 12/31/2018 Clinical finding (finding) 978449751(S NOMED) Diagnosis active 08/05/2018 History of malignant neoplasm of skin (situation) 224713980(S NOMED) Diagnosis active 10/01/2017 Other specified health status Z78.9(ICD-1 0) Diagnosis active 09/27/2016 History of malignant neoplasm of skin (situation) 938007359(S NOMED) Diagnosis active 09/27/2016 Senile hyperkeratosis (disorder) 514858220(S NOMED) Diagnosis active 08/11/2015 History of clinical finding in subject (situation) 836948874(S NOMED) Problem active Actinic keratosis (disorder) (S NOMED) Problem active Asthma (disorder) 294326079(S NOMED) Problem active Diabetes mellitus (disorder) 04041980(SN OMED) Problem active Gastroesophageal reflux disease (disorder) 883109206(S NOMED) Problem active Basal cell carcinoma of skin (disorder) 237036492(S NOMED) Problem active Psoriasis (disorder) 2862487(SNO MED) Problem active History of skin disorder (situation) 429077382(S NOMED) Problem active Results No data Encounters Service provided at [facility], [address] [place] [address], [address], [place], [place] [id number]. Office phonenumber is [phone]. Office fax number is [phone]. Encounter Diagnosis Location Date / Time Type Actinic Keratosis (L57.0)Vic orrheic Dermatitis (L21.8)Seborrheic Keratoses (L82.1)Benign Nevi (D22.5)Greene Angiomas (D18.01)Intertrigo (L30.4)Scar (L90.5)Skin Education (Z71.89) [facility] 11/19/2024 17:30:00 [facility] [id number] Reason For Referral No data Procedures Procedure Date Destruction of premalignant skin lesion (procedure) 11/19/2024 12:00 am UTC Destruction of premalignant skin lesion (procedure) 11/23/2023 12:00 am [place] Cryotherapy of skin lesion with liquid n itrogen (procedure) 11/04/2020 12:00 am [place] Shave biopsy (procedure) 10/14/2019 12:0 0 am [place] Excision of basal cell carcinoma (proced ure) Documentation of past medical history (p rocedure) Prostatectomy (procedure) Documentation of past medical history (p rocedure) Excision of basal cell carcinoma (proced ure) Excision of basal cell carcinoma (proced ure) Documentation of past medical history (p rocedure) Documentation of past medical history (p rocedure) Excision of basal cell carcinoma (proced ure) Documentation of past medical history (p rocedure) Excision of basal cell carcinoma (proced ure) Documentation of past medical history (p rocedure) Excision of basal cell carcinoma (proced ure) Excision of basal cell carcinoma (proced ure) Documentation of past medical history (p rocedure) Excision of basal cell carcinoma (proced ure) Documentation of past medical history (p rocedure) Documentation of past medical history (p rocedure) Excision of basal cell carcinoma (proced ure) Documentation of past medical history (p rocedure) Laser iridotomy (procedure) Excision of basal cell carcinoma (proced ure) Documentation of past medical history (p rocedure) Excision of basal cell carcinoma (proced ure) Laser iridotomy (procedure) Documentation of past medical history (p rocedure) Laser iridotomy (procedure) Excision of basal cell carcinoma (proced ure) Excision of basal cell carcinoma (proced ure) Nose Laser iridotomy (procedure) Both eyes Documentation of past medica l history (procedure) Disc surgery, cataract surgery Prostatectomy (procedure) Review Of Systems Provider reviewed on Nov 19, 2024.A focused review of systems was performed including Hematologic /Lymphatic, Integumentary, Psychiatric, and Respiratory and was notable for shortness of breath and anxiety.No Problems With Healing, No Problems With Scarring (hypertrophic Or Keloid), And No Problems With Bleeding. Assessment 1.Actinic KeratosisCounselingLiquid Nitrogen: scalp; hand; Application Tool - Cry-AC; Number of freeze-thaw Cycles - 1 freeze-thaw cycle; Duration of freeze thaw-cycle (seconds) - 10.2.Seborrheic DermatitisCounselingAdditional Notes3.Seborrheic KeratosesCounseling4.Benign NeviCounseling5.Greene Anne omasCounseling6.Intertrigo, Status: ImprovedCounselingPrescription Medication Management: Plan - --add Zoryve cream or Zeasorb AF powder once daily for maintenance; Continue Regimen - -- ciclopirox 0.77% topical cream BID for maintenance; Modify Regimen - -- triamcinolone acetonide 0.025% topical cream BID prn flares;.7.Scar - 20+ yrs ago on the noseCounseling8.Skin EducationCounseling Plan of Care Future visit for 11/19/2025 - Follow up in 1 year for: Skin Check - 15 minutes. Other Instructions:Annual CSE. Other Instructions: Annual CSE. Code Detail Instructions 278784 ciclopirox 0.77 % topical cream Apply to rash in groin twice a day until clear. 0282269 triamcinolone aceton joe 0.025 % topical cream Apply sparingly to rash in affected area of left groin twice a day for 1-2 weeks 948598 ciclopirox 0.77 % topical cream Apply to rash in groin twice a day until clear. 9406388 triamcinolone aceton joe 0.025 % topical cream Apply sparingly to rash in affected area of left groin twice a day for 1-2 weeks 693850 ciclopirox 0.77 % topical cream Apply to rash of the left groin twice a day until clear. 7302313 triamcinolone aceton joe 0.025 % topical cream Apply sparingly to rash in affected area left groin bid 5-7 days 425666 ciclopirox 0.77 % topical cream Apply to rash left groin BID until clear. 375584 mupirocin calcium 2 % topical cr eam Apply to affected area BID until clear 781058 metronidazole 0.75 % topical cre am Apply bid to face for rosacea. 185626 mupirocin 2 % topical ointment A pply twice a day to biopsy site until healed. 490767 ketoconazole 2 % topical cream A pply to affected area in inguinal creases bid for 4 weeks, prn for flares. 106887 metronidazole 0.75 % topical cre am Apply BID to face for rosacea. Instructions * I counseled the patient regarding the following:Skin Care: Sun protective clothing and broad spectrum sunscreen can prevent the formation of Actinic Keratoses. AKs can resolve with cryotherapy, PDT or topical chemotherapy.Expectations: Actinic Keratoses are precancerous proliferations that occur within sun damaged skin. If untreated, a small subset of AKs can develop into Squamous Cell Carcinoma.I recommended the following: Broad Spectrum Sunscreen SPF 30+ * I counseled the patient regarding the following:Expectations: Seborrheic Dermatitis is chronic in nature with periods of remissions and flares.Contact office if: Seborrheic dermatitis worsens, or fails to improve despite several months of treatment.I recommended the following: Shampoos * I counseled the patient regarding the following:Skin Care: Seborrheic keratoses are benign. No treatment is necessary.Expectations: Seborrheic keratoses are benign warty growths. Patients get more ofthem as they age. * I counseled the patient regarding the following:Instructions: Monthly self- skin checks to monitor for any changes in moles are recommended.Expectations: No treatment is necessary.Contact Office if: Any moles change in size, shape or color; itch, burn or bleed. * I counseled the patient regarding the following:Expectations: Greene Angiomas are benign vascular growths. * I counseled the patient regarding the following:Skin care: Intertrigo responds to absorbent or topical antifungal powders to reduce friction and moisture, and low potency topical steroids to reduce inflammation.Expectations: Intertrigo is a rash that occurs with frictional rubbing of skin in warm and moist environments. Common intertriginous locations include: inframammary skin, inguinal folds, abdominal folds.Contact office if: Rash continues to spread despite treatment. * I counseled the patient regarding the following:Skin Care: Patients with a history of non-melanoma skin cancer should wear broad spectrum sunscreen and sun protective clothing.Expectations: Scars from excisional sites of non- melanoma skin cancers should be monitored for any recurrences.Contact Office if: If the patient notices discoloration or a bump arising from a previously stable scar or any new lesions that are not healing. * I counseled the patient regarding the following:Sun screen (SPF 30 or greater) should be applied during peak UV exposure (between 10am and 2pm) and reapplied after exercise or swimming.The importanceof monthly self-examination was emphasized.Hats, sunglasses, protective clothing, shade and avoidance of mid- day sun encouraged.I recommended the following: Broad Spectrum Sunscreen SPF 30+Self-Skin Exams Social History Code Activity Start Date End Date [id number] (SNOMED) Never smoker Sex male Sexual orientation Unspecified Gender identity Unspecified Vital Signs No data
--- OUTSIDE RECORDS SUMMARY | 2024-11-20 09:44 | XMS_ITS | Patient Health Record ---
Author Organization [facility] Address [address] [place] [address] Care Team Providers Care Electrical Assembly Technician Name Role Phone Shelia Judge MD Primary Care Provider Tyrone Mosley Unavailable [phone] Allergies Allergen (clinical drug ingredient) Drug/Non Drug [...] Omeprazole 20 MG TAKE 1 CAPSULE BY [facility] EVERY MORNING for 90 Active Atorvastatin Calcium [...] W/U Status Risk Notes Problem Esophageal reflux (788519484) Esophageal reflux (K21.9) Active confirmed Problem 089235419 Encounter for screening for malignant neoplasm of colon (Z12.11) Active confirmed Problem 854091642 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) Active confirmed Problem 011788437 Elevated liver function tests (R79.89) Active confirmed Problem 990144459 Gastroesophageal reflux disease without esophagitis (K21.9) Active confirmed Problem 381344364 Fatty liver (K76.0) Active confirmed Problem 896878585 Gastroesophageal reflux disease, esophagitis presence not specified (K21.9) Active confirmed Problem 998322568 Long-term use of aspirin therapy (Z79.82) Active confirmed Problem Zacarias esophagus (745533554) Zacarias esophagus (K22.70) Active confirmed Problem 107946445 Pre-procedural examination (Z01.818) Active confirmed Problem Gastroesophageal reflux disease (192808090) GERD without esophagitis (K21.9) Active confirmed Problem 53733611 Secondary hypertension (I15.9) Active confirmed Problem Zacarias's esophagus (642224109) Zacarias''s esophagus without dysplasia (K22.70) Active confirmed Plan Of Treatment Future Test Test Name Order Date COLONOSCOPY 07/12/2016 UPPER GI ENDOSCOPY 05/03/2018 UPPER GI ENDOSCOPY 10/24/2021 Next Appt Details Provider Name:Tyrone Gauri Norman , 03/19/2025 10:20:00 AM, [address] [place] [address], [address], [place], [address], Insurance Providers Payer Name Payer Address Payer Phone Subscriber Number Group Number Insured Name Patient Relationship to Insured Coverage Start Date Coverage End Date MEDICARE OF [place] [address] [place] [address] [id number] ANNAKANE MACKEY Self - patient is the insured [facility] [address] [place] [address] [phone] [id number] KANE CASTILLO Self - patient is the insured Medical (General) History Medical History History ICD Code NIDDM Prostate cancer--2014-surgery as below Denies ND,CVA,renal disease Asthma Hyperlipidemia Colonoscopy 10/2016-one hyper plastic [...]
--- OUTSIDE RECORDS SUMMARY | 2024-11-20 09:44 | XMS_ITS | Patient Health Record ---
Author Organization [facility] Address [address] [facility] [place] [address] Care Team Providers Care Ribbon Winder Name Role Phone Shelia Judge MD Primary Care Provider Nj Monique Unavailable [phone] Allergies Allergen (clinical drug ingredient) Drug/Non Drug [...] Problem Acquired hammer toe of right foot (2509470805600723 ) Other hammer toe(s) (acquired), right foot (M20.41) Active confirmed Response to treatment, Improvemen t Problem Acquired hammer toe of left foot (1746641999272206 ) Other hammer toe(s) (acquired), left foot (M20.42) Active confirmed Response to treatment, Improvemen t Problem Polyneuropathy due to type 2 diabetes mellitus ([id number]) Type 2 diabetes mellitus with diabetic polyneuropathy (E11.42) Active confirmed Vital Signs Blood pressure diastolic 60 mm Hg 09/12/2024 Height 5ft6in in 09/12/2024 Blood pressure systolic 126 mm Hg 09/12/2024 Weight 157 lbs 09/12/2024 BMI 25.34 kg/m2 09/12/2024 Procedures Procedure Date Ordered Date Performed Result Body Sit e 05927-PIVSUED NAIL, 6 OR MORE 01/15/2024 N/A 28575-BCCD SKIN LESIONS, OVER 4 01/15/2024 N/A 09295-FZIUYGT NAIL, 6 OR MORE 04/01/2024 N/A 72956-PCHS SKIN LESIONS, OVER 4 04/01/2024 N/A 94376- Ganglion Cyst Injection/Aspiration 04/01/2024 N/A 48683-NFSWBET NAIL, 6 OR MORE 06/13/2024 N/A 82023-ASBL SKIN LESIONS, OVER 4 06/13/2024 N/A 34683- Ganglion Cyst Injection/Aspiration 07/25/2024 N/A 23157-WEOUFSU NAIL, 6 OR MORE 09/12/2024 N/A 02769-OSBK SKIN LESIONS, OVER 4 09/12/2024 N/A Encounters Encounter Location Date Provider Diagnosis [address] [address] 01/15/2024 Nj Henrry Type 2 diabetes mellitus with diabetic polyneuropathy E11.42 and Tinea unguium B35.[address] [address] 04/01/2024 Nj Henrry Type 2 diabetes mellitus with diabetic polyneuropathy E11.42 ; Tinea unguium B35.1 and Ganglion of foot, right M67.[address] [address] 06/13/2024 Nj Henrry Type 2 diabetes mellitus with diabetic polyneuropathy E11.42 and Tinea unguium B35.[address] [address] 07/25/2024 Nj Henrry Ganglion of foot, right M67.[address] [address] 09/12/2024 Nj Henrry Type 2 diabetes mellitus [...] Treatment Pending Test Test Name Order Date 69383-KDGTEWF NAIL, 6 OR MORE 05/11/2015 13409-LWMAFXY NAIL, 6 OR MORE 05/14/2018 93873-UEKARIZ NAIL, 6 OR MORE 09/10/2018 01126-GJEQZZD NAIL, 6 OR MORE 12/03/2018 73866-HJIGMXQ NAIL, 6 OR MORE 02/11/2019 36551-NGIHSOX NAIL, 6 OR MORE 04/15/2019 65487-XVNPVCZ NAIL, 6 OR MORE 09/09/2019 59723-QXHKZHB NAIL, 6 OR MORE 11/18/2019 47082-BIIJKIP NAIL, 6 OR MORE 05/07/2020 46243-HADSSFS NAIL, 6 OR MORE 07/16/2020 58027-MKZXNYC NAIL, 6 OR MORE 09/24/2020 62499-ASCCTKP NAIL, 6 OR MORE 12/17/2020 64594-VUNOKHZ NAIL, 6 OR MORE 05/06/2021 37947-MUTUWPL NAIL, 6 OR MORE 07/08/2021 24923-MMSUYEJ NAIL, 6 OR MORE 09/20/2021 46064-OWWTOPT NAIL, 6 OR MORE 11/25/2021 84478-SKAZGZE NAIL, 6 OR MORE 03/10/2022 55953-GDVOLAO NAIL, 6 OR MORE 05/12/2022 01805-RXRYYZY NAIL, 6 OR MORE 08/04/2022 60175-JNJXXCQ NAIL, 6 OR MORE 10/10/2022 73007-BLHLAJB NAIL, 6 OR MORE 12/19/2022 34380-DZRTJXP NAIL, 6 OR MORE 03/06/2023 27858-AAASVVN NAIL, 6 OR MORE 05/18/2023 00000-ZUMNMHN NAIL, 6 OR MORE 08/08/2023 14408-WBJKTBX NAIL, 6 OR MORE 10/23/2023 40563-IVZIIPC NAIL, 6 OR MORE 01/15/2024 95999-VLVTFYX NAIL, 6 OR MORE 04/01/2024 46643-MYISDPE NAIL, 6 OR MORE 06/13/2024 98708-YEZCHMS NAIL, 6 OR MORE 09/12/2024 35955-Snrc Destruction, 1-10/10/2022 31668-Mflm Destruction, 1-08/24/2022 41590- Debride <25 sq cm 10/08/2015 90341- Debride <25 sq cm 05/12/2016 18484-GBHYAKO SKIN/TISSUE 05/12/2016 27687-VSQTPBE SKIN/TISSUE 10/08/2015 70686-JOQYSUF SKIN/TISSUE 09/24/2015 98797-QMOP SKIN LESIONS, OVER 4 10/11/19 23 37369-VKIY SKIN LESIONS, OVER 4 12/20/19 23 85264-MWJO SKIN LESIONS, OVER 4 08/05/19 06467-WHLP SKIN LESIONS, OVER 4 05/13/19 02790-YWVI SKIN LESIONS, OVER 4 03/10/19 06359-XZNO SKIN LESIONS, OVER 4 09/13/19 46531-NJVD SKIN LESIONS, OVER 4 06/14/19 48480-NRQC SKIN LESIONS, OVER 4 04/01/19 14622-KPAV SKIN LESIONS, OVER 4 01/15/20 99717-KOPB SKIN LESIONS, OVER 4 10/23/19 27025-WUZV SKIN LESIONS, OVER 4 08/08/19 95860-KKBE SKIN LESIONS, OVER 4 05/18/19 12397-VVHX SKIN LESIONS, OVER 4 03/06/19 11080-CDME SKIN LESIONS, 2 TO 4 11/26/19 48622-AYVK SKIN LESIONS, 2 TO 4 09/21/19 11820-BUTI SKIN LESIONS, 2 TO 4 02/12/20 14818-DRFI SKIN LESIONS, 2 TO 4 12/04/19 77935-OQEU SKIN LESIONS, 2 TO 4 09/11/19 42138-HWAY SKIN LESIONS, 2 TO 4 05/15/19 64984-NRYM SKIN LESIONS, 2 TO 4 07/09/19 12762-DMHU SKIN LESIONS, 2 TO 4 05/07/19 81569-YJWM SKIN LESIONS, 2 TO 4 12/18/19 18804-ETIW SKIN LESIONS, 2 TO 4 09/25/19 80060-KFZP SKIN LESIONS, 2 TO 4 07/17/19 51483-SYND SKIN LESIONS, 2 TO 4 05/08/19 00049-XIHE SKIN LESIONS, 2 TO 4 09/09/19 26396-ONNW SKIN LESIONS, 2 TO 4 11/18/19 83222-DAGO SKIN LESIONS, 2 TO 4 04/15/19 61350- Removal of Foreign Body, Subcut 0 10/10/2022- [...] Name:Nj Sales , 12/09/2024 11:30:00 AM, [address] [facility], [place], [address], Insurance Providers Payer Name Payer Address Payer Phone Subscriber Number Group Number Insured Name Patient Relationship to Insured Coverage Start Date Coverage End Date Medicare National [employer] [address] [place] [address] [phone] [id number] Fernando Lu Self - patient is the insured [address] [place] [address] [address] [place] [address] [id number] Fernando Lu Self - patient is the [...] 11/25/2018 dental implant Hospitalization History Reason Date(Month/Year) [facility]- sever nose bleeds 01/12/22
--- OUTSIDE RECORDS SUMMARY | 2024-11-20 09:44 | XMS_ITS | Clinical Summary ---
Author Organization [facility] Address [address] [place] [address] Phone Care Team Providers Care Assembler Erector Name Role Phone Unavailable Primary Care Provider [...] It is not the complete legal health record.[facility]
== END 2024-11-20 09:43 | disposition home or self-care (01) ==
LOC: HO.HMCC 08:59
PROVIDERS: PCP Internal Medicine; Visit Provider Internal Medicine
DX: R04.0 Epistaxis (principal); J30.2 Other seasonal allergic rhinitis; J45.909 Unspecified asthma, uncomplicated

== ENCOUNTER → 2024-11-20 08:59 | Outpatient (BNVA) | payer MEDICARE, OTHER, SELFPAY | PROVIDERS: PCP Internal Medicine; Visit Provider Internal Medicine | DX: R04.0 Epistaxis (principal); J45.909 Unspecified asthma, uncomplicated; Z79.899 Other long term (current) drug therapy | CPT/HCPCS: 99212 ==

== ENCOUNTER → 2024-12-11 12:44 | Outpatient (REF) | payer MEDICARE, OTHER, SELFPAY ==
--- OUTSIDE RECORDS SUMMARY | 2023-09-17 06:00 | XMS_ITS ---
Author Organization [facility] Address [address] [place] [address] Care Team Providers [employer] Repairer Name Role Phone Shelia Judge MD Primary Care Provider UnavailNj Howard [phone] REASON FOR VISIT Seen sooner Encounters Encounter Location Date Provider Diagnosis [address] [id number] 09/17/2023 Nj Sales Plan Of Treatment Next Appt Details Provider Name:Nj Sales , 03/26/2025 02:45:00 PM, [address] [place] [address], [id number], Progress Notes * Nadine LUOB:[birth year] (74 yo M)Acc No.[id number]:09/17/2023 Progress Note Patient: Fernando JOHNSON Provider: Devonte Sales DPM :1950 A ge:73 Y S ex:Male Date:09/17/2023 [address] [id number] Pcp:Shelia Judge MD Subjective: * Chief Complaints: * 1 . Seen sooner. * Medical History: Objective: * Vitals: Assessment: Plan: * Treatment: * Images: * The named appointment provid er may or may not be the originator of this progress note, and it is not deemed complete until electronically signed by the appointment provider. Sign off status: Pending * Provider: Devonte Sales DPM Date: 0 09/17/2023 Generated for Mary king/Damaso/Erica on: 1 03:52 PM EDT
--- OUTSIDE RECORDS SUMMARY | 2024-04-18 07:00 | XMS_ITS ---
Author Organization [facility] Address [address] [place] [address] Care Team Providers Care Capital Markets Specialist Name Role Phone Shelia Judge MD Primary Care Provider UnavailNj Howard [phone] REASON FOR VISIT seen sooner Encounters Encounter Location Date Provider Diagnosis [facility] [address] [place] [address] 04/18/2024 Nj Sales Plan Of Treatment Next Appt Details Provider Name:Nj Sales , 03/26/2025 02:45:00 PM, [address] [facility], [address], [address], Progress Notes * Nadine LUOB:[birth year] (74 yo M)Acc No.[id number]:04/18/2024 Progress Note Patient: Fernando JOHNSON Provider: Devonte Sales DPM :1950 A ge:74 Y S ex:Male Date:04/18/2024 [id number] Pcp:Shelia Judge MD Subjective: * Chief Complaints: [...] 0 04/18/2024 Generated for Mary king/Damaso/Erica on: 1 03:52 PM EDT
--- OUTSIDE RECORDS SUMMARY | 2024-12-09 07:30 | XMS_ITS ---
Author Organization [facility] Address [address] [place] [address] Care Team Providers Care Disability Services Coordinator Name Role Phone Shelia Judge MD Primary Care Provider Nj Monique Unavailable [phone] Allergies Allergen (clinical drug ingredient) Drug/Non Drug Allergy documented on EMR Reaction Allergy Type Onset Date Status Seasonale Unknown Drug Allergy Active Dust Mite Mixed Allergen Ext Unknown Drug Allergy Active Mold Unknown Allergy Active REASON FOR VISIT At Risk Footcare Medications Medication SIG (Take, Route, Frequency, Duration) Notes Start Date End Date Status Ranitidine Not-Takin g Lorazepam as needed Not-Taking Omeprazole Not-Takin g Singulair Not-Taking ASA Not-Taking Flovent Diskus Not-T aking FreeStyle InsuLinx Test Not-Taking Flunisolide Not-Taki ng Probiotic PRN Not-Taking Claritin PRN Not-Taking Ofloxacin 0.3 % Ophthalmic; Duration : 25 Days Not-Taking Extra Depth Orthopedic Shoes (1 Pair) with Customized Heat Molded Multidensity Innersoles (3 Pair) Dx: NIDDM/Polyneuropathy (E11.42), Hammertoe Foot Deformity (M20.41,M20.42), Preulcerative Skin Lesion(s) (L85.1); Duration: 365 days 09/12/2024 Active Mirian Allergy Not- Taking Claritin Active Ketorolac Tromethamine 0.5 % Ophthalmic; Duration: 25 Days Not-Taking Advil PRN Active Atorvastatin Calcium Active metFORMIN HCl ER 500 MG Orally Active ProAir HFA Active Aspirin Active Vitamin D3 25 MCG (1000 UT) 1 tablet Orally Once a day Active Flonase Sensimist 27.5 MCG/SPRAY 2 sprays (1 spray in each nostril) Nasally Once a day Not-Taking Omeprazole 20 MG 1 capsule 30 minutes before morning meal Orally Once a day Active Singulair Active Qvar Active Social History Tobacco Use: Social History [...] Points 0 Interpretation Negative Vital Signs Height 5ft 6in in 12/09/2024 Weight 157 lbs 12/09/2024 BMI 25.34 kg/m2 12/09/2024 Blood pressure systolic 126 mm Hg 12/10/19 Blood pressure diastolic 60 mm Hg 025 Procedures Procedure Date Ordered Date Performed Result Body Sit e 53296-WTUJARM NAIL, 6 OR MORE 12/09/2024 N/A 34317-TCOF SKIN LESIONS, OVER 4 12/09/2024 N/A Encounters Encounter Location Date Provider Diagnosis [facility] [address] [place] [address] 12/09/2024 Nj Sales Type 2 diabetes mellitus with diabetic polyneuropathy E11.42 and Tinea unguium B35.1 Assessments Encounter Date Diagnosis (ICD Code) Assessment Notes Treatment Notes Treatment Clinical Notes Section Notes 12/09/2024 Type 2 diabetes mellitus with diabetic polyneuropathy (ICD-10 - E11.42) 12/09/2024 Tinea unguium (ICD-10 - B35.1) Plan Of Treatment Pending Test Test Name Order Date 10231-OZPFVUC NAIL, 6 OR MORE 12/09/2024 62419-BIXX SKIN LESIONS, OVER 4 12/10/19 25 Next Appt Details Follow Up: prn, Reason: Provider Name:Nj Sales , 03/26/2025 02:45:00 PM, [address], [place], [address], Procedure Notes * Category Sub-Category Detail Notes Debride Nail 6-10 Nail debridement Due to [...] use of a nail nipper and/or dremel-type salvage grinder, to a more viable healthy nail [...] to maintain effectiveness in symptomatic relief - 40553 Keratoma Treatment Parring or Cutting o f [...] instrumentation by the physician of record - 42402 Progress Notes * Nadine LUOB:[birth year] (74 yo M)Acc No.[id number]:12/09/2024 Progress Note Patient: Fernando JOHNSON Provider: Devonte Sales DPM :1950 A ge:74 Y S ex:Male Date:12/09/2024 Address:[address], [place], [place] Pcp:Shelia Judge MD Subjective: * Chief Complaints: * A t Risk Footcare * HPI: A t Risk footcare: Pt States Last PCP Visit: D ate 0 10/03/2024 T oe pain: Treatments: R x shoes, states still needs - appt scheduled for Nov. * ROS: G eneral/Constitutional: Nausea d enies. V omiting d enies. H delmis Thirst d enies. L oss appetite d enies. C hills d enies. F atigue d enies.?Fever d enies. N ight Sweats d enies. U nexplained weight loss d enies. O phthalmologic: Blurred vision d enies. R ed eye d enies. ? H EENTM: Dentures d enies. D izziness d enies. G lasses/contacts a dmits. R etinopathy d enies. B lurred/double vision d enies. T MJ?denies. D ischarge/drainage d enies. I mplants d enies. H rosy of hearing denies. D ifficulty chewing/swallowing/speaking d enies. N ose bleeds d enies.?Sore mouth d enies. S wollen glands d enies. R espiratory: On Oxygen d enies. P neumonia/pleurisy d enies.?Bronchitis a dmits. E mphysema d enies. C oughing a dmits. C ough blood?denies. S hortness of breath d enies. W heezing d enies. C ardiovascular: Pacemaker d enies. M STATION ATTENDANT d enies. W PW d enies. C HF d enies. H eart attack d enies. S eptal defect d enies. R apid beat d enies. C hest pain d enies. A trial Fib. d enies. M urmur/Palpitations d enies. G astrointestinal: Hemorrhoids a dmits. S tomach/Abdominal pain d enies. D ark blood stool d enies. I rritable bowel d enies. C onstipation d enies. D iarrhea d enies. V omiting d enies. H ematology: Swelling d enies. B ruising admits, on aspirin. B leeding problem admits, on anticoagulants. G enitourinary: Blood urine d enies. F requent/Painfu/urination/bladder control d enies. K idney stones d enies. I nfection (UTI) d enies. N ephropathy a dmits. M usculoskeletal: Hammertoes a dmits. B unions d enies. S coliosis/kyphosis d enies. M uscle cramps / walking a dmits. G eneralized aches and pains?denies. W eakness d enies. I nteg.: [place] d enies. S cars d enies. C orns/calluses?admits. I ngrown nails a dmits. P ainful nails d enies. R ashes d enies. N eurologic: Difficulty sleeping d enies. B ipolar d enies. B rain disorder d enies. B alance trouble d enies. C onfusion d enies. F ainting/blackouts d enies. H eadache d enies. T remors d enies. * Medical History: * Surgical History: d iscectomy 07/2013radical prostatectomy 09/2014basal cell removal from nose 1990endoscopy 11/25/2018dental implant * Hospitalization/Major Diagno stic Procedure: [facility]- sever nose bleeds 01/12/22 * Family History: M other: , diagnosed with Other malignant neoplasm of unspecified site. F ather: , diagnosed with Unspecified essential hypertension, Unspecified heart disease. 1 daughter(s) . . Daughter . * Social History: T obacco Use: T obacco use other than smoking A re you an other tobacco user? N o Tobacco Control (Standard) T obacco use: N onsmoker A dditional Findings: Tobacco non-user C urrent nonsmoker D rugs/Alcohol: D rugs H ave you used drugs other than those for medical reasons in the past 12 months? N o M iscellaneous: C affeine: yes, frequency: , 3-5 cups per day. Children: yes. Exercise: yes, walking. Marital status: . Occupation: retired- junior accountant. D rug/Alcohol: A JOSE MARTIN-C (Standard) D id you have a drink containing alcohol in the past year? N o P oints 0 I nterpretation N egative * Medications: T akingSingulair Qvar Vitamin D3 25 MCG (1000 UT) Tablet 1 tablet Orally Once a day Omeprazole 20 MG Capsule Delayed Release 1 capsule 30 minutes before morning meal Orally Once a day Advil , Notes to Pharmacist: PRNAtorvastatin Calcium metFORMIN HCl ER 500 MG Tablet Extended Release 24 Hour Orally ProAir HFA Aspirin Claritin Extra Depth Orthopedic Shoes (1 Pair) with Customized Heat Molded Multidensity Innersoles (3 Pair) Dx: NIDDM/Polyneuropathy (E11.42), Hammertoe Foot Deformity (M20.41,M20.42), Preulcerative Skin Lesion(s) (L85.1) Taking Singulair Taking Qvar Taking Vitamin D3 25 MCG (1000 UT) Tablet 1 tablet Orally Once a day Taking Omeprazole 20 MG Capsule Delayed Release 1 capsule 30 minutes before morning meal Orally Once a day Taking Advil , Notes to Pharmacist: PRNTaking Atorvastatin Calcium Taking metFORMIN HCl ER 500 MG Tablet Extended Release 24 Hour Orally Taking ProAir HFA Taking Aspirin Taking Claritin Taking Extra Depth Orthopedic Shoes (1 Pair) with Customized Heat Molded Multidensity Innersoles (3 Pair) Dx: NIDDM/Polyneuropathy (E11.42), Hammertoe Foot Deformity (M20.41,M20.42), Preulcerative Skin Lesion(s) (L85.1) Not- Taking/PRNFlonase Sensimist 27.5 MCG/SPRAY Suspension 2 sprays (1 spray in each nostril) Nasally Once a day Ketorolac Tromethamine 0.5 % Solution Ophthalmic Ofloxacin 0.3 % Solution Ophthalmic Mirian Allergy Flovent Diskus FreeStyle InsuLinx Test Flunisolide Probiotic , Notes to Pharmacist: PRNClaritin , Notes to Pharmacist: PRNSingulair ASA Ranitidine Lorazepam , Notes to Pharmacist: as neededOmeprazole Medication List reviewed and reconciled with the patientNot-Taking/PRN Flonase Sensimist 27.5 MCG/SPRAY Suspension 2 sprays (1 spray in each nostril) Nasally Once a day Not-Taking/PRN Ketorolac Tromethamine 0.5 % Solution Ophthalmic Not-Taking/PRN Ofloxacin 0.3 % Solution Ophthalmic Not-Taking/PRN Mirian Allergy Not- Taking/PRN Flovent Diskus Not-Taking/PRN FreeStyle InsuLinx Test Not-Taking/PRN Flunisolide Not-Taking/PRN Probiotic , Notes to Pharmacist: PRNNot-Taking/PRN Claritin , Notes to Pharmacist: PRNNot-Taking/PRN Singulair Not-Taking/PRN ASA Not-Taking/PRN Ranitidine Not-Taking/PRN Lorazepam , Notes to Pharmacist: as neededNot-Taking/PRN Omeprazole Medication List reviewed and reconciled with the patient * Allergies: S easonaleMoldDust Mite Mixed Allergen Extyes[Allergies Verified] Objective: * Vitals: H t: 5ft 6in, Wt:157, BMI:25.34, Shoe size: 10, BP:126/60mm Hg, BS: did not test, Ht-cm: 167.64 cm, Wt-k.21 kg. * P ast Orders: L ab:HEMOGLOBIN A1C (GLYCOHEMOGLOBIN) (Order Date - 09/26/2024) (Collection Date & Time - 09/27/2024 11:51 AM) Value Reference Range HEMOGLOBIN A1C % (HH) 6.0 * Examination: O phthalmology Referral: DIABETES EYE EXAM P rocedure Performed: Y evin D ate of Exam Performed 0 05/15/2024 D iabetic Retinopathy Screening: Y evin R etinal Screening Performed: Y evin F indings of Diabetic Eye Exam: n o retinopathy N eurological: SENSORY: N eurological exam demonstrates a loss of protective sensation by an absence of tested sensitivity to 5.07 [place] monofilament at 2 or more sites out of 5 total locations, either foot. N ails: NAILS are: E longated, overgrown, dystrophic, lytic, greater than 3mm thick, discolored and friable with crumbly malodorous subungual debris, T A, T1, T2, T3, T4, T5, T6, T7, T8, T9. D ermatologic: SKIN FINDINGS: S kin exam reveals Keratotic lesion(s) located at, Medial, IPJ, TA, Medial, IPJ, T5, SUB MTH (s), 1, B/L , SUB MTH (s), 5, B/L , Plantar, Heel(s), B/L. Assessment: * Assessment: 1. T ype 2 diabetes mellitus with diabetic polyneuropathy - E11.42 (Primary) 2 . T inea unguium - B35.1 Plan: * Treatment: * Procedures: D ebride Nail 6-10: Nail debridement D ue to the clinical pathology outlined in the exam findings, performance of this nail treatment is medically necessary as its management by an unskilled/untrained nonprofessional would put this patients foot and overall health at risk. Therefore, debridement to affected nail(s), as described in exam ( T A, T1, T2, T3, T4, T5, T6, T7, T8, T9 ) , was performed exclusively by the physician of record to reduce/remove overall nail length, girth, thickness, subungual debris, and necrotic tissue, by manual and/or electrical means through the use of a nail nipper and/or dremel-type salvage grinder, to a more viable healthy nail [...] to maintain effectiveness in symptomatic relief - 48441. K eratoma Treatment: Parring or Cutting of Benign Hyperkeratotic Lesion(s) ( -57) More than 4 Lesions - Due to [...] stated and described in the exam ( M santiago, I PJ, T A, M santiago, I PJ, T 5, S UB MTH (s), 1 , B /L , S UB MTH (s), 5 , B /L , P lantar, H eel(s), B /L ) , were pared, and/or cut utilizing a sterile 15 blade, tissue nippers, and/or power dremel instrumentation by the physician of record - 76987. * Procedure Codes: 1 1721 DEBRIDE NAIL, 6 OR MORE, Modifiers: XS 70972 TRIM SKIN LESIONS, OVER 4, Modifiers: XS * Follow Up: p rn * Images: * Sign off status: Completed true * Provider: Devonte Sales DPM Date: Generated for Mary king/Damaso/Erica on: 03:52 PM EDT History and Physical Notes * HPI (History of Present Illness) Category Sub-Category Detail Notes Category Not es Toe pain Treatments: Rx shoes, states still needs - appt scheduled for Nov At Risk footcare Pt States Last PCP Visit: Date: Examination Category Sub-Category Detail Notes Category Not es Neurological SENSORY: Neurological exa m demonstrates a loss of protective sensation by an absence of tested sensitivity to 5.07 [place]andi monofilament at 2 or more sites out of 5 total locations, either foot Dermatologic SKIN FINDINGS: Skin exam reveal s Keratotic lesion(s) located at, Medial, IPJ, TA, Medial, IPJ, T5, SUB MTH (s), 1, B/L , SUB MTH (s), 5, B/L , Plantar, Heel(s), B/L Ophthalmology Referral DIABETES EYE EXAM Procedu re Performed:: Yes Date of Exam Performed: 05/15/2024 Diabetic Retinopathy Screening:: Yes Retinal Screening Performed:: Yes Findings of Diabetic Eye Exam:: no retin opathy Nails NAILS are: Elongated, overg rown, dystrophic, lytic, greater than 3mm thick, discolored and friable with crumbly malodorous subungual debris, TA, T1, T2, T3, T4, T5, T6, T7, T8, T9
--- NOTE | 2024-12-11 12:48 | CA_ITS ---
Transthoracic Echocardiogram Patient (Last, First, Middle): Fernando Lu, Gender: Male Date of : 1950 Age: 74 Procedure Date: 12/11/2024 Procedure Type: Transthoracic Echocardiogram Location: OP Height: 167.64 cm Weight: 68.04 kg BSA: 1.77 m2 Heart Rate: bpm BP: 122 / 74 mmHg Benefits Technician: BRYSON Referring MD: Aidan Flor MD [place] Repairer: Aidan Flor MD Symptoms: I35.0 - Nonrheumatic aortic (valve) stenosis Study Quality: Fair ECG Rhythm: Sinus Conclusions: - 1. Normal LV ejection fraction of 60 65% with grade 1 diastolic dysfunction 2. Calcific aortic valve changes noted with bhqu-ta-samkmryp aortic stenosis 3. Upper limits of normal ascending aortic size 4. No gross pericardial effusion Findings Left Ventricle Normal left ventricular size, thickness, and systolic function. The visually estimated ejection fraction is between 60-65%. Spectral Doppler is indicative of an impaired relaxation filling pattern. E/E prime ratio is <8, consistent with normal filling pressures. Evidence suggests grade I (mild) diastolic dysfunction. Right Ventricle Normal right ventricular cavity size and systolic function. Atria Both atria are normal in size. There is no evidence of interatrial shunt. Aortic Valve There is moderate calcification of the aortic valve. There is mild to moderate aortic valve stenosis. The mean gradient is 11 mmHg. The aortic valve area is 1.30 cm2. There is trace (trivial) aortic valve regurgitation. Mitral Valve There is mild anterior and posterior mitral leaflet thickening. There is mild anterior and mild posterior mitral annular calcification. There is mild mitral valve regurgitation. There is no mitral valve stenosis. Pulmonic Valve The pulmonic valve is likely normal. There is trace pulmonic valve regurgitation. Tricuspid Valve Normal tricuspid valve structure. Tricuspid regurgitation envelope is inadequate for calculation of right ventricular systolic pressure. Normal right atrial pressure. Great Vessels The pulmonary artery was not well visualized. Small plaque is seen in the sino tubular ridge. Venous The inferior vena cava is normal in size and collapses greater than 50% with inspiration. Pericardium/Pleural There is no evidence of pericardial effusion. Prior Study Comparison Changes noted compared to prior study dated: 08/13/2020. Measurements 2D Linear Measurements IVSd: 1.14 0.6-0.9/0.6-1.0 cm LVIDd: 3.62 3.9-5.3/4.2-5.9 cm LVIDd Index: 2.05 2.4-3.2/2.2-3.1 cm/m2 LVIDs: 2.51 2.0-3.6 cm LVPWd: 0.86 0.7-1.1 cm LA Diam: 4.10 2.7-3.8/3.0-4.0 cm LAIDs Index: 2.32 1.5-2.3 cm/m2 LV Mass: 135.47 67-162/88-224 g LV Mass Index: 76.53 43-95/49-115 g/m2 LVOT Diam: 2.20 3.0+(-)1.3 cm 2D Systolic Function EF 4C: 58.70 >55% EF 2C: 65.60 >55% EF BiP: 61.70 >55% Mitral Valve MV Pk E: 0.54 MV PK A: 0.78 MV Decel Time: 228.00 E/A: 0.70 E'Lateral: 9.90 E'Medial: 5.44 E/E' Med: 9.90 E/E' Lat: 5.40 PHT: 67.00 MVA PHT: 3.28 Decel [place]: 2.35 Aortic Valve AoV Pk Toribio: 2.23 AoV Mn Toribio: 1.55 AoV VTI: 0.48 AoV Pk Grad: 20.00 Aov Mn Grad: 11.00 RAÚL Cont.VTI: 1.30 LVOT LVOT Pk Toribio: 0.82 LVOT Mn Toribio: 0.55 LVOT VTI: 0.16 LVOT Pk Grad: 3.00 LVOT Mn Grad: 1.00 LVOT Diam: 2.20 LVOT Area: 3.80 Diastolic Function MV Pk E: 0.54 MV Pk A: 0.78 E/A: 0.70 E'Medial: 5.44 E/E' Med: 9.90 E' Laterial: 9.90 E/E' Lat: 5.40 Right Ventricle TAPSE (mm): 24.90 TVS' Toribio: 14.30 Tricuspid Valve RA Press: 3.00 Great Vessels Aorta Sinus of Valsalva: 3.54 2.0-3.[address] Ridge: 2.38 1.7-3.4 cm Ao Asc: 3.50 2.1-3.4 cm Ao Arch: 3.10 Pulmonary Veins Pulm Vein S/D 1.70 Updated in Other Vendor System with Status of Final Aidan Flor MD electronically signed on 12/11/2024 3:47:27 PM with status of Final
--- OUTSIDE RECORDS SUMMARY | 2024-12-11 15:52 | XMS_ITS | Clinical Summary ---
Author Organization [facility] Address [address] [place] [address] Phone Care Team Providers Care Tax Agent Name Role Phone Unavailable Primary Care Provider [...] It is not the complete legal health record.[facility]
--- OUTSIDE RECORDS SUMMARY | 2024-12-11 15:53 | XMS_ITS | Patient Health Record ---
Author Organization [facility] Address [address] [place] [address] Care Team Providers Care Radio Antenna Installer Name Role Phone Shelia Judge MD Primary Care Provider Nj Monique Unavailable [phone] Allergies Allergen (clinical drug ingredient) Drug/Non Drug [...] Lab: Notes/Report: HEMOGLOBIN A1C % (HH) 6.0 HEMOGLOBIN A1C (GLYCOHEMOGLO BIN) Reviewed date:12/09/2024 11:51:29 AM Interpretation: Performing Lab: Notes/Report: HEMOGLOBIN A1C % (HH) 6.0 Reason For Referral No Information Medications Medication SIG (Take, Route, Frequency, Duration) Notes Start Date End Date Status Ofloxacin 0.3 % Ophthalmic; Duration : 25 Days Not-Taking Extra Depth Orthopedic Shoes (1 Pair) with Customized Heat Molded Multidensity Innersoles (3 Pair) Dx: NIDDM/Polyneuropathy (E11.42), Hammertoe Foot Deformity (M20.41,M20.42), Preulcerative Skin Lesion(s) (L85.1); Duration: 365 days 09/12/2024 Active Mirian Allergy Not- Taking Flovent Diskus Not-T aking FreeStyle InsuLinx Test Not-Taking Flunisolide Not-Taki ng Probiotic PRN Not-Taking Claritin PRN Not-Taking Singulair Not-Taking ASA Not-Taking Singulair Active Qvar Active Ranitidine Not-Takin g Lorazepam as needed Not-Taking Vitamin D3 25 MCG (1000 UT) 1 tablet Orally Once a day Active Omeprazole Not-Takin g Flonase Sensimist 27.5 MCG/SPRAY 2 sprays (1 spray in each nostril) Nasally Once a day Not-Taking Omeprazole 20 MG 1 capsule 30 minutes before morning meal Orally Once a day Active Advil PRN Active Atorvastatin Calcium Active metFORMIN HCl ER 500 MG Orally Active ProAir HFA Active Aspirin Active Claritin Active Ketorolac Tromethamine 0.5 % Ophthalmic; Duration: 25 Days Not-Taking Immunizations Vaccine Route Administration Date Status [...] Problem Acquired hammer toe of right foot (2259597514327401 ) Other hammer toe(s) (acquired), right foot (M20.41) Active confirmed Response to treatment, Improvemen t Problem Acquired hammer toe of left foot (6317555785752513 ) Other hammer toe(s) (acquired), left foot (M20.42) Active confirmed Response to treatment, Improvemen t Problem Polyneuropathy due to type 2 diabetes mellitus (377586645) Type 2 diabetes mellitus with diabetic polyneuropathy (E11.42) Active confirmed Vital Signs Blood pressure diastolic 60 mm Hg 12/09/2024 Height 5ft 6in in 12/09/2024 Blood pressure systolic 126 mm Hg 12/09/2024 Weight 157 lbs 12/09/2024 BMI 25.34 kg/m2 12/09/2024 Procedures Procedure Date Ordered Date Performed Result Body Sit e 58183-FIVOIYD NAIL, 6 OR MORE 01/15/2024 N/A 84716-CNKU SKIN LESIONS, OVER 4 01/15/2024 N/A 23576-WUAUFIB NAIL, 6 OR MORE 04/01/2024 N/A 68017-LKHA SKIN LESIONS, OVER 4 04/01/2024 N/A 94275- Ganglion Cyst Injection/Aspiration 04/01/2024 N/A 30600-QNCYFMQ NAIL, 6 OR MORE 06/13/2024 N/A 35100-QBFA SKIN LESIONS, OVER 4 06/13/2024 N/A - Ganglion Cyst Injection/Aspiration 07/25/2024 N/A 94365-EJXOVTI NAIL, 6 OR MORE 09/12/2024 N/A 61132-ELEZ SKIN LESIONS, OVER 4 09/12/2024 N/A 17998-FSRMQWI NAIL, 6 OR MORE 12/09/2024 N/A 90777-OIFU SKIN LESIONS, OVER 4 12/09/2024 N/A Encounters Encounter Location Date Provider Diagnosis [address] [address] 01/15/2024 Nj Sales Type 2 diabetes mellitus with diabetic polyneuropathy E11.42 and Tinea unguium B35.[address] [address] 04/01/2024 Njkrystal Sales Type 2 diabetes mellitus with diabetic polyneuropathy E11.42 ; Tinea unguium B35.1 and Ganglion of foot, right M67.[address] [address] 06/13/2024 Nj Sales Type 2 diabetes mellitus with diabetic polyneuropathy E11.42 and Tinea unguium B35.[address] [address] 07/25/2024 Nj Sales Ganglion of foot, right M67.[address] [address] 09/12/2024 Nj Sales Type 2 diabetes mellitus with diabetic polyneuropathy E11.42 ; Tinea unguium B35.1 ; Other hammer toe(s) (acquired), right foot M20.41 and Other hammer toe(s) (acquired), left foot M20.[address] [address] 12/09/2024 Nj Sales Type 2 diabetes mellitus [...] E11.42) 09/12/2024 Tinea unguium (ICD-10 - B35.1) 12/09/2024 Type 2 diabetes mellitus with diabetic polyneuropathy (ICD-10 - E11.42) 12/09/2024 Tinea unguium (ICD-10 - B35.1) 09/12/2024 Other hammer toe(s) (acquired), right foot (ICD-10 - M20.41) Patient Educated with: DIABETIC FOOT CARE INSTRUCTIONS. pdf (DIABETIC FOOT CARE INSTRUCTIONS. pdf) 04/01/2024 Ganglion of foot, right (ICD-10 - M67.471) 09/12/2024 Other hammer toe(s) (acquired), left foot (ICD-10 - M20.42) 01/15/2024 Other 04/01/2024 Other 06/13/2024 Other Plan Of Treatment Pending Test Test Name Order Date 85986-VQAVYTN NAIL, 6 OR MORE 05/11/2015 61678-QNFMTRG NAIL, 6 OR MORE 05/14/2018 26574-GJHQFJK NAIL, 6 OR MORE 09/10/2018 30177-USDOWEG NAIL, 6 OR MORE 12/03/2018 98145-ORSZYPD NAIL, 6 OR MORE 02/11/2019 41097-MVFJEDY NAIL, 6 OR MORE 04/15/2019 69637-YZVAKOQ NAIL, 6 OR MORE 09/09/2019 99413-KIXQRFC NAIL, 6 OR MORE 11/18/2019 40245-AWHSCCY NAIL, 6 OR MORE 05/07/2020 85295-NRMVJIJ NAIL, 6 OR MORE 07/16/2020 67247-ETPTMQP NAIL, 6 OR MORE 09/24/2020 54075-OGTTCIA NAIL, 6 OR MORE 12/17/2020 63173-PUBALML NAIL, 6 OR MORE 05/06/2021 25582-IHZRMKX NAIL, 6 OR MORE 07/08/2021 09424-OFMGKLJ NAIL, 6 OR MORE 09/20/2021 34408-UGZDHQB NAIL, 6 OR MORE 11/25/2021 27988-NNZTDUD NAIL, 6 OR MORE 03/10/2022 02448-XOZXMRO NAIL, 6 OR MORE 05/12/2022 47695-LFCKTTL NAIL, 6 OR MORE 08/04/2022 80848-MOQVUGH NAIL, 6 OR MORE 10/10/2022 19961-TRDJBDO NAIL, 6 OR MORE 12/19/2022 15321-SKZNHSM NAIL, 6 OR MORE 03/06/2023 12770-MHQFARF NAIL, 6 OR MORE 05/18/2023 96125-DLLLPZG NAIL, 6 OR MORE 08/08/2023 36989-WVSUHUT NAIL, 6 OR MORE 10/23/2023 80351-CLFUWAT NAIL, 6 OR MORE 01/15/2024 64830-ACYRCHR NAIL, 6 OR MORE 04/01/2024 27763-FSUNHDJ NAIL, 6 OR MORE 06/13/2024 16909-AZSZPJV NAIL, 6 OR MORE 09/12/2024 28290-TUUTHRN NAIL, 6 OR MORE 12/09/2024 21348-Qmvs Destruction, 1-14 08/24/2022 43228-Psnh Destruction, 1-14 10/10/2022 86437- Debride <25 sq cm 10/08/2015 76839- Debride <25 sq cm 05/12/2016 35499-NKGLDNR SKIN/TISSUE 05/12/2016 69811-UGYRPSX SKIN/TISSUE 10/08/2015 54692-IYRUZUM SKIN/TISSUE 09/24/2015 85293-TWET SKIN LESIONS, OVER 4 10/11/19 23 66152-WEGZ SKIN LESIONS, OVER 4 12/20/19 35737-CPTY SKIN LESIONS, OVER 4 08/05/19 83341-VCGG SKIN LESIONS, OVER 4 05/13/19 23 24218-QOTR SKIN LESIONS, OVER 4 03/10/19 23 67143-NUQC SKIN LESIONS, OVER 4 09/13/19 89903-RPJX SKIN LESIONS, OVER 4 06/14/19 47128-IWCN SKIN LESIONS, OVER 4 04/01/19 14589-AHBA SKIN LESIONS, OVER 4 01/15/20 24 37925-UXIX SKIN LESIONS, OVER 4 10/23/19 00956-XKHD SKIN LESIONS, OVER 4 08/08/19 10546-NUAB SKIN LESIONS, OVER 4 05/18/19 24 99495-LXBZ SKIN LESIONS, OVER 4 03/06/19 24 12651-IVWL SKIN LESIONS, OVER 4 12/10/19 44813-OKJP SKIN LESIONS, 2 TO 4 11/26/19 18684-FXRC SKIN LESIONS, 2 TO 4 09/21/19 73776-SWDO SKIN LESIONS, 2 TO 4 02/12/20 35478-GTAN SKIN LESIONS, 2 TO 4 12/04/19 20171-BIJF SKIN LESIONS, 2 TO 4 09/11/19 25217-PYGE SKIN LESIONS, 2 TO 4 05/15/19 29476-BKYI SKIN LESIONS, 2 TO 4 07/09/19 90860-ENCZ SKIN LESIONS, 2 TO 4 05/07/19 24645-ZVER SKIN LESIONS, 2 TO 4 12/18/19 29848-KWUB SKIN LESIONS, 2 TO 4 09/25/19 61646-FFJD SKIN LESIONS, 2 TO 4 07/17/19 77312-QRQB SKIN LESIONS, 2 TO 4 05/08/19 51532-QTUW SKIN LESIONS, 2 TO 4 09/09/19 20052-ZWWT SKIN LESIONS, 2 TO 4 11/18/19 95383-RCTG SKIN LESIONS, 2 TO 4 04/15/19 94523- Removal of Foreign Body, Subcut 0 10/10/2022 74386- Ganglion Cyst Injection/Aspiratio n 08/08/2023- Ganglion Cyst Injection/Aspiratio n 10/23/2023- Ganglion Cyst Injection/Aspiratio n 04/01/2024- Ganglion Cyst Injection/Aspiratio n 07/25/202482083- Ganglion Cyst Injection/Aspiratio n 08/17/202081028- Ganglion Cyst Injection/Aspiratio n 06/11/2018 77215- Ganglion Cyst Injection/Aspiratio n 11/05/201866505- Ganglion Cyst Injection/Aspiratio n 01/01/201955906- Ganglion Cyst Injection/Aspiratio n 05/12/201627882- Ganglion Cyst Injection/Aspiratio n 08/11/201675884- Ganglion Cyst Injection/Aspiratio n 03/09/201709084- Ganglion Cyst Injection/Aspiratio n 12/27/2017 Next Appt Details Provider Name:Nj Sales , 03/26/2025 02:45:00 PM, [address] [facility] [address], [place], [address], Insurance Providers Payer Name Payer Address Payer Phone Subscriber Number Group Number Insured Name Patient Relationship to Insured Coverage Start Date Coverage End Date Medicare National Govt [facility] [address] [place] [address] [id number] Fernando Lu Self - patient is the insured [address] [place] [address] [address] [place] [address] [phone] [id number] Fernando Lu Self - patient is the [...] 11/25/2018 dental implant Hospitalization History Reason Date(Month/Year[place] [facility] [place]12[place]
--- OUTSIDE RECORDS SUMMARY | 2024-12-11 15:53 | XMS_ITS | Patient Health Record ---
Author Organization [facility] Address [address] [place] [address] Care Team Providers Care Land Acquisition Manager Name Role Phone Shelia Judge MD Primary Care Provider Tyrone Mosley Unavailable [phone] Allergies Allergen (clinical drug ingredient) Drug/Non Drug [...] with ev ening meal Orally Once a day; Duration: 30 day(s) Active Loratadine 10 MG 1 tablet Orally Once a day; Duration: 30 day(s) Active Omeprazole 20 MG TAKE 1 CAPSULE BY [facility] EVERY MORNING; Duration: 90 Active Atorvastatin Calcium 40 MG 1 [...] W/U Status Risk Notes Problem Esophageal reflux (096807409) Esophageal reflux (K21.9) Active confirmed Problem Screening for malignant neoplasm of colon (202377261) Encounter for screening for malignant neoplasm of colon (Z12.11) Active confirmed Problem Zacarias's esophagus (048436106) 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) Active confirmed Problem Elevated liver enzymes level (098382855) Elevated liver function tests (R79.89) Active confirmed Problem Gastroesophageal reflux disease without esophagitis (922928594) Gastroesophageal reflux disease without esophagitis (K21.9) Active confirmed Problem Fatty liver (799023472) Fatty liver (K76.0) Active confirmed Problem Gastroesophageal reflux disease (147924082) Gastroesophageal reflux disease, esophagitis presence not specified (K21.9) Active confirmed Problem Long-term current use of antiplatelet drug (092748381572190) Long-term use of aspirin therapy (Z79.82) Active confirmed Problem Zacarias esophagus (474589170) Zacarias esophagus (K22.70) Active confirmed Problem Pre-procedure evaluation check (505015879) Pre-procedural examination (Z01.818) Active confirmed Problem Gastroesophageal reflux disease (144402876) GERD without esophagitis (K21.9) Active confirmed Problem Secondary hypertension (60633450) Secondary hypertension (I15.9) Active confirmed Problem Zacarias's esophagus (779607718) Zacarias''s esophagus without dysplasia (K22.70) Active confirmed Plan Of Treatment Future Test Test Name Order Date COLONOSCOPY 07/12/2016 UPPER GI ENDOSCOPY 05/03/2018 UPPER GI ENDOSCOPY 10/24/2021 Next Appt Details Provider Name:Tyrone Norman , 03/19/2025 10:20:00 AM, [address], [address], [place], [address], Insurance Providers Payer Name Payer Address Payer Phone Subscriber Number Group Number Insured Name Patient Relationship to Insured Coverage Start Date Coverage End Date MEDICARE OF [place] [address] [place] [address] [id number] KANE CASTILLO Self - patient is the insured [facility] [address] [place] [address] [id number] KANE CASTILLO Self - patient is the insured Medical (General) History Medical History History ICD Code NIDDM Prostate cancer--2014-surgery as below Denies CA,CVA,renal disease Asthma Hyperlipidemia Colonoscopy 10/2016-one hyper plastic [...]
== END ==
LOC: HO.CARD 12:44
PROVIDERS: PCP Internal Medicine; Visit Provider Internal Medicine Cardiovascular Disease
DX: I35.0 Nonrheumatic aortic (valve) stenosis (principal)
CPT/HCPCS: 93306

== ENCOUNTER → 2024-12-11 12:48 | Outpatient (BNV) | payer MEDICARE, OTHER, SELFPAY | PROVIDERS: PCP Internal Medicine; Visit Provider Internal Medicine Cardiovascular Disease | DX: I35.0 Nonrheumatic aortic (valve) stenosis (principal) | CPT/HCPCS: 93306 ==